=== PATIENT | male | born 1930 | race Caucasian/White ===

== ENCOUNTER 2016-03-30 11:06 | Inpatient (IN) | payer MEDICARE, OTHER ==
[~2016-03-30] VITALS: Ht 182.9 cm; Wt 89.0 kg
[~2016-03-30 11:06] MED LIST: ACET-171 PO; CALC600T12 PO; CHOL10008 PO; CYAN-2 SL; GARL500C PO; KEN1O TOP; LTRS15C EXT; OMEP20CA11 PO; PYRI60TA2 PO
[2016-03-30 11:13] VITALS: BP 133/72; PULSE 76; O2SAT 96
--- NOTE | 2016-03-30 12:15 | ED.REPORT ---
HPI-Dyspnea / Wheezing Date of Service Mar 30, 2016 ED Provider: Mathieu Brannon DO An 85 year old male with a history of Myasthenia gravis, CHF, leukemia and anemia presents to the ED complaining of SOB that began earlier today. Patient has also been experiencing increased fatigue for the past few months. Patient was recently seen at [facility] on 03/14/2016 for pneumonia. His right eyelid droop is chronic. Patient denies any recent weakness, dysphasia, dysarthria, diplopia , or any new motor deficits. Nursing Notes Stated Complaint: SOB Chief Complaint: Respiratory Distress Nursing Notes Reviewed: Yes Allergies: Coded Allergies: Penicillins (Verified Allergy, Severe, SWELLING WITH BLISTERS, 05/04/12) Sulfa (Sulfonamide Antibiotics) (Verified Allergy, Severe, RASH, 05/04/12) cedarwood (Verified Allergy, Severe, RASH, 05/04/12) ketoconazole (Verified Allergy, Severe, RASH, 05/04/12) Cephalosporins (Verified Allergy, Unknown, UNKNOWN, 05/04/12) trimethoprim (Verified Allergy, Unknown, UNKNOWN, 05/04/12) Scheduled Calcium Carbonate (Calcium) 600 Mg Tablet 600 MG PO BID Cholecalciferol (Vitamin D3) (Vitamin D3) 1,000 Unit Tab.chew 1,000 UNIT PO DAILY Cyanocobalamin (Vitamin B-12) (B-12) 1,000 Mcg/Ml Drops 1,000 MCG SL DAILY Garlic (Garlic) 500 Mg Capsule 500 MG PO DAILY Omeprazole (Omeprazole) 20 Mg Capsule.dr 20 MG PO BID Pyridostigmine Ida (Mestinon) 60 Mg Tablet 60 MG PO QID Triamcinolone Acet (Triamcinolone Acetonide Ointment) 1 Applic/0.25 Gm Oint 60 APPLIC TOP BID Scheduled PRN Acetaminophen (Acetaminophen) 500 Mg Tablet 1,000 MG PO Q6H PRN PRN For Pain Betamethasone/Clotrimazole (Lotrisone Cream) 60 Applic/15 Gm Cream 60 APPLIC EXT BID PRN PRN For Itching General Time Seen by MD: 11:31 Chief Complaint Shortness of breath Hx Obtained From: Patient Arrived By: Walk-in Sudden in Onset?: No Onset Occurred: Yesterday Symptom Duration: Since onset Location: : None Associated with: Reports: Leg swelling Pertinent Negative: Pt denies other symptoms Recent Healthcare: Recent doctor visit, Recent hospitalization Past Medical History Past Medical History 1. Myasthenia gravis 2. Lymphocytic leukemia 3. CHF 4. Leukocytosis 5. Osteopenia 6. Gynecomastia 7. Anemia 8. Refux Esophagitis 9. Hypothyroidism 10. Atrial fibrillation 11. Arthritis Past Surgical History Menisectomy Right and left shoulder impingement Blood transfusion Smoking History Former Smoker Social History Other Social History: Good social support, , Local resident Ambulatory Status Independent Review of Systems Constitutional: Reports: Fatigue, Denies: Chills, Fever, Weakness - generalized Respiratory: Reports: Dyspnea on exertion, Shortness of breath Cardiovascular: Denies: Chest pain Complete sys rev & neg: except as marked. Eyes: Denies: Blurred bilateral GI: Denies: Abdominal pain, Nausea, Vomiting Neurologic: Denies: Change LOC, Problem walking, Slurred speech, Unable to speak, Vision change, Weakness Physical Exam Initial Vital Signs Vital Signs (First) Date Time Temp Pulse Resp B/P Pulse Ox O2 Delivery O2 Flow Rate FiO2 03/30/16 11:13 36.1 76 133/72 96 Room Air Initial VS: Reviewed Skin: Warm, Dry, No cyanosis Neurologic: Alert, Oriented, Nonfocal General/Constitutional: Awake, Alert Neck: Atraumatic, Supple Respiratory / Chest: Atraumatic, Breath sounds NL, Breath sounds = bilat Cardiovascular: Heart rate NL, Regular rhythm, Heart sounds NL Abdomen: Atraumatic, Soft, Non-tender Lower Extremity / Pelvis / MS: Atraumatic, Neurologic intact, Vascular intact, No edema LOWER EXTREMITITES: Unilateral left leg swelling Head / Eyes: Atraumatic, Normocephalic HEAD/EYES: irregular right eyelid ptosis Upper Extremity / MS: Atraumatic, Neurologic intact, Vascular intact Psychiatric: Affect NL, Mood NL Interpretation & Diagnostics ANGIOGRAPHY CT with IV contrast Read by Radiology IMPRESSION: No evidence of pulmonary embolism. Small to moderate bilateral pleural effusions, with at least partially loculated appearance. Prominent mediastinal and periaortic lymphadenopathy, suspicious for metastatic involvement or lymphoma. Please correlate clinically. Additional bilateral axillary lymph nodes, more notable for number than size. Bilateral, multifocal consolidation involving the left upper lobe and right middle lobe suggesting pneumonia. Please correlate clinically and recommend CT in 3 months to exclude the possibility of underlying abnormal soft tissue/ neoplasm. Dictated by: Arvind Maradiaga M.D. on 03/30/2016 at 14:12 Lab Results Interpretation Result Diagram: 03/30/16 1200 03/30/16 1200 Test 03/30/16 12:00 03/30/16 12:56 White Blood Count 43.7th/mm3 (3.8-10.1) Red Blood Count 2.13mil/mm3 (4.40-5.80) Hemoglobin 8.0g/dL (13.8-17.2) Hematocrit 25.0% (41.0-50.0) Mean Corpuscular Volume 117.4fL (81-100) Mean Corpuscular Hemoglobin 37.6pg (27.0-35.0) Mean Corpuscular Hemoglobin Concent 32.0% (32.0-37.0) Red Cell Distribution Width 19.8% (12.3-15.4) Platelet Count 52bil/L (150-400) Neutrophils (%) (Auto) 1.0% (40-74) Lymphocytes (%) (Auto) 97.6% (14-46) Monocytes (%) (Auto) 1.3% (4-12) Eosinophils (%) (Auto) 0% (0-5) Basophils (%) (Auto) 0.1% (0-3) Prothrombin Time 11.1sec (8.1-12.5) Prothromb Time International Ratio 1.04ratio D-Dimer 2.0mg/L (<0.50) Sodium Level 139mEq/L (134-144) Potassium Level 4.6mEq/L (3.5-5.2) Chloride Level 104mEq/L (97-108) Carbon Dioxide Level 25mmol/L (18-29) Blood Urea Nitrogen 18mg/dL (8-27) Creatinine 0.63mg/dL (0.76-1.27) Estimat Glomerular Filtration Rate 129mL/min (>59) Glucose Level 99mg/dL (60-99) Calcium Level 8.7mg/dL (8.5-10.1) Magnesium Level 1.8mg/dL (1.6-2.6) Total Bilirubin 1.9mg/dL (0.0-1.2) Aspartate Amino Transf (AST/SGOT) 13U/L (0-50) Alanine Aminotransferase (ALT/SGPT) 5U/L (0-44) Alkaline Phosphatase 59U/L (25-160) Troponin T < 0.010ug/L (0.0-0.011) Pro-B-Type Natriuretic Peptide 2687pg/mL (0-486) Total Protein 6.3g/dL (6.4-8.4) Albumin 3.5g/dL (3.4-5.0) Hold Layton Top Tube Received (Received) ECG Interpretation ECG Interpretation: Atrial fibrillation Rate 70 Time: 12:09 Interpreted by: ED physician X-Ray Chest Interpretation Chest Xray Interpretation: IMPRESSION: Improved left pleural fluid. Unchanged small right pleural effusion with adjacent atelectasis. Recommend continued followup. Dictated by: Arvind Maradiaga M.D. on 03/30/2016 at 14:18 Interpretation / Wet Read by: Interpret - Radiologist Re-Eval/Medical Decision Med Decision/Clinical Course I clearly multifactorial dyspnea but there is presence of pneumonia and probably CHF with bilateral pleural effusions. Patient will be started on broad-spectrum antibiotics given recent antibiotic use as well as active present cancer. He will be admitted. Re-Evaluation/Progress #1: Time of Eval: 12:51 Patient Status: Condition improved Re-Evaluation/Progress Note: Patient is rechecked. He is informed of his lab results, EKG results and diagnosis. All of the patient's questions are addressed. He understands and agrees with the treatment plan. Re-Evaluation/Progress #2: Time of Eval: 12:56 Patient Status: Condition improved Re-Evaluation/Progress Note: Patient is rechecked. NIF Meter: NIF -34 Re-Evaluation/Progress #3: Time of Eval: 14:31 Patient Status: Condition improved Re-Evaluation/Progress Note: Patient is rechecked. All of the patient's questions are addressed. He understands and agrees with the treatment plan to admit. Re-Evaluation/Progress #4: Time of Eval: 15:54 Patient Status: Condition improved Re-Evaluation/Progress Note: Patient is rechecked. Code status is discussed. Patient would like to be full code. Consultation : Referral / Consult Name: Danette Myrick MD Consulted With: Hospitalist Call Returned at: 15:47 Pharmaceutical Salesperson: Will see patient, Agrees with eval, Agrees with plan, Accepts admit Counseled Regarding: Diagnosis, Lab results, Need for admission Discharge & Departure Impression: Primary Impression: Pneumonia Pneumonia type: due to unspecified organism Laterality: bilateral Lung location: unspecified part of lung Qualified Code: J18.9 - Pneumonia, unspecified organism Disposition: ADMITTED TO HOSPITAL Discharge Condition All VS Reviewed: Yes Condition: Stable Referrals: Lorenzo Lombardo MD (PCP) Scribe Attestation Portions of this note were transcribed by Jesús Jernigan. I, Dr. Brannon personally performed the history, physical exam and medical decision-making; I reviewed and confirmed the accuracy of the information in the transcribed note. Signed by: Jesús Jernigan, 03/30/16, 1549. copies to: Lorenzo Lombardo MD, Timothy S DO Mar 30, 2016 12:15 JESÚS JERNIGAN Mar 30, 2016 12:53
[2016-03-30 12:32] LABS: BASOPHILS % (AUTO) 0.1 % (0-3); EOSINOPHILS % (AUTO) 0 % (0-5); MONOCYTES % (AUTO) 1.3 % (4-12); Mean Corpuscular Hemoglobin 37.6 pg (27.0-35.0); Mean Corpuscular Volume 117.4 fL (81-100); Platelet Count 52 bil/L (150-400)
[2016-03-30 12:58] LABS: INR 1.04 ratio
[2016-03-30 13:08] LABS: TROPONIN T < 0.010 ug/L (0.0-0.011)
[2016-03-30 13:15] LABS: Magnesium 1.8 mg/dL (1.6-2.6)
--- NOTE | 2016-03-30 14:14 | DRSVH ---
PROCEDURE: CT ANGIO CHEST PULMONARY EMBOLISM ([id number]) INDICATIONS: dyspnea, elevated ddimer, active Cancer TECHNIQUE: After the administration of intravenous contrast, 2 mm thick sections acquired from the pulmonary api sirisha to the posterior costophrenic angles. 3-dimensional maximum intensity projection (MIP) coronal a nd sagittal reformats were then acquired through the thorax. For radiation dose reduction, the follo wing was used: automated exposure control, adjustment of mA and/or kV according to patient size. COMPARISON: [facility] [place], CT, ABD/PELVIS W/CON (PNL), 06/23/2015, 10:06. [facility], CT, CHEST WITH CONTRAST, 11/29/2011, 8:50. FINDINGS: Image quality: Excellent. Pulmonary arteries: Pulmonary arteries are normal in size, and demonstrate no intraluminal filling d efects to suggest central pulmonary embolism. Lungs and pleura: Small-moderate bilateral pleural effusions with adjacent atelectasis. The pleural f luid may be partially loculated. Multifocal consolidation within the left upper lobe. Additional cons olidation within the right middle lobe image 39. Mediastinum: Heart is enlarged. Thoracic aorta and great vessels grossly unremarkable. Enlarged subca rinal lymph node measuring 2.5 x 2.8 cm. Additional enlarged right hilar and mediastinal lymphadenopa thy. There are right para-aortic lymph nodes which are also mildly enlarged. Bones and chest wall: Thyroid unremarkable. Shotty bilateral axillary lymph nodes, more notable for n umber than size. Abdomen: Visualized upper abdominal solid organs appear normal in the early arterial phase of enhanc ement. Subcentimeter scattered sclerotic foci in the thoracic spine, technically indeterminate. IMPRESSION: No evidence of pulmonary embolism. Small to moderate bilateral pleural effusions, with at least partially loculated appearance. Prominent mediastinal and periaortic lymphadenopathy, suspicious for metastatic involvement or lympho ma. Please correlate clinically. Additional bilateral axillary lymph nodes, more notable for number t polo size. Bilateral, multifocal consolidation involving the left upper lobe and right middle lobe suggesting pn eumonia. Please correlate clinically and recommend CT in 3 months to exclude the possibility of under lying abnormal soft tissue/neoplasm. Dictated by: Arvind Maradiaga M.D. on 03/30/2016 at 14:12 Approved by: Arvind Maradiaga M.D. on 03/30/2016 at 14:12
--- NOTE | 2016-03-30 14:20 | DRSVH ---
PROCEDURE: X-RAY CHEST ONE VIEW, PORTABLE ([id number]) INDICATIONS: dyspnea TECHNIQUE: One view of the chest was acquired. COMPARISON: [facility], CR, XR CHEST 2VW, 03/19/2016, 11:38. FINDINGS: Surgical changes and devices: None. Lungs and pleura: Small left pleural effusion has improved. Unchanged right pleural effusion. No pneu mothorax. Diffuse scarring/atelectasis as before. Mediastinum: Mediastinal contours appear normal. Heart size is normal. Bones and chest wall: No suspicious bony lesions. Overlying soft tissues appear unremarkable. IMPRESSION: Improved left pleural fluid. Unchanged small right pleural effusion with adjacent atelectasis. Recommend continued followup. Dictated by: Arvind Maradiaga M.D. on 03/30/2016 at 14:18 Approved by: Arvind Maradiaga M.D. on 03/30/2016 at 14:18
[2016-03-30] MEDS ORDERED: levoFLOXacin Inj 750 MG in IV Premix 1 EACH IV ONE (14:35)
[2016-03-30] MEDS ORDERED: Meropenem Inj 1,000 MG in IV Premix 1 EACH IV ONE (14:35)
[2016-03-30] MEDS ORDERED: Alum-Mag Hydrox-Simeth 30 mL Suspension PO PRN (16:00)
[2016-03-30] MEDS ORDERED: Ondansetron 2 mg/mL 2 mL Inj IVPUSH PRN (16:00)
[2016-03-30 16:30] VITALS: BP 161/76; PULSE 77; RESP 18; O2SAT 95
[2016-03-30 17:23] LABS: APPEARANCE,URINE CLEAR (CLEAR,HAZY); COLOR,URINE YELLOW (YELLOW); OCCULT BLOOD,URINE TRACE (NEGATIVE); PH,URINE 6.5 (5.0-8.0); UROBILINOGEN,URINE NORMAL (NORMAL)
[2016-03-30] MEDS ORDERED: Polyethylene Glycol (PEG) 17 Gm Powder PO PRN (18:50)
[2016-03-30] MEDS ORDERED: Furosemide 10 mg/mL 2 mL Inj IVPUSH ONE (19:05)
--- NOTE | 2016-03-30 19:07 | PCM.HPMED ---
Subjective Date of Service Mar 30, 2016 Primary Provider: Admitting Physician: Danette Myrick MD Primary Care Physician: Lorenzo Lombardo MD Attending Physician: Danette Myrick MD Admit Status: From the Emergency Department Chief Complaint: Shortness of breath beginning yesterday and becoming quite severe today. History of Present Illness: This is a chronically ill 85-year-old male who last was treated for pneumonia about 3 weeks ago at [facility] on an outpatient basis. He apparently did well until yesterday when he noticed mild shortness of breath and then this morning it became quite disturbing. There is been no fever, chills, sweats, chest pain. He does have a mild cough. He has a history of CLL with chronically elevated white blood count and hemoglobin last measured at 7.8. His hemoglobin today is 8.0 and his BNP is above 2600. He also has myasthenia gravis apparently only with the ocular component. His only additional complaint is progressive fatigue now for several months. Review of Systems: Positive for shortness of breath, fatigue, cough, hearing loss. Negative for chest pain, joint pain, nausea, vomiting, diarrhea, bleeding, rash, seizures, headache, depression, new allergies, abdominal pain. Allergies Coded Allergies: Penicillins (Verified Allergy, Severe, SWELLING WITH BLISTERS, 05/04/12) Sulfa (Sulfonamide Antibiotics) (Verified Allergy, Severe, RASH, 05/04/12) cedarwood (Verified Allergy, Severe, RASH, 05/04/12) ketoconazole (Verified Allergy, Severe, RASH, 05/04/12) Cephalosporins (Verified Allergy, Unknown, UNKNOWN, 05/04/12) trimethoprim (Verified Allergy, Unknown, UNKNOWN, 05/04/12) Home Medications Mestinon PMH Congestive heart failure Hypothyroidism Chronic anemia of CLL Myasthenia gravis ocular Chronic lymphocytic leukemia Recurrent pneumonia Family History Reviewed and noncontributory to this admission. Social History Hx Alcohol Use: No Hx Substance Use: No Smoking Status: Former Smoker Additional Information His physician is Dr. Eric Oh. His oncologist is Dr. Gama. Exam Vital Signs Vital Sign - Last Date Time Temp Pulse Resp B/P Pulse Ox O2 Delivery O2 Flow Rate FiO2 03/30/16 16:30 36.5 77 18 161/76 95 Room Air Exam He is alert and oriented without apparent distress. He is hard of hearing. Pupils are equally round and reactive to light and accommodation Extraocular muscles are intact Sclera are pink and nonicteric Throat looks normal No lymph nodes are felt head, neck, supraclavicular area No thyromegaly JVD is less than 6 cm There is no carotid bruits heard Heart is regular rate and rhythm without murmur Lungs are clear to auscultation bilaterally Abdomen soft bowel sounds are positive without organomegaly or tenderness. There is no ankle edema Skin he is bald. There are multiple bruises and discoloration of his ankles. Neuro exam notable for normal reflexes, no tremor, cranial nerves II through XII tested intact, motor function 4 out of 5 throughout. Lab and Diagnostics Labs Laboratory Tests 72 Hours Test 03/30/16 12:00 03/30/16 12:56 03/30/16 16:30 White Blood Count 43.7th/mm3 (3.8-10.1) Red Blood Count 2.13mil/mm3 (4.40-5.80) Hemoglobin 8.0g/dL (13.8-17.2) Hematocrit 25.0% (41.0-50.0) Mean Corpuscular Volume 117.4fL (81-100) Mean Corpuscular Hemoglobin 37.6pg (27.0-35.0) Mean Corpuscular Hemoglobin Concent 32.0% (32.0-37.0) Red Cell Distribution Width 19.8% (12.3-15.4) Platelet Count 52bil/L (150-400) Neutrophils (%) (Auto) 1.0% (40-74) Lymphocytes (%) (Auto) 97.6% (14-46) Monocytes (%) (Auto) 1.3% (4-12) Eosinophils (%) (Auto) 0% (0-5) Basophils (%) (Auto) 0.1% (0-3) Prothrombin Time 11.1sec (8.1-12.5) Prothromb Time International Ratio 1.04ratio D-Dimer 2.0mg/L (<0.50) Sodium Level 139mEq/L (134-144) Potassium Level 4.6mEq/L (3.5-5.2) Chloride Level 104mEq/L (97-108) Carbon Dioxide Level 25mmol/L (18-29) Blood Urea Nitrogen 18mg/dL (8-27) Creatinine 0.63mg/dL (0.76-1.27) Estimat Glomerular Filtration Rate 129mL/min (>59) Glucose Level 99mg/dL (60-99) Calcium Level 8.7mg/dL (8.5-10.1) Magnesium Level 1.8mg/dL (1.6-2.6) Total Bilirubin 1.9mg/dL (0.0-1.2) Aspartate Amino Transf (AST/SGOT) 13U/L (0-50) Alanine Aminotransferase (ALT/SGPT) 5U/L (0-44) Alkaline Phosphatase 59U/L (25-160) Troponin T < 0.010ug/L (0.0-0.011) Pro-B-Type Natriuretic Peptide 2687pg/mL (0-486) Total Protein 6.3g/dL (6.4-8.4) Albumin 3.5g/dL (3.4-5.0) Hold Layton Top Tube Received (Received) Urine Color Yellow (YELLOW) Urine Appearance Clear (CLEAR,HAZY) Urine pH 6.5 (5.0-8.0) Urine Specific [place] 1.010 (1.003-1.035) Urine Protein Negativemg/dL (NEG,TRACE) Urine Glucose (UA) Negativemg/dL (NEGATIVE) Urine Ketones Negativemg/dL (NEGATIVE) Urine Occult Blood Trace (NEGATIVE) Urine Nitrite Negative (NEGATIVE) Urine Bilirubin Negative (NEGATIVE) Urine Urobilinogen Normalmg/dL (NORMAL) Urine Leukocyte Esterase Negative (NEGATIVE) Urine RBC 0-2/hpf (0-2) Urine WBC 0-5/hpf (0-5) Urine Epithelial Cells Few/hpf (NONE-MOD) Urine Crystals None seen (NONE SEEN) Urine Bacteria Few/hpf (NONE-FEW) Urine Hyaline Casts None/lpf (NONE) Urine Granular Casts None seen (NONE SEEN) Urine Waxy Casts None seen (NONE SEEN) Urine Red Blood Cell Casts None seen (NONE SEEN) Urine White Blood Cell Casts None seen (NONE SEEN) Urine Mucus None seen (None Seen) Urine Trichomonas None seen (NONE SEEN) Urine Yeast None (NONE SEEN) Urinalysis Comment None Urine Culture Reflexed Not indicated Result Diagram: 03/30/16 1200 03/30/16 1200 X-Rays, CTs and MRIs CT ANGIO CHEST PULMONARY EMBOLISM ([id number]) INDICATIONS: dyspnea, elevated ddimer, active Cancer TECHNIQUE: After the administration of intravenous contrast, 2 mm thick sections acquired from the pulmonary apices to the posterior costophrenic angles. 3-dimensional maximum intensity projection (MIP) coronal and sagittal reformats were then acquired through the thorax. For radiation dose reduction, the following was used: automated exposure control, adjustment of mA and/or kV according to patient size. COMPARISON: [facility], CT, ABD/PELVIS W/CON (PNL), 06/23/2015, 10: 06. [facility], CT, CHEST WITH CONTRAST, 11/29/2011, 8:50. FINDINGS: Image quality: Excellent. Pulmonary arteries: Pulmonary arteries are normal in size, and demonstrate no intraluminal filling defects to suggest central pulmonary embolism. Lungs and pleura: Small-moderate bilateral pleural effusions with adjacent atelectasis. The pleural fluid may be partially loculated. Multifocal consolidation within the left upper lobe. Additional consolidation within the right middle lobe image 39. Mediastinum: Heart is enlarged. Thoracic aorta and great vessels grossly unremarkable. Enlarged subcarinal lymph node measuring 2.5 x 2.8 cm. Additional enlarged right hilar and mediastinal lymphadenopathy. There are right para- aortic lymph nodes which are also mildly enlarged. Bones and chest wall: Thyroid unremarkable. Shotty bilateral axillary lymph nodes, more notable for number than size. Abdomen: Visualized upper abdominal solid organs appear normal in the early arterial phase of enhancement. Subcentimeter scattered sclerotic foci in the thoracic spine, technically indeterminate. IMPRESSION: No evidence of pulmonary embolism. Small to moderate bilateral pleural effusions, with at least partially loculated appearance. Prominent mediastinal and periaortic lymphadenopathy, suspicious for metastatic involvement or lymphoma. Please correlate clinically. Additional bilateral axillary lymph nodes, more notable for number than size. Bilateral, multifocal consolidation involving the left upper lobe and right middle lobe suggesting pneumonia. Please correlate clinically and recommend CT in 3 months to exclude the possibility of underlying abnormal soft tissue/ neoplasm. Dictated by: Arvind Maradiaga M.D. on 03/30/2016 at 14:12 Approved by: Arvind Maradiaga M.D. on 03/30/2016 at 14:12 Additional Diagnostics: X-RAY CHEST ONE VIEW, PORTABLE ([id number]) INDICATIONS: dyspnea TECHNIQUE: One view of the chest was acquired. COMPARISON: [facility], CR, XR CHEST 2VW, 03/19/2016, 11:38. FINDINGS: Surgical changes and devices: None. Lungs and pleura: Small left pleural effusion has improved. Unchanged right pleural effusion. No pneumothorax. Diffuse scarring/atelectasis as before. Mediastinum: Mediastinal contours appear normal. Heart size is normal. Bones and chest wall: No suspicious bony lesions. Overlying soft tissues appear unremarkable. IMPRESSION: Improved left pleural fluid. Unchanged small right pleural effusion with adjacent atelectasis. Recommend continued followup. Dictated by: Arvind Maradiaga M.D. on 03/30/2016 at 14:18 Approved by: Arvind Maradiaga M.D. on 03/30/2016 at 14:18 Assessment & Plan Multifocal pneumonia -Continue triple coverage with vancomycin, Levaquin, ertapenem due to immunosuppression and recurrent pneumonia status. This will cover for potential of MRSA, pseudomonas, pneumococcal pneumonia. -Consider follow-up CT scan, to clarify possibility of neoplastic causes for the lung changes. Chronic lymphocytic leukemia -History follow up with Dr. Art in 2 days. -He has obvious thrombocytopenia, chronic anemia, leukocytosis, presumably close to baseline. Congestive heart failure -The BNP is elevated, and there is a pleural effusion. -Give Lasix tonight and recheck in the morning. -Repeat echocardiogram if not done recently. Ocular myasthenia gravis -Continue Mestinon at home doses. 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
--- NOTE | 2016-03-30 20:00 | NUR ---
Admission note Pt oriented to room/call light. He understands to call the nurse for any question or assistance. Pt has minimal cough. No noted dyspnea. Receiving IV abx for pneumonia. Reviewed care plan with pt and family members. Will cont to monitor.
[2016-03-30 21:36] VITALS: BP 140/62; PULSE 81; RESP 18; O2SAT 92
--- NOTE | 2016-03-30 21:36 | PCM.CONPHA ---
Subjective Shortness of breath beginning yesterday and becoming quite severe today. Objective Vital Signs Date Time Temp Pulse Resp B/P Pulse Ox O2 Delivery O2 Flow Rate FiO2 03/30/16 16:30 36.5 77 18 161/76 95 Room Air 03/30/16 11:13 36.1 76 133/72 96 Room Air Weight (Kilograms): 89.500 Height (Feet): 6 Height (Inches): 0.00 Test 03/30/16 12:00 03/30/16 12:56 03/30/16 16:30 White Blood Count 43.7th/mm3 (3.8-10.1) Red Blood Count 2.13mil/mm3 (4.40-5.80) Hemoglobin 8.0g/dL (13.8-17.2) Hematocrit 25.0% (41.0-50.0) Mean Corpuscular Volume 117.4fL (81-100) Mean Corpuscular Hemoglobin 37.6pg (27.0-35.0) Mean Corpuscular Hemoglobin Concent 32.0% (32.0-37.0) Red Cell Distribution Width 19.8% (12.3-15.4) Platelet Count 52bil/L (150-400) Neutrophils (%) (Auto) 1.0% (40-74) Lymphocytes (%) (Auto) 97.6% (14-46) Monocytes (%) (Auto) 1.3% (4-12) Eosinophils (%) (Auto) 0% (0-5) Basophils (%) (Auto) 0.1% (0-3) Prothrombin Time 11.1sec (8.1-12.5) Prothromb Time International Ratio 1.04ratio D-Dimer 2.0mg/L (<0.50) Sodium Level 139mEq/L (134-144) Potassium Level 4.6mEq/L (3.5-5.2) Chloride Level 104mEq/L (97-108) Carbon Dioxide Level 25mmol/L (18-29) Blood Urea Nitrogen 18mg/dL (8-27) Creatinine 0.63mg/dL (0.76-1.27) Estimat Glomerular Filtration Rate 129mL/min (>59) Glucose Level 99mg/dL (60-99) Calcium Level 8.7mg/dL (8.5-10.1) Magnesium Level 1.8mg/dL (1.6-2.6) Total Bilirubin 1.9mg/dL (0.0-1.2) Aspartate Amino Transf (AST/SGOT) 13U/L (0-50) Alanine Aminotransferase (ALT/SGPT) 5U/L (0-44) Alkaline Phosphatase 59U/L (25-160) Troponin T < 0.010ug/L (0.0-0.011) Pro-B-Type Natriuretic Peptide 2687pg/mL (0-486) Total Protein 6.3g/dL (6.4-8.4) Albumin 3.5g/dL (3.4-5.0) Hold [place] Top Tube Received (Received) Urine Color Yellow (YELLOW) Urine Appearance Clear (CLEAR,HAZY) Urine pH 6.5 (5.0-8.0) Urine Specific [place] 1.010 (1.003-1.035) Urine Protein Negativemg/dL (NEG,TRACE) Urine Glucose (UA) Negativemg/dL (NEGATIVE) Urine Ketones Negativemg/dL (NEGATIVE) Urine Occult Blood Trace (NEGATIVE) Urine Nitrite Negative (NEGATIVE) Urine Bilirubin Negative (NEGATIVE) Urine Urobilinogen Normalmg/dL (NORMAL) Urine Leukocyte Esterase Negative (NEGATIVE) Urine RBC 0-2/hpf (0-2) Urine WBC 0-5/hpf (0-5) Urine Epithelial Cells Few/hpf (NONE-MOD) Urine Crystals None seen (NONE SEEN) Urine Bacteria Few/hpf (NONE-FEW) Urine Hyaline Casts None/lpf (NONE) Urine Granular Casts None seen (NONE SEEN) Urine Waxy Casts None seen (NONE SEEN) Urine Red Blood Cell Casts None seen (NONE SEEN) Urine White Blood Cell Casts None seen (NONE SEEN) Urine Mucus None seen (None Seen) Urine Trichomonas None seen (NONE SEEN) Urine Yeast None (NONE SEEN) Urinalysis Comment None Urine Culture Reflexed Not indicated Assessment/Plan Assessment/Plan VANCOMYCIN DOSING PER PHARMACY THE PATIENT IS AN 85 YR OLD MALE RECEIVING VANCOMYCIN FOR PNEUMONIA; HE IS ALSO RECEIVING LEVAQUIN AND ERTAPENEM. HIS WHITE COUNT IS ELEVATED AT 43.7 BUT HE IS NOT FEBRILE OR SHOCKY . HE IS 72 INCHES TALL WITH A S CR OF 0.63 MG/DL AND ESTIMATED CRCL OF 77 ML/MIN. BASED ON PATIENT PARAMETERS VANCOMYCIN WILL BE DOSED AT 1500 MG EVERY 12 HOURS ( HE WAS GIVEN A DOSE OF 1250 MG ORDERED IN ED WHEN ARRIVED OF THE FLOOR) THE TARGET TROUGH IS TO BE 15-20 MCG/ML AND THE FIRST ONE WILL BE DRAWN PRIOR TO THE FOURTH DOSE ON 09 AT 0730. PHARMACY WILL FOLLOW DAILY AND ADJUST DOSE AND INTERVAL APPROPRIATE. THANK YOU FOR THE CONSULT IN THE CARE OF THIS PATIENT. Tameka Reagan RPH Mar 30, 2016 21:36
[2016-03-31 04:46] VITALS: BP 138/52; PULSE 84; RESP 16; O2SAT 93
[2016-03-31 06:12] LABS: BASOPHILS % (AUTO) 0 % (0-3); EOSINOPHILS % (AUTO) 0 % (0-5); MONOCYTES % (AUTO) 0 % (4-12); Mean Corpuscular Hemoglobin 38.1 pg (27.0-35.0); Mean Corpuscular Volume 115.2 fL (81-100); NEUTROPHILS % (AUTO) 2 % (40-74); Platelet Count 55 bil/L (150-400)
[2016-03-31] MEDS: Calcium Carbonate (Oyster Shell) 500 mg Tablet PO SCH ×2 (08:11→17:59)
[2016-03-31] MEDS: Ertapenem Inj 1,000 MG in 0.9% Sodium Chloride 50 ML IV SCH (08:12)
[2016-03-31] MEDS ORDERED: Influenza (Adult) Vaccine 0.5 mL Syringe IM ONE (08:30)
[2016-03-31] MEDS: Vancomycin Dose per Pharmacist XX SCH (08:30)
[2016-03-31] MEDS ORDERED: CYAN10008 PO (08:34)
[2016-03-31 10:20] VITALS: BP 140/76; PULSE 84; RESP 20; O2SAT 93
--- NOTE | 2016-03-31 11:12 | NUR ---
emesis Pt while in bathroom had one episode of emesis (undigested food) which he states "my breakfast just didn't agree with me". Denies any further nausea or need for antiemetic when offered. Pt reports SOB with exertion, O2 sats remain 93% on room air. Pt sitting in chair most of morning and SBA to bathroom and around room, steady gait. Pt states "It's a little easier to breathe when sitting up." IV antibiotics hung per orders. Call light in reach. Frequent rounding on pt. Care continues. Addendum: 03/31/16 at 1805 by JANINE ANDINO RN Denies any further nausea today. Tolerated lunch without difficulty and eating dinner now. Will continue to monitor. Call light in reach, frequent rounding. Care continues. Addendum: 03/31/16 at 1931 by JANINE ANDINO RN Call from medical office secretary stating family reported pt having SOB. Went to room to assess pt, pt slightly tachypneic but denies increase in SOB at this time. RR 24, O2 sats 98% on room air, report to oncoming shift RN Jessy at 1920. Care continues.
[2016-03-31] MEDS: levoFLOXacin Inj 750 MG in IV Premix 1 EACH IV SCH (14:02)
[2016-03-31 14:11] VITALS: BP 132/63; PULSE 70; RESP 21; O2SAT 91
--- NOTE | 2016-03-31 17:40 | PCM.PNMED ---
Subjective Date of Service Mar 31, 2016 Subjective says starting to feel better. denies any new issues/complaints Exam Vital Signs Vital Sign - Last Date Time Temp Pulse Resp B/P Pulse Ox O2 Delivery O2 Flow Rate FiO2 03/31/16 14:11 36.4 70 21 132/63 91 Room Air Intake and Output 03/30/16 03/30/16 03/31/16 Cumulative From/Thru 15:00 23:00 07:00 03/30/16 11:13 - 03/31/16 06:21 Intake Total 400 ml 400 ml Output Total 1150 ml 825 ml 1975 ml Balance -1150 ml -425 ml -1575 ml Intake Oral 400 ml 400 ml Output Urine Total 1150 ml 825 ml 1975 ml General: Alert, Cooperative, No Acute Distress Eyes: Scleral Anicteric Mouth: Mucous Membr Moist/[place] Neck: Supple Chest & Lungs: Chest Wall Normal, Coarse breath sounds (bilat) Cardiovascular: Regular Rate/Rhythm Abdomen: Non-tender, Non-distended, Normoactive bowel tones, Soft Extremities: No cyanosis/clubbing/edma bilat Neurological: Grossly Neurologically Intact, Normal Speech IVs and Medications Medications Reviewed: Medications were reviewed in detail Lab and Diagnostics Result Diagram: 03/31/16 0532 03/31/16 0532 X-Rays, CTs and MRIs CT ANGIO CHEST PULMONARY EMBOLISM ([id number]) INDICATIONS: dyspnea, elevated ddimer, active Cancer TECHNIQUE: After the administration of intravenous contrast, 2 mm thick sections acquired from the pulmonary apices to the posterior costophrenic angles. 3-dimensional maximum intensity projection (MIP) coronal and sagittal reformats were then acquired through the thorax. For radiation dose reduction, the following was used: automated exposure control, adjustment of mA and/or kV according to patient size. COMPARISON: [facility], CT, ABD/PELVIS W/CON (PNL), 06/23/2015, 10: 06. [facility], CT, CHEST WITH CONTRAST, 11/29/2011, 8:50. FINDINGS: Image quality: Excellent. Pulmonary arteries: Pulmonary arteries are normal in size, and demonstrate no intraluminal filling defects to suggest central pulmonary embolism. Lungs and pleura: Small-moderate bilateral pleural effusions with adjacent atelectasis. The pleural fluid may be partially loculated. Multifocal consolidation within the left upper lobe. Additional consolidation within the right middle lobe image 39. Mediastinum: Heart is enlarged. Thoracic aorta and great vessels grossly unremarkable. Enlarged subcarinal lymph node measuring 2.5 x 2.8 cm. Additional enlarged right hilar and mediastinal lymphadenopathy. There are right para- aortic lymph nodes which are also mildly enlarged. Bones and chest wall: Thyroid unremarkable. Shotty bilateral axillary lymph nodes, more notable for number than size. Abdomen: Visualized upper abdominal solid organs appear normal in the early arterial phase of enhancement. Subcentimeter scattered sclerotic foci in the thoracic spine, technically indeterminate. IMPRESSION: No evidence of pulmonary embolism. Small to moderate bilateral pleural effusions, with at least partially loculated appearance. Prominent mediastinal and periaortic lymphadenopathy, suspicious for metastatic involvement or lymphoma. Please correlate clinically. Additional bilateral axillary lymph nodes, more notable for number than size. Bilateral, multifocal consolidation involving the left upper lobe and right middle lobe suggesting pneumonia. Please correlate clinically and recommend CT in 3 months to exclude the possibility of underlying abnormal soft tissue/ neoplasm. Dictated by: Arvind Maradiaga M.D. on 03/30/2016 at 14:12 Approved by: Arvind Maradiaga M.D. on 03/30/2016 at 14:12 Additional Diagnostics X-RAY CHEST ONE VIEW, PORTABLE ([id number]) INDICATIONS: dyspnea TECHNIQUE: One view of the chest was acquired. COMPARISON: [facility], , XR CHEST 2VW, 03/19/2016, 11:38. FINDINGS: Surgical changes and devices: None. Lungs and pleura: Small left pleural effusion has improved. Unchanged right pleural effusion. No pneumothorax. Diffuse scarring/atelectasis as before. Mediastinum: Mediastinal contours appear normal. Heart size is normal. Bones and chest wall: No suspicious bony lesions. Overlying soft tissues appear unremarkable. IMPRESSION: Improved left pleural fluid. Unchanged small right pleural effusion with adjacent atelectasis. Recommend continued followup. Dictated by: Arvind Maradiaga M.D. on 03/30/2016 at 14:18 Approved by: Arvind Maradiaga M.D. on 03/30/2016 at 14:18 Assessment & Plan 85-year-old male with past medical history of Congestive heart failure, Hypothyroidism, Chronic anemia of CLL, Myasthenia gravis ocular, Chronic lymphocytic leukemia and Recurrent pneumonia who last was treated for pneumonia about 3 weeks ago at [facility] on an outpatient basis. He apparently did well until yesterday when he noticed mild shortness of breath and then this morning it became quite disturbing. # Acute Multifocal pneumonia. poa - procalcitonin negative - respiratory PCR negative - Continue triple coverage with vancomycin, Levaquin, ertapenem due to immunosuppression and recurrent pneumonia status. - ID consult for further recs regarding Abx choice - Consider follow-up CT scan, to clarify possibility of neoplastic causes for the lung changes. # Chronic lymphocytic leukemia - Will discuss with his oncologist (Dr. Gama) tomorrow - He has obvious thrombocytopenia, chronic anemia, leukocytosis, presumably close to baseline. # History of Congestive heart failure. appears stable - Hold further Lasix for now - Repeat echocardiogram (last done in 2011) # Ocular myasthenia gravis -Continue Mestinon at home doses. # History of hypothyroidism - c/w home Synthroid dose Dispo: 2-3 days VTE Mechanical Devices: Intermittant Pneumatic CD Time spent 35 min José Leblanc Mar 31, 2016 17:40
[2016-03-31 18:27] VITALS: BP 136/68; PULSE 81; RESP 22; O2SAT 94
[2016-03-31 19:00] VITALS: RESP 24; O2SAT 98
[2016-03-31 20:55] VITALS: BP 142/69; PULSE 79; RESP 18; O2SAT 95
[2016-04-01 05:21] VITALS: BP 139/72; PULSE 90; RESP 16; O2SAT 95
[2016-04-01 05:38] LABS: BASOPHILS % (AUTO) 0.1 % (0-3); EOSINOPHILS % (AUTO) 0 % (0-5); MONOCYTES % (AUTO) 1.1 % (4-12); Mean Corpuscular Hemoglobin 37.8 pg (27.0-35.0); Mean Corpuscular Volume 112.9 fL (81-100); NEUTROPHILS % (AUTO) 1.3 % (40-74); Platelet Count 48 bil/L (150-400)
[2016-04-01] MEDS ORDERED: Vancomycin Serum Trough XX ONE (07:30)
[2016-04-01] MEDS: Vancomycin Dose per Pharmacist XX SCH (08:30)
[2016-04-01] MEDS: Calcium Carbonate (Oyster Shell) 500 mg Tablet PO SCH ×2 (09:04→17:43)
[2016-04-01] MEDS: Ertapenem Inj 1,000 MG in 0.9% Sodium Chloride 50 ML IV SCH (09:07)
--- NOTE | 2016-04-01 11:37 | PCM.PHAPRO ---
Progress Vancomycin Management: -trough level this morning is 15.9 on current regimen of Vancomycin 1.5gm iv [id number]. Will continue and follow Mily York [facility] Apr 01, 2016 11:37
[2016-04-01] MEDS ORDERED: 0.9% Sodium Chloride 250 ML ONE (13:46)
[2016-04-01 14:12] VITALS: BP 132/72; PULSE 72; RESP 16
[2016-04-01 14:30] VITALS: BP 119/60; PULSE 80; RESP 16
--- NOTE | 2016-04-01 14:41 | PROG NOTE ---
[address] [address] PROGRESS NOTE PATIENT: LADONNA ROMEO : 1930 MR#: [id number] ADMIT: 03/30/2016 JOB ID: [id number] DATE: 04/01/2016 SUBJECTIVE: The patient is an 85-year-old gentleman with a history of ocular myasthenia gravis and chronic lymphocytic leukemia, without recent hypogammaglobulinemia. White blood cell count over the past year has ranged between 37.7 and 51.6 with about 95% lymphocytes. Associated with this, he has been anemic, with typical hematocrit around 25% to 30%. He was brought to the emergency department on March 30, 2016, with increased shortness of breath and fatigue. CT angiography of the chest showed no evidence of pulmonary embolism, but he had prominent mediastinal and periaortic lymphadenopathy, as well as small to moderate bilateral pleural effusions. There was consolidation in the left upper and right middle lungs suggesting pneumonia. He is on antibiotic coverage with Levaquin 750 mg IV daily and ertapenem 1000 mg IV daily and vancomycin 1500 mg IV every 12 hours. He has been afebrile. He still feels weak. He has dyspnea with minimal exertion, but overall feels his breathing has improved slightly since admission. OBJECTIVE: Vitals: T 36.6, P 90, R 16, BP 139/72. HEENT: Conjunctivae slightly pale. Mucous membranes somewhat dry. No oral lesions. Nodes: Shotty lymphadenopathy in the neck and axilla. Chest; Decreased at the bases bilaterally, a few scattered crackles. Cardiac exam: Regular rate and rhythm with occasional ectopic beat. Normal S1, S2. No murmurs, rubs, or gallops appreciated. Abdomen: Soft, nontender, with normoactive bowel tones. No palpable splenomegaly or masses. Extremities: Trace pedal edema, 2+ distal pulses. No calf tenderness. LABORATORIES: WBC 46.2 with 97.5% lymphocytes, 1.3%, neutrophils, 1.1% monocytes, hemoglobin 7.9, hematocrit 23.6%, MCV 112.9, platelets 48,000. ASSESSMENT AND PLAN: Chronic lymphocytic leukemia/small lymphocytic lymphoma: White blood cell count has been elevated between 37.7 and 51.6 over the course of the past year, typically around 95% to 97% lymphocytes. This makes him relatively neutropenic. He does not have any significant recent hypogammaglobulinemia. Agree with broad-spectrum antibiotic coverage while we await further evaluation of his pneumonia. Dr. Wilfredo Sheikh from Infectious Disease is slated to see the patient later today. As for the patient's underlying chronic lymphocytic leukemia, with worsening symptomatic cytopenias, and progressive chest lymphadenopathy, consider treatment with either bendamustine plus Rituxan intravenously, or with oral ibrutinib in the outpatient setting. However, recommend management of his active infectious process prior to any further chemotherapy. In addition, given his symptomatic anemia, recommend transfusion with 1 unit packed red blood cells after premedication with Tylenol 650 mg by mouth and hydrocortisone 50 mg IV. Thank you for allowing us to participate in your patient's care. KALEN
--- NOTE | 2016-04-01 15:20 | NUR ---
Social Work Initial Assessment: SW met with patient and at bedside to discuss discharge plan. Patient verified name, address, and contact information. Patient is a 85 year old male admitted on 03/30/16 for pneumonia. Patient resides in [facility] with who provides support and care. Patient resides in a 2 story home with 14 stairs in home. Patient and states home is wheelchair accessible and has grab bars where needed. Patient states being independent with needs and states that he still drives. Patient states payer as Medicare and [employer]. Patient states having no correction disability. Patient states PCP as MD Lombardo. Patient states pharmacy of choice as [facility]. Patient has no previous HHC, SNF or DME history. Patient states having AD and was encouraged to bring into hospital. SW discussed HHC options with patient. Patient states having no identified discharge needs nor need for HHC at this time. SW discussed possible CHF clinic referral. Patient and states being in agreement to referral. SW notified MD via txtpage for referral order for CHF clinic. No other needs identified. SW to follow. PLAN: Home with via POV, pending clinical course. Denied HHC referral. Open to CHF clinic referral upon discharge. JACK to follow. Sami GOLDSMITH Addendum: 04/01/16 at 1531 by YAMILETH ZARAGOZA Amended: Links added.
[2016-04-01 15:52] VITALS: BP 138/71; PULSE 71; RESP 16; O2SAT 94
--- NOTE | 2016-04-01 16:41 | PCM.PNMED ---
Subjective Date of Service Apr 01, 2016 Subjective denies any new issues/complaints. reports continued SOB Exam Vital Signs Vital Sign - Last Date Time Temp Pulse Resp B/P Pulse Ox O2 Delivery O2 Flow Rate FiO2 04/01/16 15:52 36.5 71 16 138/71 94 Room Air Intake and Output 03/31/16 03/31/16 04/01/16 Cumulative From/Thru 15:00 23:00 07:00 03/30/16 11:13 - 04/01/16 05:21 Intake Total 571 ml 1957 ml 400 ml 3328 ml Output Total 125 ml 600 ml 2700 ml Balance 571 ml 1832 ml -200 ml 628 ml Intake Oral 1806 ml 400 ml 2606 ml IV Total 571 ml 151 ml 722 ml Output Urine Total 125 ml 600 ml 2700 ml # Voids 4 4 # Bowel Movements 0 0 Exam General: Alert, Cooperative, No Acute Distress Eyes: Scleral Anicteric Mouth: Mucous Membr Moist/[place] Neck: Supple Chest & Lungs: Chest Wall Normal, Coarse breath sounds (bilat) Cardiovascular: Regular Rate/Rhythm Abdomen: Non-tender, Non-distended, Normoactive bowel tones, Soft Extremities: No cyanosis/clubbing/edema bilat Neurological: Grossly Neurologically Intact, Normal Speech IVs and Medications Medications Reviewed: Medications were reviewed in detail Lab and Diagnostics Result Diagram: 04/01/1651404/01/16514 X-Rays, CTs and MRIs CT ANGIO CHEST PULMONARY EMBOLISM ([id number]) INDICATIONS: dyspnea, elevated ddimer, active Cancer TECHNIQUE: After the administration of intravenous contrast, 2 mm thick sections acquired from the pulmonary apices to the posterior costophrenic angles. 3-dimensional maximum intensity projection (MIP) coronal and sagittal reformats were then acquired through the thorax. For radiation dose reduction, the following was used: automated exposure control, adjustment of mA and/or kV according to patient size. COMPARISON: [facility], CT, ABD/PELVIS W/CON (PNL), 06/23/2015, 10: 06. [facility], CT, CHEST WITH CONTRAST, 11/29/2011, 8:50. FINDINGS: Image quality: Excellent. Pulmonary arteries: Pulmonary arteries are normal in size, and demonstrate no intraluminal filling defects to suggest central pulmonary embolism. Lungs and pleura: Small-moderate bilateral pleural effusions with adjacent atelectasis. The pleural fluid may be partially loculated. Multifocal consolidation within the left upper lobe. Additional consolidation within the right middle lobe image 39. Mediastinum: Heart is enlarged. Thoracic aorta and great vessels grossly unremarkable. Enlarged subcarinal lymph node measuring 2.5 x 2.8 cm. Additional enlarged right hilar and mediastinal lymphadenopathy. There are right para- aortic lymph nodes which are also mildly enlarged. Bones and chest wall: Thyroid unremarkable. Shotty bilateral axillary lymph nodes, more notable for number than size. Abdomen: Visualized upper abdominal solid organs appear normal in the early arterial phase of enhancement. Subcentimeter scattered sclerotic foci in the thoracic spine, technically indeterminate. IMPRESSION: No evidence of pulmonary embolism. Small to moderate bilateral pleural effusions, with at least partially loculated appearance. Prominent mediastinal and periaortic lymphadenopathy, suspicious for metastatic involvement or lymphoma. Please correlate clinically. Additional bilateral axillary lymph nodes, more notable for number than size. Bilateral, multifocal consolidation involving the left upper lobe and right middle lobe suggesting pneumonia. Please correlate clinically and recommend CT in 3 months to exclude the possibility of underlying abnormal soft tissue/ neoplasm. Dictated by: Arvind Maradiaga M.D. on 03/30/2016 at 14:12 Approved by: Arvind Maradiaga M.D. on 03/30/2016 at 14:12 Additional Diagnostics X-RAY CHEST ONE VIEW, PORTABLE ([id number]) INDICATIONS: dyspnea TECHNIQUE: One view of the chest was acquired. COMPARISON: [facility], CR, XR CHEST 2VW, 03/19/2016, 11:38. FINDINGS: Surgical changes and devices: None. Lungs and pleura: Small left pleural effusion has improved. Unchanged right pleural effusion. No pneumothorax. Diffuse scarring/atelectasis as before. Mediastinum: Mediastinal contours appear normal. Heart size is normal. Bones and chest wall: No suspicious bony lesions. Overlying soft tissues appear unremarkable. IMPRESSION: Improved left pleural fluid. Unchanged small right pleural effusion with adjacent atelectasis. Recommend continued followup. Dictated by: Arvind Maradiaga M.D. on 03/30/2016 at 14:18 Approved by: Arvind Maradiaga M.D. on 03/30/2016 at 14:18 Assessment & Plan 85-year-old male with past medical history of Congestive heart failure, Hypothyroidism, Chronic anemia of CLL, Myasthenia gravis ocular, Chronic lymphocytic leukemia and Recurrent pneumonia who last was treated for pneumonia about 3 weeks ago at [facility] on an outpatient basis. He apparently did well until day before presentation when he noticed mild shortness of breath and then this morning it became quite disturbing. # Suspected acute multifocal pneumonia. poa - procalcitonin negative - respiratory PCR negative - Continue triple coverage with vancomycin, Levaquin, ertapenem due to immunosuppression and recurrent pneumonia status. - ID consulted for further recs regarding Abx choice - Consider follow-up CT scan, to clarify possibility of neoplastic causes for the lung changes. # CTA chest on 03/30 showing: "Small to moderate bilateral pleural effusions, with at least partially loculated appearance." - ? need to tap. will f/u w/ further recs by ID "Bilateral, multifocal consolidation involving the left upper lobe and right middle lobe suggesting pneumonia." - recommend CT in 3 months to exclude the possibility of underlying abnormal soft tissue/neoplasm. # Chronic lymphocytic leukemia - Discussed with oncologist (Dr. Gama) today. appreciate his input and consult. will f/u w/ recs - Transfuse one unit PRBC per heme/onc recs - f/u neutropenia # report of new onset diarrhea/loose stool. not poa - r/o c. diff # History of Congestive heart failure. appears stable - Hold further Lasix for now - f/u pending repeat echocardiogram (last done in 2011) # Ocular myasthenia gravis - Continue Mestinon at home doses. # History of hypothyroidism - c/w home Synthroid dose Dispo: 2-3 days VTE Mechanical Devices: Intermittant Pneumatic CD Time spent 40 min José Leblanc Apr 01, 2016 16:41
--- NOTE | 2016-04-01 18:19 | DRSVH ---
[facility] [address] [place] [address] Echocardiogram Report Name: LADONNA ROMEO FStudy Date: 04/01/2016 Height: 72 in Hospital Exam Location: [facility] Weight: 201 lb Gender: Male BSA: 2.1 m2 : 1930 Age: 85 yrs BP: 139/72 mm Hg Reason For Study: SOB Ordering Physician: HOSPITALIST [facility] Performed By: Rahat Albrecht Referring Physician: CELSO DUMONT Interpretation Summary The left ventricle is normal in size. The ejection fraction is estimated to be 55-60%. Compared to the prior exam, left ventricular function is slightly improved. Right ventricular systolic function is at the lower limits of normal. There is mild to moderate tricuspid regurgitation. Compared to the prior echo exam, there has been no change in TR severity. The right ventricular systolic pressure is estimated at 55 mmHg assuming a right atrial pressure of 15 mm Hg. Compared to the prior echo exam, there has been an increase in the severity of pulmonary hypertension. There are large-sized bilateral pleural effusions noted (New). Procedure: A two-dimensional transthoracic echocardiogram with color flow and Doppler was performed. Parasternal and subcostal images are fair; apical images are difficult. Comparison is made with the echocardiogram of 03/06/12. The patient was in atrial fibrillation with controlled ventricular rate during the exam. Left Ventricle: The left ventricle is normal in size. Proximal septal thickening is noted. There is no echo evidence for significant left ventricular outflow tract obstruction. The ejection fraction is estimated to be 55-60%. Compared to the prior exam, left ventricular function is slightly improved. There are no obvious focal wall motion abnormalities noted but poor endocardial definition reduces the sensitivity for the detection of such. The deceleration time of the mitral E wave is shortened, with a value < 160 msec. Diastolic function could not be accurately assessed due to atrial fibrillation. Right Ventricle: The right ventricle is mildly dilated. A calcified moderator band is seen in the right ventricle. Right ventricular systolic function is at the lower limits of normal. Atria: The left atrium is moderately dilated. The left atrium has remained unchanged in size since the prior echo exam. The right atrium is severely dilated. The interatrial septum is intact with no evidence for an atrial septal defect. Mitral Valve: There is mild mitral annular calcification. The mitral valve leaflets are mildly calcified. The mitral valve chordae are thickened and/or calcified. There is mild mitral regurgitation. Compared to the prior echo study, there has been no change in the severity of mitral regurgitation. Aortic Valve: The aortic valve is mildly calcified. The aortic valve is trileaflet. The aortic valve opens well. There is no aortic valve stenosis. There is trace aortic regurgitation. Tricuspid Valve: The tricuspid valve leaflets are thickened and/or calcified, but open well. There is mild to moderate tricuspid regurgitation. The right ventricular systolic pressure is estimated at 55 mmHg assuming a right atrial pressure of 15 mm Hg. Compared to the prior echo exam, there has been no change in TR severity. Compared to the prior echo exam, there has been an increase in the severity of pulmonary hypertension. Pulmonic Valve: The pulmonic valve is not well seen, but is grossly normal. There is trace pulmonic regurgitation. Great Vessels: The aortic root is normal size. The ascending aorta is mildly enlarged. The pulmonary artery is normal size. The IVC is dilated (diameter is greater than 2.1 cm) and it collapses less than 50% with a sniff. This suggests a high right atrial pressure of 15 mm Hg. Pericardium/ Pleura There is no pericardial effusion. There are large-sized bilateral pleural effusions noted. MMode/2D Measurements & Calculations LVIDd: 5.2 cm RA long axis LVOT diam: 2.2 cm LVIDs: 4.0 cm LA A4 area: 21.7 cm AoV Openin.0 cm FS: 24.0 % IVC diam: 2.8 cm RA area Ao root diam: 3.7 cm EPSS: 0.49 cm asc Aorta Diam IVSd: 0.93 cm : 28.4 cm LVPWd: 0.91 cm RA vol Ao Arch Diam : 108.ml (Proximal trans.) RA : 51.0 mm2 LV vazquez. diameter/BSALV sys. diameter/BSA (cm/m^2): 2.5 (cm/m^2): 1.9 Doppler Measurements & Calculations Ao V2 max MV E max manoj MV E/A: 3.3 TR max manoj : 127.0 cm/sec : 134.8 cm/sec Med Peak E' Manoj : 316.9 cm/sec Ao max P.5 mmHg MV A max manoj TR max PG Ao mean P.6 mmHg : 41.0 cm/sec E/E' med: 21.7 : 40.2 mmHg LVOT Max Manoj Lat Peak E' Manoj PA V2 max : 94.5 cm/sec : 96.2 cm/sec MC(I,D): 2.7 cm E/E' lat: 16.6 PA mean PG sev ratio: 0.71 : 2.3 mmHg MV dec time: 0.14 sec Ao V2 mean LV V1 max PG PA V2 mean : 89.4 cm/sec : 73.4 cm/sec Ao V2 VTI: 26.2 cmLV V1 VTI PA pr(Accel) : 18.5 cm : 32.3 mmHg MC(V,D): 2.9 cm2 MC indexed to BSA E/e' average (cm^2/m^2): 1.3 : 19.2 Reading Physician:POLO
--- NOTE | 2016-04-01 19:04 | NUR ---
BLOOD P-Hct 23.6, Hgb 7.9 I- Gave one unit RBC's complete 1700. E- Will continue to monitor H&H.
[2016-04-01] MEDS: levoFLOXacin Inj 750 MG in IV Premix 1 EACH IV SCH (19:47)
[2016-04-01 19:54] VITALS: BP 128/64; PULSE 76; RESP 17; O2SAT 98
--- NOTE | 2016-04-01 21:23 | CONS ---
[address] [address] CONSULTATION REPORT PATIENT: LADONNA ROMEO : 1930 MR#: [id number] ADMIT: 03/30/2016 JOB ID: [id number] DATE OF SERVICE: 04/01/[address] Leblanc for this timely consult. REASON FOR CONSULTATION: Possible pneumonia in a CLL patient. 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 The patient is quite definitive that this increasing shortness of breath was accompanied by a bit of chest pressure and a feeling maybe of "fluid in the lungs" but no associated fevers, chills, sweats, rigors, headache or sore throat. He was admitted and found to have a hematocrit in the mid 20s in association with his underlying CLL and CHF. Because of this, the patient was evaluated from a cardiac point of view, and has also received blood transfusions. At the time of our interview with the patient this afternoon, in fact, he has blood infusing. He reports that since his admission he is somewhat better in terms of his shortness of breath but still has not suffered any fevers, chills or sweats. Note that the patient was recently treated on an outpatient basis for pneumonia and only recently completed that therapy. PAST MEDICAL HISTORY: 1. 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 Usually hematocrit 7-8. 2. Ocular myasthenia gravis. 3. Congestive heart failure. 4. Recurrent pneumonia. 5. Ongoing atrial fibrillation. SOCIAL HISTORY: The patient is a former smoker. He does not drink alcohol. He served in a variety of locations in the but primarily in [place] and [place]. 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 FAMILY HISTORY: Negative for TB. REVIEW OF SYSTEMS: At this point, the patient has no significant headache. No new ocular findings or diplopia. No sore throat or trouble swallowing. He has minima, if any, dry cough and was short of breath on admission, though that has improved somewhat. No pleuritic chest pain though he did have some feeling of diffuse tightness in his chest when first admitted. No nausea, vomiting, diarrhea, or dysuria. No other review of systems was positive. PHYSICAL EXAMINATION: Reveals an elderly gentleman who is sitting in a chair in his room in no acute distress. He has been afebrile since his admission 48 hours ago. Current temp 36.5, pulse 71, respiratory rate 16, blood pressure 138/71. He is saturating well on room air. The patient is alert, oriented, and able to carry out a completely normal conversation. There is no evidence for head trauma. Sinuses nontender. Eyes without conjunctivitis. Oral cavity without thrush or hairy leukoplakia. Neck is supple with some adenopathy. Lungs notable for decreased breath sounds at the right base in particular. Very few rales or rhonchi are heard, however. Cardiac tones: Periods of regularity interspersed with periods of wild irregularity probably consistent with going in and out of atrial fibrillation. Patient does not have any significant murmur. Abdomen is soft, nontender. The abdomen is soft, nontender, without appreciable hepatosplenomegaly or ascites. He does not have a [place] catheter. No significant peripheral edema. No evidence for cellulitis though there are ecchymoses present over the upper extremities consistent with bruising and bleeding. Neurologically, the patient is grossly intact and, as mentioned, he is fully oriented. LABORATORIES: Include white count up mid 40,000 since admission. Only 1% to 2% neutrophils though the patient is right on the edge of an absolute neutropenia despite his extraordinarily high white count, platelet count steady at about 50,000. Creatinine 0.58. BNP has been measured three times between 2-3000. LFTs basically normal. Procalcitonin has been done once and it is 0. IMAGING: Includes a CT angio. Imaging 1st included a chest x-ray, which showed a small right pleural effusion with adjacent atelectasis. The CT angio, of course, provides much greater detail and shows bilateral pleural effusions which, to my eye, are bigger on the right than the left and may be partially loculated. There is also a lot of adenopathy in the chest and neck and periaortic area. All this is likely due to CLL. In addition, there are some fairly subtle areas of consolidation in the left upper lobe and right middle lobe which could be pneumonia, atelectasis or malignancy. IMPRESSION: My overall sense of this case is that the patient is not infected. He is admitted exclusively with a complaint of shortness of breath which has really not wavered. He does not have any significant cough, productive or not, and his exam and clinical course here in the hospital are not consistent with significant bacterial pneumonia. His white blood count is at its baseline and his procalcitonin was 0 on the first measurement. I suspect what we are seeing on the chest x-ray is pleural effusions due to his CLL and/or congestive heart failure and some atelectasis rather than true pulmonary infiltrates. Also note the patient has myasthenia gravis, so the use of antibiotics is not without risk as a crises can be precipitated by certain antibiotics including several of the ones he is receiving. RECOMMENDATIONS: 1. At this point, I would stop the vancomycin and levo as I think they are unlikely to be of benefit. 2. Will continue the ertapenem overnight while we get some additional studies. 3. Urine Legionella and pneumococcal antigen should be checked here. 4. Nasal MRSA screen will be obtained. 5. Repeat procalcitonin will be ordered for the morning. Will continue to follow this interesting patient with you.
[2016-04-02 00:50] VITALS: BP 129/74; PULSE 63; RESP 17; O2SAT 94
[2016-04-02 05:05] VITALS: BP 125/69; PULSE 70; RESP 17; O2SAT 96
[2016-04-02 07:02] LABS: Mean Corpuscular Hemoglobin 36.7 pg (27.0-35.0)
--- NOTE | 2016-04-02 07:34 | NUR ---
Hemodynamics VSS. No S/Sx of bleeding noted. Pt tolerating activities noted. Pt is pleasant and cooperative. No overt complications noted.
[2016-04-02] MEDS: Ertapenem Inj 1,000 MG in 0.9% Sodium Chloride 50 ML IV SCH (08:35)
[2016-04-02] MEDS: Calcium Carbonate (Oyster Shell) 500 mg Tablet PO SCH ×2 (08:35→17:33)
--- NOTE | 2016-04-02 13:07 | PROG NOTE ---
[address] [address] PROGRESS NOTE PATIENT: LADONNA ROMEO : 1930 MR#: [id number] ADMIT: 03/30/2016 JOB ID: [id number] DATE: 04/02/2016 INFECTIOUS DISEASE FOLLOWUP: REASON FOR FOLLOWUP: Possible pulmonary or other infection associated with shortness of breath. INTERVAL HISTORY: Overnight, the patient said he has felt quite well. His shortness of breath has resolved and he has no fevers, chills or cough. He denies any GI symptoms and notes that he had a good breakfast. PHYSICAL EXAMINATION: Reveals a comfortable elderly gentleman sitting up in a chair. He has been afebrile since admission on March 30 and is now 36.6, pulse 70, respiratory rate 17, blood pressure 125/69. He is saturating 96% on room air. Examination of the eyes reveals no abnormalities. Oral cavity likewise normal. Lungs are clear posteriorly today, but perhaps some diminished breath sounds at the right base, but really pretty good. Cardiac tones without new murmur. Abdomen benign. LABORATORIES: Include white count 52,000 which is due to his CLL. Creatinine 0.63. Repeat procalcitonin is again 0. Urinalysis without white cells. Urine Legionella antigen negative. Urine pneumococcal antigen negative. MRSA screen is pending and it was just done this morning. We do not expect results for an hour. In reviewing his micro though there is no prior positive for MRSA in our data bank, and I see no reason to keep in MRSA isolation as it is low probability. IMAGING: No new imaging since the CT angio yesterday. IMPRESSION: This patient continues to look uninfected. He came in with shortness of breath, but no fevers, chills or sweats. He has had no significant cough and no fevers have been reported here in the hospital. His procalcitonin is 0 x2. Also note that the patient has ocular myasthenia gravis, so we would like to avoid the use of antibiotics whenever possible. RECOMMENDATIONS: 1. I will go ahead and stop the ertapenem today. 2. There is no need to keep the patient in isolation while we await a MRSA screen, which we believe will be negative. 3. ID will go ahead and sign off at this time. Please do not hesitate to call if there is additional questions or issues with this patient.
[2016-04-02 14:12] VITALS: BP 121/61; PULSE 75; RESP 16; O2SAT 91
--- NOTE | 2016-04-02 17:21 | PCM.PNMED ---
Subjective Date of Service Apr 02, 2016 Subjective denies any new issues/complaints. reports SOB improving Exam Vital Signs Vital Sign - Last Date Time Temp Pulse Resp B/P Pulse Ox O2 Delivery O2 Flow Rate FiO2 04/02/16 14:12 36.6 75 16 121/61 91 Room Air Intake and Output 04/01/16 04/01/16 04/02/16 Cumulative From/Thru 15:00 23:00 07:00 03/30/16 11:13 - 04/02/16 05:04 Intake Total 450 ml 600 ml 4378 ml Output Total 450 ml 3150 ml Balance 450 ml 150 ml 1228 ml Intake Oral 600 ml 3206 ml IV Total 150 ml 872 ml Packed Cells 300 ml 300 ml Output Urine Total 450 ml 3150 ml # Voids 4 # Bowel Movements 0 0 Exam General: Alert, Cooperative, No Acute Distress Eyes: Scleral Anicteric Mouth: Mucous Membr Moist/[place] Neck: Supple Chest & Lungs: Chest Wall Normal, Coarse breath sounds (bilat) Cardiovascular: Regular Rate/Rhythm Abdomen: Non-tender, Non-distended, Normoactive bowel tones, Soft Extremities: No cyanosis/clubbing/edema bilat Neurological: Grossly Neurologically Intact, Normal Speech IVs and Medications Medications Reviewed: Medications were reviewed in detail Lab and Diagnostics Result Diagram: 04/02/16 0600 04/02/16 0600 X-Rays, CTs and MRIs CT ANGIO CHEST PULMONARY EMBOLISM ([id number]) INDICATIONS: dyspnea, elevated ddimer, active Cancer TECHNIQUE: After the administration of intravenous contrast, 2 mm thick sections acquired from the pulmonary apices to the posterior costophrenic angles. 3-dimensional maximum intensity projection (MIP) coronal and sagittal reformats were then acquired through the thorax. For radiation dose reduction, the following was used: automated exposure control, adjustment of mA and/or kV according to patient size. COMPARISON: [facility], CT, ABD/PELVIS W/CON (PNL), 06/23/2015, 10: 06. [facility], CT, CHEST WITH CONTRAST, 11/29/2011, 8:50. FINDINGS: Image quality: Excellent. Pulmonary arteries: Pulmonary arteries are normal in size, and demonstrate no intraluminal filling defects to suggest central pulmonary embolism. Lungs and pleura: Small-moderate bilateral pleural effusions with adjacent atelectasis. The pleural fluid may be partially loculated. Multifocal consolidation within the left upper lobe. Additional consolidation within the right middle lobe image 39. Mediastinum: Heart is enlarged. Thoracic aorta and great vessels grossly unremarkable. Enlarged subcarinal lymph node measuring 2.5 x 2.8 cm. Additional enlarged right hilar and mediastinal lymphadenopathy. There are right para- aortic lymph nodes which are also mildly enlarged. Bones and chest wall: Thyroid unremarkable. Shotty bilateral axillary lymph nodes, more notable for number than size. Abdomen: Visualized upper abdominal solid organs appear normal in the early arterial phase of enhancement. Subcentimeter scattered sclerotic foci in the thoracic spine, technically indeterminate. IMPRESSION: No evidence of pulmonary embolism. Small to moderate bilateral pleural effusions, with at least partially loculated appearance. Prominent mediastinal and periaortic lymphadenopathy, suspicious for metastatic involvement or lymphoma. Please correlate clinically. Additional bilateral axillary lymph nodes, more notable for number than size. Bilateral, multifocal consolidation involving the left upper lobe and right middle lobe suggesting pneumonia. Please correlate clinically and recommend CT in 3 months to exclude the possibility of underlying abnormal soft tissue/ neoplasm. Dictated by: Arvind Maradiaga M.D. on 03/30/2016 at 14:12 Approved by: Arvind Maradiaga M.D. on 03/30/2016 at 14:12 Additional Diagnostics X-RAY CHEST ONE VIEW, PORTABLE ([id number]) INDICATIONS: dyspnea TECHNIQUE: One view of the chest was acquired. COMPARISON: [facility], CR, XR CHEST 2VW, 03/19/2016, 11:38. FINDINGS: Surgical changes and devices: None. Lungs and pleura: Small left pleural effusion has improved. Unchanged right pleural effusion. No pneumothorax. Diffuse scarring/atelectasis as before. Mediastinum: Mediastinal contours appear normal. Heart size is normal. Bones and chest wall: No suspicious bony lesions. Overlying soft tissues appear unremarkable. IMPRESSION: Improved left pleural fluid. Unchanged small right pleural effusion with adjacent atelectasis. Recommend continued followup. Dictated by: Arvind Maradiaga M.D. on 03/30/2016 at 14:18 Approved by: Arvind Maradiaga M.D. on 03/30/2016 at 14:18 Assessment & Plan 85-year-old male with past medical history of Congestive heart failure, Hypothyroidism, Chronic anemia of CLL, Myasthenia gravis ocular, Chronic lymphocytic leukemia and Recurrent pneumonia who last was treated for pneumonia about 3 weeks ago at [facility] on an outpatient basis. He apparently did well until day before presentation when he noticed mild shortness of breath and then this morning it became quite disturbing. # Suspected acute multifocal pneumonia. poa. seems less likely at this point - procalcitonin negative - respiratory PCR negative - appreciate ID consult. will f/u w/ recs. plan to stop all Abx today - Consider follow-up CT scan, to clarify possibility of neoplastic causes for the lung changes. # CTA chest on 03/30 showing: "Small to moderate bilateral pleural effusions, with at least partially loculated appearance." - ? need to tap. will f/u w/ further recs by ID "Bilateral, multifocal consolidation involving the left upper lobe and right middle lobe suggesting pneumonia." - recommend CT in 3 months to exclude the possibility of underlying abnormal soft tissue/neoplasm. - will consider throacentesis in next day or two pending his clinical course and further recs by oncology # Chronic lymphocytic leukemia - appreciate oncology consult. will f/u w/ recs - Transfused one unit PRBC per heme/onc recs - f/u # report of new onset diarrhea/loose stool. not poa - c. diff ruled out. # History of Congestive heart failure. appears stable - Resume home dose Lasix - Echo showing intact EF but worsening pulmonary HTN # Ocular myasthenia gravis - Continue Mestinon at home doses. # History of hypothyroidism - c/w home Synthroid dose Dispo: 1-2 days VTE Mechanical Devices: Intermittant Pneumatic CD José Leblanc Apr 02, 2016 17:21
--- NOTE | 2016-04-02 19:28 | NUR ---
Activity- Denies pain or shortness of breath. Sitting up in chair most of the day and tolerated being up well. Room air. Patient voiding clear yellow urine per urinal. Tele- sinus rhythm.
[2016-04-02] MEDS ORDERED: 0.9% Sodium Chloride 0 ML ONE (19:58)
[2016-04-02 20:00] VITALS: BP 117/65; PULSE 71; RESP 17; O2SAT 95
[2016-04-03 05:28] VITALS: BP 149/67; PULSE 77; RESP 17; O2SAT 93
[2016-04-03 05:43] LABS: Mean Corpuscular Hemoglobin 36.2 pg (27.0-35.0); Mean Corpuscular Volume 112.3 fL (81-100); Platelet Count 58 bil/L (150-400)
[2016-04-03 06:09] LABS: BASOPHILS % (AUTO) 0 % (0-3); EOSINOPHILS % (AUTO) 0 % (0-5); MONOCYTES % (AUTO) 0 % (4-12); NEUTROPHILS % (AUTO) 1 % (40-74)
--- NOTE | 2016-04-03 07:12 | PROG NOTE ---
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 He was hospitalized with increasing shortness of breath and fatigue. Concern was for possible pneumonitis or infection. Dr. Sheikh from Infectious Disease feels the patient continues to look uninfected. Antibiotic coverage with ertapenem was discontinued yesterday. MRSA nasal screening is pending. The patient feels good this morning. He denies any fevers. He denies any significant cough. OBJECTIVE: Vitals: T 36.6, P 77, R 17, BP 149/67. HEENT: Conjunctivae slightly pale. Mucous membranes moist. No oral lesions. Nodes: Shotty lymphadenopathy in the neck. Chest: Slightly decreased at the bases. Cardiac exam: Regular rate and rhythm with rare ectopic beat. Normal S1, S2. Abdomen: Soft, nontender. No splenomegaly or masses. Extremities: No significant edema. 2+ distal pulses. LABORATORIES: WBC 58.2, with 88% lymphocytes, hemoglobin 8.8, hematocrit 27.3%, MCV 112, platelets 58,000. ASSESSMENT AND PLAN: Chronic lymphocytic leukemia/small lymphocytic lymphoma: The patient's white cell count remains elevated, consistent with his known disease. He does not appear to be clinically infected and is now off antibiotics. Breathing is much more comfortable, and the patient is anticipating discharge home, possibly later today. He is to arrange followup in the [facility] in about two weeks. We will discuss options for treatment of his underlying leukemia with Rituxan plus bendamustine, or with oral ibrutinib in the outpatient setting at that time.
[2016-04-03] MEDS: Calcium Carbonate (Oyster Shell) 500 mg Tablet PO SCH (07:53)
[2016-04-03 10:14] VITALS: BP 107/59; PULSE 78; RESP 18; O2SAT 96
--- NOTE | 2016-04-03 10:28 | PCM.DIMED ---
Discharge Instructions Date of Service Apr 03, 2016 Dates of Hospitalization Mar 30, 2016 at 15:45 Discharge Diagnosis Discharge Diagnosis # Suspected acute multifocal pneumonia on admission. seems less likely and ruled out at this point. # CTA chest on 03/30/16 showing: "Small to moderate bilateral pleural effusions, with at least partially loculated appearance. Bilateral, multifocal consolidation involving the left upper lobe and right middle lobe suggesting pneumonia." - recommend CT in 3 months to exclude the possibility of underlying abnormal soft tissue/neoplasm. # Chronic lymphocytic leukemia - post one unit PRBC transfusion # History of Congestive heart failure. appears stable - Echocardiogram showing ejection fraction of 55-60% and worsening in severity of pulmonary hypertension # Ocular myasthenia gravis. stable # History of hypothyroidism. presumed stable Diet Heart Healthy Activity No restrictions Call your provider Fever or Chills, Shortness of breath, Bleeding, Chest pain, Excessive diarrhea Patient Instructions Seek immediate medical attention if any new or worsening signs or symptoms occur. Follow-up plan 1. Followup with primary care provider in 7-10 days 2. Followup with oncology in 1-2 weeks. Follow-up Provider: Lorenzo Lombardo MD Provider: Parth Gama MD, Masoud Apr 03, 2016 10:27
--- NOTE | 2016-04-03 11:24 | NUR ---
Social Work Continued Discharge Planning and Discharge: SW acknowledged order for discharge. Plan is home with and outpt follow up at CHF clinic. Patient states payer as Medicare and for life secondary. Patient states being independent at baseline and has no identified discharge needs at this time. SW texted paged attending to enter CHF clinic outpt orders. SW will continue to follow. PLAN: Home with and outpt follow up at CHF clinic, pending clinical course. No other anticipated discharge needs at this time. Sami GOLDSMITH
--- NOTE | 2016-04-03 14:09 | NUR ---
Discharge pt. discharged home this afternoon. Discharge information gone over with patient and ; no questions. Medications reviewed; no questions; no new prescriptions/medications. f/u appointment with Dr. Gama made; pt. to make f/u appointment with pcp and cardiology; phone numbers provided; verbalized understanding. PIV dc'd; catheter intact. Denied pain or discomfort. Belongings with ; transported via w/c by [facility] to private vehicle.
--- NOTE | 2016-04-03 16:13 | PCM.DC.MED ---
Discharge Summary Date of Service Apr 03, 2016 Dates of Hospitalization Date of Hospital Admission Mar 30, 2016 at 15:45 Date of Discharge: Apr 03, 2016 Providers: Admitting Physician: Danette Myrick MD Primary Care Physician: Lorenzo Lombardo MD Attending Physician: Danette Myrick MD Diagnosis at Time of Discharge Diagnosis at Time of Discharge # Suspected acute multifocal pneumonia on admission. seems less likely and ruled out at this point. # CTA chest on 03/30/16 showing: "Small to moderate bilateral pleural effusions, with at least partially loculated appearance. Bilateral, multifocal consolidation involving the left upper lobe and right middle lobe suggesting pneumonia." - recommend CT in 3 months to exclude the possibility of underlying abnormal soft tissue/neoplasm. # Chronic lymphocytic leukemia - post one unit PRBC transfusion # History of Congestive heart failure. appears stable - Echocardiogram showing ejection fraction of 55-60% and worsening in severity of pulmonary hypertension # Ocular myasthenia gravis. stable # History of hypothyroidism. presumed stable Consultations 1. ID 2. Oncology Procedures XRay, CTs & MRIs CT ANGIO CHEST PULMONARY EMBOLISM ([id number]) IMPRESSION: No evidence of pulmonary embolism. Small to moderate bilateral pleural effusions, with at least partially loculated appearance. Prominent mediastinal and periaortic lymphadenopathy, suspicious for metastatic involvement or lymphoma. Please correlate clinically. Additional bilateral axillary lymph nodes, more notable for number than size. Bilateral, multifocal consolidation involving the left upper lobe and right middle lobe suggesting pneumonia. Please correlate clinically and recommend CT in 3 months to exclude the possibility of underlying abnormal soft tissue/ neoplasm. Dictated by: Arvind Maradiaga M.D. on 03/30/2016 at 14:12 Approved by: Arvind Maradiaga M.D. on 03/30/2016 at 14:12 Cardiac Echo Impression Date of Service: 04/01/16 9503 Echocardiogram Report Interpretation Summary The left ventricle is normal in size. The ejection fraction is estimated to be 55-60%. Compared to the prior exam, left ventricular function is slightly improved. Right ventricular systolic function is at the lower limits of normal. There is mild to moderate tricuspid regurgitation. Compared to the prior echo exam, there has been no change in TR severity. The right ventricular systolic pressure is estimated at 55 mmHg assuming a right atrial pressure of 15 mm Hg. Compared to the prior echo exam, there has been an increase in the severity of pulmonary hypertension. There are large-sized bilateral pleural effusions noted (New). Reading Physician:PM Other Diagnostics X-RAY CHEST ONE VIEW, PORTABLE ([id number]) IMPRESSION: Improved left pleural fluid. Unchanged small right pleural effusion with adjacent atelectasis. Recommend continued followup. Dictated by: Arvind Maradiaga M.D. on 03/30/2016 at 14:18 Approved by: Arvind Maradiaga M.D. on 03/30/2016 at 14:18 Brief History 85-year-old male with past medical history of Congestive heart failure, Hypothyroidism, Chronic anemia of CLL, Myasthenia gravis ocular, Chronic lymphocytic leukemia and Recurrent pneumonia who last was treated for pneumonia about 3 weeks ago at [facility] on an outpatient basis. He apparently did well until day before presentation when he noticed mild shortness of breath and then this morning it became quite disturbing. Hospital Course # Suspected acute multifocal pneumonia. poa. seems less likely at this point - procalcitonin negative - respiratory PCR negative - appreciate ID consult. will f/u w/ recs. all Abx stopped per recs. - Consider follow-up CT scan, to clarify possibility of neoplastic causes for the lung changes. # CTA chest on 03/30 showing: "Small to moderate bilateral pleural effusions, with at least partially loculated appearance." - ? need to tap. per discussion with Dr. Gama will defer to further f/u as outpatient given clinically much improved. "Bilateral, multifocal consolidation involving the left upper lobe and right middle lobe suggesting pneumonia." - recommend CT in 3 months to exclude the possibility of underlying abnormal soft tissue/neoplasm. # Chronic lymphocytic leukemia - appreciate oncology consult. will f/u w/ recs - Transfused one unit PRBC per heme/onc recs # report of new onset diarrhea/loose stool. not poa - c. diff ruled out. # History of Congestive heart failure. appears stable - Echo showing intact EF but worsening pulmonary HTN # Ocular myasthenia gravis - Continue Mestinon at home doses. # History of hypothyroidism - c/w home Synthroid dose by day of d/c lungs fairly CTA bilat. pt speaking in full sentences and reports resolution of his SOB and requesting d/c home. Exam Vital Signs (Last) Date Time Temp Pulse Resp B/P Pulse Ox O2 Delivery O2 Flow Rate FiO2 04/03/16 10:14 36.3 78 18 107/59 96 Room Air Test 03/30/16 12:00 03/30/16 12:56 03/30/16 16:30 04/01/16 07:30 Prothrombin Time 11.1sec (8.1-12.5) Prothromb Time International Ratio 1.04ratio D-Dimer 2.0mg/L (<0.50) Magnesium Level 1.8mg/dL (1.6-2.6) Total Bilirubin 1.9mg/dL (0.0-1.2) Aspartate Amino Transf (AST/SGOT) 13U/L (0-50) Alanine Aminotransferase (ALT/SGPT) 5U/L (0-44) Alkaline Phosphatase 59U/L (25-160) Troponin T < 0.010ug/L (0.0-0.011) Total Protein 6.3g/dL (6.4-8.4) Albumin 3.5g/dL (3.4-5.0) Hold [place] Top Tube Received (Received) Urine Color Yellow (YELLOW) Urine Appearance Clear (CLEAR,HAZY) Urine pH 6.5 (5.0-8.0) Urine Specific [place] 1.010 (1.003-1.035) Urine Protein Negativemg/dL (NEG,TRACE) Urine Glucose (UA) Negativemg/dL (NEGATIVE) Urine Ketones Negativemg/dL (NEGATIVE) Urine Occult Blood Trace (NEGATIVE) Urine Nitrite Negative (NEGATIVE) Urine Bilirubin Negative (NEGATIVE) Urine Urobilinogen Normalmg/dL (NORMAL) Urine Leukocyte Esterase Negative (NEGATIVE) Urine RBC 0-2/hpf (0-2) Urine WBC 0-5/hpf (0-5) Urine Epithelial Cells Few/hpf (NONE-MOD) Urine Crystals None seen (NONE SEEN) Urine Bacteria Few/hpf (NONE-FEW) Urine Hyaline Casts None/lpf (NONE) Urine Granular Casts None seen (NONE SEEN) Urine Waxy Casts None seen (NONE SEEN) Urine Red Blood Cell Casts None seen (NONE SEEN) Urine White Blood Cell Casts None seen (NONE SEEN) Urine Mucus None seen (None Seen) Urine Trichomonas None seen (NONE SEEN) Urine Yeast None (NONE SEEN) Urinalysis Comment None Urine Culture Reflexed Not indicated Vancomycin Level Trough 15.9mcg/mL Test 04/01/16 16:30 04/02/16 06:00 04/03/16 05:10 Urine Legionella pneumophilia Ag Negative (Negative) Procalcitonin < 0.05ng/mL (See Comment) White Blood Count 58.2th/mm3 (3.8-10.1) Red Blood Count 2.43mil/mm3 (4.40-5.80) Hemoglobin 8.8g/dL (13.8-17.2) Hematocrit 27.3% (41.0-50.0) Mean Corpuscular Volume 112.3fL (81-100) Mean Corpuscular Hemoglobin 36.2pg (27.0-35.0) Mean Corpuscular Hemoglobin Concent 32.2% (32.0-37.0) Red Cell Distribution Width 21.6% (12.3-15.4) Platelet Count 58bil/L (150-400) Neutrophils (%) (Auto) 1% (40-74) Lymphocytes (%) (Auto) 88% (14-46) Monocytes (%) (Auto) 0% (4-12) Eosinophils (%) (Auto) 0% (0-5) Basophils (%) (Auto) 0% (0-3) Blast Cells % 13% (0-0) Hematology Comments Rbc Sodium Level 138mEq/L (134-144) Potassium Level 4.6mEq/L (3.5-5.2) Chloride Level 100mEq/L (97-108) Carbon Dioxide Level 29mmol/L (18-29) Blood Urea Nitrogen 20mg/dL (8-27) Creatinine 0.71mg/dL (0.76-1.27) Estimat Glomerular Filtration Rate 113mL/min (>59) Glucose Level 110mg/dL (60-99) Calcium Level 8.6mg/dL (8.5-10.1) Pro-B-Type Natriuretic Peptide 1799pg/mL (0-486) Discharge Medications Discharge Medications Calcium Carbonate (Calcium) 600 Mg Tablet 600 MG PO BID (Reported) Cholecalciferol (Vitamin D3) (Vitamin D3) 1,000 Unit Tab.chew 1,000 UNIT PO DAILY (Reported) Cyanocobalamin (Vitamin B-12) (Vitamin B-12) 1,000 Mcg Tablet 1,000 MCG PO DAILY (Reported) Garlic (Garlic) 500 Mg Capsule 500 MG PO DAILY (Reported) Omeprazole (Omeprazole) 20 Mg Capsule.dr 20 MG PO BID (Reported) Pyridostigmine [place] (Mestinon) 60 Mg Tablet 60 MG PO QID (Reported) Followup Plan Disposition: Home Follow-up plan 1. Followup with primary care provider in 7-10 days 2. Followup with oncology in 1-2 weeks. Discharge Diet: Heart Healthy Discharge Activity: No restrictions Patient Instructions Seek immediate medical attention if any new or worsening signs or symptoms occur. Follow-up Provider: Lorenzo Lombardo MD Provider: Parth Gama MD Time spent 35 min copies to: Lorenzo Lombardo MD; Parth Gama MD, Masoud Apr 03, 2016 16:13
[2016-04-15] MEDS ORDERED: LTRS15C EXT (15:36)
[2016-04-15] MEDS ORDERED: FISH1CAP15 PO (15:36)
[2016-04-15] MEDS ORDERED: KEN25CR EXT (15:36)
[2016-04-15] MEDS ORDERED: GARL500C PO (15:36)
[2016-05-27] MEDS ORDERED: IBRU140C PO (14:34)
[2016-06-17] MEDS ORDERED: LEVO750T9 PO (15:27)
[2016-06-17] MEDS ORDERED: ACID1TAB2 PO (15:30)
[2016-06-17] MEDS ORDERED: ASPI325T32 PO (15:30)
[2016-06-17] MEDS ORDERED: PYRI60TA2 PO (15:30)
[2016-08-21] MEDS ORDERED: oxygen INH (10:41)
[2016-09-05] MEDS ORDERED: [UNRECOGNIZED DRUG - CODE] MC (09:16)
== END 2016-04-03 14:16 | disposition home or self-care (01) | DRG 187 ==
LOC: SED 11:06 → OSC 15:45
PROVIDERS: ADMIT Family Medicine; ATTEND Family Medicine
PROC: 30233N1 Transfusion of Nonautologous Red Blood Cells into Peripheral Vein, Percutaneous Approach (ICD-10-PCS; principal; 2016-04-01)
DX: J90 Pleural effusion, not elsewhere classified (principal); C91.10 Chronic lymphocytic leukemia of B-cell type not having achieved remission; I50.9 Heart failure, unspecified; G70.00 Myasthenia gravis without (acute) exacerbation; R06.02 Shortness of breath; E03.9 Hypothyroidism, unspecified; Z87.891 Personal history of nicotine dependence; D63.0 Anemia in neoplastic disease; I27.2 Other secondary pulmonary hypertension; R19.7 Diarrhea, unspecified

== ENCOUNTER 2016-05-20 11:26 | Emergency (ER) | payer MEDICARE, OTHER ==
[~2016-05-20] VITALS: Ht 177.8 cm; Wt 90.9 kg
[~2016-05-20 11:26] MED LIST changes: -ACET-171 PO; -CYAN-2 SL; +CYAN10008 PO; +FISH1CAP15 PO; -KEN1O TOP; +KEN25CR EXT
[2016-05-20 11:30] VITALS: BP 162/67; PULSE 69; RESP 17; O2SAT 100
--- NOTE | 2016-05-20 11:46 | ED.REPORT ---
HPI-General Illness Date of Service May 20, 2016 ED Provider: Malia Mark MD An 85 year old male with a history of Myasthenia gravis, CHF, HTN, chronic atrial fibrillation, anemia, and leukemia on chemotherapy presents to the ED with SOB just prior to arrival. He denies chest pain, but feels "pressure and tightness" in the middle of his chest. He confirms nasal congestion and attributes recent diarrhea to starting a new medication. Denies fever and vomiting. His has not been sick recently, but some friends and family have had colds. Dr. Gama is his oncologist and Dr. Eric Lombardo is his PCP. He was last seen at the ED 03/30/16 for similar symptoms. He had 2 transfusions on / of last week. Nursing Notes Stated Complaint: CHEST PAIN Chief Complaint: Chest Pain Nursing Notes Reviewed: Yes Allergies: Coded Allergies: Penicillins (Verified Allergy, Severe, SWELLING WITH BLISTERS, 05/20/16) Sulfa (Sulfonamide Antibiotics) (Verified Allergy, Severe, RASH, 05/20/16) cedarwood (Verified Allergy, Severe, RASH, 05/20/16) ketoconazole (Verified Allergy, Severe, RASH, 05/20/16) Cephalosporins (Verified Allergy, Unknown, UNKNOWN, 05/20/16) trimethoprim (Verified Allergy, Unknown, UNKNOWN, 05/20/16) Scheduled Betamethasone/Clotrimazole (Lotrisone Cream) 60 Applic/15 Gm Cream 60 APPLIC EXT BID Calcium Carbonate (Calcium) 600 Mg Tablet 600 MG PO BID Cholecalciferol (Vitamin D3) (Vitamin D3) 1,000 Unit Tab.chew 1,000 UNIT PO DAILY Cyanocobalamin (Vitamin B-12) (Vitamin B-12) 1,000 Mcg Tablet 1,000 MCG PO DAILY Fish Oil/Dha/Epa (Fish Oil 1,200 mg Fish Oil) 1 Each Capsule 1 EACH PO DAILY Garlic (Garlic) 500 Mg Capsule 500 MG PO DAILY Garlic (Garlic) 500 Mg Capsule 500 MG PO DAILY Omeprazole (Omeprazole) 20 Mg Capsule.dr 20 MG PO BID Pyridostigmine [place] (Mestinon) 60 Mg Tablet 60 MG PO QID Triamcinolone Acet (Triamcinolone Acetonide Cream) 1 Applic/0.25 Gm Cr 1 APPLIC EXT BID General Time Seen by MD: 11:40 Chief Complaint Other (shortness fo breath) Hx Obtained From: Patient Arrived By: Walk-in Sudden in Onset?: Yes Onset Occurred: Just prior to arrival Symptom Duration: Since onset Location: : Chest Quality: Pressure Radiation: : Does not radiate Severity: Current: Mild Recent Healthcare: Recent doctor visit Past Medical History Past Medical History 1. occular Myasthenia gravis 2. 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 CHF 4. atrial fibrillation Refux Esophagitis Hypothyroidism Past Surgical History Menisectomy Right and left shoulder impingement Blood transfusion Smoking History Former Smoker Social History Other Social History: Good social support, , Local resident Ambulatory Status Independent Review of Systems Full Review of Systems Constitutional: Denies: Fever Ears / Nose / Throat: Reports: Nasal congestion Respiratory: Reports: Shortness of breath Cardiovascular: Reports: Chest pain ("pressure and tightness") GI: Reports: Diarrhea, Denies: Vomiting Complete sys rev & neg: except as marked. Physical Exam Vital Signs Vital Signs Date Time Temp Pulse Resp B/P Pulse Ox O2 Delivery O2 Flow Rate FiO2 05/20/16 14:41 73 19 147/71 99 Nasal Cannula 2 05/20/16 14:00 70 18 146/61 98 Nasal Cannula 2 05/20/16 13:30 72 18 152/66 99 Room Air 2 Nasal Cannula 05/20/16 11:30 36.2 69 17 162/67 100 Room Air Initial VS: Reviewed Head / Eyes: Atraumatic, Normocephalic, PERRL ENT: Mucous membranes moist, Conjunctiva normal, No scleral icterus Neck: Supple, Non-tender, Full range of motion Cardiovascular: Regular rate & rhythm, Heart sounds normal, Intact distal pulses Abdomen / GI: Soft, Non-tender, No guarding, No rebound, No distention Back: No CVA tenderness Extremities: Vascular intact, Neuro intact, No swelling, No tenderness Skin: Warm, Dry, No cyanosis Neurologic: Alert, Oriented, Nonfocal Psychiatric: Mood/affect normal, Behavior normal, Normal thought content General/Constitutional: Awake, Alert, Cooperative, Not toxic appearing Respiratory / Chest: Atraumatic, Breath sounds NL, Breath sounds = bilat, No respiratory distress, No wheezing Lower Ext Edema: Positive: Bilateral 3+ (to mid thighs w/ compression socks in place, this is baseline) Interpretation & Diagnostics Lab Results Interpretation Result Diagram: 05/20/16 1145 05/20/16 1145 Test 05/20/16 11:45 05/20/16 12:55 White Blood Count 99.4th/mm3 (3.8-10.1) Red Blood Count 2.58mil/mm3 (4.40-5.80) Hemoglobin 9.2g/dL (13.8-17.2) Hematocrit 29.8% (41.0-50.0) Mean Corpuscular Volume 115.5fL (81-100) Mean Corpuscular Hemoglobin 35.7pg (27.0-35.0) Mean Corpuscular Hemoglobin Concent 30.9% (32.0-37.0) Red Cell Distribution Width 22.8% (12.3-15.4) Platelet Count 94bil/L (150-400) Neutrophils (%) (Auto) 1% (40-74) Lymphocytes (%) (Auto) 98% (14-46) Monocytes (%) (Auto) 1% (4-12) Eosinophils (%) (Auto) 0% (0-5) Basophils (%) (Auto) 0% (0-3) Hematology Comments Rbc Sodium Level 136mEq/L (134-144) Potassium Level 4.7mEq/L (3.5-5.2) Chloride Level 99mEq/L (97-108) Carbon Dioxide Level 27mmol/L (18-29) Blood Urea Nitrogen 11mg/dL (8-27) Creatinine 0.52mg/dL (0.76-1.27) Estimat Glomerular Filtration Rate 161mL/min (>59) Glucose Level 99mg/dL (60-99) Calcium Level 8.6mg/dL (8.5-10.1) Magnesium Level 1.8mg/dL (1.6-2.6) Total Bilirubin 2.0mg/dL (0.0-1.2) Aspartate Amino Transf (AST/SGOT) 12U/L (0-50) Alanine Aminotransferase (ALT/SGPT) 5U/L (0-44) Alkaline Phosphatase 54U/L (25-160) Troponin T 0.010ug/L (0.0-0.011) Total Protein 6.8g/dL (6.4-8.4) Albumin 3.7g/dL (3.4-5.0) Hold [place] Top Tube Received (Received) Hold Urine Received (Received) ECG Interpretation Time: 11:38 Interpreted by: ED physician Normal ECG Interpretation: Normal sinus rhythm (73), No acute ischemic changes Rhythm / Conduction: Atrial fibrillation X-Ray Chest Interpretation Chest Xray Interpretation: IMPRESSION: 1. Interval increase in volume of right pleural effusion. Small left pleural effusion. Dictated by: Sukh Lentz M.D. on 05/20/2016 at 12:38 Approved by: Sukh Lentz M.D. on 05/20/2016 at 12:41 View: Portable Interpretation / Wet Read by: Interpret - Radiologist Chest Xray Interpretation: IMPRESSION: 1. Marked decrease in volume of right pleural effusion post thoracentesis with no apparent pneumothorax 2. Small residual left pleural effusion. Procedures Procedure Notes: thoracentesis indication: dyspnea, bilateral pleural effusion conent obtained description: Prepped and draped in a sterile manner. Using ultrasound guidance large fluid pocket is identified in the right base of the lung. 2 mL of lidocaine without epinephrine is used to anesthetize the skin. See T-System T cysts needle is introduced above the rib and hooked to suction with care being taken to not allow fluid to enter back into the pleural cavity. Total of 3 L of slightly bloody serosanguineous fluid is returned. Patient tolerated the procedure well. Minimal coughing, saturations were at 100% at time of procedure completion. Follow-up chest x-ray shows significant decrease in volume of fluid and no pneumothorax Tube Thoracostomy Tube Thoracostomy: Ultrasound guidance to identify maximum fluid pocket on the right side. Drained 3 L of fluid. Time: 14:56 Tube Thoracostomy by: ED physician Consent / Timeout / Setup: Informed consent provided, Time-out performed, Hand hygiene observed, Stand sterile technique Local Anesthesia: Lidocaine 1% Post-Procedure / Complications: No complications, Tolerated procedure well, Patient stable Re-Eval/Medical Decision Med Decision/Clinical Course CLL progressing despite therapy. Progressive pleural effusion with symptomatic dyspnea. Thoracentesis with 3 L removed significantly improved post procedure. Transient brief episodes of bradycardia into the 50s and oxygen saturations decreased into the 85% range. With positioning this resolves completely. Upper eating, pain-free doing well no additional heart rate episodes and sats are in the 100% on room air range Time of Eval: 14:10 Patient Status: Mild relief Re-Evaluation/Progress Note: Pt rechecked. Informed pt of plan for therapeutic thoracentesis to drain fluid from his lungs. Pt understands and agrees with plan. Time of Eval: 14:49 Re-Evaluation/Progress Note: Therapeutic thoracentesis performed. Clear fluid, does not look infected. Drained 3 L of fluid. Pt tolerated procedure well. Consultation : Call Returned at: 13:42 Note: Discussed with Dr Gama. Will offer therapeutic thoracentesis with anticipation of d/c home Dr Gama's office will contact him to arrange follow up next week. He suspects that the chemo may be contributing to the developing effusion. Counseled Regarding: Diagnosis, Lab results, Need for follow-up, When/why to return to ED Discharge & Departure Primary Impression: Pleural effusion Additional Impressions: Dyspnea Dyspnea type: unspecified Qualified Code: R06.00 - Dyspnea, unspecified Chronic lymphocytic leukemia Disposition: Home Discharge Condition All VS Reviewed: Yes Condition: Stable Additional Instructions: Thank you for coming to the Emergency Department today. We performed a thoracentesis and drained 3 L of fluid from your lungs. The procedure was successful. Return to the Emergency Department if you experience any new or worsening symptoms. Keep your apt with Dr Gama next week I wish you the very best Referrals: Lorenzo Lombardo MD (PCP) Scribe Attestation Portion of this note were transcribed by Tamar Gallegos. I, Dr. Mark, personally performed the history, physical exam, and medical decision-making: I reviewed and confirmed the accuracy for the information in the transcribed note. Signed by: jessica Martinez, 05/20/16 1400 copies to: Lorenzo Lombardo MD; Parth Gama MD, Shawna L MD May 20, 2016 11:46 TAMAR GALLEGOS May 20, 2016 12:06
[2016-05-20 12:31] LABS: EOSINOPHILS % (AUTO) 0 % (0-5); Mean Corpuscular Hemoglobin 35.7 pg (27.0-35.0); Mean Corpuscular Volume 115.5 fL (81-100); Platelet Count 94 bil/L (150-400)
[2016-05-20 12:35] LABS: TROPONIN T 0.01 ug/L (0.0-0.011)
--- NOTE | 2016-05-20 12:43 | DRSVH ---
PROCEDURE: X-RAY CHEST ONE VIEW, PORTABLE ([id number]) INDICATIONS: dyspnea TECHNIQUE: One view of the chest was acquired. COMPARISON: 03/30/2016 FINDINGS: Surgical changes and devices: None. Lungs and pleura: Right pleural effusion has increased in volume, level now at the right hilum. A sma ll left pleural effusion is present. Minimal nodularity in the left apex laterally appears unchanged. Mediastinum: Mediastinal contours appear normal. Heart size is normal. Aortic calcifications. Bones and chest wall: No suspicious bony lesions. Overlying soft tissues appear unremarkable. IMPRESSION: 1. Interval increase in volume of right pleural effusion. Small left pleural effusion. Dictated by: Sukh Lentz M.D. on 05/20/2016 at 12:38 Approved by: Sukh Lentz M.D. on 05/20/2016 at 12:41
[2016-05-20 12:46] LABS: Magnesium 1.8 mg/dL (1.6-2.6)
[2016-05-20 13:08] LABS: NEUTROPHILS % (AUTO) 1 % (40-74)
[2016-05-20 13:09] LABS: BASOPHILS % (AUTO) 0 % (0-3); MONOCYTES % (AUTO) 1 % (4-12)
[2016-05-20 13:30] VITALS: BP 152/66; PULSE 72; RESP 18; O2SAT 99
[2016-05-20 14:00] VITALS: BP 146/61; PULSE 70; RESP 18; O2SAT 98
[2016-05-20 14:41] VITALS: BP 147/71; PULSE 73; RESP 19; O2SAT 99
--- NOTE | 2016-05-20 15:52 | DRSVH ---
PROCEDURE: X-RAY CHEST ONE VIEW, PORTABLE ([id number]) INDICATIONS: post thoracentesis TECHNIQUE: One view of the chest was acquired. COMPARISON: 05/20/2016-1214 hrs. FINDINGS: Surgical changes and devices: Status post right thoracentesis. Lungs and pleura: Small left pleural effusions, no pneumothorax. Lungs show mild bibasilar atelectas is. Mediastinum: Mediastinal contours appear normal. Heart size is normal. Aortic calcification and to rtuosity. Bones and chest wall: No suspicious bony lesions. Overlying soft tissues appear unremarkable. IMPRESSION: 1. Marked decrease in volume of right pleural effusion post thoracentesis with no apparent pneumothor ax 2. Small residual left pleural effusion. Dictated by: Sukh Lentz M.D. on 05/20/2016 at 15:49 Approved by: Sukh Lentz M.D. on 05/20/2016 at 15:51
[2016-05-20 16:25] VITALS: BP 127/56; PULSE 65; RESP 21; O2SAT 99
[2016-05-20 16:59] VITALS: BP 132/53; PULSE 77; RESP 24; O2SAT 96
[2016-05-27] MEDS ORDERED: IBRU140C PO (14:34)
[2016-06-17] MEDS ORDERED: LEVO750T9 PO (15:27)
[2016-06-17] MEDS ORDERED: ACID1TAB2 PO (15:30)
[2016-06-17] MEDS ORDERED: ASPI325T32 PO (15:30)
[2016-06-17] MEDS ORDERED: PYRI60TA2 PO (15:30)
[2016-08-21] MEDS ORDERED: oxygen INH (10:41)
[2016-09-05] MEDS ORDERED: [UNRECOGNIZED DRUG - CODE] MC (09:16)
== END 2016-05-20 17:01 | disposition home or self-care (01) ==
LOC: SED 11:26
DX: J90 Pleural effusion, not elsewhere classified (principal); C91.10 Chronic lymphocytic leukemia of B-cell type not having achieved remission; R07.89 Other chest pain; R19.7 Diarrhea, unspecified; R09.81 Nasal congestion; I11.0 Hypertensive heart disease with heart failure; I50.9 Heart failure, unspecified; I48.2 Chronic atrial fibrillation; E03.9 Hypothyroidism, unspecified; G70.00 Myasthenia gravis without (acute) exacerbation; D64.9 Anemia, unspecified; Z92.21 Personal history of antineoplastic chemotherapy; Z87.891 Personal history of nicotine dependence; Z88.0 Allergy status to penicillin; Z88.1 Allergy status to other antibiotic agents; Z88.2 Allergy status to sulfonamides; Z88.8 Allergy status to other drugs, medicaments and biological substances; Z91.018 Allergy to other foods

== ENCOUNTER 2016-06-04 13:52 | Inpatient (IN) | payer MEDICARE, OTHER ==
[~2016-06-04] VITALS: Ht 177.8 cm; Wt 84.7 kg
[2016-06-04] VITALS (9 sets, daily range): BP systolic 131–172; BP diastolic 48–87; PULSE 61–90; RESP 14–24; O2SAT 88–98
[~2016-06-04 13:52] MED LIST changes: +IBRU140C PO
[2016-06-04] MEDS ORDERED: MINO100T PO (14:05)
--- NOTE | 2016-06-04 14:47 | DRSVH ---
PROCEDURE: X-RAY CHEST ONE VIEW, PORTABLE ([id number]) INDICATIONS: CHEST TIGHTNESS/SOB TECHNIQUE: One view of the chest was acquired. COMPARISON: [facility], CR, XR CHEST 1VW, 05/31/2016, 12:08. FINDINGS: Surgical changes and devices: None. Lungs and pleura: Moderate right pleural effusion, mildly increased compared to prior exam. Small ar ea of overlying opacity is present. Mediastinum: Mediastinal contours appear normal. Heart size is normal. Bones and chest wall: No suspicious bony lesions. Overlying soft tissues appear unremarkable. IMPRESSION: Mildly increased right pleural effusion with overlying opacity. The latter could be recen t no focal edema, mass lesion or airspace disease such as pneumonia. Dictated by: Emily Cook M.D. on 06/04/2016 at 14:35 Approved by: Emily Cook M.D. on 06/04/2016 at 14:45
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
[2016-06-04 15:16] LABS: INR 0.99 ratio
[2016-06-04 15:24] LABS: TROPONIN T < 0.010 ug/L (0.0-0.011)
[2016-06-04 15:35] LABS: Magnesium 1.9 mg/dL (1.6-2.6)
[2016-06-04 15:43] LABS: Mean Corpuscular Hemoglobin 35.5 pg (27.0-35.0); Mean Corpuscular Volume 117.5 fL (81-100)
[2016-06-04 15:44] LABS: BASOPHILS % (AUTO) 0 % (0-3); EOSINOPHILS % (AUTO) 0 % (0-5); MONOCYTES % (AUTO) 0 % (4-12); NEUTROPHILS % (AUTO) 1 % (40-74); Platelet Count 133 bil/L (150-400)
--- NOTE | 2016-06-04 16:03 | DRSVH ---
PROCEDURE: US VEINOUS LEG DUPLEX UNILATERAL, LEFT INDICATIONS: increased swelling, leukemia TECHNIQUE: Real-time imaging, as well as color and pulse Doppler interrogation, were performed of the lower extr emity deep veins from the inguinal ligament to the popliteal fossa. COMPARISON: None. FINDINGS: The deep veins are normally compressible, and free of intraluminal thrombus. Color and pu lse Doppler demonstrate normal phasic intraluminal flow. There is normal augmentation response to di stal compression maneuver. Enlarged left groin lymph nodes. IMPRESSION: 1. No deep venous thrombosis identified within the left lower extremity. 2. Enlarged morphologically normal-appearing lymph nodes within the left groin measuring up to 1.4 cm . Clinical correlation and management. Dictated by: Tyree MOREAU Interpreted: Emily Cook MD on 06/04/2016 at 16:02 Transcribed by: JOZEF on 06/04/2016 at 16:03 Approved by: Emily Cook M.D. on 06/04/2016 at 17:36
--- NOTE | 2016-06-04 16:40 | DRSVH ---
PROCEDURE: US GUIDED THORACENTESIS BY REFERRING PHYSICIAN ([id number]) INDICATIONS: right pleural effusion. TECHNIQUE: The indications, alternatives, benefits, risks, and complications of the procedure were explained to the patient. Written informed consent was obtained and placed in the chart. The chest was examined sonographically, and an appropriate site was chosen for thoracentesis. The skin was prepared and nadia ped in the usual sterile fashion, and 1% lidocaine was infiltrated from the skin down through the ple ural surface. A 19-gauge catheter-covered needle was then introduced into the pleural space, the cat heter was advanced and the needle was withdrawn, and thereafter pleural fluid was aspirated. The cat heter was then removed and a dressing was applied. COMPARISON: None. FINDINGS: Access site: Right hemithorax. Needle: One-Step centesis catheter with introducer needle. Fluid volume and description: 1750 cc of clear pleural fluid. Fluid sent for diagnostic testing: Therapeutic drainage. Medications: 1% lidocaine for local anaesthesia. Complications: None; post-procedural chest radiograph is pending to assess for pneumothorax. IMPRESSION: Successful ultrasound-guided thoracentesis. Dictated by: yTree MOREAU Interpreted: Emily Cook MD on 06/04/2016 at 16:39 Transcribed by: JOZEF on 06/04/2016 at 16:40 Approved by: Emily Cook M.D. on 06/06/2016 at 21:41
--- NOTE | 2016-06-04 16:58 | DRSVH ---
PROCEDURE: X-RAY CHEST ONE VIEW ([id number]) INDICATIONS: POST THORACENTESIS TECHNIQUE: One view of the chest was acquired. COMPARISON: [facility], CR, XR CHEST 1VW (PORTABLE), 06/04/2016, 14:08. FINDINGS: Surgical changes and devices: None. Lungs and pleura: The right pleural effusion is decreased in size when compared with the prior study from earlier today. No pneumothorax. Mediastinum: Mediastinal contours appear normal. Heart size is enlarged, as before. Bones and chest wall: No suspicious bony lesions. Overlying soft tissues appear unremarkable. IMPRESSION: Decreased size of the right pleural effusion and no evidence for pneumothorax after thora centesis. Dictated by: Isabela Becker M.D. on 06/04/2016 at 16:56 Approved by: Isabela Becker M.D. on 06/04/2016 at 16:57
[2016-06-04] MEDS ORDERED: 0.9% Sodium Chloride 500 ML IV ONE (17:10)
--- NOTE | 2016-06-04 17:35 | DRSVH ---
PROCEDURE: CT BRAIN WITHOUT CONTRAST ([id number]) INDICATIONS: 86 year-old male with stroke symptoms. TECHNIQUE: Noncontrast 4.5 mm thick angled axial sections acquired from the foramen magnum to the vertex, with c oronal reformats. COMPARISON: [facility], MR, BRAIN W&W/O CONTRAST, 07/19/2009, 12:57. FINDINGS: Image quality: Excellent. CSF spaces: Basal cisterns are patent. No extra-axial fluid collections. Ventricles are normal in size and shape. Brain: No midline shift. No intracranial masses or hemorrhage. There is mild periventricular white matter chronic small vessel ischemic change. Nonacute bilateral caudate head lacunar infarcts appear new since 2009. There is intracranial internal carotid and left vertebral artery atherosclerosis. Skull and face: Calvarium and visualized facial bones are intact, without suspicious lesions. Sinuses: Visualized sinuses and mastoids are clear. IMPRESSION: No acute intracranial abnormalities. Nonacute bilateral caudate nucleus lacunar infarcts. Dictated by: René Prince M.D. on 06/04/2016 at 17:31 Approved by: René Prince M.D. on 06/04/2016 at 17:34
[2016-06-04] MEDS ORDERED: GARL1250 PO (18:16)
[2016-06-04 18:30] LABS: APPEARANCE,URINE HAZY (CLEAR,HAZY); COLOR,URINE YELLOW (YELLOW); OCCULT BLOOD,URINE TRACE (NEGATIVE); UROBILINOGEN,URINE NORMAL (NORMAL)
[2016-06-04] MEDS ORDERED: Alum-Mag Hydrox-Simeth 30 mL Suspension PO PRN (20:50)
[2016-06-04] MEDS ORDERED: Ondansetron 2 mg/mL 2 mL Inj IVPUSH PRN (20:50)
[2016-06-04] MEDS ORDERED: Polyethylene Glycol (PEG) 17 Gm Powder PO PRN (20:50)
--- NOTE | 2016-06-04 22:47 | PCM.HPMED ---
Subjective Date of Service Jun 04, 2016 Primary Provider: Admitting Physician: Safia Fierro MD Primary Care Physician: Lorenzo Lombardo MD Attending Physician: Safia Fierro MD Admit Status: From the Emergency Department Chief Complaint: Dysarthria and shortness of breath History of Present Illness: 86-year-old male with history of CLL, recurrent pleural effusion, atrial fibrillation, ocular myasthenia gravis, and CHF presented to the emergency department for shortness of breath after thoracentesis patient developed dysarthria and worsening facial droop. Patient developed cough and shortness of breath over 2 weeks ago, he was found to have left-sided pleural effusion 15 days ago he had an initial thoracentesis, Digitek 3 L off again 5 days ago, ultrasound-guided thoracentesis was performed again today with extraction of 1750 cc of clear pleural fluid. He had some improvement of his shortness of breath however when he returned his noticed that his chronic right facial droop (from myasthenia gravis) was worse. He was also noted to have slurred speech, was drooling, and appeared to be more tired. Patient reports feeling relatively normal throughout this situation and does not seem to be bothered by his symptoms. Patient has chronic swelling in his legs worse on the left side. He notes feeling some chest pressure yesterday, he also endorses a cough and shortness of breath that worsens with activity. He has received multiple blood transfusions in the past as his CLL is active. He is being followed by Dr. Gama of hematology/oncology. It was speculated that office visit on 2016 that the recurring pleural effusion may be due to his Kranzburg kinase inhibitor, a Kranzburg and this was discontinued at that time. With initial effusion there was evidence of serosanguineous fluid which could represent a malignancy. Dr. Gama is continuing to follow patient and plans to discuss chemotherapy such as Rituxan based chemotherapy with patient to treat his CLL/ small lymphocytic lymphoma. In the emergency department patient was found again to have a pleural effusion, symptoms resolved after thoracentesis. He was evaluated for coronary ischemia. Patient's demeanor after thoracentesis was quite different, there was concern for myasthenia crisis with dysarthria and increased somnolence. ED physician discussed case with patient's neurologist Dr. Reid who feels myasthenia crisis involving face is unlikely due to patient only ever having ocular involvement before. Pulmonary function tests were performed and noted to be low but likely normal for patient. It is possible patient had a stroke, CT brain did not note any acute intracranial abnormalities. He is admitted for further workup and observation. Review of Systems: A comprehensive review of systems was conducted with the patient and found to be negative except as above in the History of Present Illness. Allergies Coded Allergies: Penicillins (Verified Allergy, Severe, SWELLING WITH BLISTERS, 06/04/16) Sulfa (Sulfonamide Antibiotics) (Verified Allergy, Severe, RASH, 06/04/16) cedarwood (Verified Allergy, Severe, RASH, 06/04/16) ketoconazole (Verified Allergy, Severe, RASH, 06/04/16) Cephalosporins (Verified Allergy, Unknown, UNKNOWN, 06/04/16) trimethoprim (Verified Allergy, Unknown, UNKNOWN, 06/04/16) Home Medications 1. Calcium carbonate 600 mg by mouth twice a day 2. Vitamin D3 1000 units by mouth daily 3. Vitamin B12 1000 g tablet by mouth daily 4. Fish oil 120 mg 2 capsules by mouth daily 5. Garlic 1250 mg tablet by mouth daily 6. Minocycline 100 mg tablet by mouth twice a day 7. Omeprazole 20 mg capsule by mouth twice a day before meals 8. 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 Social History Hx Alcohol Use: No Hx Substance Use: No Smoking Status: Former Smoker Living Arrangement: with Family Exam Vital Signs Vital Sign - Last Date Time Temp Pulse Resp B/P Pulse Ox O2 Delivery O2 Flow Rate FiO2 06/04/16 21:54 Supplement Oxygen 06/04/16 21:40 68 06/04/16 21:29 36.3 20 172/87 88 Exam General: No acute distress, well-developed, well-nourished, appropriately interactive HEENT: Normocephalic, atraumatic. External ears without defect. Pupils equal, round, and reactive to light and accommodation. Anicteric sclerae, moist conjunctivae, and no lid lag. Oropharynx free of erythema and cobble stoning with moist mucosa. Neck: Supple with full range of motion. No lymphadenopathy or thyromegaly. Cardiovascular: irregularly irregular, normal rate, with soft murmur, No rubs, or gallops appreciated Pulmonary: Diffuse crackles at the bases , No wheezes, or rhonchi. Normal respiratory effort with no use of accessory muscles. Abdomen: Bowel tones present. Soft, nontender, nondistended. No hepatosplenomegaly or masses appreciated. Extremities: Mild bilateral lower leg pitting edema. Circumferential hyperpigmented area with taut skin over the lower extremities bilaterally. No clubbing, cyanosis, or lymphadenopathy appreciated. Skin: Normal temperature, turgor, and texture; no rash, ulcers, or subcutaneous nodules appreciated. Neurological: Right-sided facial droop, R sided ptosis. Muscle strength 4/5 in bilateral upper extremities however there is a lag on the right side. Finger to nose intact bilaterally, no pronator drift. No known gait impairment, ambulates independently at baseline. Psychiatric: Normal mood and affect. Alert and oriented to person, place, and time. Lab and Diagnostics Result Diagram: 06/04/16 1435 06/04/16 1435 X-Rays, CTs and MRIs PROCEDURE: X-RAY CHEST ONE VIEW, PORTABLE ([id number]) IMPRESSION: Mildly increased right pleural effusion with overlying opacity. The latter could be recent no focal edema, mass lesion or airspace disease such as pneumonia. Dictated by: Emily Cook M.D. on 06/04/2016 at 14:35 PROCEDURE: X-RAY CHEST ONE VIEW ([id number]) INDICATIONS: POST THORACENTESIS IMPRESSION: Decreased size of the right pleural effusion and no evidence for pneumothorax after thoracentesis. Dictated by: Isabela Becker M.D. on 06/04/2016 at 16:56 PROCEDURE: US VENOUS LEG DUPLEX UNILATERAL, LEFT IMPRESSION: 1. No deep venous thrombosis identified within the left lower extremity. 2. Enlarged morphologically normal-appearing lymph nodes within the left groin measuring up to 1.4 cm. Clinical correlation and management. Dictated by: Tyree Alegria Ricarda Interpreted: Emily Cook MD on 06/04/2016 at 16: 02 PROCEDURE: US GUIDED THORACENTESIS BY REFERRING PHYSICIAN ([id number]) INDICATIONS: right pleural effusion. TECHNIQUE: The indications, alternatives, benefits, risks, and complications of the procedure were explained to the patient. Written informed consent was obtained and placed in the chart. The chest was examined sonographically, and an appropriate site was chosen for thoracentesis. The skin was prepared and draped in the usual sterile fashion, and 1% lidocaine was infiltrated from the skin down through the pleural surface. A 19-gauge catheter-covered needle was then introduced into the pleural space, the catheter was advanced and the needle was withdrawn, and thereafter pleural fluid was aspirated. The catheter was then removed and a dressing was applied. FINDINGS: Access site: Right hemithorax. Needle: One-Step centesis catheter with introducer needle. Fluid volume and description: 1750 cc of clear pleural fluid. Fluid sent for diagnostic testing: Therapeutic drainage. Medications: 1% lidocaine for local anaesthesia. Complications: None; post-procedural chest radiograph is pending to assess for pneumothorax. IMPRESSION: Successful ultrasound-guided thoracentesis. Dictated by: Tyree MOREAU Interpreted: Emily Cook MD on 06/04/2016 at 16: 39 PROCEDURE: CT BRAIN WITHOUT CONTRAST ([id number]) IMPRESSION: No acute intracranial abnormalities. Nonacute bilateral caudate nucleus lacunar infarcts. Dictated by: René Prince M.D. on 06/04/2016 at 17:31 12-lead ECG ECG Interpretation: afib rate 76 otherwise normal no acute ST, T wave changes Time: 14:41 Interpreted by: ED physician Assessment & Plan 86-year-old male with history of CLL, recurrent pleural effusion, atrial fibrillation, ocular myasthenia gravis, and CHF presented to the emergency department for shortness of breath after thoracentesis patient developed dysarthria and worsening facial droop. 1. Possible cerebrovascular attack, present on admission, acute - Patient with acutely worsening right-sided facial droop, new onset dysarthria , and increased somnolence upon returning to his room in the emergency department after ultrasound-guided thoracentesis. - Aspirin 81 mg by mouth daily - MR stroke protocol in a.m. - Echocardiogram ordered - Lipid panel in a.m. - consider statin and antithrombotic therapy initiation prior to discharge - Monitor blood pressures with Q4 hour vitals - DVT prophylaxis with SCDs for now, interested in recommendation from Dr. Gama if pharmacologic treatment would be appropriate in this setting. - Patient's neurologist is Dr. Preeti Reid, emergency department physician discussed the case with her. 2. Recurrent right-sided pleural effusion, present on admission, acute - Patient received ultrasound guided thoracocentesis today with extraction of 1750 mL fluid - Oncologist speculates that this could be a side effect from ibrutinib, medication was discontinued one week ago - Recommend repeat chest x-ray if patient has worsening symptoms of shortness of breath or chest discomfort 3. 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 Gaam of oncology - Not currently on therapy as ibrutinib was discontinued one week ago - Leukocytosis of 81.7, 99% lymphocytes - Patient has received 2 blood transfusions recently 4. History of ocular myasthenia crisis, present on admission, chronic - Dr. Preeti Reid feels that his current symptoms are unlikely an exacerbation of this condition. - Pulmonary function tests returned in the low normal range, speculated this is baseline for patient. - Continue home dose Pyridostigmine bromide 60 mg by mouth 4 times a day 5. Atrial fibrillation, rate controlled, present on admission, chronic - Patient not currently on anticoagulation, formerly on warfarin 6. Lesions on head, resolved - Patient had recent biopsies of skin lesions on left cheek and left preauricular area, currently awaiting pathology results - Continue minocycline 7. Macrocytic anemia, present on admission, chronic - We will monitor H&H with daily CBC. 8. History of CHF, - Echocardiogram ordered - Most recent echo on 04/01/2016 shows left ventricular ejection fraction 55-60 % with an increase in the severity of pulmonary hypertension from previous echocardiogram - Daily weights, monitor I's and O's Acetaminophen for mild pain when necessary. Bowel regimen Senna and MiraLAX PRN. Zofran when necessary for nausea and vomiting. DVT prophylaxis with SCDs, consider pharmacological prophylaxis based on recommendations of rubber tile floor layer Patient was admitted under inpatient status with expected length of stay greater than 2 midnights due to severity of presenting symptoms, risk of adverse event, and complexity of treatment plan. Pain Evaluation: Adequate Pain Control GI Prophylaxis: Proton Pump Inhibitor VTE Mechanical Devices: Intermittant Pneumatic CD Resuscitation Status: CPR: Attempt Resuscitation Attending Statement Pt seen and examioned by myself and agree with above plan. copies to: Lorenzo Lombardo MD, Erika R DO Jun 04, 2016 22:47 Safia Fierro MD Jun 05, 2016 06:36
[2016-06-05] VITALS (7 sets, daily range): BP systolic 129–160; BP diastolic 71–85; PULSE 62–88; RESP 17–18; O2SAT 90–97
[2016-06-05] MEDS: Sodium Chloride LOK Flush 10 mL Syringe IVFLUSH SCH ×3 (02:54→15:32)
--- NOTE | 2016-06-05 03:19 | NUR ---
Admit Pt arrived on unit at 2127 on [facility]. Pt transferred to bed using 3 person assist and slider board. Pt ambulated to BR with 1 PA. Pt A&Ox3 but impulsive and very [place]. Verbal health history provided by family. Pt is a poor historian. VSS. Denies pain. Oriented to call light. Pt OOB without call light use, difficulty in getting to standing position. Has right leg weakness, pt notes that this is new, has slight limp on right with walking. Bedalarm placed on as pt does not use call light for OOB needs.
[2016-06-05 04:38] LABS: Mean Corpuscular Hemoglobin 35.7 pg (27.0-35.0); Mean Corpuscular Volume 118.3 fL (81-100); Platelet Count 100 bil/L (150-400)
[2016-06-05 05:02] LABS: BASOPHILS % (AUTO) 0 % (0-3); EOSINOPHILS % (AUTO) 0 % (0-5); MONOCYTES % (AUTO) 0 % (4-12)
[2016-06-05 05:03] LABS: NEUTROPHILS % (AUTO) 1 % (40-74)
[2016-06-05] MEDS: Pantoprazole 40 mg ER24 Tablet PO SCH ×2 (06:32→15:32)
[2016-06-05] MEDS: Calcium Carbonate (Oyster Shell) 500 mg Tablet PO SCH ×2 (08:52→20:31)
--- NOTE | 2016-06-05 12:11 | DRSVH ---
[facility] [address] [place] [address] Echocardiogram Report Name: LADONNA ROMEOudy Date: 06/05/2016 Height: 70 in Hospital Exam Location: [facility] Weight: 19 1 lb Gender: Male BSA: 2.0 m2 : 1930 Age: 86 yrs BP: 160/71 mmHg Reason For Study: Chest pain Ordering Physician: HOSPITALIST [facility] Performed By: Lu Gold Referring Physician: Dr. Joyce Murphy Interpretation Summary The study quality was technically difficult. The left ventricle is normal in size. The ejection fraction is estimated to be 50-55%. The left atrium is moderately dilated. There is mild mitral annular calcification. There is mild mitral regurgitation. There is mild aortic valve sclerosis. The right ventricular systolic pressure is estimated at 52 mmHg assuming a right atrial pressure of 15 mm Hg. The IVC is dilated (diameter is greater than 2.1 cm) and it collapses less than 50% with a sniff. This suggests a high right atrial pressure of 15 mm Hg. There has been no significant change since the previous study. Procedure: A two-dimensional transthoracic echocardiogram with color flow and Doppler was performed. The study quality was technically limited. Comparison is made with the echocardiogram of 04-01-16. The study quality was technically difficult. The patient was in atrial fibrillation with heart rates between 59-70 bpm during the exam. Left Ventricle: The left ventricle is normal in size. There is normal left ventricular wall thickness. The ejection fraction is estimated to be 50-55%. Diastolic function could not be accurately assessed due to atrial fibrillation. Right Ventricle: The right ventricle is normal in size and function. Atria: The left atrium is moderately dilated. There has been no significant change since the previous study. The right atrium is moderately dilated. The interatrial septum is intact with no evidence for an atrial septal defect. Mitral Valve: The mitral valve leaflets appear borderline thickened, but open well. There is mild mitral annular calcification. There has been no significant change since the previous study. There is mild mitral regurgitation. Aortic Valve: The aortic valve opens well. There has been no significant change since the previous study. There is mild aortic valve sclerosis. Tricuspid Valve: The tricuspid valve leaflets are thin and pliable. The right ventricular systolic pressure is estimated at 52 mmHg assuming a right atrial pressure of 15 mm Hg. There has been no significant change since the previous study. Pulmonic Valve: The pulmonic valve is not well visualized. Great Vessels: The aortic root is mildly dilated. The ascending aorta is at the upper limits of normal in size. The IVC is dilated (diameter is greater than 2.1 cm) and it collapses less than 50% with a sniff. This suggests a high right atrial pressure of 15 mm Hg. Pericardium/ Pleura There is no pericardial effusion. There is a moderately large right-sided pleural effusion. MMode/2D Measurements & Calculations LVIDd: 5.2 cm LA dimension: 4.2 cm RA long axis Ao root diam LVIDs: 3.2 cm IVC diam: 2.7 cm FS: 38.4 % RA area Aortic Jxn: 3.2 cm IVSd: 0.77 cm asc Aorta Diam LVPWd: 0.75 cm : 23.4 cm RA vol Ao Arch Diam (Prox : 87.1 ml Trans): 2.9 cm RA : 42.6 mm/ RVDd major : 6.3 cm LV vazquez. diameter/BSA LV sys. diameter/BSA RVD1 (basal) RVD2 (mid): 3.2 cm (cm/m^2): 2.5 (cm/m^2): 1.6 Doppler Measurements & Calculations Ao V2 max MV E max rajni MV E/A: 2.8 TR max rajni : 126.1 cm/sec : 119.2 cm/sec : 302.3 cm/sec Ao max PG MV A max rajni TR max PG : 6.4 mmHg : 43.0 cm/sec : 36.5 mmHg Ao mean PG MV P1/2t: 46.3 msec PA V2 max : 3.0 mmHg : 116.4 cm/sec PA mean PG PA Accel Time : 0.16 sec MV dec time MV P1/2t max rajni Ao V2 mean PA V2 mean : 0.15 sec : 77.2 cm/sec : 70.6 cm/sec MVA(P1/2t): 4.8 cm2 Ao V2 VTI : 28.3 cm Electronically signed by: Agapito Blum on Reading Physician:06/05/2016 12:11 PM
--- NOTE | 2016-06-05 13:11 | DRSVH ---
PROCEDURE: MRI STROKE PROTOCOL ([id number]) Pre- and post-contrast brain MRI, non-contrast brain MR angiogram, pre- and postcontrast neck MR rosanne ogram INDICATIONS: Dysarthria, worsening facial droop TECHNIQUE: Brain: Noncontrast axial T1 spin echo, axial T2 fast spin echo, sagittal and axial FLAIR, coronal T2 fast spin echo, axial gradient echo, axial diffusion and ADC through the brain. After the administr ation of contrast, axial 3D VIBE of the cranial vasculature and brain. Brain MRA: Non-contrast 3-D time of flight MR angiogram, with multiple oksbugt-nxpncview-qboeoqtuht (MIP) reformats performed. Neck MRA: Axial and sagittal TruFISP through the neck. Coronal dynamic MR angiogram during administ ration of contrast in the arterial and venous phases, with 3-dimenstional empbxit-trqbrxxir-gydxzfrtr n (MIP) reformats constructed from subtraction images. COMPARISON: None. FINDINGS: Image quality: Limited by patient motion. BRAIN: CSF spaces: Ventricles are normal in size and shape. Basal cisterns are patent. No extra-axial flu id collections. Brain: No intracranial bleeds or mass effects. Restricted diffusion involving the left globus pallid us, left putamen, left internal capsule, left external capsule, left caudate body and left pike rad iata compatible with acute infarct noted. Old, small, lacunar infarcts noted in the left caudate head the right putamen and the right centrum semiovale. Scattered punctate foci of increased T2 signal no balta in the periventricular, subcortical and pontine white matter tracts compatible with mild chronic microvascular ischemic changes. Normal intravascular flow voids are present. No abnormal intracrania l enhancement. Skull and face: Calvarial marrow signal is normal. Orbits appear normal. Sinuses: Sinuses and mastoids are clear. BRAIN MR ANGIOGRAM: Anterior circulation: Intracranial internal carotid arteries are normal in enhancement. Atherosclero tic irregularity noted in the supraclinoid segments of the internal carotid arteries bilaterally whic h causes moderate stenosis. The flow within the paired anterior cerebral arteries is normal and symme tric. There is absence of flow in the left middle through artery immediately distal to origin the ves tee highly suspicious for presence of thrombus. Atherosclerotic irregularity in an M2 branch of the r ight middle cerebral artery causes a focal, short segment high-grade stenosis. The anterior communic ating artery is seen. No stenoses, occlusions, or aneurysms. Posterior circulation: The visualized portions of the vertebral arteries demonstrate normal caliber. Atherosclerotic irregularity is noted in the proximal basilar artery which causes a focal, short seg ment, high-grade stenosis. The flow within the posterior cerebral arteries is normal and symmetric. Atherosclerotic irregularity causes short segment, high-grade stenosis of the distal P1 segment of th e right posterior cerebral artery. No cerebral aneurysms. NECK MR ANGIOGRAM: Carotids: Great vessels demonstrate bovine variant anatomy as they arise from the aortic arch. The origins of the common carotid arteries appear patent. The calibers and courses of both common caroti d arteries are normal. The bifurcation regions appear normal bilaterally. The internal carotid hiren ju demonstrate normal course and caliber. Mild atherosclerotic irregularity noted in the proximal i nternal carotid arteries bilaterally which does not cause measurable stenosis. Posterior circulation: The origins of the vertebral arteries are suboptimally visualized due to elías ent motion artifact. Origins of the vertebral arteries are grossly patent. More superior portions of both vertebral arteries demonstrate normal course and caliber. Miscellaneous: Subclavian arteries are poorly visualized due to motion artifact, but appear grossly patent. Pre-contrast images through the neck show no soft tissue abnormalities. IMPRESSION: Image quality degraded secondary to patient motion artifact. BRAIN MRI: 1. Acute infarct involving the left globus pallidus, left putamen, left internal capsule, left medical psychotherapist al capsule, left caudate body and left pike radiata. 2. Chronic, small, lacunar infarcts involving the left caudate head, the right globus pallidus in the right centrum semiovale. 3. Mild, diffuse bone loss. 4. Mild pontine, periventricular and subcortical white matter chronic microvascular ischemic changes. BRAIN MR ANGIOGRAM: 1. Absence of flow signal in the left middle cerebral artery distal to the origin of the vessel highl y suspicious for presence of thrombus. 2. Focal, short segment, high-grade stenoses involving M2 branch of the right middle cerebral artery and the P1 segment of the right posterior cerebral artery. 3. Focal, short segment, high-grade stenosis of the proximal basilar artery. NECK MR ANGIOGRAM: 1. No hemodynamically significant stenosis involving the internal carotid arteries. 2. Well visualized portions of the vertebral arteries are fully patent. The of the vertebral arteries are suboptimally visualized due to motion artifact. The estimate of stenosis included in the report of the imaging study was calculated using the NASCET method Dictated by: Lisa Qureshi MD, PhD on 06/05/2016 at 12:48 Approved by: Lisa Qureshi MD, PhD on 06/05/2016 at 13:10
--- NOTE | 2016-06-05 13:11 | NUR ---
Evaluation completed. Please go to "Notes" then click on "Assessments and Notes" (bottom left corner of screen). Then select appropriate discipline tab on top of screen.
--- NOTE | 2016-06-05 13:36 | NUR ---
Evaluation completed. Please go to "Notes" then click on "Assessments and Notes" (bottom left corner of screen). Then select appropriate discipline tab on top of screen.
--- NOTE | 2016-06-05 16:36 | NUR ---
Social Work Note: Initial Assessment Data& Assessment: EMR reviewed. SW met with pt and pt at bedside to discuss discharge planning, SW role explained. Sameer Doran is a 86 year old male admitted on 06/04/2016 for CVA/TIA. Pt has Medicare insurance coverage and for life. Pt sees Lorenzo Lombardo MD for primary care and Dr. Lai for oncology. Pt lives in [place] with his spouse and is independent at baseline. Pt normally does not require any DME. Pt drives and does not have HH or SNF hx. Pt does not have LTC insurance or [employer] through the [place]. Pt was provided with [employer] paperwork to review and complete when possible. Pt, pt daughter and pt deny any needs at this time. SW to continue to follow. PT evaluation is pending at this time. SW to follow up with pt regarding PT and MD recommendations and evaluation. SW to continue to follow. Plan: Anticipated discharge to SNF vs. HH pending PT evaluation and recommendations. Pt, pt daughter and pt deny any needs at this time. SW to continue to follow. RUPAL Molina Addendum: 06/05/16 at 1641 by DEDRICK ZARAGOZA Amended: Links added.
[2016-06-05] MEDS ORDERED: Dabigatran 150 mg Capsule PO SCH (17:22)
--- NOTE | 2016-06-05 17:33 | PCM.PNMED ---
Subjective Date of Service Jun 05, 2016 Subjective Overnight: Patient was admitted and apparently alert and oriented x3 with slight limp on right with walking. No other event. Tele Afib in the 60s. Today: Patient was seen in the morning with severe dysarthria and speech was incoherent. Significant facial droop and right-sided weakness. He was alert, but difficult to assess orientation due to speech issue. He was able to follow commands and answered yes/no questions. However, when the patient was seen with his in the room, his speech and facial droop improved. Per his , the patient has a little ocular droop occasionally, but never had a facial droop prior to this. No known gait impairment, ambulates independently at baseline. Exam Vital Signs Vital Sign - Last Date Time Temp Pulse Resp B/P Pulse Ox O2 Delivery O2 Flow Rate FiO2 06/05/16 15:43 74 18 129/71 94 Room Air 06/05/16 11:02 36.3 Intake and Output 06/04/16 06/04/16 06/05/16 Cumulative From/Thru 15:00 23:00 07:00 06/04/16 13:55 - 06/05/16 06:12 Intake Total 500 ml 100 ml 600 ml Output Total 400 ml 400 ml Balance 500 ml -300 ml 200 ml Intake Oral 100 ml 100 ml IV Total 500 ml 500 ml Output Urine Total 400 ml 400 ml Exam General: Alert but unknown orientation. Does not appear to be confused or in acute distress, well-developed, well-nourished. HEENT: Normocephalic, atraumatic. External ears without defect. Anicteric sclerae, moist conjunctivae, and no lid lag. Oropharynx free of erythema and cobble stoning with moist mucosa. Neck: Supple with full range of motion. No lymphadenopathy or thyromegaly. Cardiovascular: irregularly irregular, normal rate, with soft murmur, No rubs, or gallops appreciated Pulmonary: Decreased breath sound on the right base. Diffuse crackles. No wheezes, or rhonchi. Normal respiratory effort with no use of accessory muscles. Abdomen: Bowel tones present. Soft, nontender, nondistended. No hepatosplenomegaly or masses appreciated. Extremities: Mild bilateral lower leg pitting edema. No clubbing or cyanosis appreciated. Skin: Normal temperature, turgor, and texture; no rash, ulcers, or subcutaneous nodules appreciated. Neurological: Significant right-sided facial droop, R sided ptosis. Drooling. Muscle strength 4/5 in bilateral upper extremities and lower extremities, however there is a lag and more weakness on the right side. Unable to perform Finger to nose on both sides. No pronator drift. Sensation to light touch grossly intact. Psychiatric: Normal mood and affect. IVs and Medications Medications Reviewed: Medications were reviewed in detail Lab and Diagnostics Result Diagram: 06/05/1640906/05/16409 X-Rays, CTs and MRIs PROCEDURE: X-RAY CHEST ONE VIEW, PORTABLE IMPRESSION: Mildly increased right pleural effusion with overlying opacity. The latter could be recent no focal edema, mass lesion or airspace disease such as pneumonia. Dictated by: Emily Cook M.D. on 06/04/2016 at 14:35 PROCEDURE: X-RAY CHEST ONE VIEW INDICATIONS: POST THORACENTESIS IMPRESSION: Decreased size of the right pleural effusion and no evidence for pneumothorax after thoracentesis. Dictated by: Isabela Becker M.D. on 06/04/2016 at 16:56 PROCEDURE: US VENOUS LEG DUPLEX UNILATERAL, LEFT IMPRESSION: 1. No deep venous thrombosis identified within the left lower extremity. 2. Enlarged morphologically normal-appearing lymph nodes within the left groin measuring up to 1.4 cm. Clinical correlation and management. Dictated by: Tyree MOREAU Interpreted: Emily Cook MD on 06/04/2016 at 16: 02 PROCEDURE: US GUIDED THORACENTESIS BY REFERRING PHYSICIAN INDICATIONS: right pleural effusion. TECHNIQUE: The indications, alternatives, benefits, risks, and complications of the procedure were explained to the patient. Written informed consent was obtained and placed in the chart. The chest was examined sonographically, and an appropriate site was chosen for thoracentesis. The skin was prepared and draped in the usual sterile fashion, and 1% lidocaine was infiltrated from the skin down through the pleural surface. A 19-gauge catheter-covered needle was then introduced into the pleural space, the catheter was advanced and the needle was withdrawn, and thereafter pleural fluid was aspirated. The catheter was then removed and a dressing was applied. FINDINGS: Access site: Right hemithorax. Needle: One-Step centesis catheter with introducer needle. Fluid volume and description: 1750 cc of clear pleural fluid. Fluid sent for diagnostic testing: Therapeutic drainage. Medications: 1% lidocaine for local anaesthesia. Complications: None; post-procedural chest radiograph is pending to assess for pneumothorax. IMPRESSION: Successful ultrasound-guided thoracentesis. Dictated by: Tyree MOREAU Interpreted: Emily Cook MD on 06/04/2016 at 16: 39 PROCEDURE: CT BRAIN WITHOUT CONTRAST ([id number]) IMPRESSION: No acute intracranial abnormalities. Nonacute bilateral caudate nucleus lacunar infarcts. Dictated by: René Prince M.D. on 06/04/2016 at 17:31 PROCEDURE: MRI STROKE PROTOCOL IMPRESSION: Image quality degraded secondary to patient motion artifact. BRAIN MRI: 1. Acute infarct involving the left globus pallidus, left putamen, left internal capsule, left external capsule, left caudate body and left pike radiata. 2. Chronic, small, lacunar infarcts involving the left caudate head, the right globus pallidus in the right centrum semiovale. 3. Mild, diffuse bone loss. 4. Mild pontine, periventricular and subcortical white matter chronic microvascular ischemic changes. BRAIN MR ANGIOGRAM: 1. Absence of flow signal in the left middle cerebral artery distal to the origin of the vessel highly suspicious for presence of thrombus. 2. Focal, short segment, high-grade stenoses involving M2 branch of the right middle cerebral artery and the P1 segment of the right posterior cerebral artery. 3. Focal, short segment, high-grade stenosis of the proximal basilar artery. NECK MR ANGIOGRAM: 1. No hemodynamically significant stenosis involving the internal carotid arteries. 2. Well visualized portions of the vertebral arteries are fully patent. The of the vertebral arteries are suboptimally visualized due to motion artifact. The estimate of stenosis included in the report of the imaging study was calculated using the NASCET method Dictated by: Lisa Qureshi MD, PhD on 06/05/2016 at 12:48 Approved by: Lisa Qureshi MD, PhD on 06/05/2016 at 13:10 12-lead ECG ECG Interpretation: afib rate 76 otherwise normal no acute ST, T wave changes Time: 14:41 Interpreted by: ED physician Cardiac Echo Impressions Interpretation Summary by Dr. Blum on 06/05/2016: The study quality was technically difficult. The left ventricle is normal in size. The ejection fraction is estimated to be 50-55%. The left atrium is moderately dilated. There is mild mitral annular calcification. There is mild mitral regurgitation. There is mild aortic valve sclerosis. The right ventricular systolic pressure is estimated at 52 mmHg assuming a right atrial pressure of 15 mm Hg. The IVC is dilated (diameter is greater than 2.1 cm) and it collapses less than 50% with a sniff. This suggests a high right atrial pressure of 15 mmHg. There has been no significant change since the previous study. Assessment & Plan 86-year-old male with history of CLL, recurrent pleural effusion, atrial fibrillation, ocular myasthenia gravis, and CHF presented to the emergency department for shortness of breath after thoracentesis patient developed dysarthria and worsening facial droop. He was admitted for CVA. Hospital day #2. 1. Acute ischemic cerebrovascular accident, present on admission, acute. - Patient with acutely worsening right-sided facial droop, new onset dysarthria , and increased somnolence upon returning to his room in the emergency department after ultrasound-guided thoracentesis. - CT brain was normal, but MRI stroke protocol noted an Acute infarct involving the left globus pallidus, left putamen, left internal capsule, left external capsule, left caudate body and left pike radiata. - There is also absence of flow signal in the left middle cerebral artery distal to the origin of the vessel highly suspicious for presence of thrombus. There are high-grade stenoses of the right MCA, HOUSEKEEPING COORDINATOR, and proximal basilar artery. - Patient is now out of the window for tPA. - Dr. Reid was consulted and recommended to continue the ASA 81mg. No Plavix given the low platelet. - Per nephrology, anticoagulation choices would be Pradaxa > Warfarin > ASA. - Dr. Gama was also consulted for anticoagulation guidance and approved starting Pradaxa. Will start Pradaxa 150mg BID [facility] and will follow up with social media editor for insurance coverage. - Echocardiogram showed no significant changes since the last Echo. - Start Atorvastatin 40mg HS. Lipid panel in a.m. - Permissive hypertension. No antihypertensive medication at this point. Continue to monitor blood pressures with Q4 hour vitals. - PT/OT/ST consulted and will continue to follow. 2. Recurrent right-sided pleural effusion, present on admission, acute - Patient received ultrasound guided thoracocentesis last night 06/04/16 with extraction of 1750 mL fluid. - Oncologist speculates that this could be a side effect from ibrutinib, medication was discontinued one week ago. - Recommend repeat chest x-ray if patient has worsening symptoms of shortness of breath or chest discomfort. 3. 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 Gama of oncology. His recommendations are greatly appreciated. - Not currently on therapy as ibrutinib was discontinued one week ago - Leukocytosis of 81.7, 99% lymphocytes on admission. - Patient has received 2 blood transfusions for CLL recently. 4. History of ocular myasthenia crisis, present on admission, chronic. - Current symptoms are likely due to an acute stroke and not an exacerbation of this condition. - Continue to follow up with Dr. Reid. - Pulmonary function tests returned in the low normal range, speculated this is baseline for patient. - Continue home dose Pyridostigmine bromide 60 mg by mouth 4 times a day 5. Atrial fibrillation, rate controlled, present on admission, chronic. - Patient was not on anticoagulation at home, formerly on warfarin. - Rate is currently controlled with no medication. Will avoid beta blockers at this point due to risk of decreasing his BP. - CHADS score of at least 5. Will start anticoagulation with Pradaxa. - Continue to monitor for bleeding. 6. Lesions on head, resolved - Patient had recent biopsies of skin lesions on left cheek and left preauricular area, currently awaiting pathology results - Continue minocycline 7. Macrocytic anemia, present on admission, chronic - We will monitor H&H with daily CBC. 8. History of CHF, chronic, presumed stable. - New Echo on 06/05/2016 reveals No changes from the recent Echo on 04/01/2016 that showed left ventricular ejection fraction 55-60% with an increase in the severity of pulmonary hypertension. - No signs of decompensation - Daily weights, monitor I's and O's 9. Code status: FULL CODE per his and daughter. Dr. Reid mentioned about hospice today, but the family would like to think about it. Will consult Palliative Care tomorrow if they choose that route. Dispo: Patient will likely be discharged to a SNF for rehabilitation once his medical management is optimal. Patient was admitted under inpatient status with expected length of stay greater than 2 midnights due to severity of presenting symptoms, risk of adverse event, and complexity of treatment plan. Acetaminophen for mild pain when necessary. Bowel regimen Senna and MiraLAX PRN. Zofran when necessary for nausea and vomiting. DVT prophylaxis with SCDs, consider pharmacological prophylaxis based on recommendations of kitchenwhere maker Pain Evaluation: Adequate Pain Control GI Prophylaxis: Proton Pump Inhibitor VTE Mechanical Devices: Intermittant Pneumatic CD Resuscitation Status: CPR: Attempt Resuscitation Attending Statement The patient was seen and examined together with Dr. Lui on 06-05-16 and I agree with the history, exam and plan as outlined in the note above. Noemi Lui DO Jun 05, 2016 17:33 Chetan Gaitan MD Jun 06, 2016 13:15
--- NOTE | 2016-06-05 18:20 | NUR ---
CVA/MRI/POC The pt had a MRI confirmed left sided CVA resulting in right sided weakness. Neuro is consulting. The pt is able to transfer with a strong 1PA to the BSC, and did ambulate with family, against nursing wishes, to the bathroom. The pt is scheduled for further PT, OT and speech evals throughout the next day. The pt is A&Ox3, and is able to adequately state and communicate needs at this time.
--- NOTE | 2016-06-05 19:25 | CONS ---
[address] [address] CONSULTATION REPORT PATIENT: LADONNA ROMEO : 1930 MR#: [id number] ADMIT: 06/04/2016 JOB ID: [id number] DATE OF SERVICE: 06/05/2016 NEUROLOGY CONSULTATION: REQUESTING PHYSICIAN: Dr. Fidelia Lui for acute stroke. HISTORY OF PRESENT ILLNESS: The patient is an 86-year-old gentleman with history of chronic lymphocytic leukemia with associated amenia and thrombocytopenia followed by Dr. Gama and atrial fibrillation not on anticoagulation who presents following progressively worsening pleural effusions to the emergency room where he developed acute right-sided weakness. The emergency department doctor raised concerns about a possible acute myasthenic exacerbation however, I suggested evaluation for acute stroke. The head CT showed no abnormalities. CT angio was not performed. The patient was admitted with concern for stroke; however, an MRI was not completed until this morning, when there was evidence of a left MCA occlusion with no acute left basal ganglia stroke. The MRI was read as acute infarct of the left globus pallidus, putamen, internal capsule and external capsule, caudate, and pike radiata. Also noted was M2 branch right middle cerebral artery atherosclerotic irregularity and short-segment high-grade stenosis. Other vessels showed atherosclerotic irregularity with carotid arteries extracranially showing no hemodynamically significant stenosis and vertebral arteries fully patent. The patient's , Nannette, and her daughter, Cassidy, are at the bedside. They described the patient's decline over the last year including personality change, increased weakness. The notes from Dr. Gama, the patient's oncologist, were reviewed from April 15, 2016. The patient has stage 4 chronic lymphocytic leukemia/small lymphocytic lymphoma with continued white cell count, particularly lymphocytes, rising, evidence of progressive lymphadenopathy on chest imaging, significant anemia and thrombocytopenia, with frequent infections. The patient continues on ibrutinib chemotherapy. Although the patient has myasthenia gravis, this has affected only his right eye with ptosis. He has never had generalized symptoms. I have followed him as an outpatient since 2009 and know the family well. Separately, his daughter states that her father has been declining steadily over the last year and her mother is beginning to realize that it may be time to involve hospice. The patient has not had a stroke previously, at least clinically. He has been in atrial fibrillation and on warfarin in the past. According to the notes from Dr. Tolliver, his order entry administrator who saw him last on May 27, 2013, the patient has had paroxysmal atrial fibrillation found perioperatively and anticoagulated on warfarin without difficulty. However, warfarin was discontinued when the patient was having evaluation for blood in his stool in 2015, according to family members. He has been on 81 mg aspirin since then. Reviewing the chart notes from [facility] outpatient clinics, his last cholesterol level was LDL 123 in 2014. The patient has been on no statins as far as I can tell. Echocardiogram completed today shows a moderately dilated left atrium and an ejection fraction of 50% to 55%. Atrial fibrillation was noted. Recent cholesterol levels have not been obtained but were recommended to be requested as part of the stroke protocol. The patient continues to have right-sided weakness face, arm, and leg. Not significantly improved this a.m. since admission yesterday. His speech appears to be mildly dysarthric and nasal, and answers are somewhat circumferential. He seems slightly disinhibited. Physical therapy and occupational therapy have been requested. Speech therapy has completed an evaluation with the patient. Recommended to continue with thickened liquids, one-on-one feeding, and encouraging small bites. Dysphagia mechanical solids recommended. PAST MEDICAL HISTORY: Ocular myasthenia, stage 4 chronic lymphocytic leukemia/small lymphocytic lymphoma, CHF, atrial fibrillation, reflux, hypothyroid, tricuspid regurgitation , remote history of DVT, recurrent pulmonary effusions status post thoracentesis, appendectomy, right eye blepharoplasty surgery, cataract removal, left knee arthroplasty, right and left shoulder impingement, meniscectomy. FAMILY HISTORY: Mother from blood clots at age 57. Multiple family members with cancer including his 10 siblings. SOCIAL HISTORY: He is , with a very supportive family. His , Lara, is at the bedside and is his caregiver. No alcohol, substance abuse, or cigarette smoking. Prior to admission he was able to drive his car to the hospital. INPATIENT MEDICATIONS: Os-Otis, 81 mg aspirin, pyridostigmine, pantoprazole, minocycline, and IV fluids. DRUG ALLERGIES: CEPHALOSPORIN, PENICILLIN, SULFA, CEDAR WOOD, KETOCONAZOLE, TRIMETHOPRIM. REVIEW OF SYSTEMS: The patient has right hemiplegia, dysarthria, dysphagia, bruising, generalized weakness per family. All other systems were reviewed and the patient reports as negative. He is not a reliable historian. PHYSICAL EXAMINATION: The patient is frail and ill appearing, resting comfortably in his hospital bed, in no apparent distress. Vital signs: Telemetry showing atrial fibrillation. Blood pressure 129/71, pulse 74, respiratory rate 18, pulse oximetry 94% on room air. Head: Normocephalic, atraumatic. With facial lesion from removal of basal ganglia cancer per . No carotid bruits. Lungs: Diminished breath sounds. Cardiac: Irregular rate and rhythm. Extremities: Bilateral pitting edema. Hyperpigmented regions of the lower extremities. Significant bruising upper and lower extremities. NEUROLOGIC EXAMINATION: The patient alerts to voice. Answers questions. Recognizes this doctor. Limited answers. Nasal speech and mild dysarthria. Mood appears euthymic. Cranial nerves: Right hemifacial weakness with ptosis. Sensation intact in the face bilaterally. Tongue midline. Palate raises symmetrically. SCM and shoulder shrug appear to be intact. Pupils are equally reactive to light and accommodation, with extraocular movements intact. No increased ptosis with upward gaze. Motor: Strength 4/5 with pronator drift on the right. Intact on the left upper and lower extremities. Sensation: Intact to pinprick, soft touch, vibration upper and lower extremity. Reflexes: Deep tendon reflexes trace throughout, with plantar reflex mute bilaterally. Tone: Intact to upper and lower extremities. Coordination: Intact, with weakness taken into consideration upper and lower extremities. Gait: The patient ambulates with assistance and a slight limp, favoring his right leg. IMAGING STUDIES: As per the history of present illness. LABORATORY STUDIES: Mildly elevated glucose 102, calcium low at 7.8. Total protein 5.5, which is low. Albumin 2.8, low. PT, INR, and PTT within normal limits. CBC shows white count 64.4, with lymphocytic predominance. Platelets 100. UA negative. IMPRESSION: The patient is an 86-year-old gentleman known to me for ocular myasthenia affecting the right eye, which has been stable, admitted with acute right hemiparesis and found to have a left basal ganglia stroke. There is also atherosclerotic disease and occlusion of the left MCA. The patient is in atrial fibrillation, having stopped warfarin last year for possible bleeding disorder due to anemia. Anemia is most likely related to his lymphoma according to the notes from Dr. Gama. Likely the patient was made hypercoagulable by cancer. He is at risk of recurrent strokes due to atrial fibrillation. I discussed the case with Dr. Glaser and Dr. Lui and recommended Pradaxa for atrial fibrillation if acceptable to Dr. Gama given the patient's thrombocytopenia. Pradexa or any anticoagulation will need to be delayed due to acute CVA. Given the size of his infarct, I recommend waiting at least one week, repeating head CT prior to initiation of Pradexa due to risk of intracranial bleeding in the context of acute stroke. Until that time 81mg daily aspirin should be continued then stopped in after initiation of Pradexa unless recommended by cardiology to continue both. Aggressive medical management including adding statins to lower risk of atherosclerotic disease seen on other intracranial vessels per the SAMMPRIS study during medical management for intracranial stenosis. The rest of the stroke orders should be put in place and followed. I suggested considering hospice to the patient's today and discussed this with his daughter, who agrees. Continued physical therapy and occupational therapy should resolve right-sided weakness over time. Prevention of further strokes is guarded given his cancer diagnosis and other risk factors. Risks and benefits were discussed with the team and with the patient's and daughter at the bedside. Over half of this 60 minute consultation it was spent in counseling with the patient's family. Review of the imaging studies and implications of treatment were discussed with the patient's team. Thank you for this consultation. I will follow with you as needed. The patient has an outpatient Neurology appointment scheduled with me for June 13, 2016. KALEN
[2016-06-06] VITALS (7 sets, daily range): BP systolic 101–147; BP diastolic 55–86; PULSE 46–82; RESP 16–20; O2SAT 92–100
[2016-06-06] MEDS: Sodium Chloride LOK Flush 10 mL Syringe IVFLUSH SCH ×4 (00:34→20:04)
--- NOTE | 2016-06-06 01:48 | NUR ---
SPEECH/AMBULATION Pt had had right sided weakness, but is able to ambulate to the bathroom with SBA. Pt uses jumbled words when answering questions. Able to communicate with short or yes/no answers. Pt wishes to maintain his independence, but has been compliant with using call light appropriately. Pt's vitals stable, no other issues noted at this time.
[2016-06-06 04:27] LABS: Magnesium 1.9 mg/dL (1.6-2.6)
[2016-06-06 04:56] LABS: BASOPHILS % (AUTO) 0.2 % (0-3); EOSINOPHILS % (AUTO) 0.1 % (0-5); MONOCYTES % (AUTO) 0.6 % (4-12); Mean Corpuscular Hemoglobin 36.2 pg (27.0-35.0); Mean Corpuscular Volume 116.9 fL (81-100); NEUTROPHILS % (AUTO) 1.2 % (40-74); Platelet Count 103 bil/L (150-400)
[2016-06-06] MEDS: Pantoprazole 40 mg ER24 Tablet PO SCH ×2 (06:17→17:06)
[2016-06-06] MEDS: Calcium Carbonate (Oyster Shell) 500 mg Tablet PO SCH ×2 (08:25→20:04)
--- NOTE | 2016-06-06 10:01 | NUR ---
Evaluation completed. Please go to "Notes" then click on "Assessments and Notes" (bottom left corner of screen). Then select appropriate discipline tab on top of screen.
--- NOTE | 2016-06-06 11:18 | NUR ---
Palliative Care Palliative Care received order from Dr Lui 06/06/16 to assist with goals of care. Patient is an 86 year old man with stage 4 CLL. He was admitted 06/04/16 for care of new CVA and significant pleural effusion. Patient lives at home with . Colleen Holbrook () [phone] [place] Painter (friend) [phone] Palliative Care to follow. Mary Amin
--- NOTE | 2016-06-06 14:05 | PROG NOTE ---
[address] [address] PROGRESS NOTE PATIENT: LADONNA ROMEO : 1930 MR#: [id number] ADMIT: 06/04/2016 JOB ID: [id number] DATE: 06/06/2016 REQUESTING PHYSICIAN: Dr. Fidelia Lui SUBJECTIVE: The patient is an 86-year-old gentleman with acute left basal ganglia stroke on June 04, 2016, thought possibly to be related to atrial fibrillation not on anticoagulation. The patient also has conventional cardiovascular risks and stage IV lymphoma. The patient inadvertently with given one dose of Pradaxa last night. I spoke with the night hospitalist, Dr. Leidy Levy, who agreed to watch the patient overnight. The order was stopped and 81 mg aspirin continued until discussion with Dr. Gama, his oncologist, and with cardiology regarding this medication can be completed. I advised that there is risk of intracranial hemorrhage with starting this medication too soon. The patient also has thrombocytopenia and anemia from lymphoma. His again reiterates the fact that the patient had GI problems thought to be attributed to warfarin when warfarin was discontinued. However, no bleed was ever detected. Today he was able to walk with physical therapy around the floor. He is deemed a candidate for inpatient rehab. The family has noted fluctuations in weakness. This morning he was much weaker than he is currently. Currently he is sitting in a chair eating his lunch. No difficulty has been detected from the dose of Pradaxa and no new symptoms. DATE: REVIEW OF SYSTEMS: Is as per the history of present illness. Continued right-sided weakness, fluctuating symptoms, mild dysphagia, mild dysarthria. Cognitive: Changes one-word answers. All other systems reviewed and reported as negative. MEDICATIONS: reviewed, 1 dose Pradexa yesterday now stopped; aspirin 81mg, 40mg atorvastatin (others reviewed) OBJECTIVE: The patient has atrial fibrillation on telemetry. Blood pressure 101/55, heart rate 82, respiratory rate 18, with a pulse oximetry 100% on room air. Head: Normocephalic, atraumatic. No evidence of carotid bruits. Cardiac: Irregular heart rate. Lower extremities with edema and vascular changes. NEUROLOGIC EXAMINATION: The patient is alert and oriented to self and place. Further mental status is not requested. He answers in one-word answers and smiles with good prosody. Mood appears to be euthymic. Cranial nerves: Pupils equally reactive to light and accommodation. Extraocular movements intact. Mild right lower extremity weakness which is barely evident with smile. Motor: Mild pronator drift in the right upper extremity. Deep tendon reflexes: Trace throughout. Tone: Intact throughout. Sensation: Intact to touch all four extremities. Gait: Walked today with PT, improved right lower extremity weakness noted. LABORATORY STUDIES: Elevated white count. Platelets 103 and that white count was 76.3. Creatinine 0.65, glucose 113, albumin 3.1. IMAGING STUDIES: No new imaging to review. ASSESSMENT AND RECOMMENDATION: The patient is an 86-year-old gentleman with acute left basal ganglia stroke and right hemiplegia which is improving. He has fluctuating symptoms appreciated by the family which can be anticipated in the early days of stroke. The patient has a history of atrial fibrillation and previously was on warfarin. Last night, he received a dose of Pradaxa without any ill affects. I recommended continuing 81 mg aspirin until anticoagulation can be decided with both oncology and cardiology weighing in with risks and benefits. The earliest that any anticoagulation should be considered is one week following his stroke. I recommend head CT prior to initiation of any anticoagulant. The benefit of Pradaxa is the fact that is irreversible unless intracranial hemorrhage. Although apixaban has the lowest intracranial hemorrhage risk, it is not reversible at this time. As mentioned previously, he has other cardiovascular risks that need to be addressed including hyperlipidemia given his atherosclerotic disease. He is now on atorvastatin 40 mg daily. I agree with inpatient rehabilitation. Will sign off for now. Please call if needed. Thank you for this consultation. KALEN
--- NOTE | 2016-06-06 16:45 | NUR ---
Social Work: Readiness for Discharge D: Pt discussed in am rounds. Pt is not medically stable for discharge at this time. Anticipate possible d/c on Friday. INSPECTOR PROCESS reviewed recommendations from PT, OT and ST. From an ambulatory standpoint, pt is doing well and is ambulating 400 feet with PT. Pt has noticeable right side deficits due to recent stroke. Family is very concerned about taking the pt home and would like INSPECTOR PROCESS to explore possible SNF. INSPECTOR PROCESS explained medical necessity and that pt will likely not meet skillable need. They would still like SNF to review. Preference is for [facility]. INSPECTOR PROCESS provided referral to [facility] and spoke with Chica Gonzales, environmental systems coordinator at [facility]. She and her DNS have reviewed the pt's chart and believe that because of the pt's neurocognitive deficits including his lack of speech, unsteady gait and noticeable right sided deficits, pt has skillable need for SNF placement. She expects that pt will only be skillable for 5-7 day however are willing to accept the pt with Dr. Dyson to follow. INSPECTOR PROCESS updated pt's family who is agreeable to discharge to [facility] when ready. A: Pt who was previously I at baseline. P: Anticipate pt to discharge to [facility] with Dr. Dyson to follow once medically stable; INSPECTOR PROCESS to continue to follow. RUPAL Velasquez
--- NOTE | 2016-06-06 17:13 | PCM.CONPAL ---
Date of Service Jun 06, 2016 Date of Hospital Admission: Jun 04, 2016 at 19:41 Date of Palliative Consult: Jun 06, 2016 Requesting Provider: Noemi Lui DO Reason Palliative Care Consult: Goals of Care Discussion Palliative Care Recommendation 86 yr old man with CLL/SLL who is admitted for stroke symptoms, now largely recovering his function, but understanding that he faces increased risk of future strokes and other clot-related events related to cancer, as well as bleeding events related to prophylactic therapy. Family hopeful that patient will qualify for rehab--feeding issues and risk of aspiration in home setting would be overwhelming to . Summary of palliative recommendations: -Symptom management (Pain/other) --minimal pain: prn meds --nutrition: ST to assign safe diet; family to be instructed on this and other therapies. -- -DPOA/Advanced Directives/POLST --Discussed code status at length with patient and family. While they agree he would not want any long-term life support, he nods yes to wanting CPR and intubation short term if any benefit can be gained. Family is supportive of patient choice. -Family/emotional support: very supportive family. committed but is cautious about her limited ability to help with him. --children express concern about patient and living so far out of town. -Disposition: informed by CM that patient will likely not qualify for PT/OT rehab now that his recovery today has been evidenced by ambulation. Will check to see if ST needs will meet criteria. Patient Goals: 1. Patient wants to be told the truth about his/her illness, even if it is unpleasant. 2. Patient would like to be told prognosis when it can be predicted, to better guide treatment decisions. 3. Patient would choose quality of life over quantity of life, and defines quality as being home as much as possible. 4. Patient would request that comfort care take priority over cognitive/mental confusion. Additional Medical Diagnoses with primary management by Hospitalist team include : 1. Acute ischemic cerebrovascular accident, present on admission, acute. 2. Recurrent right-sided pleural effusion, present on admission, acute 3. 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 History of ocular myasthenia crisis, present on admission, chronic. 5. Atrial fibrillation, rate controlled, present on admission, chronic. 6. Lesions on head, resolved 7. Macrocytic anemia, present on admission, chronic 8. History of CHF, chronic, presumed stable. 9. Code status: FULL CODE per his and daughter. Dr. Reid mentioned about hospice today, but the family would like to think about it. Will consult Palliative Care tomorrow if they choose that route. Problems: (1) Goals of care, counseling/discussion Status: Acute ICD Code: Z71.89 (2) Palliative care by specialist Status: Acute ICD Code: Z51.5 Resuscitation Status Resuscitation Status: CPR: Attempt Resuscitation Limited Interventions: Compressions, Cardioversion/Defibrillation, Intubation w Mech Vent, BiPAP, Medications and IV Fluid POLST Updates/Changes Previous POLST?: No . Advanced Care Planning Address: Code status change (confirmed full code after extensive discussion) Pt History History of Present Illness 86-year-old male with history of CLL, recurrent pleural effusion, atrial fibrillation, ocular myasthenia gravis, and CHF presented to the emergency department for shortness of breath after thoracentesis patient developed dysarthria and worsening facial droop. Patient developed cough and shortness of breath over 2 weeks ago, he was found to have left-sided pleural effusion 15 days ago he had an initial thoracentesis, Digitek 3 L off again 5 days ago, ultrasound-guided thoracentesis was performed again today with extraction of 1750 cc of clear pleural fluid. He had some improvement of his shortness of breath however when he returned his noticed that his chronic right facial droop (from myasthenia gravis) was worse. He was also noted to have slurred speech, was drooling, and appeared to be more tired. Patient reports feeling relatively normal throughout this situation and does not seem to be bothered by his symptoms. Patient has chronic swelling in his legs worse on the left side. He notes feeling some chest pressure yesterday, he also endorses a cough and shortness of breath that worsens with activity. He has received multiple blood transfusions in the past as his CLL is active. He is being followed by Dr. Gama of hematology/oncology. It was speculated that office visit on 2016 that the recurring pleural effusion may be due to his Callie kinase inhibitor, a [place] and this was discontinued at that time. With initial effusion there was evidence of serosanguineous fluid which could represent a malignancy. Dr. Gama is continuing to follow patient and plans to discuss chemotherapy such as Rituxan based chemotherapy with patient to treat his CLL/ small lymphocytic lymphoma. In the emergency department patient was found again to have a pleural effusion, symptoms resolved after thoracentesis. He was evaluated for coronary ischemia. Patient's demeanor after thoracentesis was quite different, there was concern for myasthenia crisis with dysarthria and increased somnolence. ED physician discussed case with patient's neurologist Dr. Reid who feels myasthenia crisis involving face is unlikely due to patient only ever having ocular involvement before. Pulmonary function tests were performed and noted to be low but likely normal for patient. It is possible patient had a stroke, CT brain did not note any acute intracranial abnormalities. He is admitted for further workup and observation. Social History Occupation: retired Palliative Performance Scale PPS Patient Status: Current PPS Ambulation: Mainly Sit/Lie, Mainly Bed PPS Activity: Unable to do any work PPS Self-Care: Considerable assistance required PPS Intake: Normal or reduced PPS Conscious Level: Full Performance Scale: 60% ADLs ADL Patient Status: Baseline ADL Ambulation: Reduced ADL Dressing: Full, Occasional assistance necessary ADL Feeding: Full ADL Hygene/bathing: Full ADL Transfers: Full Allergy Allergies Reviewed: Yes Medications Current Medications: Current Medications Sodium Chloride 10 ml Q8 IVFLUSH Last administered on 06/06/16 08:25; Admin Dose 10 ML; Start 06/05/16 at 00:30 Al Hydrox/Mg Hydrox/Simethicone 30 ml Q6H PRN PO; Start 06/04/16 at 20:50 Ondansetron HCl 4 to 8 mg Q4H PRN IVPUSH; Start 06/04/16 at 20:50 Senna 17.2 mg BID PRN PO; Start 06/04/16 at 20:50 Polyethylene Glycol 17 gm DAILY PRN PO; Start 06/04/16 at 20:50 Acetaminophen 650 mg Q4H PRN PO; Start 06/04/16 at 20:50 Pyridostigmine [place] 60 mg QID PO Last administered on 06/06/16 11:40; Admin Dose 60 MG; Start 06/05/16 at 06:30 Calcium Carbonate 500 mg BID PO Last administered on 06/06/16 08:25; Admin Dose 500 MG; Start 06/05/16 at 08:30 Minocycline HCl 100 mg BID PO Last administered on 06/06/16 08:25; Admin Dose 100 MG; Start 06/04/16 at 22:45 Pantoprazole 40 mg 0630,1630 PO Last administered on 06/06/16 06:17; Admin Dose 40 MG; Start 06/05/16 at 06:30 Aspirin 81 mg DAILY PO Last administered on 06/05/16 08:52; Admin Dose 81 MG; Start 06/05/16 at 08:30; Stop 06/05/16 at 21:41; Status DC Atorvastatin Calcium 40 mg HS PO Last administered on 06/05/16 20:31; Admin Dose 40 MG; Start 06/05/16 at 21:00 Dabigatran 150 mg BID PO Last administered on 06/05/16 20:30; Admin Dose 150 MG ; Start 06/05/16 at 17:22; Stop 06/05/16 at 20:31; Status DC Aspirin 81 mg DAILY PO; Start 06/07/16 at 08:30 Scheduled Aspirin Chew (Aspirin Chew) 81 Mg Chew 81 MG PO DAILY Atorvastatin Calcium (Atorvastatin Calcium) 40 Mg Tablet 40 MG PO HS Calcium Carbonate (Calcium) 600 Mg Tablet 600 MG PO BID Cholecalciferol (Vitamin D3) (Vitamin D3) 1,000 Unit Tab.chew 1,000 UNIT PO DAILY Cyanocobalamin (Vitamin B-12) (Vitamin B-12) 1,000 Mcg Tablet 1,000 MCG PO DAILY Fish Oil/Dha/Epa (Fish Oil 1,200 mg Fish Oil) 1 Each Capsule 2 EACH PO DAILY Garlic (Odorless Garlic) 1,250 Mg Tablet 1,250 MG PO DAILY Minocycline (Minocycline) 100 Mg Tablet 100 MG PO BID Omeprazole (Omeprazole) 20 Mg Capsule.dr 20 MG PO BIDAC Pyridostigmine [place] ([place]) 60 Mg Tablet 60 MG PO QID Scheduled PRN Triamcinolone Acet (Triamcinolone Acetonide Cream) 1 Applic/0.25 Gm Cr 1 APPLIC EXT BID PRN PRN Rash Objective Findings Exam Vital Sign - Last Date Time Temp Pulse Resp B/P Pulse Ox O2 Delivery O2 Flow Rate FiO2 06/06/16 15:58 36.5 62 120/66 92 Room Air 06/06/16 11:21 18 Intake and Output 06/05/16 06/05/16 06/06/16 Cumulative From/Thru 15:00 23:00 07:00 06/04/16 13:55 - 06/06/16 06:30 Intake Total 520 ml 75 ml 1195 ml Output Total 1000 ml 500 ml 1900 ml Balance -480 ml -425 ml -705 ml Intake Oral 520 ml 75 ml 695 ml IV Total 500 ml Output Urine Total 1000 ml 500 ml 1900 ml General: Alert/Oriented x3 HEENT: Atraumatic, EOMI Lungs: Normal Air Movement Abdomen: Bowel Tones x4, Soft Neuro: Arousable Extremities: Warm, Edema (3+ WILMAR b/l) Lab/Diagnostics Lab and Imaging results reviewed in detail in EMR. Patient/Family Conference Members Present Family Members Present Lara, two daughters, 2 sons in law. Discussion/Goals of Care Discussion FAMILY UNDERSTANDING OF DISEASE: [family is aware of the chronic nature of patient's illness and state that they know things are "going downhill". repeats that she continues to hope "that he'll be dancing with me when we are 89 !" but admits that this positive attitude is how she chooses to think, despite what they know about his illness. ] DISEASE PROGRESSION/EVIDENCE OF DECLINE: /SYMPTOM BURDEN: [ increasing weakness , new deficits from CVA GOALS: [ wants to return home. continue to state that he would want aggressive measures despite poor chance of success and trips to hospital HOPES/WORRIES: [family has increasing concern about 's ability to provide for care in home. very worried about any possibility of him dying in front of her.] FAMILY WISHES/VALUES: Pt is long time , does not believe in 'giving up'. Very reticent to accept help, tends to be stoic and silent about his increasing problems which increases family worry that he will not accept help needed to stay safe at home. Palliative Care counselled: possible short-term rehab benefit, caregiving in home, hospice care to initiate when patient returns home. Time spent Total time 70 minutes; >50% face to face with patient and/or family, providing counselling regarding plans and recommendations, and in care coordination with his/her medical teams. Of this 30 minutes is spent counseling for advanced care planning with the patient/the patients family/the surrogate decision maker. copies to: Parth Gama MD, Sharmon M. ARNP Jun 06, 2016 16:08
--- NOTE | 2016-06-06 20:11 | PCM.PNMED ---
Subjective Date of Service Jun 06, 2016 Subjective Overnight: No acute event overnight. Patient had right sided weakness, but is able to ambulate to the bathroom and is able to communicate with short or yes/ no answers. He wishes to maintain his independence, but has been compliant with using call light appropriately. Vitals stable, no other issues noted. Today: Patient is alert and oriented this morning. He has no complaint and has been tolerating dysphagia mechanical diet well. He has good urine output, but no BM yet. He denies any pain complaint, headache, CP, or SOB. Exam Vital Signs Vital Sign - Last Date Time Temp Pulse Resp B/P Pulse Ox O2 Delivery O2 Flow Rate FiO2 06/06/16 11:21 82 18 101/55 100 Room Air 06/06/16 08:23 36.5 Intake and Output 06/05/16 06/05/16 06/06/16 Cumulative From/Thru 15:00 23:00 07:00 06/04/16 13:55 - 06/06/16 06:30 Intake Total 520 ml 75 ml 1195 ml Output Total 1000 ml 500 ml 1900 ml Balance -480 ml -425 ml -705 ml Intake Oral 520 ml 75 ml 695 ml IV Total 500 ml Output Urine Total 1000 ml 500 ml 1900 ml Exam General: Alert and oriented x 3. Speech is slow, but answers appropriately. Does not appear to be confused or in acute distress. HEENT: Normocephalic, atraumatic. External ears without defect. Anicteric sclerae, moist conjunctivae. Oropharynx free of erythema and cobble stoning with moist mucosa. Neck: Supple with full range of motion. No lymphadenopathy or thyromegaly. Cardiovascular: irregularly irregular, normal rate, with soft murmur, No rubs, or gallops appreciated Pulmonary: Decreased breath sound on the right base. Mild crackles. No wheezes, or rhonchi. Normal respiratory effort with no use of accessory muscles. Abdomen: Bowel tones present. Soft, nontender, nondistended. No hepatosplenomegaly or masses appreciated. Extremities: Mild bilateral lower leg pitting edema. No clubbing or cyanosis appreciated. Skin: Normal temperature, turgor, and texture; no rash, ulcers, or subcutaneous nodules appreciated. Neurological: Right-sided facial droop improved, R sided ptosis. Muscle strength 4/5 in bilateral upper extremities and lower extremities, however there is a lag and more weakness on the right side. Sensation to light touch grossly intact. Psychiatric: Normal mood and affect. IVs and Medications Medications Reviewed: Medications were reviewed in detail Lab and Diagnostics Result Diagram: 06/06/16 03406/06/16 034 X-Rays, CTs and MRIs PROCEDURE: X-RAY CHEST ONE VIEW, PORTABLE IMPRESSION: Mildly increased right pleural effusion with overlying opacity. The latter could be recent no focal edema, mass lesion or airspace disease such as pneumonia. Dictated by: Emily Cook M.D. on 06/04/2016 at 14:35 PROCEDURE: X-RAY CHEST ONE VIEW INDICATIONS: POST THORACENTESIS IMPRESSION: Decreased size of the right pleural effusion and no evidence for pneumothorax after thoracentesis. Dictated by: Isabela Becker M.D. on 06/04/2016 at 16:56 PROCEDURE: US VENOUS LEG DUPLEX UNILATERAL, LEFT IMPRESSION: 1. No deep venous thrombosis identified within the left lower extremity. 2. Enlarged morphologically normal-appearing lymph nodes within the left groin measuring up to 1.4 cm. Clinical correlation and management. Dictated by: Tyree MOREAU Interpreted: Emily Cook MD on 06/04/2016 at 16: 02 PROCEDURE: US GUIDED THORACENTESIS BY REFERRING PHYSICIAN INDICATIONS: right pleural effusion. TECHNIQUE: The indications, alternatives, benefits, risks, and complications of the procedure were explained to the patient. Written informed consent was obtained and placed in the chart. The chest was examined sonographically, and an appropriate site was chosen for thoracentesis. The skin was prepared and draped in the usual sterile fashion, and 1% lidocaine was infiltrated from the skin down through the pleural surface. A 19-gauge catheter-covered needle was then introduced into the pleural space, the catheter was advanced and the needle was withdrawn, and thereafter pleural fluid was aspirated. The catheter was then removed and a dressing was applied. FINDINGS: Access site: Right hemithorax. Needle: One-Step centesis catheter with introducer needle. Fluid volume and description: 1750 cc of clear pleural fluid. Fluid sent for diagnostic testing: Therapeutic drainage. Medications: 1% lidocaine for local anaesthesia. Complications: None; post-procedural chest radiograph is pending to assess for pneumothorax. IMPRESSION: Successful ultrasound-guided thoracentesis. Dictated by: Tyree MOREAU Interpreted: Emily Cook MD on 06/04/2016 at 16: 39 PROCEDURE: CT BRAIN WITHOUT CONTRAST ([id number]) IMPRESSION: No acute intracranial abnormalities. Nonacute bilateral caudate nucleus lacunar infarcts. Dictated by: René Prince M.D. on 06/04/2016 at 17:31 PROCEDURE: MRI STROKE PROTOCOL IMPRESSION: Image quality degraded secondary to patient motion artifact. BRAIN MRI: 1. Acute infarct involving the left globus pallidus, left putamen, left internal capsule, left external capsule, left caudate body and left pike radiata. 2. Chronic, small, lacunar infarcts involving the left caudate head, the right globus pallidus in the right centrum semiovale. 3. Mild, diffuse bone loss. 4. Mild pontine, periventricular and subcortical white matter chronic microvascular ischemic changes. BRAIN MR ANGIOGRAM: 1. Absence of flow signal in the left middle cerebral artery distal to the origin of the vessel highly suspicious for presence of thrombus. 2. Focal, short segment, high-grade stenoses involving M2 branch of the right middle cerebral artery and the P1 segment of the right posterior cerebral artery. 3. Focal, short segment, high-grade stenosis of the proximal basilar artery. NECK MR ANGIOGRAM: 1. No hemodynamically significant stenosis involving the internal carotid arteries. 2. Well visualized portions of the vertebral arteries are fully patent. The of the vertebral arteries are suboptimally visualized due to motion artifact. The estimate of stenosis included in the report of the imaging study was calculated using the NASCET method Dictated by: Lisa Qureshi MD, PhD on 06/05/2016 at 12:48 Approved by: Lisa Qureshi MD, PhD on 06/05/2016 at 13:10 12-lead ECG ECG Interpretation: afib rate 76 otherwise normal no acute ST, T wave changes Time: 14:41 Interpreted by: ED physician Cardiac Echo Impressions Interpretation Summary by Dr. Blum on 06/05/2016: The study quality was technically difficult. The left ventricle is normal in size. The ejection fraction is estimated to be 50-55%. The left atrium is moderately dilated. There is mild mitral annular calcification. There is mild mitral regurgitation. There is mild aortic valve sclerosis. The right ventricular systolic pressure is estimated at 52 mmHg assuming a right atrial pressure of 15 mm Hg. The IVC is dilated (diameter is greater than 2.1 cm) and it collapses less than 50% with a sniff. This suggests a high right atrial pressure of 15 mmHg. There has been no significant change since the previous study. Assessment & Plan 86-year-old male with history of CLL, recurrent pleural effusion, atrial fibrillation, ocular myasthenia gravis, and CHF presented to the emergency department for shortness of breath after thoracentesis patient developed dysarthria and worsening facial droop. He was admitted for CVA. Hospital day #3. 1. Acute ischemic cerebrovascular accident, present on admission, acute. - Patient with acutely worsening right-sided facial droop, new onset dysarthria , and increased somnolence upon returning to his room in the emergency department after ultrasound-guided thoracentesis. - CT brain was normal, but MRI stroke protocol noted an Acute infarct involving the left globus pallidus, left putamen, left internal capsule, left external capsule, left caudate body and left pike radiata. - There is also absence of flow signal in the left middle cerebral artery distal to the origin of the vessel highly suspicious for presence of thrombus. There are high-grade stenoses of the right MCA, TEAM [employer]SEM[employer]ER, and proximal basilar artery. - Patient was out of the window for tPA. - Patient was given one dose of Pradaxa on 06/05/16 evening and tolerated well. However, will D/C per neurology's recommendation. - Dr. Reid was consulted and her recommendations are appreciated.Will continuing 81 mg aspirin until anticoagulation can be decided with both oncology and cardiology weighing in with risks and benefits. Per neurology, The earliest that any anticoagulation should be considered is one week following his stroke and would need a head CT prior to initiation of any anticoagulant - Per neurology, anticoagulation choices would be Pradaxa > Warfarin > ASA. - Dr. Gama was also consulted for anticoagulation guidance. - Echocardiogram showed no significant changes since the last Echo. - Continue Atorvastatin 40mg HS. Lipid panel wnl. - Permissive hypertension. No antihypertensive medication at this point. Continue to monitor blood pressures with Q4 hour vitals. - PT/OT/ST consulted and will continue to follow. - Patient will likely go to SNF per social sciences professor. Will continue to follow to see if he is qualified for inpatient rehab. 2. Recurrent right-sided pleural effusion, present on admission, acute - Patient received ultrasound guided thoracocentesis last night 06/04/16 with extraction of 1750 mL fluid. - Oncologist speculates that this could be a side effect from ibrutinib, medication was discontinued one week ago. - Recommend repeat chest x-ray if patient has worsening symptoms of shortness of breath or chest discomfort. 3. 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 Gama of oncology. His recommendations are greatly appreciated. - Not currently on therapy as ibrutinib was discontinued one week ago - Leukocytosis of 81.7, 99% lymphocytes on admission. - Patient has received 2 blood transfusions for CLL recently. 4. History of ocular myasthenia crisis, present on admission, chronic. - Current symptoms are likely due to an acute stroke and not an exacerbation of this condition. - Continue to follow up with Dr. Reid. - Pulmonary function tests returned in the low normal range, speculated this is baseline for patient. - Continue home dose Pyridostigmine bromide 60 mg by mouth 4 times a day 5. Atrial fibrillation, rate controlled, present on admission, chronic. - Patient was not on anticoagulation at home, formerly on warfarin. - Rate is currently controlled with no medication. Will avoid beta blockers at this point due to risk of decreasing his BP. - CHADS score of at least 5. Will consider starting anticoagulation with Pradaxa as outpatient or at least one week following the stroke. - Continue to monitor for bleeding. 6. Lesions on head, resolved - Patient had recent biopsies of skin lesions on left cheek and left preauricular area, currently awaiting pathology results - Continue minocycline 7. Macrocytic anemia, present on admission, chronic - We will monitor H&H with daily CBC. 8. History of CHF, chronic, presumed stable. - New Echo on 06/05/2016 reveals No changes from the recent Echo on 04/01/2016 that showed left ventricular ejection fraction 55-60% with an increase in the severity of pulmonary hypertension. - No signs of decompensation - Daily weights, monitor I's and O's 9. Code status: FULL CODE per his and daughter. Dr. Reid mentioned about hospice today, but the family would like to think about it. Will consult Palliative Care tomorrow if they choose that route. Dispo: Patient will likely be discharged to a SNF for rehabilitation tomorrow. Patient was admitted under inpatient status with expected length of stay greater than 2 midnights due to severity of presenting symptoms, risk of adverse event, and complexity of treatment plan. Acetaminophen for mild pain when necessary. Bowel regimen Senna and MiraLAX PRN. Zofran when necessary for nausea and vomiting. DVT prophylaxis with SCDs, consider pharmacological prophylaxis based on recommendations of java tech lead Pain Evaluation: Adequate Pain Control GI Prophylaxis: Proton Pump Inhibitor VTE Mechanical Devices: Intermittant Pneumatic CD Resuscitation Status: CPR: Attempt Resuscitation Attending Statement The patient was seen and examined together with Dr. Lui on 06-06-16 and I agree with the history, exam and plan as outlined in the note above. Noemi Lui DO Jun 06, 2016 12:06 Chetan Gaitan MD Jun 07, 2016 12:42
--- NOTE | 2016-06-06 23:26 | PROG NOTE ---
[address] [address] PROGRESS NOTE PATIENT: LADONNA ROMEO : 1930 MR#: [id number] ADMIT: 06/04/2016 JOB ID: [id number] DATE: 06/06/2016 SUBJECTIVE: The patient is an 86-year-old [facility]ocytic [facility]. At his last clinic visit on May 28, 2016, he had a total white cell count of 115.4 with 98% lymphocytes. He had some shortness of breath and chest film showed an increasing right pleural effusion. He underwent ultrasound-guided thoracentesis on May 31, 2016, removing about 1600 cc of slightly bloody pleural fluid. This was sent for diagnostic studies. There was no evidence of malignant cells in his pleural effusion. He had well-differentiated benign-appearing lymphocytes, as well as mesothelial cells in his pleural fluid. He was admitted to the hospital on June 04, 2016, with stroke symptoms. CT of the brain did not show any acute intracranial abnormalities, but MRI stroke protocol showed acute infarct of the left globus pallidus, left putamen, left internal capsule, left external capsule, left caudate body, and left pike radiata. There was a blockage in the left middle cerebral artery distribution. No significant hemodynamic abnormalities in the carotid arteries. He had significant right-sided weakness which has been slowly improving. Findings are thought to be related to atrial fibrillation off anticoagulation. He is now on aspirin 81 mg by mouth daily. OBJECTIVE: Vitals: T 36.4, P 80, R 16, BP 140/80, O2 saturation 92% on room air. HEENT: Conjunctivae slightly pale. Mucous membranes moist. No oral lesions. Nodes: No adenopathy in the neck or axilla. Chest: Slightly decreased at the bases. Cardiac exam: Regular rate and rhythm with rare ectopic beat. Normal S1, S2. Abdomen: Soft, nontender. Normoactive bowel tones. No splenomegaly or masses. Extremities: No edema. 2+ distal pulses. No calf tenderness. Neuro: Mild confusion. Slight weakness in the right upper extremity. He has slight right eyelid droop. LABORATORIES: WBC 76.3 with 98% lymphocytes, hemoglobin 9.2, hematocrit 29.7%, MCV 117, platelets 103,000. BUN 14, creatinine 0.56, glucose 113, AST 15, ALT 5, alkaline phosphatase 56, total bilirubin 1.3. ASSESSMENT AND PLAN: 1. Chronic lymphocytic leukemia/small lymphocytic lymphoma: The patient's ibrutinib was recently discontinued after he developed a worsening right pleural effusion. He had no evidence of significant reaccumulation of right pleural fluid on chest film at admission, and no underlying pulmonary masses. No plans for active intervention at this time. He would still be a potential candidate for future bendamustine plus Rituxan should his clinical condition stabilize and improve. 2. Left basal ganglia stroke with left middle cerebral artery flow abnormality suspicious for thrombus: The patient was hospitalized with left basal ganglia stroke and right hemiplegia, which is improving. He is on aspirin 81 mg daily. As long as he his clinically improving, no indication for urgent full dose anticoagulation, which could lead to significant bleeding in this gentleman with moderately decreased platelets. Avoid full-dose anticoagulation at this time and continue to monitor. However, there is no absolute contraindication to full-dose anticoagulation, and full-dose anticoagulation could reduce the risk of future TIA's or strokes in this gentleman with atrial fibrillation. This would require a full discussion of risks and benefits with the patient and his family. KALEN
[2016-06-07] VITALS (9 sets, daily range): BP systolic 121–151; BP diastolic 69–84; PULSE 62–99; RESP 16–22; O2SAT 92–96
--- NOTE | 2016-06-07 02:18 | NUR ---
IMPULSIVITY Pt is still impulsive with getting out of bed. Pt has bed alarm on and is reminded to use call light for assistance. Pt is compliant and cooperative with all other care, just needs reminders on safe transfers. Pt's vitals stable, no pain or any other issues noted at this time. Pt should discharge to [facility] in the next day if medically cleared.
[2016-06-07 04:12] LABS: Mean Corpuscular Hemoglobin 36.5 pg (27.0-35.0); Mean Corpuscular Volume 116.7 fL (81-100)
[2016-06-07 04:13] LABS: BASOPHILS % (AUTO) 0.1 % (0-3); EOSINOPHILS % (AUTO) 0.1 % (0-5); MONOCYTES % (AUTO) 1.3 % (4-12); NEUTROPHILS % (AUTO) 1.3 % (40-74); Platelet Count 106 bil/L (150-400)
[2016-06-07] MEDS: Pantoprazole 40 mg ER24 Tablet PO SCH ×2 (04:45→17:11)
[2016-06-07] MEDS: Sodium Chloride LOK Flush 10 mL Syringe IVFLUSH SCH ×3 (08:51→23:56)
[2016-06-07] MEDS: Calcium Carbonate (Oyster Shell) 500 mg Tablet PO SCH ×2 (08:51→20:55)
--- NOTE | 2016-06-07 10:25 | NUR ---
Palliative care note D/A: Case reviewed and discussed during PC rounds. Note that family wishes for short term rehab at SNF and that pt has been approved at [facility] for an estimated period of 5-7 days. Family has had discussions about potential hospice referral and would like to consider this option once pt is dc'ed from SNF. Phone call to Sharron at [facility] to discuss above and ask agency to please conduct follow up phone call in about 10 days to 2 weeks or so. Sharron agreeable. P: Palliative care to follow as needed. Yola TELLO, CCM
[2016-06-07] MEDS ORDERED: ATOR40TA69 PO (11:08)
[2016-06-07] MEDS ORDERED: ASPI81TA3 PO (11:08)
--- NOTE | 2016-06-07 11:16 | PCM.DIMED ---
Lui,Noemi Danette DO 06/07/16 1048: Discharge Instructions Date of Service Jun 07, 2016 Dates of Hospitalization Jun 04, 2016 at 19:41 Discharge Diagnosis Discharge Diagnosis 1. Acute ischemic cerebrovascular accident, present on admission, active. 2. Recurrent right-sided pleural effusion, present on admission, stable. 3. 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 History of ocular myasthenia crisis, present on admission, chronic. 5. Atrial fibrillation, rate controlled, present on admission, chronic. 6. Lesions on head, stable. 7. Macrocytic anemia, present on admission, chronic 8. History of CHF, chronic, presumed stable. Medication Instructions - We added 2 new medications: a cholesterol-lowering medication called Atorvastatin 40mg and a baby Aspirin 81mg. Please take them once daily. - In one week, your primary care doctor will need to switch from the Aspirin to a blood-thinner called Pradaxa. If your insurance does not cover it, then you will have to be on Warfarin.You will need a CT head prior to initiation of any anticoagulant. This was recommended by your neurologist, Dr. Reid. - Please continue to take all your other medications as directed. Diet Other (dysphagia mechanical diet) Activity Other (SNF PT/OT/ST) Call your provider Shortness of breath, Bleeding, Chest pain, Weakness (unilateral), Other ( Headache) Patient Instructions - Discharge planning will be per senior care physician. - In the mean time, you will need to continue the rehabilitation at [facility]. - Please take your medications as above. - Follow up with Dr. Gama and Dr. Reid as outpatient once you are discharged from [facility]. - Continue with the dysphagia mechanical diet per Speech recommendations. Follow-up Provider: Lorenzo Lombardo MD Follow-up with PCP in: 1 week Violetta Hernandez DO 06/09/16 1134: Discharge Instructions Date of Service June 09, 2016 Chetan Gaitan MD 06/24/16 1614: Discharge Instructions Attending's Statement The patient was seen and examined together with Dr. Hernandez on 06-09-16 and I agree with the history, exam and plan as outlined in the note above. Noemi Lui DO Jun 07, 2016 10:48 Violetta Hernandez DO Jun 09, 2016 11:34 Chetan Gaitan MD Jun 24, 2016 16:14
--- NOTE | 2016-06-07 11:32 | NUR ---
Faxed orders to [facility] and [facility] called and spoke with [place]. Discharge may now be cancelled depending on patient status.
--- NOTE | 2016-06-07 11:39 | NUR ---
Cancel Discharge During PT assessment, PT noted a decrease in pt's motor skills, decreased energy, pt was unable to walk with out moderate assistance. MD notified. A neurological check demonstrated marked weakness on right side of face, an increase in right sided weakness. Pt speech garbled word salad, speech appeared more slurred from morning assessment. canceled discharge orders and pt was taken to CT for a head CT with/out contrast. Will continue to monitor.
--- NOTE | 2016-06-07 12:07 | DRSVH ---
PROCEDURE: CT BRAIN WITHOUT CONTRAST ([id number]) INDICATIONS: Worsening right-sided weakness, recent CVA TECHNIQUE: Noncontrast 4.5 mm thick angled axial sections acquired from the foramen magnum to the vertex, with c oronal reformats. COMPARISON: [facility], MR, MR STROKE PROTOCOL, 06/05/2016, 11:44. [facility] l, CT, CT BRAIN WO CON, 06/04/2016, 17:18. FINDINGS: Image quality: Excellent. CSF spaces: Basal cisterns are patent. No extra-axial fluid collections. The ventricles are symmet brandy in size and shape. Brain: No intracranial bleeds or masses. Low-density within the left basal ganglia, internal and ex ternal capsule, and left pike radiata is present, corresponding to the abnormality seen by 06.05.16 MRI examination. There is cerebral volume loss for age, with resultant ventricular and sulcal promine nce. There are periventricular and deep white matter chronic small vessel ischemic changes. There i s intracranial internal carotid artery atherosclerosis. Skull and face: Calvarium and visualized facial bones appear intact, without suspicious lesions. Sinuses: Visualized sinuses and mastoids are clear. IMPRESSION: 1. No change in left sided subacute infarct. 2. No acute intracranial abnormality. Dictated by: Trinh Leong M.D. on 06/07/2016 at 12:04 Approved by: Trinh Leong M.D. on 06/07/2016 at 12:06
--- NOTE | 2016-06-07 13:28 | NUR ---
Social Work: Continued Discharge Planning D: Pt discussed in am arounds. Pt was hoped to be discharged today however during PT assessment pt was noted to have a sharp decline in his functioning and was displaying signs of possible stroke. canceled discharge orders. REGISTERED NURSE FIRST ASSISTANT updated [facility] who will continue to monitor pt's clinical progress. Family is aware that pt is not being discharged. A: Pt who is likely to require skilled rehab at time of discharge due to decompensation in functional mobility. P: Evolving; [facility] has accepted with Dr. Dyson to follow; REGISTERED NURSE FIRST ASSISTANT to continue to follow RUPAL Velasquez
--- NOTE | 2016-06-07 16:14 | NUR ---
OT followup treatment note completed. Pt. has declined functionally. I'm now recommending inpatient rehab. David Hussein, OTR/L
--- NOTE | 2016-06-07 21:10 | PCM.PNMED ---
Subjective Date of Service Jun 07, 2016 Subjective Overnight: Patient was impulsive with getting out of bed. He is compliant and cooperative with all other care, just needs reminders on safe transfers. Vitals stable, no pain or any other issues noted at this time. No other acute event. Today: Patient was seen early in the morning and seemed to do well. He was seen finishing his breakfast and using his right hand to feed him self. The patient has no complaint. Discharge to [facility] ongoing. However, around noon, physical therapy is concerned about worsening right-sided weakness and inability to get out of bed. Thus, patient will not be discharged at this time. Exam Vital Signs Vital Sign - Last Date Time Temp Pulse Resp B/P Pulse Ox O2 Delivery O2 Flow Rate FiO2 06/07/16 08:53 36.8 90 16 134/84 96 Room Air Intake and Output 06/06/16 06/06/16 06/07/16 Cumulative From/Thru 15:00 23:00 07:00 06/04/16 13:55 - 06/07/16 06:23 Intake Total 450 ml 150 ml 1795 ml Output Total 200 ml 500 ml 2600 ml Balance 250 ml -350 ml -805 ml Intake Oral 450 ml 150 ml 1295 ml IV Total 500 ml Output Urine Total 200 ml 500 ml 2600 ml # Voids 3 1 4 Exam General: Alert and oriented x 3. Speech is slow, but answers appropriately. Does not appear to be confused or in acute distress. HEENT: Normocephalic, atraumatic. External ears without defect. Anicteric sclerae, moist conjunctivae. Oropharynx free of erythema and cobble stoning with moist mucosa. Neck: Supple with full range of motion. No lymphadenopathy or thyromegaly. Cardiovascular: irregularly irregular, normal rate, with soft murmur, No rubs, or gallops appreciated Pulmonary: Decreased breath sound on the right base. Moderate crackles. No wheezes or rhonchi. Normal respiratory effort with no use of accessory muscles. Abdomen: Bowel tones present. Soft, nontender, nondistended. No hepatosplenomegaly or masses appreciated. Extremities: Moderate bilateral lower leg pitting edema, worse on the right. Brawny skin discoloration in bilateral legs. No clubbing or cyanosis appreciated. Skin: Normal temperature, turgor, and texture; no rash, ulcers, or subcutaneous nodules appreciated. Neurological: Right-sided facial droop improved, R sided ptosis. Muscle strength 4/5 in bilateral upper extremities and lower extremities, however there is a lag and more weakness on the right side. Sensation to light touch grossly intact. Psychiatric: Normal mood and affect. IVs and Medications Medications Reviewed: Medications were reviewed in detail Lab and Diagnostics Result Diagram: 06/07/16 03306/07/16 033 X-Rays, CTs and MRIs PROCEDURE: X-RAY CHEST ONE VIEW, PORTABLE IMPRESSION: Mildly increased right pleural effusion with overlying opacity. The latter could be recent no focal edema, mass lesion or airspace disease such as pneumonia. Dictated by: Emily Cook M.D. on 06/04/2016 at 14:35 PROCEDURE: X-RAY CHEST ONE VIEW INDICATIONS: POST THORACENTESIS IMPRESSION: Decreased size of the right pleural effusion and no evidence for pneumothorax after thoracentesis. Dictated by: Isabela Becker M.D. on 06/04/2016 at 16:56 PROCEDURE: US VENOUS LEG DUPLEX UNILATERAL, LEFT IMPRESSION: 1. No deep venous thrombosis identified within the left lower extremity. 2. Enlarged morphologically normal-appearing lymph nodes within the left groin measuring up to 1.4 cm. Clinical correlation and management. Dictated by: Tyree Alegria [facility] Interpreted: Emily Cook MD on 06/04/2016 at 16: 02 PROCEDURE: US GUIDED THORACENTESIS BY REFERRING PHYSICIAN INDICATIONS: right pleural effusion. TECHNIQUE: The indications, alternatives, benefits, risks, and complications of the procedure were explained to the patient. Written informed consent was obtained and placed in the chart. The chest was examined sonographically, and an appropriate site was chosen for thoracentesis. The skin was prepared and draped in the usual sterile fashion, and 1% lidocaine was infiltrated from the skin down through the pleural surface. A 19-gauge catheter-covered needle was then introduced into the pleural space, the catheter was advanced and the needle was withdrawn, and thereafter pleural fluid was aspirated. The catheter was then removed and a dressing was applied. FINDINGS: Access site: Right hemithorax. Needle: One-Step centesis catheter with introducer needle. Fluid volume and description: 1750 cc of clear pleural fluid. Fluid sent for diagnostic testing: Therapeutic drainage. Medications: 1% lidocaine for local anaesthesia. Complications: None; post-procedural chest radiograph is pending to assess for pneumothorax. IMPRESSION: Successful ultrasound-guided thoracentesis. Dictated by: Tyree Alegria [facility] Interpreted: Emily Cook MD on 06/04/2016 at 16: 39 PROCEDURE: CT BRAIN WITHOUT CONTRAST ([id number]) IMPRESSION: No acute intracranial abnormalities. Nonacute bilateral caudate nucleus lacunar infarcts. Dictated by: René Prince M.D. on 06/04/2016 at 17:31 PROCEDURE: MRI STROKE PROTOCOL IMPRESSION: Image quality degraded secondary to patient motion artifact. BRAIN MRI: 1. Acute infarct involving the left globus pallidus, left putamen, left internal capsule, left external capsule, left caudate body and left pike radiata. 2. Chronic, small, lacunar infarcts involving the left caudate head, the right globus pallidus in the right centrum semiovale. 3. Mild, diffuse bone loss. 4. Mild pontine, periventricular and subcortical white matter chronic microvascular ischemic changes. BRAIN MR ANGIOGRAM: 1. Absence of flow signal in the left middle cerebral artery distal to the origin of the vessel highly suspicious for presence of thrombus. 2. Focal, short segment, high-grade stenoses involving M2 branch of the right middle cerebral artery and the P1 segment of the right posterior cerebral artery. 3. Focal, short segment, high-grade stenosis of the proximal basilar artery. NECK MR ANGIOGRAM: 1. No hemodynamically significant stenosis involving the internal carotid arteries. 2. Well visualized portions of the vertebral arteries are fully patent. The of the vertebral arteries are suboptimally visualized due to motion artifact. The estimate of stenosis included in the report of the imaging study was calculated using the NASCET method Dictated by: Lisa Qureshi MD, PhD on 06/05/2016 at 12:48 Approved by: Lisa Qureshi MD, PhD on 06/05/2016 at 13:10 PROCEDURE: CT BRAIN WITHOUT CONTRAST IMPRESSION: 1. No change in left sided subacute infarct. 2. No acute intracranial abnormality. Dictated by: Trinh Leong M.D. on 06/07/2016 at 12:04 Approved by: Trinh Leong M.D. on 06/07/2016 at 12:06 12-lead ECG ECG Interpretation: afib rate 76 otherwise normal no acute ST, T wave changes Time: 14:41 Interpreted by: ED physician Cardiac Echo Impressions Interpretation Summary by Dr. Blum on 06/05/2016: The study quality was technically difficult. The left ventricle is normal in size. The ejection fraction is estimated to be 50-55%. The left atrium is moderately dilated. There is mild mitral annular calcification. There is mild mitral regurgitation. There is mild aortic valve sclerosis. The right ventricular systolic pressure is estimated at 52 mmHg assuming a right atrial pressure of 15 mm Hg. The IVC is dilated (diameter is greater than 2.1 cm) and it collapses less than 50% with a sniff. This suggests a high right atrial pressure of 15 mmHg. There has been no significant change since the previous study. Assessment & Plan 86-year-old male with history of CLL, recurrent pleural effusion, atrial fibrillation, ocular myasthenia gravis, and CHF presented to the emergency department for shortness of breath after thoracentesis patient developed dysarthria and worsening facial droop. He was admitted for CVA. Hospital day #5. 1. Acute ischemic cerebrovascular accident, present on admission, active. - Patient with acutely worsening right-sided facial droop, new onset dysarthria , and increased somnolence upon returning to his room in the emergency department after ultrasound-guided thoracentesis. - CT brain was normal, but MRI stroke protocol on 06/05/16 noted an Acute infarct involving the left globus pallidus, left putamen, left internal capsule , left external capsule, left caudate body and left pike radiata. - There is also absence of flow signal in the left middle cerebral artery distal to the origin of the vessel highly suspicious for presence of thrombus. 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 - Repeat CT brain today 06/07/16 showed No change in left sided subacute infarct. - Patient was given one dose of Pradaxa on 06/05/16 evening and tolerated well. However, will D/C per neurology's recommendation. - Dr. Reid was consulted and her recommendations are appreciated.Will continuing 81 mg aspirin until anticoagulation can be decided with both oncology and cardiology weighing in with risks and benefits. Per neurology, The earliest that any anticoagulation should be considered is one week following his stroke and would need a head CT prior to initiation of any anticoagulant - Per neurology, anticoagulation choices would be Pradaxa > Warfarin > ASA. - Dr. Gama was also consulted for anticoagulation guidance. His recommendations are appreciated. Will avoid full-dose anticoagulation at this time and continue to monitor. - Echocardiogram showed no significant changes since the last Echo. - Continue Atorvastatin 40mg HS. Lipid panel wnl. - Permissive hypertension. No antihypertensive medication at this point. Continue to monitor blood pressures with Q4 hour vitals. - PT/OT/ST consulted and will continue to follow. - Patient will likely go to SNF per social media specialist. Will continue to follow to see if he is qualified for inpatient rehab. 2. Recurrent right-sided pleural effusion, present on admission, acute - Patient received ultrasound guided thoracocentesis last night 06/04/16 with extraction of 1750 mL fluid. - Oncologist speculates that this could be a side effect from ibrutinib, medication was discontinued one week ago. - Recommend repeat chest x-ray if patient has worsening symptoms of shortness of breath or chest discomfort. 3. 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 Gama of oncology. His recommendations are greatly appreciated. - Not currently on therapy as ibrutinib was discontinued one week ago - Leukocytosis of 81.7, 99% lymphocytes on admission. - Patient has received 2 blood transfusions for CLL recently. 4. History of ocular myasthenia crisis, present on admission, chronic. - Current symptoms are likely due to an acute stroke and not an exacerbation of this condition. - Continue to follow up with Dr. Reid. - Pulmonary function tests returned in the low normal range, speculated this is baseline for patient. - Continue home dose Pyridostigmine bromide 60 mg by mouth 4 times a day 5. Atrial fibrillation, rate controlled, present on admission, chronic. - Patient was not on anticoagulation at home, formerly on warfarin. - Rate is currently controlled with no medication. Will avoid beta blockers at this point due to risk of decreasing his BP. - CHADS score of at least 5. Will consider starting anticoagulation with Pradaxa as outpatient or at least one week following the stroke. - Continue to monitor for bleeding. 6. Lesions on head, resolved - Patient had recent biopsies of skin lesions on left cheek and left preauricular area, currently awaiting pathology results - Continue minocycline 7. Macrocytic anemia, present on admission, chronic - We will monitor H&H with daily CBC. 8. History of CHF, chronic, presumed stable. - New Echo on 06/05/2016 reveals no changes from the recent Echo on 04/01/2016 that showed left ventricular ejection fraction 55-60% with an increase in the severity of pulmonary hypertension. - No signs of decompensation - Daily weights, monitor I's and O's 9. Code status: FULL CODE per his and daughter. Dr. Reid mentioned about hospice today, but the family would like to think about it. We appreciate Palliative Care's time and recommendations. Dispo: Patient will likely be discharged to a SNF for rehabilitation tomorrow, but with his [id number] weakness, he will likely need inpatient rehab. Patient was admitted under inpatient status with expected length of stay greater than 2 midnights due to severity of presenting symptoms, risk of adverse event, and complexity of treatment plan. Acetaminophen for mild pain when necessary. Bowel regimen Senna and MiraLAX PRN. Zofran when necessary for nausea and vomiting. DVT prophylaxis with SCDs, consider pharmacological prophylaxis based on recommendations of deputy prosecuting attorney Pain Evaluation: Adequate Pain Control GI Prophylaxis: Proton Pump Inhibitor VTE Mechanical Devices: Intermittant Pneumatic CD Resuscitation Status: CPR: Attempt Resuscitation Limited Interventions: Compressions, Cardioversion/Defibrillation, Intubation w Mech Vent, BiPAP, Medications and IV Fluid Attending Statement The patient was seen and examined together with Dr. Lui on 06-07-16 and I agree with the history, exam and plan as outlined in the note above. Noemi Lui DO Jun 07, 2016 11:37 Chetan Gaitan MD Jun 08, 2016 13:34
--- NOTE | 2016-06-07 22:01 | NUR ---
NEUROS Pt has a marked decrease in function compared to previous night. Pt unable to answer questions appropriately. Able to answer yes/no question @ times. PERRL, but delayed to follow. Pt displayed lack of eye contact during assessment Pt's facial droop more prominent than previous night. Pt's feet are more swollen than previous night. Unfortunately pt has become increasingly more incont. of bladder and more unsteady on his feet. Pt's family at bedside and will be staying the night.
[2016-06-08] VITALS (8 sets, daily range): BP systolic 105–130; BP diastolic 45–76; PULSE 69–96; RESP 15–20; O2SAT 93–95
[2016-06-08 03:12] LABS: BASOPHILS % (AUTO) 0.2 % (0-3); EOSINOPHILS % (AUTO) 0.1 % (0-5); MONOCYTES % (AUTO) 1.6 % (4-12); Mean Corpuscular Hemoglobin 36.2 pg (27.0-35.0); Mean Corpuscular Volume 116.5 fL (81-100); NEUTROPHILS % (AUTO) 1.4 % (40-74); Platelet Count 93 bil/L (150-400)
[2016-06-08] MEDS: Pantoprazole 40 mg ER24 Tablet PO SCH ×2 (05:56→17:20)
--- NOTE | 2016-06-08 09:40 | DRSVH ---
PROCEDURE: X-RAY CHEST ONE VIEW, PORTABLE ([id number]) INDICATIONS: Pleural effusion TECHNIQUE: One view of the chest was acquired. COMPARISON: [facility], CR, XR CHEST 1VW (PORTABLE), 06/04/2016, 14:08. FINDINGS: Surgical changes and devices: None. Lungs and pleura: Trace right-sided pleural effusion is noted. Increased opacification of the right a nd left lung bases which represent atelectasis or pneumonia. Mediastinum: Mediastinal contours appear normal. Heart size is normal. Bones and chest wall: No suspicious bony lesions. Overlying soft tissues appear unremarkable. IMPRESSION: Bibasilar opacities right greater than left with atelectasis versus pneumonia. Trace righ t-sided pleural effusion. Dictated by: Lisa Qureshi MD, PhD on 06/08/2016 at 9:37 Approved by: Lisa Qureshi MD, PhD on 06/08/2016 at 9:38
[2016-06-08] MEDS: Sodium Chloride LOK Flush 10 mL Syringe IVFLUSH SCH ×2 (10:25→17:20)
[2016-06-08] MEDS: Calcium Carbonate (Oyster Shell) 500 mg Tablet PO SCH ×2 (10:25→21:18)
--- NOTE | 2016-06-08 12:30 | PCM.PNMED ---
Subjective Date of Service Jun 08, 2016 Subjective Overnight: nursing reports patient's marked decrease in function compared to previous night. Patient was unable to answer questions appropriately. His facial droop was more prominent and his gait was more unsteady than previous night. Vital signs otherwise stable. No other acute event. Today: Patient continues to have significant weakness on the right.There is marked facial droop on the right and he is drooling. His right arm stays limp by his side and patient was unable to move it up. He is alert but minimally verbal. He can only say "ok" and "fine." He follows commands intermittently. He is seen with his daughter in the room, who agrees with my assessment. Exam Vital Signs Vital Sign - Last Date Time Temp Pulse Resp B/P Pulse Ox O2 Delivery O2 Flow Rate FiO2 06/08/16 10:13 36.3 69 16 105/45 94 Room Air Intake and Output 06/07/16 06/07/16 06/08/16 Cumulative From/Thru 15:00 23:00 07:00 06/04/16 13:55 - 06/08/16 06:06 Intake Total 350 ml 180 ml 2325 ml Output Total 200 ml 2800 ml Balance 350 ml -20 ml -475 ml Intake Oral 350 ml 180 ml 1825 ml IV Total 500 ml Output Urine Total 200 ml 2800 ml # Voids 3 3 10 # Bowel Movements 0 0 Exam General: Alert, but difficult to assess orientation due to dysarthria and wax- and-wane mental status. Minimally verbal. In acute distress. HEENT: Normocephalic, atraumatic. External ears without defect. Anicteric sclerae, moist conjunctivae. Oropharynx with moist mucosa. Neck: Supple with full range of motion. No lymphadenopathy or thyromegaly. Cardiovascular: irregularly irregular, normal rate, with soft murmur, No rubs, or gallops appreciated Pulmonary: Decreased breath sound on the right base. Moderate crackles. No wheezes or rhonchi. Normal respiratory effort with no use of accessory muscles. Abdomen: Bowel tones present. Soft, nontender, nondistended. No hepatosplenomegaly or masses appreciated. Extremities: Worsening, moderate bilateral lower leg pitting edema, worse on the right. Brawny skin discoloration in bilateral legs. No clubbing or cyanosis appreciated. Skin: Normal temperature, turgor, and texture; no rash, ulcers, or subcutaneous nodules appreciated. Neurological: Marked right-sided facial droop, R sided ptosis. CNII-XII grossly intact. Motor strength 3/5 on the right UE and LE. Motor strength 4/5 left UE and LE. Sensation to light touch grossly intact. Patient is unable to perform [id number] test. Psychiatric: Normal mood and affect. IVs and Medications Medications Reviewed: Medications were reviewed in detail Lab and Diagnostics Result Diagram: 06/08/16 0300 06/08/16 0300 X-Rays, CTs and MRIs PROCEDURE: X-RAY CHEST ONE VIEW, PORTABLE IMPRESSION: Mildly increased right pleural effusion with overlying opacity. The latter could be recent no focal edema, mass lesion or airspace disease such as pneumonia. Dictated by: Emily Cook M.D. on 06/04/2016 at 14:35 PROCEDURE: X-RAY CHEST ONE VIEW INDICATIONS: POST THORACENTESIS IMPRESSION: Decreased size of the right pleural effusion and no evidence for pneumothorax after thoracentesis. Dictated by: Isabela Becker M.D. on 06/04/2016 at 16:56 PROCEDURE: US VENOUS LEG DUPLEX UNILATERAL, LEFT IMPRESSION: 1. No deep venous thrombosis identified within the left lower extremity. 2. Enlarged morphologically normal-appearing lymph nodes within the left groin measuring up to 1.4 cm. Clinical correlation and management. Dictated by: Tyree Alegria [facility] Interpreted: Emily Cook MD on 06/04/2016 at 16: 02 PROCEDURE: US GUIDED THORACENTESIS BY REFERRING PHYSICIAN INDICATIONS: right pleural effusion. TECHNIQUE: The indications, alternatives, benefits, risks, and complications of the procedure were explained to the patient. Written informed consent was obtained and placed in the chart. The chest was examined sonographically, and an appropriate site was chosen for thoracentesis. The skin was prepared and draped in the usual sterile fashion, and 1% lidocaine was infiltrated from the skin down through the pleural surface. A 19-gauge catheter-covered needle was then introduced into the pleural space, the catheter was advanced and the needle was withdrawn, and thereafter pleural fluid was aspirated. The catheter was then removed and a dressing was applied. FINDINGS: Access site: Right hemithorax. Needle: One-Step centesis catheter with introducer needle. Fluid volume and description: 1750 cc of clear pleural fluid. Fluid sent for diagnostic testing: Therapeutic drainage. Medications: 1% lidocaine for local anaesthesia. Complications: None; post-procedural chest radiograph is pending to assess for pneumothorax. IMPRESSION: Successful ultrasound-guided thoracentesis. Dictated by: Tyree MOREAU Interpreted: Emily Cook MD on 06/04/2016 at 16: 39 PROCEDURE: CT BRAIN WITHOUT CONTRAST ([id number]) IMPRESSION: No acute intracranial abnormalities. Nonacute bilateral caudate nucleus lacunar infarcts. Dictated by: René Prince M.D. on 06/04/2016 at 17:31 PROCEDURE: MRI STROKE PROTOCOL IMPRESSION: Image quality degraded secondary to patient motion artifact. BRAIN MRI: 1. Acute infarct involving the left globus pallidus, left putamen, left internal capsule, left external capsule, left caudate body and left pike radiata. 2. Chronic, small, lacunar infarcts involving the left caudate head, the right globus pallidus in the right centrum semiovale. 3. Mild, diffuse bone loss. 4. Mild pontine, periventricular and subcortical white matter chronic microvascular ischemic changes. BRAIN MR ANGIOGRAM: 1. Absence of flow signal in the left middle cerebral artery distal to the origin of the vessel highly suspicious for presence of thrombus. 2. Focal, short segment, high-grade stenoses involving M2 branch of the right middle cerebral artery and the P1 segment of the right posterior cerebral artery. 3. Focal, short segment, high-grade stenosis of the proximal basilar artery. NECK MR ANGIOGRAM: 1. No hemodynamically significant stenosis involving the internal carotid arteries. 2. Well visualized portions of the vertebral arteries are fully patent. The of the vertebral arteries are suboptimally visualized due to motion artifact. The estimate of stenosis included in the report of the imaging study was calculated using the NASCET method Dictated by: Lisa Qureshi MD, PhD on 06/05/2016 at 12:48 Approved by: Lisa Qureshi MD, PhD on 06/05/2016 at 13:10 PROCEDURE: CT BRAIN WITHOUT CONTRAST IMPRESSION: 1. No change in left sided subacute infarct. 2. No acute intracranial abnormality. Dictated by: Trinh Leong M.D. on 06/07/2016 at 12:04 Approved by: Trinh Leong M.D. on 06/07/2016 at 12:06 12-lead ECG ECG Interpretation: afib rate 76 otherwise normal no acute ST, T wave changes Time: 14:41 Interpreted by: ED physician Cardiac Echo Impressions Interpretation Summary by Dr. Blmu on 06/05/2016: The study quality was technically difficult. The left ventricle is normal in size. The ejection fraction is estimated to be 50-55%. The left atrium is moderately dilated. There is mild mitral annular calcification. There is mild mitral regurgitation. There is mild aortic valve sclerosis. The right ventricular systolic pressure is estimated at 52 mmHg assuming a right atrial pressure of 15 mm Hg. The IVC is dilated (diameter is greater than 2.1 cm) and it collapses less than 50% with a sniff. This suggests a high right atrial pressure of 15 mmHg. There has been no significant change since the previous study. Assessment & Plan 86-year-old male with history of CLL, recurrent pleural effusion, atrial fibrillation, ocular myasthenia gravis, and CHF presented to the emergency department for shortness of breath after thoracentesis patient developed dysarthria and worsening facial droop. He was admitted for CVA. Hospital day #6. 1. Acute ischemic cerebrovascular accident, present on admission, active. - Patient with acutely worsening right-sided facial droop, new onset dysarthria , and increased somnolence upon returning to his room in the emergency department after ultrasound-guided thoracentesis. - CT brain was normal, but MRI stroke protocol on 06/05/16 noted an Acute infarct involving the left globus pallidus, left putamen, left internal capsule , left external capsule, left caudate body and left pike radiata. - There is also absence of flow signal in the left middle cerebral artery distal to the origin of the vessel highly suspicious for presence of thrombus. There are high-grade stenoses of the right MCA, [employer], and proximal basilar artery. - Repeat CT brain 06/07/16 showed No change in left sided subacute infarct. - Patient was given one dose of Pradaxa on 06/05/16 evening and tolerated well. However, it was D/C per neurology's recommendation. - Dr. Reid was consulted and her recommendations are appreciated.Will continuing 81 mg aspirin until anticoagulation can be decided with both oncology and cardiology weighing in with risks and benefits. Per neurology, The earliest that any anticoagulation should be considered is one week following his stroke and would need a head CT prior to initiation of any anticoagulant - Per neurology, anticoagulation choices would be Pradaxa > Warfarin > ASA. - Dr. Gama was also consulted for anticoagulation guidance. His recommendations are appreciated. Will avoid full-dose anticoagulation at this time and continue to monitor. - Echocardiogram showed no significant changes since the last Echo. - Continue Atorvastatin 40mg HS. Lipid panel wnl. - Permissive hypertension. No antihypertensive medication at this point. Continue to monitor blood pressures with Q4 hour vitals. - PT/OT/ST consulted and will continue to follow. Will continue outpatient rehab at [facility]. 2. Recurrent right-sided pleural effusion, present on admission, acute - Patient received ultrasound guided thoracocentesis last night 06/04/16 with extraction of 1750 mL fluid. - Oncologist speculates that this could be a side effect from ibrutinib, medication was discontinued one week ago. - Given decreasing breath sound on the right base, a CXR done today 06/08/16 that showed bibasilar opacities right greater than left with atelectasis versus pneumonia. Trace right-sided pleural effusion. - No respiratory distress and vital signs have been normal. - Recommend repeat chest x-ray if patient has worsening symptoms of shortness of breath or chest discomfort. 3. 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 Gama of oncology. His recommendations are greatly appreciated. - Not currently on therapy as ibrutinib was discontinued one week ago - Leukocytosis of 81.7, 99% lymphocytes on admission. - Patient has received 2 blood transfusions for CLL recently. 4. History of ocular myasthenia crisis, present on admission, chronic. - Current symptoms are likely due to an acute stroke and not an exacerbation of this condition. - Continue to follow up with Dr. Reid. - Pulmonary function tests returned in the low normal range, speculated this is baseline for patient. - Continue home dose Pyridostigmine bromide 60 mg by mouth 4 times a day 5. Atrial fibrillation, rate controlled, present on admission, chronic. - Patient was not on anticoagulation at home, formerly on warfarin. - Rate is currently controlled with no medication. Will avoid beta blockers at this point due to risk of decreasing his BP. - CHADS score of at least 5. Will consider starting anticoagulation with Pradaxa as outpatient or at least one week following the stroke. - Continue to monitor for bleeding. 6. Lesions on head, chronic, stable. - Patient had recent biopsies of skin lesions on left cheek and left preauricular area, currently awaiting pathology results - Continue minocycline 7. Macrocytic anemia, present on admission, chronic. - H/H has been stable. - We will monitor H&H with daily CBC. 8. History of CHF, chronic, presumed stable. - New Echo on 06/05/2016 reveals no changes from the recent Echo on 04/01/2016 that showed left ventricular ejection fraction 55-60% with an increase in the severity of pulmonary hypertension. - No signs of decompensation - Daily weights, monitor I's and O's 9. Code status: FULL CODE per his and daughter. Dr. Reid mentioned about hospice today, but the family would like to think about it. We appreciate Palliative Care's time and recommendations. Dispo: Patient will likely be discharged to a SNF for rehabilitation. Patient was admitted under inpatient status with expected length of stay greater than 2 midnights due to severity of presenting symptoms, risk of adverse event, and complexity of treatment plan. Acetaminophen for mild pain when necessary. Bowel regimen Senna and MiraLAX PRN. Zofran when necessary for nausea and vomiting. DVT prophylaxis with SCDs Pain Evaluation: Adequate Pain Control GI Prophylaxis: Proton Pump Inhibitor VTE Prophylaxis: SCDs VTE Mechanical Devices: Intermittant Pneumatic CD Resuscitation Status: CPR: Attempt Resuscitation Limited Interventions: Compressions, Cardioversion/Defibrillation, Intubation w Mech Vent, BiPAP, Medications and IV Fluid Attending Statement The patient was seen and examined together with Dr. Lui on 06-08-16 and I agree with the history, exam and plan as outlined in the note above. Noemi Lui DO Jun 08, 2016 12:29 Chetan Gaitan MD Jun 09, 2016 10:42
--- NOTE | 2016-06-08 14:32 | NUR ---
[facility] signed
--- NOTE | 2016-06-08 17:10 | NUR ---
Edema It was noted this morning how he had trace edema in his lower extremities and right arm. His noted the edema when she came into visit him and expressed concern. Dr. Lui notified and she came to assess him saying it does appear that he has edema in those areas. She ordered SCDs which will be placed on his lower extremities. Care continues.
[2016-06-09 00:20] VITALS: BP 118/62; PULSE 71; RESP 18; O2SAT 92
[2016-06-09] MEDS: Sodium Chloride LOK Flush 10 mL Syringe IVFLUSH SCH ×2 (00:36→10:33)
[2016-06-09 03:14] VITALS: BP 120/64; PULSE 67; RESP 18; O2SAT 93
--- NOTE | 2016-06-09 03:31 | NUR ---
Edema/pain/Tele Pt continues with edema in the lower extremities and rt arm. BLE and BUE elevated with pillows. SCDs in place. Incont x 2 in brief with good output noted. Denies pain and discomfort. Tele:AFIB hr 50-60s per tele cardiac monitor. Care ongoing.
[2016-06-09 03:40] LABS: BASOPHILS % (AUTO) 0.2 % (0-3); EOSINOPHILS % (AUTO) 0.1 % (0-5); MONOCYTES % (AUTO) 1.8 % (4-12); Mean Corpuscular Hemoglobin 36.2 pg (27.0-35.0); Mean Corpuscular Volume 115.7 fL (81-100); NEUTROPHILS % (AUTO) 1.5 % (40-74); Platelet Count 81 bil/L (150-400)
[2016-06-09 03:43] LABS: Magnesium 1.8 mg/dL (1.6-2.6)
[2016-06-09 04:51] VITALS: PULSE 68
[2016-06-09] MEDS: Pantoprazole 40 mg ER24 Tablet PO SCH (05:36)
[2016-06-09 07:30] VITALS: PULSE 56
[2016-06-09 09:53] VITALS: PULSE 78
[2016-06-09 10:21] VITALS: BP 111/53; PULSE 75; RESP 16; O2SAT 94
[2016-06-09] MEDS: Calcium Carbonate (Oyster Shell) 500 mg Tablet PO SCH (10:33)
--- NOTE | 2016-06-09 13:25 | NUR ---
Discharge He discharged from [facility] 2008 to [facility] at 1325. [id number] report called to Yolanda ZUNIGA at [facility]. Notified her that a small blanchable redness had been noted on his bottom this morning, but that it had disappeared upon re-inspection. IV discontinued intact. Brief changed before wheelchair transport. Paperwork including hard copy of prescriptions, face sheet, and transport body report sheet taken with him. Family took his belongings. They thanked staff for their excellent care.
--- NOTE | 2016-06-09 14:10 | PCM.DC.MED ---
Discharge Summary Date of Service Jun 09, 2016 Dates of Hospitalization Date of Hospital Admission Jun 04, 2016 at 19:41 Date of Discharge: Jun 09, 2016 Providers: Admitting Physician: Safia Fierro MD Primary Care Physician: Lorenzo Lombardo MD Attending Physician: Safia Fierro MD Diagnosis at Time of Discharge Diagnosis at Time of Discharge 1. Acute ischemic cerebrovascular accident, present on admission, active. 2. Recurrent right-sided pleural effusion, present on admission, stable. 3. 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 History of ocular myasthenia crisis, present on admission, chronic. 5. Atrial fibrillation, rate controlled, present on admission, chronic. 6. Lesions on head, stable. 7. Macrocytic anemia, present on admission, chronic 8. History of CHF, chronic, presumed stable. Consultations Preeti Reid MD (neurology) CLARICE Quinn (Palliative Medicine) Procedures XRay, CTs & MRIs PROCEDURE: X-RAY CHEST ONE VIEW, PORTABLE IMPRESSION: Mildly increased right pleural effusion with overlying opacity. The latter could be recent no focal edema, mass lesion or airspace disease such as pneumonia. Dictated by: Emily Cook M.D. on 06/04/2016 at 14:35 PROCEDURE: X-RAY CHEST ONE VIEW INDICATIONS: POST THORACENTESIS IMPRESSION: Decreased size of the right pleural effusion and no evidence for pneumothorax after thoracentesis. Dictated by: Isabela Becker M.D. on 06/04/2016 at 16:56 PROCEDURE: US VENOUS LEG DUPLEX UNILATERAL, LEFT IMPRESSION: 1. No deep venous thrombosis identified within the left lower extremity. 2. Enlarged morphologically normal-appearing lymph nodes within the left groin measuring up to 1.4 cm. Clinical correlation and management. Dictated by: Tyree Alegria Ricarda Interpreted: Emily Cook MD on 06/04/2016 at 16: 02 PROCEDURE: US GUIDED THORACENTESIS BY REFERRING PHYSICIAN INDICATIONS: right pleural effusion. FINDINGS: Access site: Right hemithorax. Needle: One-Step centesis catheter with introducer needle. Fluid volume and description: 1750 cc of clear pleural fluid. Fluid sent for diagnostic testing: Therapeutic drainage. Medications: 1% lidocaine for local anaesthesia. Complications: None; post-procedural chest radiograph is pending to assess for pneumothorax. IMPRESSION: Successful ultrasound-guided thoracentesis. Dictated by: Tyree Alegria [facility] Interpreted: Emily Cook MD on 06/04/2016 at 16: 39 PROCEDURE: CT BRAIN WITHOUT CONTRAST ([id number]) IMPRESSION: No acute intracranial abnormalities. Nonacute bilateral caudate nucleus lacunar infarcts. Dictated by: René Prince M.D. on 06/04/2016 at 17:31 PROCEDURE: MRI STROKE PROTOCOL IMPRESSION: Image quality degraded secondary to patient motion artifact. BRAIN MRI: 1. Acute infarct involving the left globus pallidus, left putamen, left internal capsule, left external capsule, left caudate body and left pike radiata. 2. Chronic, small, lacunar infarcts involving the left caudate head, the right globus pallidus in the right centrum semiovale. 3. Mild, diffuse bone loss. 4. Mild pontine, periventricular and subcortical white matter chronic microvascular ischemic changes. BRAIN MR ANGIOGRAM: 1. Absence of flow signal in the left middle cerebral artery distal to the origin of the vessel highly suspicious for presence of thrombus. 2. Focal, short segment, high-grade stenoses involving M2 branch of the right middle cerebral artery and the P1 segment of the right posterior cerebral artery. 3. Focal, short segment, high-grade stenosis of the proximal basilar artery. NECK MR ANGIOGRAM: 1. No hemodynamically significant stenosis involving the internal carotid arteries. 2. Well visualized portions of the vertebral arteries are fully patent. The of the vertebral arteries are suboptimally visualized due to motion artifact. The estimate of stenosis included in the report of the imaging study was calculated using the NASCET method Dictated by: Lisa Qureshi MD, PhD on 06/05/2016 at 12:48 PROCEDURE: CT BRAIN WITHOUT CONTRAST IMPRESSION: 1. No change in left sided subacute infarct. 2. No acute intracranial abnormality. Dictated by: Trinh Leong M.D. on 06/07/2016 at 12:04 ECG 12 Lead ECG Interpretation: afib rate 76 otherwise normal no acute ST, T wave changes Time: 14:41 Interpreted by: ED physician Cardiac Echo Impression Interpretation Summary by Dr. Blum on 06/05/2016: The study quality was technically difficult. The left ventricle is normal in size. The ejection fraction is estimated to be 50-55%. The left atrium is moderately dilated. There is mild mitral annular calcification. There is mild mitral regurgitation. There is mild aortic valve sclerosis. The right ventricular systolic pressure is estimated at 52 mmHg assuming a right atrial pressure of 15 mm Hg. The IVC is dilated (diameter is greater than 2.1 cm) and it collapses less than 50% with a sniff. This suggests a high right atrial pressure of 15 mmHg. There has been no significant change since the previous study. Brief History From Dr. Levy's H&P dated 06/04/16: 86-year-old male with history of CLL, recurrent pleural effusion, atrial fibrillation, ocular myasthenia gravis, and CHF presented to the emergency department for shortness of breath after thoracentesis patient developed dysarthria and worsening facial droop. Patient developed cough and shortness of breath over 2 weeks ago, he was found to have left-sided pleural effusion 15 days ago he had an initial thoracentesis, Digitek 3 L off again 5 days ago, ultrasound-guided thoracentesis was performed again today with extraction of 1750 cc of clear pleural fluid. He had some improvement of his shortness of breath however when he returned his noticed that his chronic right facial droop (from myasthenia gravis) was worse. He was also noted to have slurred speech, was drooling, and appeared to be more tired. Patient reports feeling relatively normal throughout this situation and does not seem to be bothered by his symptoms. Patient has chronic swelling in his legs worse on the left side. He notes feeling some chest pressure yesterday, he also endorses a cough and shortness of breath that worsens with activity. He has received multiple blood transfusions in the past as his CLL is active. He is being followed by Dr. Gama of hematology/oncology. It was speculated that office visit on 2016 that the recurring pleural effusion may be due to his [place] kinase inhibitor, a [place] and this was discontinued at that time. With initial effusion there was evidence of serosanguineous fluid which could represent a malignancy. Dr. Gama is continuing to follow patient and plans to discuss chemotherapy such as Rituxan based chemotherapy with patient to treat his CLL/ small lymphocytic lymphoma. In the emergency department patient was found again to have a pleural effusion, symptoms resolved after thoracentesis. He was evaluated for coronary ischemia. Patient's demeanor after thoracentesis was quite different, there was concern for myasthenia crisis with dysarthria and increased somnolence. ED physician discussed case with patient's neurologist Dr. Reid who feels myasthenia crisis involving face is unlikely due to patient only ever having ocular involvement before. Pulmonary function tests were performed and noted to be low but likely normal for patient. It is possible patient had a stroke, CT brain did not note any acute intracranial abnormalities. He is admitted for further workup and observation. Hospital Course 1. Acute ischemic cerebrovascular accident, present on admission, active. - Patient with acutely worsening right-sided facial droop, new onset dysarthria , and increased somnolence upon returning to his room in the emergency department after ultrasound-guided thoracentesis. - Dr. Reid was consulted and her recommendations are appreciated. Continue. 81 mg aspirin. Per neurology, the earliest that any anticoagulation should be considered is one week following his stroke and would need a non contrast head CT prior to initiation of any anticoagulant. Anticoagulation choices would be Pradaxa > Warfarin > ASA. - Continue Atorvastatin 40mg HS. - Permissive hypertension allowed. No antihypertensive medication at this point. Continue to monitor blood pressures with Q4 hour vitals. - PT/OT/ST consulted and gave recommendations. Continue PT and ST at SNF. 2. Recurrent right-sided pleural effusion, present on admission, chronic - Patient received ultrasound guided thoracocentesis 3 with extraction of 1750 mL fluid. - Oncologist speculates that this could be a side effect from ibrutinib, medication was discontinued about one week ago. - Recommend repeat chest x-ray if patient has worsening symptoms of shortness of breath or chest discomfort. 3. 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 Gama of oncology. Outpatient follow up recommended for discussion of further treatment of CLL. - Not currently on therapy as ibrutinib was discontinued about one week ago. 4. History of ocular myasthenia crisis, present on admission, chronic. - Current symptoms are likely due to an acute stroke and not an exacerbation of this condition. - Continue to follow up with Dr. Reid. - Pulmonary function tests returned in the low normal range, speculated this is baseline for patient. - Continue home dose Pyridostigmine bromide 60 mg by mouth 4 times a day 5. Atrial fibrillation, rate controlled, present on admission, chronic. - Patient was not on anticoagulation at home, formerly on warfarin. - Rate is currently controlled with no medication. Will avoid beta blockers at this point due to risk of decreasing his BP. - CHADS score of at least 5. Will consider starting anticoagulation with Pradaxa as outpatient or at least one week following the stroke. - Continue to monitor for bleeding. 6. Lesions on head, chronic, stable. - Patient had recent biopsies of skin lesions on left cheek and left preauricular area, currently awaiting pathology results - Continue minocycline 7. Macrocytic anemia, present on admission, chronic. - H/H has been stable over the course of admission. 8. History of CHF, chronic, presumed stable. - Echo on 06/05/2016 showed left ventricular ejection fraction 55-60% with an increase in the severity of pulmonary hypertension. - No signs of decompensation - Daily weights, monitor I's and O's Exam Vital Signs (Last) Date Time Temp Pulse Resp B/P Pulse Ox O2 Delivery O2 Flow Rate FiO2 06/09/16 10:21 36.4 75 16 111/53 94 Room Air Exam General: Alert, but difficult to assess orientation due to dysarthria. Minimally verbal. No acute distress resting comfortably in bed with his family at bedside. HEENT: Normocephalic, atraumatic. External ears without defect. Anicteric sclerae, moist conjunctivae. Oropharynx with moist mucosa. Neck: Supple with full range of motion. No lymphadenopathy or thyromegaly. Cardiovascular: irregularly irregular, normal rate, with soft murmur, No rubs, or gallops appreciated Pulmonary: Decreased breath sound on the right base. Moderate crackles. No wheezes or rhonchi. Normal respiratory effort with no use of accessory muscles. Abdomen: Bowel tones present. Soft, nontender, nondistended. No hepatosplenomegaly or masses appreciated. Extremities: Worsening, moderate bilateral lower leg pitting edema, worse on the right. Brawny skin discoloration in bilateral legs. No clubbing or cyanosis appreciated. Skin: Normal temperature, turgor, and texture; no rash, ulcers, or subcutaneous nodules appreciated. Neurological: Marked right-sided facial droop, R sided ptosis. CNII-XII grossly intact. Sensation to light touch grossly intact. Test 06/04/16 14:35 06/04/16 17:33 06/04/16 18:20 06/06/16 03:40 Hematology Comments Hold Purple Top Tube Received (Received) Prothrombin Time 10.6sec (8.1-12.5) Prothromb Time International Ratio 0.99ratio Activated Partial Thromboplast Time 25.2sec (22.8-33.0) Hold Blue Top Tube Received (Received) Pro-B-Type Natriuretic Peptide 2236pg/mL (0-486) Hold [place] Top Tube Received (Received) Hold [place] Top Tube Received (Received) Troponin T < 0.010ug/L (0.0-0.011) Urine Color Yellow (YELLOW) Urine Appearance Hazy (CLEAR,HAZY) Urine pH 7.0 (5.0-8.0) Urine Specific [place] 1.010 (1.003-1.035) Urine Protein Negativemg/dL (NEG,TRACE) Urine Glucose (UA) Negativemg/dL (NEGATIVE) Urine Ketones Negativemg/dL (NEGATIVE) Urine Occult Blood Trace (NEGATIVE) Urine Nitrite Negative (NEGATIVE) Urine Bilirubin Negative (NEGATIVE) Urine Urobilinogen Normalmg/dL (NORMAL) Urine Leukocyte Esterase Negative (NEGATIVE) Urine RBC 3-10/hpf (0-2) Urine WBC 0-5/hpf (0-5) Urine Epithelial Cells Occasional/hpf (NONE-MOD) Urine Crystals None seen (NONE SEEN) Urine Bacteria Few/hpf (NONE-FEW) Urine Hyaline Casts None/lpf (NONE) Urine Granular Casts None seen (NONE SEEN) Urine Waxy Casts None seen (NONE SEEN) Urine Red Blood Cell Casts None seen (NONE SEEN) Urine White Blood Cell Casts None seen (NONE SEEN) Urine Mucus Present (None Seen) Urine Trichomonas None seen (NONE SEEN) Urine Yeast None (NONE SEEN) Urinalysis Comment None Urine Culture Reflexed Not indicated Triglycerides Level 52mg/dL (0-149) Cholesterol Level 143mg/dL (100-199) LDL Cholesterol, Calculated 65.600mg/dL (0-99) VLDL Cholesterol 10.400mg/dL HDL Cholesterol 67mg/dL (>39) Cholesterol/HDL Ratio 2.13 (0.0-4.4) Test 06/09/16 03:00 White Blood Count 72.0th/mm3 (3.8-10.1) Red Blood Count 2.54mil/mm3 (4.40-5.80) Hemoglobin 9.2g/dL (13.8-17.2) Hematocrit 29.4% (41.0-50.0) Mean Corpuscular Volume 115.7fL (81-100) Mean Corpuscular Hemoglobin 36.2pg (27.0-35.0) Mean Corpuscular Hemoglobin Concent 31.3% (32.0-37.0) Red Cell Distribution Width 19.8% (12.3-15.4) Platelet Count 81bil/L (150-400) Neutrophils (%) (Auto) 1.5% (40-74) Lymphocytes (%) (Auto) 96.4% (14-46) Monocytes (%) (Auto) 1.8% (4-12) Eosinophils (%) (Auto) 0.1% (0-5) Basophils (%) (Auto) 0.2% (0-3) Band Neutrophils % 0% (1-5) Sodium Level 138mEq/L (134-144) Potassium Level 4.6mEq/L (3.5-5.2) Chloride Level 102mEq/L (97-108) Carbon Dioxide Level 27mmol/L (18-29) Blood Urea Nitrogen 19mg/dL (8-27) Creatinine 0.64mg/dL (0.76-1.27) Estimat Glomerular Filtration Rate 127mL/min (>59) Glucose Level 104mg/dL (60-99) Calcium Level 8.2mg/dL (8.5-10.1) Magnesium Level 1.8mg/dL (1.6-2.6) Total Bilirubin 1.7mg/dL (0.0-1.2) Aspartate Amino Transf (AST/SGOT) 13U/L (0-50) Alanine Aminotransferase (ALT/SGPT) 5U/L (0-44) Alkaline Phosphatase 49U/L (25-160) Total Protein 5.5g/dL (6.4-8.4) Albumin 2.8g/dL (3.4-5.0) Discharge Medications Discharge Medications Acidophilus/Pectin, [place] (Acidophilus Cap[place]) 1 Each Tablet 2 EACH PO BID ( Reported) Aspirin (Aspirin) 325 Mg Tablet 325 MG PO DAILY (Reported) Atorvastatin Calcium (Atorvastatin Calcium) 40 Mg Tablet 40 MG PO HS Prescribed by: JALIL HYATT DO Calcium Carbonate (Calcium) 600 Mg Tablet 600 MG PO BID (Reported) Cholecalciferol (Vitamin D3) (Vitamin D3) 1,000 Unit Tab.chew 1,000 UNIT PO DAILY (Reported) Cyanocobalamin (Vitamin B-12) (Vitamin B-12) 1,000 Mcg Tablet 1,000 MCG PO DAILY (Reported) Fish Oil/Dha/Epa (Fish Oil 1,200 mg Fish Oil) 1 Each Capsule 2 EACH PO DAILY ( Reported) Levofloxacin (Levaquin) 750 Mg Tablet 750 MG PO DIRECTED (Reported) Minocycline (Minocycline) 100 Mg Tablet 100 MG PO BID (Reported) Omeprazole (Omeprazole) 20 Mg Capsule.dr 20 MG PO BIDAC (Reported) Pyridostigmine [place] ([place]) 60 Mg Tablet 60 MG PO QID (Reported) Pyridostigmine [place] ([place]) 60 Mg Tablet 60 MG PO BID (Reported) As needed Triamcinolone Acet (Triamcinolone Acetonide Cream) 1 Applic/0.25 Gm Cr 1 APPLIC EXT BID PRN PRN Rash (Reported) Additional med instructions - We added 2 new medications: a cholesterol-lowering medication called Atorvastatin 40mg and a baby Aspirin 81mg. Please take them once daily. - In one week, your primary care doctor will need to switch from the Aspirin to a blood-thinner called Pradaxa. If your insurance does not cover it, then you will have to be on Warfarin.You will need a CT head prior to initiation of any anticoagulant. This was recommended by your neurologist, Dr. Reid. - Please continue to take all your other medications as directed. Followup Plan Discharge Diet: Other (dysphagia mechanical diet) Discharge Activity: Other (SNF PT/OT/ST) Patient Instructions - Discharge planning will be per shelter physician. - In the mean time, you will need to continue the rehabilitation at [facility]. - Please take your medications as above. - Follow up with Dr. Gama and Dr. Reid as outpatient once you are discharged from [facility]. - Continue with the dysphagia mechanical diet per Speech recommendations. Follow-up Provider: Lorenzo Lombardo MD Follow-up with PCP in: 1 week Provider: Preeti Reid MD Follow-up in: Other (As soon as possible) Attending Statement The patient was seen and examined together with Dr. Hernandez on 06-09-16 and I agree with the history, exam and plan as outlined in the note above. copies to: Preeti Reid MD; Lorenzo Lombardo MD; Parth Gama MD; Lulu Dyson MD, Jennifer E DO Jun 09, 2016 11:34 Chetan Gaitan MD Jun 24, 2016 16:15
--- NOTE | 2016-06-11 09:51 | PCM.PNPALL ---
Date of Service Jun 07, 2016 Date of Hospital Admission: Jun 04, 2016 at 19:41 Date of Palliative Consult: Jun 06, 2016 Palliative Care Recommendation 86 yr old man with CLL/SLL who is admitted for stroke symptoms, now largely recovering his function, but understanding that he faces increased risk of future strokes and other clot-related events related to cancer, as well as bleeding events related to prophylactic therapy. Family hopeful that patient will qualify for rehab--feeding issues and risk of aspiration in home setting would be overwhelming to . 06/07/16: new/increased s/s of stroke--Ct findings r/o bleed. Pt will progress to rehab. Patient prefers to remain full code until he can discuss his situation with Dr. Gama. Summary of palliative recommendations: -Symptom management (Pain/other) --minimal pain: prn meds --nutrition: ST to assign safe diet; family to be instructed on this and other therapies. --ongoing assessment for stroke and other risks due to hypercoagulation risks r/t cancer. -DPOA/Advanced Directives/POLST --Discussed code status at length with patient and family. While they agree he would not want any long-term life support, he nods yes to wanting CPR and intubation short term if any benefit can be gained. Family is supportive of patient choice. He will discuss this further with Dr. Gama. Given all this the patient and family are open to discussing hospice services once rehab is completed; they understand the decline the patient is having r/t his underlying disease and he wishes to be home as much as possible. states their desire to remain at home and emphasizes how carefully they planned the design of their home, and their living partners, to account for the need for increased care in the home. It is not clear if she fully grasps or is prepared for him to at home--they are "taking things one step at a time" -- not ready to discuss EOL plans yet. -Family/emotional support: very supportive family. committed but is cautious about her limited ability to help with him. --children express concern about patient and living so far out of town. -Disposition: informed by CM that patient will likely not qualify for PT/OT rehab now that his recovery today has been evidenced by ambulation. Will check to see if ST needs will meet criteria. Patient Goals: 1. Patient wants to be told the truth about his/her illness, even if it is unpleasant. 2. Patient would like to be told prognosis when it can be predicted, to better guide treatment decisions. 3. Patient would choose quality of life over quantity of life, and defines quality as being home as much as possible. 4. Patient would request that comfort care take priority over cognitive/mental confusion. Additional Medical Diagnoses with primary management by Hospitalist team include : 1. Acute ischemic cerebrovascular accident, present on admission, acute. 2. Recurrent right-sided pleural effusion, present on admission, acute 3. 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 History of ocular myasthenia crisis, present on admission, chronic. 5. Atrial fibrillation, rate controlled, present on admission, chronic. 6. Lesions on head, resolved 7. Macrocytic anemia, present on admission, chronic 8. History of CHF, chronic, presumed stable. 9. Code status: FULL CODE per his and daughter. Dr. Reid mentioned about hospice today, but the family would like to think about it. Will consult Palliative Care tomorrow if they choose that route. Problems: (1) Goals of care, counseling/discussion Status: Acute ICD Code: Z71.89 (2) Palliative care by specialist Status: Acute ICD Code: Z51.5 End of Life Preferences not ready to discuss at this time. Disposition rehab or inpatient rehab preferred short-term then home. Hospice was discussed and family is open to this after rehab. Resuscitation Status Resuscitation Status: CPR: Attempt Resuscitation Limited Interventions: Compressions, Cardioversion/Defibrillation, Intubation w Mech Vent, BiPAP, Medications and IV Fluid POLST Updates/Changes Previous POLST?: No . Advanced Care Planning Address: Code status change Pain: None Symptom management: Drowsiness/sleepiness (increased neurological deficits; not requiring med interventions--therapies ordered.) Palliative Subjective Palliative Care Daily Responde: Patient, Family/Proxy Brief History 86 yr old man with CLL/SLL, who is admitted with CVA likely related to hypercoagulability due to underlying cancer. Additional info as of 06/07/16: patient appears to have increased s/s neurological insult, repeat CT scan did not find evidence of bleed, likely additional ischemic event or sequelae. Plans for rehab will be re-examined, may qualify for inpatient rehab which family would prefer. Patient/Family Concerns Pt taken to CT due to new onset worsening of stroke symptoms this morning. Awaiting results of CT. Subjective Pt awake unable to form intelligible words 2/2 probable CVA event. Palliative Performance Scale PPS Patient Status: Current PPS Ambulation: Mainly Bed PPS Activity: Unable to do any work PPS Self-Care: Considerable assistance required PPS Intake: Normal or reduced PPS Conscious Level: Full, Full or confusion Performace Scale: 40% ADLs ADL Patient Status: Baseline ADL Ambulation: Reduced ADL Dressing: Full, Occasional assistance necessary ADL Feeding: Full ADL Hygene/bathing: Full ADL Transfers: Full Objective Findings Exam Vital Sign - Last Date Time Temp Pulse Resp B/P Pulse Ox O2 Delivery O2 Flow Rate FiO2 06/07/16 12:19 37.6 70 20 135/76 92 Room Air Intake and Output 06/06/16 06/06/16 06/07/16 Cumulative From/Thru 15:00 23:00 07:00 06/04/16 13:55 - 06/07/16 06:23 Intake Total 450 ml 150 ml 1795 ml Output Total 200 ml 500 ml 2600 ml Balance 250 ml -350 ml -805 ml Intake Oral 450 ml 150 ml 1295 ml IV Total 500 ml Output Urine Total 200 ml 500 ml 2600 ml # Voids 3 1 4 General: Alert/Oriented x3 (appears oriented fully, but not able to vebalize ) HEENT: Atraumatic, EOMI Lungs: Normal Air Movement Abdomen: Bowel Tones x4, Soft Neuro: Arousable Extremities: Warm, Edema (3+ WILMAR b/l) Lab/Diagnostics Lab and Imaging results reviewed in detail in EMR. Patient/Family Conference Discussion/Goals of Care Discussion See prior discussion. Pt and family aware that this event represents the risk we discussed yesterday/ is part of increased risk due to hypercoagulable state. Palliative Care counselled: Time spent Total time 30 minutes; >50% face to face with patient and/or family, providing counselling regarding plans and recommendations, and in care coordination with his/her medical teams. copies to: Lorenzo Lombardo MD; Parth Gama MD, Sharmon M. ARNP Jun 07, 2016 14:55
[2016-06-17] MEDS ORDERED: LEVO750T9 PO (15:27)
[2016-06-17] MEDS ORDERED: PYRI60TA2 PO (15:30)
[2016-06-17] MEDS ORDERED: ASPI325T32 PO (15:30)
[2016-06-17] MEDS ORDERED: ACID1TAB2 PO (15:30)
[2016-08-21] MEDS ORDERED: oxygen INH (10:41)
[2016-09-05] MEDS ORDERED: [UNRECOGNIZED DRUG - CODE] MC (09:16)
[2016-09-11] MEDS ORDERED: LIP40 PO (08:50)
[2016-09-11] MEDS ORDERED: PYRI60TA PO (08:57)
[2016-09-11] MEDS ORDERED: MAGN800O PO (08:57)
[2016-09-11] MEDS ORDERED: NYST1000 PO (08:57)
[2016-09-11] MEDS ORDERED: LEVO500T16 PO (08:57)
== END 2016-06-09 13:35 | DRG 65 ==
LOC: SED 13:52 → PCC 19:41
PROVIDERS: ADMIT Specialist; ATTEND Specialist
PROC: 0W993ZZ Drainage of Right Pleural Cavity, Percutaneous Approach (ICD-10-PCS; principal; 2016-06-04)
DX: I63.8 Other cerebral infarction (principal); G81.91 Hemiplegia, unspecified affecting right dominant side; C83.00 Small cell B-cell lymphoma, unspecified site; D68.69 Other thrombophilia; J90 Pleural effusion, not elsewhere classified; I10 Essential (primary) hypertension; G70.00 Myasthenia gravis without (acute) exacerbation; R47.1 Dysarthria and anarthria; E03.9 Hypothyroidism, unspecified; R29.810 Facial weakness; D64.9 Anemia, unspecified; I48.2 Chronic atrial fibrillation; I27.2 Other secondary pulmonary hypertension; Z79.82 Long term (current) use of aspirin; I07.1 Rheumatic tricuspid insufficiency; R13.10 Dysphagia, unspecified; Z88.0 Allergy status to penicillin; Z87.891 Personal history of nicotine dependence

== ENCOUNTER 2016-07-25 14:54 | Inpatient (IN) | payer MEDICARE, OTHER ==
[2016-07-25] VITALS (9 sets, daily range): BP systolic 103–133; BP diastolic 47–62; PULSE 93–108; RESP 20–30; O2SAT 92–99
[~2016-07-25] VITALS: Ht 180.3 cm; Wt 79.9 kg
[~2016-07-25 14:54] MED LIST changes: +ACID1TAB2 PO; +ASPI325T32 PO; +ATOR40TA69 PO; -GARL500C PO; -IBRU140C PO; +LEVO750T9 PO; -LTRS15C EXT; +MINO100T PO
--- NOTE | 2016-07-25 15:23 | ED.REPORT ---
HPI-General Illness Date of Service July 25, 2016 ED Provider: Dr. Constantino Hodge MD An 86 year old male with a history of stage chronic IV lymphocytic leukemia, ocular myasthenia gravis, recurrent pleural effusion, CHF, atrial fibrillation, hypothyroidism and GERD presents to the ED via EMS with generalized weakness that began last week. Patient was recently admitted on 06/04 following a TIA and was discharged to [facility] for rehab. Following the CVA patient has had right sided paralysis in the arm and leg, dysphagia and dysarthria. reports evidence of pneumonia on recent X-ray. Associated symptoms include "listlessness ", SOB, cough, subjective fever, nasal congestion and irritability. Pt is on pyridostigmine bromide 60 mg for h/o MG. Patient has been taking medication as prescribed. denies any recent falls, vomiting or diarrhea. Nursing Notes Stated Complaint: GENERALIZED WEAKNESS Chief Complaint: General Complaint Nursing Notes Reviewed: Yes Allergies: Coded Allergies: Penicillins (Verified Allergy, Severe, SWELLING WITH BLISTERS, 07/25/16) Sulfa (Sulfonamide Antibiotics) (Verified Allergy, Severe, RASH, 07/25/16) cedarwood (Verified Allergy, Severe, RASH, 07/25/16) ketoconazole (Verified Allergy, Severe, RASH, 07/25/16) Cephalosporins (Verified Allergy, Unknown, UNKNOWN, 07/25/16) trimethoprim (Verified Allergy, Unknown, UNKNOWN, 07/25/16) Scheduled Acidophilus/Pectin, [place] (Acidophilus [place]) 1 Each Tablet 2 EACH PO BID Apixaban (Eliquis) 5 Mg Tablet 5 MG PO BID Atorvastatin Calcium (Atorvastatin Calcium) 40 Mg Tablet 40 MG PO HS Calcium Carbonate (Calcium) 600 Mg Tablet 600 MG PO BID Cholecalciferol (Vitamin D3) (Vitamin D3) 1,000 Unit Tab.chew 1,000 UNIT PO DAILY Cyanocobalamin (Vitamin B-12) (Vitamin B-12) 1,000 Mcg Tablet 1,000 MCG PO DAILY Fish Oil/Dha/Epa (Fish Oil 1,200 mg Fish Oil) 1 Each Capsule 2 EACH PO DAILY Levofloxacin (Levofloxacin) 750 Mg Tablet 750 MG PO DAILY Minocycline (Minocycline) 100 Mg Tablet 100 MG PO BID Omeprazole (Omeprazole) 20 Mg Capsule.dr 20 MG PO BIDAC Pyridostigmine [place] (Mestinon) 60 Mg Tablet 60 MG PO QID Scheduled PRN Acetaminophen (Acetaminophen) 325 Mg Tablet 650 MG PO Q4H PRN PRN pain/fever General Time Seen by MD: 15:22 Transferred From: shelter Chief Complaint Weakness Hx Obtained From: Patient, Spouse Arrived By: Ambulance Sudden in Onset?: No Onset Occurred: 1 week ago Symptom Duration: Since onset Associated with: Reports: Congestion, Cough, Difficulty swallowing (unchanged from baseline), Fever (subjective), Shortness of breath, Weakness Pertinent Negative: Pt denies other symptoms Recent Healthcare: Recent doctor visit, Recent hospitalization Past Medical History Past Medical History 1. Ocular Myasthenia gravis 2. 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 CHF 4. Atrial fibrillation 5. Refux Esophagitis 6. Hypothyroidism Tricuspid regurg Reports: Cancer Past Surgical History Menisectomy Right and left shoulder impingement Blood transfusion L knee scope R eye x2 Reports: Appendectomy, Cataract surgery Smoking History Former Smoker Social History Other Social History: Good social support, , Local resident Ambulatory Status Independent Review of Systems Full Review of Systems Constitutional: Reports: Fever (subjective), Weakness - generalized Respiratory: Reports: Prod cough, clear, Shortness of breath GI: Denies: Diarrhea, Vomiting Neurologic: Reports: Focal weakness (Unchanged from baseline), Slurred speech ( Unchanged from baseline), Denies: Confusion Psychiatric: Reports: Agitation Complete sys rev & neg: except as marked. Physical Exam Vital Signs Vital Signs Date Time Temp Pulse Resp B/P Pulse Ox O2 Delivery O2 Flow Rate FiO2 07/25/16 19:42 36.9 94 21 104/56 99 Nasal Cannula 2 07/25/16 18:21 95 30 103/47 96 Nasal Cannula 3 07/25/16 17:00 103 26 129/52 97 Nasal Cannula 3 07/25/16 16:15 39.2 107 24 125/55 92 Room Air 07/25/16 15:33 94 24 117/53 98 Nasal Cannula 2 07/25/16 15:14 37.7 108 26 133/62 93 Room Air Initial VS: Reviewed Neck: Supple, Non-tender, Full range of motion Psychiatric: Mood/affect normal, Behavior normal, Normal thought content General/Constitutional: Awake, Alert, No acute distress Head / Eyes: Atraumatic, Normocephalic, PERRL ENT: Atraumatic, Airway patent Mouth: Positive: Mucous membranes dry Respiratory / Chest: Atraumatic, No respiratory distress Diminished Breath Sounds: Positive: Decreased bilateral (Coarse breath sounds bilaterally ) Cardiovascular: Heart rate NL, Heart sounds NL, No gallop, No murmurs, No rubs , Peripheral circulation NL (Good radial pulses), Pulses = bilaterally Heart Rate / Rhythm: Positive: Irregular rhythm CARDIO: Dependent edema in the right arm unchanged from baseline Abdomen: Atraumatic, Soft, Non-tender, No distention Upper Extremities Upper Extremity / MS: Atraumatic, Vascular intact Lower Extremity / Pelvis / MS: Atraumatic, Vascular intact Skin: Atraumatic, Warm, Dry Color / Condition: Positive: Jaundice present (Pt's baseline) Neurologic: CN II - XII intact NEURO: Paralysis of the right arm and right leg unchanged from baseline due to previous CVA No lateralizing neuro deficits changed from baseline Interpretation & Diagnostics LABS 47.7 WBC - baseline in setting of CLL Hct 27.2 - near baseline (28-35) Significantly down from Hct on 06/[address] 74 - baseline INR 1.08 Kidney baseline lactic acid 1.3 trop neg BNP 2239 no electrolyte abnormalities UA unconvincing for UTI Lab Results Interpretation Result Diagram: 07/25/16 1515 07/25/16 1515 Test 07/25/16 15:15 07/25/16 15:50 White Blood Count 47.7th/mm3 (3.8-10.1) Red Blood Count 2.29mil/mm3 (4.40-5.80) Hemoglobin 8.7g/dL (13.8-17.2) Hematocrit 27.2% (41.0-50.0) Mean Corpuscular Volume 118.8fL (81-100) Mean Corpuscular Hemoglobin 38.0pg (27.0-35.0) Mean Corpuscular Hemoglobin Concent 32.0% (32.0-37.0) Red Cell Distribution Width 15.3% (12.3-15.4) Platelet Count 74bil/L (150-400) Neutrophils (%) (Auto) 4.2% (40-74) Lymphocytes (%) (Auto) 94.5% (14-46) Monocytes (%) (Auto) 1.2% (4-12) Eosinophils (%) (Auto) 0% (0-5) Basophils (%) (Auto) 0.1% (0-3) Hold Purple Top Tube Received (Received) Prothrombin Time 11.6sec (8.1-12.5) Prothromb Time International Ratio 1.08ratio Hold Blue Top Tube Received (Received) Sodium Level 138mEq/L (134-144) Potassium Level 4.8mEq/L (3.5-5.2) Chloride Level 99mEq/L (97-108) Carbon Dioxide Level 28mmol/L (18-29) Blood Urea Nitrogen 21mg/dL (8-27) Creatinine 0.53mg/dL (0.76-1.27) Estimat Glomerular Filtration Rate 157mL/min (>59) Glucose Level 133mg/dL (60-99) Lactic Acid Level 1.3mmol/L (0.4-2.0) Calcium Level 9.0mg/dL (8.5-10.1) Magnesium Level 1.7mg/dL (1.6-2.6) Total Bilirubin 1.9mg/dL (0.0-1.2) Aspartate Amino Transf (AST/SGOT) 13U/L (0-50) Alanine Aminotransferase (ALT/SGPT) 9U/L (0-44) Alkaline Phosphatase 65U/L (25-160) Troponin T < 0.010ug/L (0.0-0.011) Pro-B-Type Natriuretic Peptide 2239pg/mL (0-486) Total Protein 6.6g/dL (6.4-8.4) Albumin 3.3g/dL (3.4-5.0) Procalcitonin 0.14ng/mL (0.00-0.08) Hold [place] Top Tube Received (Received) Hold [place] Top Tube Received (Received) Urine Color Dark yellow (YELLOW) Urine Appearance Clear (CLEAR,HAZY) Urine pH 5.5 (5.0-8.0) Urine Specific [place] 1.025 (1.003-1.035) Urine Protein Tracemg/dL (NEG,TRACE) Urine Glucose (UA) Negativemg/dL (NEGATIVE) Urine Ketones Negativemg/dL (NEGATIVE) Urine Occult Blood Trace (NEGATIVE) Urine Nitrite Negative (NEGATIVE) Urine Bilirubin Negative (NEGATIVE) Urine Urobilinogen Normalmg/dL (NORMAL) Urine Leukocyte Esterase Negative (NEGATIVE) Urine RBC 3-10/hpf (0-2) Urine WBC 0-5/hpf (0-5) Urine Epithelial Cells Few/hpf (NONE-MOD) Urine Crystals None seen (NONE SEEN) Urine Bacteria None/hpf (NONE-FEW) Urine Hyaline Casts None/lpf (NONE) Urine Granular Casts None seen (NONE SEEN) Urine Waxy Casts None seen (NONE SEEN) Urine Red Blood Cell Casts None seen (NONE SEEN) Urine White Blood Cell Casts None seen (NONE SEEN) Urine Mucus None seen (None Seen) Urine Trichomonas None seen (NONE SEEN) Urine Yeast None (NONE SEEN) Urinalysis Comment None Urine Culture Reflexed Not indicated Lab Results Interpretation: Blood Gas pH 7.441 pCO2 46 pO2 37.1 cHCO3 31.2 cBase 6.5 ECG Interpretation ECG Interpretation: A-fib 100 bpm Normal axis Normal intervals No ST segment changes No T wave abnormalities Time: 15:33 Interpreted by: ED physician Normal ECG Interpretation: No change from prior ECGs (06/04/16: Remains in A- fib) X-Ray Chest Interpretation Chest Xray Interpretation: IMPRESSION: Right lower lobe pneumonia Interpretation / Wet Read by: Wet read ED physician Re-Eval/Medical Decision Med Decision/Clinical Course Pt is an 86 year old male with a history of stage chronic IV lymphocytic leukemia, ocular myasthenia gravis, recurrent pleural effusion, CHF, atrial fibrillation, hypothyroidism and GERD presents to the ED via EMS with generalized weakness that began last week. Patient was recently admitted on following a TIA and was discharged to [facility] for rehab. Following the CVA patient has had right sided paralysis in the arm and leg, dysphagia and dysarthria. reports evidence of pneumonia on recent X-ray. Associated symptoms include "listlessness", SOB, cough, subjective fever, nasal congestion and irritability. Pt is on pyridostigmine bromide 60 mg for h/o MG. Patient has been taking medication as prescribed. denies any recent falls, vomiting or diarrhea. Here in the emergency department the patient is nontoxic in appearance though quite confused with vital signs as documented above. Of note he has a temperature of 39 rectally. IV access was obtained and I administered a 1 L fluid bolus. 2 sets of blood cultures were obtained and laboratory studies were sent. EKG A-fib 100 bpm Normal axis Normal intervals No ST segment changes No T wave abnormalities (Unchanged 06/04 - A-fib) Blood Gas pH 7.441 pCO2 46 pO2 37.1 cHCO3 31.2 cBase 6.5 LABS 47.7 WBC - baseline in setting of CLL Hct 27.2 - near baseline (28-35) Significantly down from Hct on 06/17 Plt 74 - baseline INR 1.08 Kidney baseline lactic acid 1.3 trop neg BNP 2239 no electrolyte abnormalities UA unconvincing for UTI Chest x-ray was obtained and per my interpretation demonstrated significant right lower lobe pneumonia though radiologist interpretation did not mention consolidation. The overall presentation and my assessment seems consistent with likely aspiration pneumonia in the setting of the patient's recent stroke. The patient was started on the below medications for coverage of aspiration pneumonia: IV clindamycin IV levofloxacin The patient was discussed with the admitting hospitalist and transferred in stable condition for further management. He has been made NPO pending swallow evaluation. Time of Eval: 16:44 Patient Status: Condition improved Re-Evaluation/Progress Note: Patient is informed of the plan admit. All questions are addressed. Consultation : Referral / Consult Name: Lorenzo Lombardo MD Consulted With: Hospitalist Call Returned at: 16:53 Liability Claims Examiner: Will see patient, Agrees with eval, Agrees with plan, Accepts admit Counseled Regarding: Diagnosis, Lab results, Need for admission Discharge & Departure Primary Impression: Pneumonia Pneumonia type: due to unspecified organism Laterality: right Lung location : lower lobe of lung Qualified Code: J18.1 - Lobar pneumonia, unspecified organism Additional Impressions: History of stroke Right sided weakness History of chronic lymphocytic leukemia History of myasthenia gravis Leukocytosis Leukocytosis type: unspecified Qualified Code: D72.829 - Elevated white blood cell count, unspecified Dehydration Altered mental status Altered mental status type: unspecified Qualified Code: R41.82 - Altered mental status, unspecified Disposition: ADMITTED TO HOSPITAL Discharge Condition All VS Reviewed: Yes Condition: Stable Referrals: Lorenzo Lombardo MD (PCP) Crit Care Except Billable Proc Time Spent: 105-134 minutes Services Performed: Patient management by me, Time spent at bedside, Reviewing test results, Reviewing imaging, Discussing patient care, Documentation in record, Time with fam/surrogate Scribe Attestation Portions of this note were transcribed by Jesús Jernigan. I, Dr. Hodge personally performed the history, physical exam and medical decision-making; I reviewed and confirmed the accuracy of the information in the transcribed note. Signed by: Dunia Delgadillo, 07/25/161932. copies to: Lorenzo Lombardo MD, Beck O MD July 25, 2016 15:23 JESÚS JERNIGAN July 25, 2016 15:29
--- NOTE | 2016-07-25 15:30 | ABG ---
DateTimeAnalyzed 15:25:11 -_ pH ____7.441 - pCO2 ___45.9__ -mmHg pO2 ___37.1__ -mmHg HCO3- ___31.2__ -mmol/L ABE ____6.5__ -mmol/L tHb ____8.8__ -g/dL O2Hb ___67.4__ -% COHb ____3.9__ -% MetHb ___-0.4__ -% sO2 ___69.8__ -% FIO2 ___21.0__ -% Drawn By RN - Date/Time Notified____ 15:30:00 -_ Notified By BTl - Notified Whom ___Dr. Ney - B 751 -mmHg K+ ____4.5__ -mmol/L tO2 ____8.4__ -Vol% Lorenzo test N/A -
[2016-07-25] MEDS ORDERED: Alum-Mag Hydrox-Simeth 30 mL Suspension PO PRN (15:35)
[2016-07-25] MEDS ORDERED: Ondansetron 2 mg/mL 2 mL Inj IVPUSH PRN ×2 (15:35→18:15)
[2016-07-25] MEDS ORDERED: 0.9% Sodium Chloride 1,000 ML IV ONE (15:35)
[2016-07-25 15:50] LABS: BASOPHILS % (AUTO) 0.1 % (0-3); EOSINOPHILS % (AUTO) 0 % (0-5); INR 1.08 ratio; MONOCYTES % (AUTO) 1.2 % (4-12); Mean Corpuscular Volume 118.8 fL (81-100); NEUTROPHILS % (AUTO) 4.2 % (40-74); Platelet Count 74 bil/L (150-400)
[2016-07-25 16:02] LABS: TROPONIN T < 0.010 ug/L (0.0-0.011)
[2016-07-25 16:11] LABS: Magnesium 1.7 mg/dL (1.6-2.6)
[2016-07-25 16:36] LABS: APPEARANCE,URINE CLEAR (CLEAR,HAZY); COLOR,URINE DARK YELLOW (YELLOW); OCCULT BLOOD,URINE TRACE (NEGATIVE); PH,URINE 5.5 (5.0-8.0); UROBILINOGEN,URINE NORMAL (NORMAL)
--- NOTE | 2016-07-25 16:51 | DRSVH ---
PROCEDURE: X-RAY CHEST ONE VIEW, PORTABLE ([id number]) INDICATIONS: SHORTNESS OF BREATH TECHNIQUE: One view of the chest was acquired. COMPARISON: [facility], CR, XR CHEST 1VW (PORTABLE), 06/08/2016, 8:57. FINDINGS: Surgical changes and devices: None. Lungs and pleura: The pulmonary vascular markings are increased since the previous exam with prominen t perihilar interstitial markings noted. No large effusion or pneumothorax is evident. There may be calcified granulomas on the right. Mediastinum: Mediastinal contours appear normal. Heart size is normal. There is aortic atheroscler osis. Bones and chest wall: No suspicious bony lesions. Degenerative changes of the spine are noted. The re is dextroconvex curvature of the upper thoracic spine. Overlying soft tissues appear unremarkable. IMPRESSION: Moderate pulmonary vascular congestion. Please correlate clinically for the possibility of pulmonary edema. Dictated by: Edgardo Kovacs M.D. on 07/25/2016 at 15:49 Approved by: Edgardo Kovacs M.D. on 07/25/2016 at 15:50
[2016-07-25] MEDS ORDERED: Clindamycin Inj 900 MG in IV Premix 1 EACH IV ONE (17:00)
[2016-07-25] MEDS ORDERED: levoFLOXacin Inj 750 MG in IV Premix 1 EACH IV ONE (17:00)
[2016-07-25] MEDS ORDERED: LEVO750T39 PO (17:53)
[2016-07-25] MEDS ORDERED: ACET325T51 PO (18:02)
[2016-07-25] MEDS ORDERED: APIX5TAB PO (18:02)
--- NOTE | 2016-07-25 18:29 | PCM.HPMED ---
Subjective Date of Service July 25, 2016 Primary Provider: Admitting Physician: Primary Care Physician: Lorenzo Lombardo MD Attending Physician: Chief Complaint: Generalized weakness, cough, sputum History of Present Illness: 86-year-old male with history of CLL, recurrent pleural effusion, atrial fibrillation on AC, ocular myasthenia gravis, and CHF, recent ischemic stroke stroke p/w progressively worsening weakness, cough, sputum. Pt was recently hospitalized in May with acute ischemic stroke, resulted with right sided residual deficit, discharged to SNF. History obtained by , family at the bedside as pt is poor historian. Since patient stayed in [facility] from last hospitalization in , Pt's baseline function was poor, for the past 2weeks, getting weaker with poor appetite. As per . 3days ago, pt was found to have abnormal xray, but didn' t get any abx. pt started having cough with thick sputum, yellowish. appetite became worse and weaker. pt didn't have temp, no chils, no diarrhea. pt has been on nectar thick diet, didn't report any major aspiration. in ED VS 132/62, 108, 26, temp 39.2 on rectal, 97% on 2liters NC. CXR showed increased vascular markings, not grossly different from previous xray. Lab showed persistent leukocytosis, lactate1.3, stable renal function. pt received [id number], Levaquin 750mg iv. upon interview, pt was comfortably laying down on the beds, mildly tachypneic, was sleeping, answered questions yes or no. denied SOB, pain anywhere. Review of Systems: Pertinent positives as noted in history of present illness. All other systems were reviewed and are negative Allergies Coded Allergies: Penicillins (Verified Allergy, Severe, SWELLING WITH BLISTERS, 07/25/16) Sulfa (Sulfonamide Antibiotics) (Verified Allergy, Severe, RASH, 07/25/16) cedarwood (Verified Allergy, Severe, RASH, 07/25/16) ketoconazole (Verified Allergy, Severe, RASH, 07/25/16) Cephalosporins (Verified Allergy, Unknown, UNKNOWN, 07/25/16) trimethoprim (Verified Allergy, Unknown, UNKNOWN, 07/25/16) Home Medications needs to verify with SNF-No med record found PMH PMH Stage IV chronic lymphocytic leukemia/small lymphocytic lymphoma Ocular myasthenia gravis CHF Atrial fibrillation Reflux esophagitis Hypothyroidism Tricuspid regurgitation Remote history of DVT Surgical History The records and teeth this 3 Meniscectomy Right and left shoulder impingement Left knee arthroscopy Appendectomy Right eye surgery 2 Cataract removal Family History Mother from a blood clot at age 57 Multiple cancers among his 10 siblings including lung and brain. Social History Hx Alcohol Use: No Hx Substance Use: No Smoking Status: Former Smoker Exam Vital Signs Vital Sign - Last Date Time Temp Pulse Resp B/P Pulse Ox O2 Delivery O2 Flow Rate FiO2 07/25/16 17:00 103 26 129/52 97 Nasal Cannula 3 07/25/16 16:15 39.2 Exam NAD, comfortably laying down on the bed no JVD, dryMM, no LAD, decreased skin turgor RRR, nl s1, s2 no mrg diffuse rhonchi anteriorly, no wheezing, crackles, S,ND,NT,normoactive BS+ warm, no edema, pulses 2/2 no KALLI stocking, AAOX1, no meaningful conversation. motors 3/5 on right sided. mildly edematous Rt arm throughout decreased sensory throughout Lab and Diagnostics Result Diagram: 07/25/16 1515 07/25/16 1515 Assessment & Plan acute active sepsis, POA, SIRS+ Fever/HR/RR, wbc-hard to interpret with baseline CLL, possible source: aspiration PNA, UA clean. possibly GI source-although no diarrhea reported. -abx as below -MAP taget>65, bolus gently probable PNA, POA, likely HCAP, aspiration PNA with dysphagia post-stroke. -resp PCR, follow up BCX, sputum CX, strep Ag, legionella, MRSA swab -continue Levaquin, given allergies to cephalosporin, PCN, sulfa drugs -consider adding Flagyl for anaerobe coverage. chronic, stable 1. recent ischemic stroke with residual right sided weakness, appreciate PT/OT/ ST, aspiration precaution 2. Recurrent right-sided pleural effusion, present on admission,presumably it was from side effect from ibrutinib in the past, s/p thracentesis in last hospitalization, effusion size seemed stable on CXR 3. 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 Gama of oncology. no active tx. is aware of this hospitalization per family 4. History of ocular myasthenia crisis, Continue home dose Pyridostigmine bromide 60 mg by mouth 4 times a day 5. Atrial fibrillation, tachycardic likely more in the sepsis setting, continue apixaban as it was recently started. would not aggressively control rate. 6. Lesions on head, Patient had recent biopsies of skin lesions on left cheek and left preauricular area, currently awaiting pathology results 7. Macrocytic anemia, close to baseline h/h. 8. History of CHF, chronic, Echo on 06/05/2016 showed left ventricular ejection fraction 55-60% with an increase in the severity of pulmonary hypertension. pt seemed mildly overloaded on CXR. however, clinically more intravascularly deplete with sepsis, would not consider diuretics for now. dispo:Patient will be admitted with inpatient status with expectation of inpatient therapy for more than 2 midnights diet:dysphagia diet. dvt ppx:HSQ FC verified with family again today. Overall, given patient's multiple comorbidities, prognosis seemed guarded. greatly benefit from palliative care service. Time spent 65min Tabitha Samano MD July 25, 2016 18:29
[2016-07-25] MEDS: Albuterol-Ipratropium 3 mL Inhalation Solution NEB SCH ×2 (20:30→21:51)
[2016-07-25] MEDS: Lactated Ringer's 1,000 ML IV SCH (20:57)
[2016-07-25] MEDS: Heparin 5,000 Unit/mL Inj SUBQ SCH (21:42)
[2016-07-26] VITALS (13 sets, daily range): BP systolic 105–138; BP diastolic 48–64; PULSE 83–127; RESP 20–26; O2SAT 90–97
[2016-07-26] MEDS: Albuterol-Ipratropium 3 mL Inhalation Solution NEB SCH ×5 (03:46→19:14)
[2016-07-26] MEDS: Lactated Ringer's 1,000 ML IV SCH (06:12)
[2016-07-26 07:55] LABS: BASOPHILS % (AUTO) 0 % (0-3); EOSINOPHILS % (AUTO) 0 % (0-5)
[2016-07-26] MEDS ORDERED: Calcium Carbonate (Oyster Shell) 500 mg Tablet PO SCH (08:00)
[2016-07-26 08:16] LABS: MONOCYTES % (AUTO) 0.2 % (4-12); Mean Corpuscular Hemoglobin 37.9 pg (27.0-35.0); Mean Corpuscular Volume 118.4 fL (81-100); NEUTROPHILS % (AUTO) 4.2 % (40-74); Platelet Count 53 bil/L (150-400)
[2016-07-26 08:23] LABS: Magnesium 1.6 mg/dL (1.6-2.6); Phosphorus 3.5 mg/dL (2.5-4.9)
[2016-07-26] MEDS: Heparin 5,000 Unit/mL Inj SUBQ SCH ×2 (09:12→20:30)
[2016-07-26] MEDS: Omega-3-Acid Ethyl Esters 1 Gm Capsule PO SCH (09:17)
[2016-07-26] MEDS: levoFLOXacin Inj 750 MG in IV Premix 1 EACH IV SCH (09:19)
--- NOTE | 2016-07-26 11:09 | PCM.PNMED ---
Subjective Date of Service July 26, 2016 Subjective Patient is generally feels better Looked stronger Still coughing with intermittent phlegm resp PCR showed parainfluenza sputum cx in progress Exam Vital Signs Vital Sign - Last Date Time Temp Pulse Resp B/P Pulse Ox O2 Delivery O2 Flow Rate FiO2 07/26/16 10:26 36.6 125 26 111/51 91 Nasal Cannula 2.00 Intake and Output 07/25/16 07/25/16 07/26/16 Cumulative From/Thru 15:00 23:00 07:00 07/25/16 15:14 - 07/26/16 06:45 Intake Total 938 ml 938 ml Balance 938 ml 938 ml Intake Oral 200 ml 200 ml IV Total 738 ml 738 ml # Voids 1 1 Exam NAD, comfortably laying down on the bed no JVD, dryMM, no LAD, decreased skin turgor RRR, nl s1, s2 no mrg diffuse rhonchi anteriorly, no wheezing, crackles, S,ND,NT,normoactive BS+ warm, no edema, pulses 2/2 no KALLI stocking, AAOX1, more communicative motors 3/5 on right sided. mildly edematous Rt arm throughout decreased sensory throughout IVs and Medications Medications Reviewed: Medications were reviewed in detail Lab and Diagnostics Result Diagram: 07/26/16 0740 07/26/16 0740 Assessment & Plan acute active sepsis, POA, SIRS+ Fever/HR/RR, wbc-hard to interpret with baseline CLL, possible source: parainfluenza PNA, possible superimposed bacterial PNA, UA clean. possibly GI source-although no diarrhea reported. -pt clinically improving, HD stable, less febrile, trend fever curve, -abx as below -MAP taget>65, bolus gently dyspnea POA,due to parainfluenza PNA, possible superimposed bacterial PNA -follow up BCX, sputum CX, strep Ag, legionella, MRSA swab -continue Levaquin, given allergies to cephalosporin, PCN, sulfa drugs -consider adding Flagyl for anaerobe coverage. chronic, stable 1. recent ischemic stroke with residual right sided weakness, appreciate PT/OT/ ST, aspiration precaution 2. Recurrent right-sided pleural effusion, present on admission,presumably it was from side effect from ibrutinib in the past, s/p thracentesis in last hospitalization, effusion size seemed stable on CXR 3. 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 Gama of oncology. no active tx. is aware of this hospitalization per family 4. History of ocular myasthenia crisis, Continue home dose Pyridostigmine bromide 60 mg by mouth 4 times a day 5. Atrial fibrillation, tachycardic likely more in the sepsis setting, continue apixaban as it was recently started. would not aggressively control rate. 6. Lesions on head, Patient had recent biopsies of skin lesions on left cheek and left preauricular area, currently awaiting pathology results 7. Macrocytic anemia, close to baseline h/h. 8. History of CHF, chronic, Echo on 06/05/2016 showed left ventricular ejection fraction 55-60% with an increase in the severity of pulmonary hypertension. pt seemed mildly overloaded on CXR. however, clinically more intravascularly deplete with sepsis, would not consider diuretics for now. dispo:likely 2-3more days with abx diet:dysphagia diet. dvt ppx:HSQ FC verified with family again on admission. Overall, given patient's multiple comorbidities, prognosis seemed guarded. greatly benefit from palliative care service for GOC, code status VTE Mechanical Devices: Anti-Embolic stockings Time spent 35min Tabitha Samano MD July 26, 2016 11:09
--- NOTE | 2016-07-26 11:45 | PROG NOTE ---
[address] [address] PROGRESS NOTE PATIENT: LADONNA ROMEO : 1930 MR#: [id number] ADMIT: 07/25/2016 JOB ID: [id number] DATE: 07/26/2016 SUBJECTIVE: The patient is an 86-year-old gentleman with chronic lymphocytic leukemia and hypogammaglobulinemia. He had been hospitalized in May with a large bloody right pleural effusion, with no evidence of malignant effusion. He has had a recent stroke of the left globus pallidus, left putamen, left internal capsule, left external capsule, left caudate body, and left Fernando radiata, and has recently been residing at [facility]. He was brought from the longterm facility to [facility] emergency department yesterday, where plain film showed possible pulmonary edema/pneumonia. He is on IV Levaquin. He was febrile to 39.2 degrees last evening, but has defervesced. Cultures from admission show parainfluenza 3 from the nasopharynx, with blood cultures pending. OBJECTIVE: Vitals: T 36.6, P 125, R 26, BP 111/51. O2 saturation 91% on 2 L oxygen by nasal cannula. HEENT: Conjunctivae pale. Mucous membranes moist. Chest: Diffuse crackles at the bases and a few scattered expiratory wheezes. Cardiac exam: Tachycardic but regular with normal S1, S2. Abdomen: Soft, nontender. Normoactive bowel tones. Extremities: Extensive ecchymoses on the arms bilaterally, 2+ distal pulses. LABORATORIES: WBC 23.4 with 96% lymphocytes, hemoglobin 7.2, hematocrit 22.5%, platelets 53,000. Sodium 137, potassium 4.3, BUN 20, creatinine 0.39, glucose 134. AST 11, ALT 6, alkaline phosphatase 54, total bilirubin 1.5. IgG - pending. ASSESSMENT AND PLAN: 1. Chronic lymphocytic leukemia/small lymphocytic lymphoma: Ibrutinib was discontinued after he developed a worsening right pleural effusion. White cell count is actually somewhat decreased today, which would be atypical in the setting of active infection. He has profound anemia and shortness of breath. Strongly consider transfusion support with packed red blood cells. Also recommend checking globulin levels, as these patients can develop hypogammaglobulinemia, which predisposes to infections, including pneumonia. 2. 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 Current heart rhythm is rapid, but it is unclear if he is in poorly controlled fibrillation at this time. Monitor per hospitalist team and treat accordingly.
--- NOTE | 2016-07-26 13:41 | PCM.CONPAL ---
Date of Service July 26, 2016 Date of Hospital Admission: July 25, 2016 at 20:05 Date of Palliative Consult: July 26, 2016 Requesting Provider: Tabitha Samano MD Reason Palliative Care Consult: Other Symptoms (related to CLL), Goals of Care Discussion Hospital Unit @time of consult: Medical/Pediatric Care Palliative Care Recommendation Summary of palliative recommendations: -Symptom management (Pain/other) Respiratory Distress: r/t acute illness --treat influenza with supportive care and management of symptoms per attending and respiratory and nursing. CLL/SLL: Patient is not receiving any chemotherapy currently. While it is his hope to return to more treatments, Dr. Gama expresses doubt that this will ever be feasible. Meanwhile, supporting him through treatment of anemia and hypogammaglobulinemia will have a palliative affect on his well-being. --see recommendations in Dr. Gama's note for --2 U PRBC --globulin levels: plan to give IVIG if indicated. -DPOA/Advanced Directives/POLST: brings DPOA paperwork in today, disappointed to find that notary is no longer available. She is instructed to have the documents witnessed. Otherwise no changes to code status: pt remains FULL CODE per his wishes. -Family/emotional support --offer support to . Patient Goals: 1. Patient wants to be told the truth about his/her illness, even if it is unpleasant. 2. Patient would like to be told prognosis when it can be predicted, to better guide treatment decisions. 3. Patient would choose quality of life over quantity of life, and defines quality as being alive and able to fight to the end.. 4. Patient would request that comfort care take priority over cognitive/mental confusion. Additional Medical Diagnoses with primary management by Hospitalist team include : sepsis, POA, SIRS+ Fever/HR/RR, wbc-hard to interpret with baseline CLL, possible source: parainfluenza PNA, possible superimposed bacterial PNA, UA clean. possibly GI source-although no diarrhea reported. -pt clinically improving, HD stable, less febrile, trend fever curve, -abx as below -MAP taget>65, bolus gently dyspnea POA,due to parainfluenza PNA, possible superimposed bacterial PNA -follow up BCX, sputum CX, strep Ag, legionella, MRSA swab -continue Levaquin, given allergies to cephalosporin, PCN, sulfa drugs -consider adding Flagyl for anaerobe coverage. chronic, stable 1. recent ischemic stroke with residual right sided weakness, appreciate PT/OT/ ST, aspiration precaution 2. Recurrent right-sided pleural effusion, present on admission,presumably it was from side effect from ibrutinib in the past, s/p thracentesis in last hospitalization, effusion size seemed stable on CXR 3. 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 Gama of oncology. no active tx. is aware of this hospitalization per family 4. History of ocular myasthenia crisis, Continue home dose Pyridostigmine bromide 60 mg by mouth 4 times a day 5. Atrial fibrillation, tachycardic likely more in the sepsis setting, continue apixaban as it was recently started. would not aggressively control rate. 6. Lesions on head, Patient had recent biopsies of skin lesions on left cheek and left preauricular area, currently awaiting pathology results 7. Macrocytic anemia, close to baseline h/h. 8. History of CHF, chronic, Echo on 06/05/2016 showed left ventricular ejection fraction 55-60% with an increase in the severity of pulmonary hypertension. pt seemed mildly overloaded on CXR. however, clinically more intravascularly deplete with sepsis, would not consider diuretics for now. Problems: (1) Goals of care, counseling/discussion Status: Acute ICD Code: Z71.89 (2) Palliative care by specialist Status: Acute ICD Code: Z51.5 (3) CLL (chronic lymphocytic leukemia) Status: Acute ICD Code: C91.10 (4) History of stroke Status: Acute ICD Code: Z86.73 Resuscitation Status Resuscitation Status: CPR: Attempt Resuscitation POLST Updates/Changes Previous POLST?: No . Advanced Care Planning Address: Code status change Symptom management: Dyspnea Pt History History of Present Illness 86-year-old male with history of CLL, recurrent pleural effusion, atrial fibrillation on AC, ocular myasthenia gravis, and CHF, recent ischemic stroke stroke p/w progressively worsening weakness, cough, sputum. Pt was recently hospitalized in May with acute ischemic stroke, resulted with right sided residual deficit, discharged to SNF. History obtained by , family at the bedside as pt is poor historian. Since patient stayed in [facility] from last hospitalization in , Pt's baseline function was poor, for the past 2weeks, getting weaker with poor appetite. As per . 3days ago, pt was found to have abnormal xray, but didn' t get any abx. pt started having cough with thick sputum, yellowish. appetite became worse and weaker. pt didn't have temp, no chils, no diarrhea. pt has been on nectar thick diet, didn't report any major aspiration. Palliative Care consultation mostly was to meet with and confer with Dr. Gama regarding patient status and goals. The patient's has DPOA paperwork which she had hoped to have notarized during his stay here. We have informed her that our policies have changed and we can no longer offer notarization but that 2 witness signatures will suffice. She is grateful for this. See discussion and plan for further info regarding goals of care and treatment plan. Past Medical History Significant PMH Noted: PMH per H& P by Dr. 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 Social History Hx Alcohol Use: No Hx Substance Use: No Smoking Status: Former Smoker Social History Occupation: career in , does not believe in "giving up". Family Members Issues: devoted . Social Support: support of small family Living Situation: currently resides in SNF, rehab for stroke in May Responsive Patient Symptoms Pain (current): Mild Pain (minimum): None Pain (maximium): Mild Anorexia: Mild Shortness of Breath: Moderate Palliative Performance Scale PPS Patient Status: Baseline PPS Ambulation: Mainly Sit/Lie PPS Activity: Unable to do any work PPS Self-Care: Considerable assistance required PPS Intake: Normal or reduced Performance Scale: 60% ADLs ADL Patient Status: Current ADL Ambulation: Mainly Bed ADL Dressing: Mainly assistance ADL Feeding: Considerable assistance required ADL Hygene/bathing: Mainly assistance ADL Transfers: Mainly assistance POLST at Time of Admission Previous POLST?: No Allergy Allergies Reviewed: Yes Medications Current Medications: Current Medications Al Hydrox/Mg Hydrox/Simethicone 30 ml Q6 PRN PO; Start 07/25/16 at 15:35; Status Cancel Ondansetron HCl Dose range: 4 mg to 8 mg Q4H PRN IVPUSH; Start 07/25/16 at 15:35 ; Stop 07/25/16 at 18:20; Status DC Acetaminophen 975 mg Q6H PRN PO; Start 07/25/16 at 15:35; Stop 07/25/16 at 18:20 ; Status DC Heparin Sodium (Porcine) 5000 unit 5,000 unit Q12H SUBQ Last administered on 07/26 09:12; Admin Dose 5,000 UNIT; Start 07/25/16 at 20:30 Lactated Ringer's 1,000 ml @ 100 mls/hr Q10H IV Last administered on 07/26/16 06:12; Admin Dose 100 MLS/HR; Start 07/25/16 at 18:14; Stop 07/26/16 at 11:02; Status DC Ondansetron HCl 4 to 8 mg Q4H PRN IVPUSH; Start 07/25/16 at 18:15 Acetaminophen 650 mg 650 mg Q4H PRN PO Last administered on 07/26/16 06:11; Admin Dose 650 MG; Start 07/25/16 at 18:15 Levofloxacin/ Dextrose/Premix 150 ml @ 100 mls/hr Q24 IV Last administered on 09:19; Admin Dose 100 MLS/HR; Start 07/26/16 at 08:30 Albuterol/ Ipratropium 3 ml Q6 NEB Last administered on 07/26/16 08:45; Admin Dose 3 ML; Start 07/25/16 at 18:50 Apixaban 5 mg BID PO; Start 07/26/16 at 08:30; Stop 07/26/16 at 08:59; Status DC Atorvastatin Calcium 40 mg HS PO; Start 07/26/16 at 21:00 Pyridostigmine Cornish 60 mg QID PO Last administered on 07/26/16 12:02; Admin Dose 60 MG; Start 07/26/16 at 11:30 Lactobacillus Acidophilus 2 tablet BID PO Last administered on 07/26/16 09:12; Admin Dose 2 TABLET; Start 07/26/16 at 08:30 Calcium Carbonate 500 mg BIDWM PO; Start 07/26/16 at 08:00; Status Cancel Cholecalciferol 1,000 unit DAILY PO Last administered on 07/26/16 09:12; Admin Dose 1,000 UNIT; Start 07/26/16 at 08:30 Cyanocobalamin 500 mcg DAILY PO Last administered on 07/26/16 09:12; Admin Dose 500 MCG; Start 07/26/16 at 08:30 Fish Oil 2 gm DAILY PO Last administered on 07/26/16 09:17; Admin Dose 2 GM; Start 07/26/16 at 08:30 Minocycline HCl 100 mg BID PO Last administered on 07/26/16 09:18; Admin Dose 100 MG; Start 07/26/16 at 08:30 Pantoprazole 20 mg 0630 PO; Start 07/27/16 at 06:30 Scheduled Acidophilus/Pectin, [place] (Acidophilus Caplet) 1 Each Tablet 2 EACH PO BID Apixaban (Eliquis) 5 Mg Tablet 5 MG PO BID Atorvastatin Calcium (Atorvastatin Calcium) 40 Mg Tablet 40 MG PO HS Calcium Carbonate (Calcium) 600 Mg Tablet 600 MG PO BID Cholecalciferol (Vitamin D3) (Vitamin D3) 1,000 Unit Tab.chew 1,000 UNIT PO DAILY Cyanocobalamin (Vitamin B-12) (Vitamin B-12) 1,000 Mcg Tablet 1,000 MCG PO DAILY Fish Oil/Dha/Epa (Fish Oil 1,200 mg Fish Oil) 1 Each Capsule 2 EACH PO DAILY Levofloxacin (Levofloxacin) 750 Mg Tablet 750 MG PO DAILY Minocycline (Minocycline) 100 Mg Tablet 100 MG PO BID Omeprazole (Omeprazole) 20 Mg Capsule.dr 20 MG PO BIDAC Pyridostigmine Cornish (Mestinon) 60 Mg Tablet 60 MG PO QID Scheduled PRN Acetaminophen (Acetaminophen) 325 Mg Tablet 650 MG PO Q4H PRN PRN pain/fever Objective Findings Exam Vital Sign - Last Date Time Temp Pulse Resp B/P Pulse Ox O2 Delivery O2 Flow Rate FiO2 07/26/16 11:34 Supplement Oxygen 07/26/16 10:26 36.6 125 26 111/51 91 2.00 Intake and Output 07/25/16 07/25/16 07/26/16 Cumulative From/Thru 15:00 23:00 07:00 07/25/16 15:14 - 07/26/16 06:45 Intake Total 938 ml 938 ml Balance 938 ml 938 ml Intake Oral 200 ml 200 ml IV Total 738 ml 738 ml # Voids 1 1 General: Alert/Oriented x3, Mild distress (r/t SOB), Other (some word-finding difficulty, slurred speech 2/2 stroke) HEENT: Atraumatic, EOMI, Scleral Anicteric Heart: Exam Unremarkable Lungs: Diminished, Rhonchorus, Other (increased respiratory effort, pursed lip breathing) Abdomen: Bowel Tones x4, Soft, Non Tender Neuro: Arousable, Follows Commands Extremities: Edema (1+ RUE), Other (3/5 strength on R) Lab/Diagnostics Lab and Imaging results reviewed in detail in EMR. Patient/Family Conference Members Present Family Members Present present at bedside. Pt interactive but sometimes not making a lot of sense. seems to be talking about foods he ate, and reports being hungry. Medical Team Members Present? Claire ONEIL, Dr. Fidelia Lui DO R-2 Discussion/Goals of Care Discussion FAMILY UNDERSTANDING OF DISEASE: [ understands this hospitalization due to acute flu and possible pneumonia.] DISEASE PROGRESSION/EVIDENCE OF DECLINE: [ states he was "making progress" in SNF, speech was improving. He continues to be hopeful of further treatments being offered for CLL.] SYMPTOM BURDEN: [currently SOB with acute illness] GOALS: [to treat treatable illness with hope of returning to baseline] Palliative Care counselled: Assisted in plan to complete DPOA. Discussed patient's ongoing choice for full code with Dr. Gama. This is a choice consistent with the patient's underlying values. Dr. Gama continues to see him to evaluate whether there is a strong enough functional status to warrant further treatment but expresses the doubt that this will ever happen. He plans to follow up in 6 weeks and expects that, at some point, he will be able to help the patient opt for a more palliative approach to his end of life. Whether or not this happens, we will support his in being ready to make decisions about his care that are reasonable based on his condition at some point in the future. Time spent Total time 55 minutes; >50% face to face with patient and/or family, providing counselling regarding plans and recommendations, and in care coordination with his/her medical teams. OF this 20 minutes is spent counseling for advanced care planning, DPOA paperwork and clarifying wishes with the patient/the patients family/the surrogate decision maker. copies to: Lorenzo Lombardo MD; Parth Gama MD, [facility] July 26, 2016 13:41
[2016-07-27] VITALS (11 sets, daily range): BP systolic 95–117; BP diastolic 54–70; PULSE 90–114; RESP 18–30; O2SAT 89–100
[2016-07-27] MEDS ORDERED: Furosemide 10 mg/mL 2 mL Inj IVPUSH ONE ×3 (00:15→14:15)
[2016-07-27] MEDS ORDERED: Acetaminophen IV 1,000 MG in IV Premix 1 EACH IV PRN (00:15)
[2016-07-27] MEDS: Albuterol-Ipratropium 3 mL Inhalation Solution NEB SCH ×4 (02:40→20:22)
[2016-07-27 05:54] LABS: BASOPHILS % (AUTO) 0 % (0-3); EOSINOPHILS % (AUTO) 0 % (0-5); MONOCYTES % (AUTO) 0.8 % (4-12); Mean Corpuscular Hemoglobin 37.6 pg (27.0-35.0); Mean Corpuscular Volume 119.4 fL (81-100); Platelet Count 54 bil/L (150-400)
[2016-07-27] MEDS: Pantoprazole 20 mg ER24 Tablet PO SCH (06:10)
[2016-07-27 06:23] LABS: Magnesium 1.7 mg/dL (1.6-2.6); Phosphorus 4.2 mg/dL (2.5-4.9)
[2016-07-27] MEDS: Omega-3-Acid Ethyl Esters 1 Gm Capsule PO SCH (08:30)
--- NOTE | 2016-07-27 09:21 | PCM.PNMED ---
Subjective Date of Service July 27, 2016 Subjective pt was overloaded, O2sat dropped to 83%, required Oxymask 4liters, received [id number] iv, O2 requirement decreased overnight, tried another dosing of lasix 20mg iv this AM pt looked comfortably but mildly tachypneic with gurgling upper respiratory sounds, when asked, pt stated that he is breathing well. looked weaker than yesterday, denied pain Exam Vital Signs Vital Sign - Last Date Time Temp Pulse Resp B/P Pulse Ox O2 Delivery O2 Flow Rate FiO2 07/27/16 08:57 102 28 97 OxyMask 3.00 07/27/16 06:31 36.5 117/68 Intake and Output 07/26/16 07/26/16 07/27/16 Cumulative From/Thru 15:00 23:00 07:00 07/25/16 15:14 - 07/27/16 01:15 Intake Total 300 ml 152 ml 1390 ml Balance 300 ml 152 ml 1390 ml Intake Oral 300 ml 500 ml IV Total 152 ml 890 ml # Voids 3 4 Exam NAD, comfortably laying down on the bed, no labored breathing, no accessory muscle use no JVD, MMM, no LAD, extensive bruises on bilateral arms, RRR, nl s1, s2 no mrg diffuse crackles throughout S,ND,NT,normoactive BS+ warm, no edema, pulses 2/2 no KALLI stocking, AAOX1, more communicative motors 3/5 on right sided. mildly edematous Rt arm throughout decreased sensory throughout IVs and Medications Medications Reviewed: Medications were reviewed in detail Lab and Diagnostics Result Diagram: 07/27/1652407/27/16 0525 Assessment & Plan acute active sepsis, POA, SIRS+ Fever/HR/RR, wbc-hard to interpret with baseline CLL, possible source: parainfluenza PNA, possible superimposed bacterial PNA, UA clean. possibly GI source-although no diarrhea reported. -pt clinically stable, although he had another febrile episode overnight, trend fever curve, PCT-plateaued. -abx as below -MAP taget>65, bolus gently acute respiratory failure, initialy due to parainfluenza PNA, possible superimposed bacterial PNA. worsened with iatrogenic fluid overload with IVF/ transfusion. -will dose lasix daily basis, i/o, daily wt, daily CXR -follow up BCX, sputum CX, strep Ag, legionella, MRSA swab -continue Levaquin, given allergies to cephalosporin, PCN, sulfa drugs, low threshold to broaden abx -consider adding Flagyl for anaerobe coverage. Macrocytic anemia, h/h mildly dropped but stable s/p 1unit pRBC 5/5, no signs of active bleeding, Apixaban was held. chronic, stable 1. recent ischemic stroke with residual right sided weakness, appreciate PT/OT/ ST, aspiration precaution 2. Recurrent right-sided pleural effusion, present on admission,presumably it was from side effect from ibrutinib in the past, s/p thracentesis in last hospitalization, effusion size seemed stable on CXR 3. 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 Gama of oncology. no active tx. is aware of this hospitalization per family 4. History of ocular myasthenia crisis, Continue home dose Pyridostigmine bromide 60 mg by mouth 4 times a day 5. Atrial fibrillation, tachycardic likely more in the sepsis setting, would not aggressively control rate. Given advanced dz, age, comorbidities, bruises, pt is really poor candidate of AC despite high risks, Apixaban held on admission , will consider aspirin. 6. Lesions on head, Patient had recent biopsies of skin lesions on left cheek and left preauricular area, currently awaiting pathology results 8. History of CHF, chronic, Echo on 06/05/2016 showed left ventricular ejection fraction 55-60% with an increase in the severity of pulmonary hypertension. pt seemed mildly overloaded on CXR. however, clinically more intravascularly deplete with sepsis, would not consider diuretics for now. dispo:likely 3-4more days with abx diet:dysphagia diet. dvt ppx:HSQ FC verified with family again on admission. Overall, given patient's multiple comorbidities, prognosis seemed guarded. greatly benefit from palliative care service for GOC, code status VTE Mechanical Devices: Anti-Embolic stockings Resuscitation Status: CPR: Attempt Resuscitation Time spent 35min Tabitha Samano MD July 27, 2016 09:21
[2016-07-27] MEDS: levoFLOXacin Inj 750 MG in IV Premix 1 EACH IV SCH (10:37)
[2016-07-27] MEDS: Heparin 5,000 Unit/mL Inj SUBQ SCH ×2 (10:37→20:30)
[2016-07-27 19:08] LABS: Magnesium 1.7 mg/dL (1.6-2.6)
[2016-07-28] VITALS (16 sets, daily range): BP systolic 96–121; BP diastolic 49–72; PULSE 62–113; RESP 20–30; O2SAT 91–99
[2016-07-28] MEDS: Albuterol-Ipratropium 3 mL Inhalation Solution NEB SCH ×4 (02:13→21:07)
[2016-07-28] MEDS: Pantoprazole 20 mg ER24 Tablet PO SCH (06:05)
[2016-07-28 06:39] LABS: BASOPHILS % (AUTO) 0.1 % (0-3); EOSINOPHILS % (AUTO) 0 % (0-5); Mean Corpuscular Hemoglobin 37.5 pg (27.0-35.0); Mean Corpuscular Volume 117.9 fL (81-100); NEUTROPHILS % (AUTO) 4.2 % (40-74); Platelet Count 62 bil/L (150-400)
[2016-07-28 06:46] LABS: Magnesium 1.8 mg/dL (1.6-2.6); Phosphorus 3.7 mg/dL (2.5-4.9)
[2016-07-28] MEDS ORDERED: Furosemide 10 mg/mL 2 mL Inj IVPUSH ONE ×2 (07:45→10:40)
[2016-07-28] MEDS: levoFLOXacin Inj 750 MG in IV Premix 1 EACH IV SCH (07:51)
[2016-07-28] MEDS: Heparin 5,000 Unit/mL Inj SUBQ SCH ×2 (07:52→20:30)
[2016-07-28] MEDS: Omega-3-Acid Ethyl Esters 1 Gm Capsule PO SCH (08:00)
--- NOTE | 2016-07-28 10:07 | DRSVH ---
PROCEDURE: X-RAY CHEST ONE VIEW, PORTABLE ([id number]) INDICATIONS: pulmonary edema follo up TECHNIQUE: One view of the chest was acquired. COMPARISON: [facility], CR, XR CHEST 1VW (PORTABLE), 07/25/2016, 16:19. FINDINGS: Surgical changes and devices: None. Lungs and pleura: No pleural effusions or pneumothorax. Increased moderately in liver.interstitial p ulmonary opacity. Mediastinum: Mediastinal contours appear normal. Heart size is normal. Bones and chest wall: No suspicious bony lesions. Overlying soft tissues appear unremarkable. IMPRESSION: Increased, moderate CHF. Dictated by: Trinh Leong M.D. on 07/28/2016 at 10:05 Approved by: Trinh Leong M.D. on 07/28/2016 at 10:06
[2016-07-28] MEDS: Aztreonam Inj 2,000 MG in Dextrose 5% Minibag Plus 100 ML IV SCH ×2 (10:12→10:21)
[2016-07-28] MEDS: metroNIDAZOLE Inj 500 MG in IV Premix 1 EACH IV SCH ×2 (11:16→17:47)
--- NOTE | 2016-07-28 12:22 | PCM.PNMED ---
Subjective Date of Service July 28, 2016 Subjective pt had several febrile episode, MAP barely >65 pt looked worse this morning, labored breathing with accessory muscle use still alert but not comfortable, lasix 20mg iv given, machado inserted, based on CXR- more congested. orderd 1unit pRBC based on h/h broadened abx to cover pseudomonas, anaerobes informed that pt could deterioriate, confirmed she still wants FULL CODE spoke to charge nurse, to move patient to PCC for better observation Exam Vital Signs Vital Sign - Last Date Time Temp Pulse Resp B/P Pulse Ox O2 Delivery O2 Flow Rate FiO2 07/28/16 11:05 36.8 93 20 96/50 07/28/16 09:33 91 OxyMask 4.00 Intake and Output 07/27/16 07/27/16 07/28/16 Cumulative From/Thru 15:00 23:00 07:00 07/25/16 15:14 - 07/28/16 06:44 Intake Total 0 ml 320 ml 0 ml 1710 ml Balance 0 ml 320 ml 0 ml 1710 ml Intake Oral 0 ml 320 ml 0 ml 820 ml IV Total 890 ml # Voids 4 2 2 12 # Bowel Movements 0 0 0 Exam tachypneic mildly labored breathing, accessory muscle use no JVD, MMM, no LAD, extensive bruises on bilateral arms, RRR, nl s1, s2 no mrg diffuse coarse BS, crackles throughout S,ND,NT,normoactive BS+ warm, no edema, pulses 2/2 no KALLI stocking, AAOX1, alert, answer questions motors 3/5 on right sided. mildly edematous Rt arm throughout decreased sensory throughout IVs and Medications Medications Reviewed: Medications were reviewed in detail Lab and Diagnostics Result Diagram: 07/28/16 0610 07/28/16 0610 Assessment & Plan acute active sepsis, POA, SIRS+ Fever/HR/RR, wbc-hard to interpret with baseline CLL, possible source: parainfluenza PNA, possible superimposed bacterial PNA, UA clean. possibly GI source-although no diarrhea reported. -pt clinically stable, although he had another febrile episode overnight, trend fever curve, PCT-plateaued. -abx as below -MAP taget>65, will conisider bolus 250-500cc gently if required acute respiratory failure, initialy due to parainfluenza PNA, possible superimposed bacterial PNA, ADHF -will dose lasix on daily basis, i/o, daily wt, daily CXR -follow up BCX, sputum CX, strep Ag, legionella, MRSA swab -continue Levaquin, given allergies to cephalosporin, PCN, sulfa drugs, added flagyl, aztreonam today -ID consult ordered, -O2 supplement target>95%, currently [id number], pt needs close ob above PCC level of care. Macrocytic anemia, h/h mildly dropped but stable, no signs of active bleeding, Apixaban was held. -will give 1unit pRBC today per , trends h/h #Atrial fibrillation RVR, likely more in the sepsis setting, would not aggressively control rate. Given advanced dz, age, comorbidities, bruises, pt is really poor candidate of AC despite high risks, Apixaban held on admission given h/h, will consider aspirin. -rate remained low 90-100s, borderline BP, -will consider judiciously control rate it seems to contribute pulm edema, metoprolol 5mg iv x3 or dilt iv as well if BP tolerates #ADHF, HFpEF with IVF/tachyarrhythmia. Echo on 06/05/2016 showed left ventricular ejection fraction 55-60% with an increase in the severity of pulmonary hypertension. -based on CXR, O2 requirement, will try lasix 20m iv today, before and after transfusion, -I/O via machado, chronic, stable 1. recent ischemic stroke with residual right sided weakness, appreciate PT/OT/ ST, aspiration precaution 2. Recurrent right-sided pleural effusion, present on admission,presumably it was from side effect from ibrutinib in the past, s/p thracentesis in last hospitalization, effusion size seemed stable on CXR 3. 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 Gama of oncology. Immunoglobulin level WNL. 4. History of ocular myasthenia crisis, Continue home dose Pyridostigmine bromide 60 mg by mouth 4 times a day 6. Lesions on head, Patient had recent biopsies of skin lesions on left cheek and left preauricular area, currently awaiting pathology results dispo:pending given critical status diet:NPO, per s/s eval dvt ppx:HSQ FC verified with family again today, Overall, given patient's multiple comorbidities, ongoing sepsis, prognosis is guarded. greatly benefit from palliative care service for [facility], code status Colleen RUTLEDGE [phone] VTE Mechanical Devices: Anti-Embolic stockings Resuscitation Status: CPR: Attempt Resuscitation Time spent 35min Tabitha Samano MD July 28, 2016 12:22
[2016-07-28 16:12] LABS: BASOPHILS % (AUTO) 0.1 % (0-3); EOSINOPHILS % (AUTO) 0.4 % (0-5); MONOCYTES % (AUTO) 0.8 % (4-12); Mean Corpuscular Hemoglobin 36.4 pg (27.0-35.0); Mean Corpuscular Volume 112.1 fL (81-100); NEUTROPHILS % (AUTO) 6.1 % (40-74); Platelet Count 64 bil/L (150-400)
[2016-07-28 16:43] LABS: Magnesium 1.6 mg/dL (1.6-2.6); Phosphorus 3.3 mg/dL (2.5-4.9)
[2016-07-29] VITALS (13 sets, daily range): BP systolic 105–114; BP diastolic 50–65; PULSE 78–103; RESP 18–28; O2SAT 91–96
[2016-07-29] MEDS: metroNIDAZOLE Inj 500 MG in IV Premix 1 EACH IV SCH ×3 (00:30→17:43)
[2016-07-29] MEDS: Aztreonam Inj 2,000 MG in Dextrose 5% Minibag Plus 100 ML IV SCH (01:29)
[2016-07-29] MEDS: Albuterol-Ipratropium 3 mL Inhalation Solution NEB SCH ×4 (04:37→23:48)
[2016-07-29 06:08] LABS: BASOPHILS % (AUTO) 0 % (0-3); EOSINOPHILS % (AUTO) 0 % (0-5); MONOCYTES % (AUTO) 0.9 % (4-12); Mean Corpuscular Hemoglobin 36.7 pg (27.0-35.0); Mean Corpuscular Volume 114.9 fL (81-100); NEUTROPHILS % (AUTO) 4.8 % (40-74); Platelet Count 59 bil/L (150-400)
[2016-07-29 06:31] LABS: Magnesium 1.8 mg/dL (1.6-2.6); Phosphorus 3.3 mg/dL (2.5-4.9)
--- NOTE | 2016-07-29 07:54 | PCM.PNMED ---
Subjective Date of Service July 29, 2016 Subjective Patient lying in bed, arouses to voice but can only get single word answers, denies pain. Exam Vital Signs Vital Sign - Last Date Time Temp Pulse Resp B/P Pulse Ox O2 Delivery O2 Flow Rate FiO2 07/29/16 04:37 88 22 95 OxyMask 4.00 07/29/16 03:30 36.4 114/56 Intake and Output 07/28/16 07/28/16 07/29/16 Cumulative From/Thru 15:00 23:00 07:00 07/25/16 15:14 - 07/29/16 05:23 Intake Total 344 ml 500 ml 332 ml 2886 ml Output Total 800 ml 400 ml 1200 ml Balance 344 ml -300 ml -68 ml 1686 ml Intake Oral 0 ml 0 ml 820 ml IV Total 344 ml 500 ml 332 ml 2066 ml Output Urine Total 800 ml 400 ml 1200 ml # Voids 2 14 # Bowel Movements 0 Exam Eyes; juan, eom intact ENMT; mucusmembranes appear very dry, no active lessions CV, irregulat, soft murmur, no gallop Lungs; corse without wheezing GI; soft and non tender Skin; poor turgor Lab and Diagnostics Result Diagram: 07/29/1655407/29/16 0555 Assessment & Plan 1.Sepsis, poa, resolved -SIRS+ Fever/HR/RR, wbc-hard to interpret with baseline CLL, probable source: parainfluenza PNA, possible superimposed bacterial PNA, UA clean. possibly GI source-although no diarrhea reported. -abx as below 2. Acute respiratory failure, poa, active -initialy due to parainfluenza PNA, possible superimposed bacterial PNA, ADHF -O2 prn 3. Pnemonia' poa, active -probably secondary to parainfluenza -Cultures negative, will discontinue aztreomnam today, repeat cxr, procal tomorrow and consider deescalating antibiotics more 4.Macrocytic anemia,poa, active -secondary to chronic disease and leukemia - h/h mildly dropped but stable, no signs of active bleeding, Apixaban was held. -will give 1unit pRBC today per , trends h/h 5. Atrial fibrillation RVR, poa, active -hr 80's today -monitor chronic, stable 1. recent ischemic stroke with residual right sided weakness, appreciate PT/OT/ ST, aspiration precaution 2. Recurrent right-sided pleural effusion, present on admission,presumably it was from side effect from ibrutinib in the past, s/p thracentesis in last hospitalization, effusion size seemed stable on CXR 3. 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 Gama of oncology. Immunoglobulin level WNL. 4. History of ocular myasthenia crisis, Continue home dose Pyridostigmine bromide 60 mg by mouth 4 times a day 6. Lesions on head, Patient had recent biopsies of skin lesions on left cheek and left preauricular area, currently awaiting pathology results dispo:pending given critical status diet:NPO, per s/s eval dvt ppx:HSQ FC verified with family again today, Overall, given patient's multiple comorbidities, ongoing sepsis, prognosis is guarded. greatly benefit from palliative care service for [facility], code status Colleen Johansen [phone] VTE Mechanical Devices: Anti-Embolic stockings Resuscitation Status: CPR: Attempt Resuscitation Chetan Gaitan MD July 29, 2016 07:54
[2016-07-29] MEDS ORDERED: 0.9% Sodium Chloride 500 ML IV ONE (07:55)
[2016-07-29] MEDS: Omega-3-Acid Ethyl Esters 1 Gm Capsule PO SCH (08:00)
[2016-07-29] MEDS: Heparin 5,000 Unit/mL Inj SUBQ SCH ×2 (08:00→20:30)
[2016-07-29] MEDS: Pantoprazole 20 mg ER24 Tablet PO SCH (08:08)
[2016-07-29] MEDS: 0.9% Sodium Chloride 1,000 ML IV SCH ×2 (08:09→21:56)
[2016-07-29] MEDS: levoFLOXacin Inj 750 MG in IV Premix 1 EACH IV SCH (08:11)
--- NOTE | 2016-07-29 08:32 | PCM.PALLBR ---
Palliative Care Recommendation Summary of palliative recommendations: -Symptom management (Pain/other) Respiratory Distress: r/t acute illness --treat influenza with supportive care and management of symptoms per attending and respiratory and nursing. CLL/SLL: Patient is not receiving any chemotherapy currently. While it is his hope to return to more treatments, Dr. Gama expresses doubt that this will ever be feasible. Meanwhile, supporting him through treatment of anemia and hypogammaglobulinemia will have a palliative affect on his well-being. --see recommendations in Dr. Gama's note for --2 U PRBC --globulin levels: plan to give IVIG if indicated. -DPOA/Advanced Directives/POLST: Nannette, brought DPOA paperwork in 07/26, disappointed to find that notary is no longer available. She is instructed to have the documents witnessed. Otherwise no changes to code status: pt remains FULL CODE per his wishes. Patient Goals: 1. Patient wants to be told the truth about his/her illness, even if it is unpleasant. 2. Patient would like to be told prognosis when it can be predicted, to better guide treatment decisions. 3. Patient would choose quality of life over quantity of life, and defines quality as being alive and able to fight to the end.. 4. Patient would request that comfort care take priority over cognitive/mental confusion. As pt's goals are clear and he wishes to continue the fight and remain full code , Palliative Care will sign off at this time. Problems: (1) Goals of care, counseling/discussion Status: Acute ICD Code: Z71.89 (2) Palliative care by specialist Status: Acute ICD Code: Z51.5 (3) CLL (chronic lymphocytic leukemia) Status: Acute ICD Code: C91.10 (4) History of stroke Status: Acute ICD Code: Z86.73 Resuscitation Status Resuscitation Status: CPR: Attempt Resuscitation POLST Updates/Changes Previous POLST?: No Total time 15 minutes; >50% face to face with patient and/or family, providing counselling regarding plans and recommendations, and in care coordination with his/her medical teams. Palliative Brief Note Date of Service July 29, 2016 . Patient Identification: 86-year-old male with history of CLL, recurrent pleural effusion, atrial fibrillation on AC, ocular myasthenia gravis, and CHF, recent ischemic stroke stroke p/w progressively worsening weakness, cough, sputum. Pt was recently hospitalized in May with acute ischemic stroke, resulted with right sided residual deficit, discharged to SNF. History obtained by , family at the bedside as pt is poor historian. Since patient stayed in [facility] from last hospitalization in , Pt's baseline function was poor, for the past 2 weeks, he was getting weaker with poor appetite per . 3days ago, pt started having cough with thick sputum, yellowish. appetite became worse and weaker. He had no temp, no chills, or diarrhea. Palliative Care consultation was to meet with and confer with Dr. Gama regarding patient status and goals. The patient's has DPOA paperwork which she had hoped to have notarized during his stay here. We have informed her that our policies have changed and we can no longer offer notarization but that 2 witness signatures will suffice. Radha Kennedy MD July 29, 2016 08:32
--- NOTE | 2016-07-29 08:52 | PROG NOTE ---
[address] [address] PROGRESS NOTE PATIENT: LADONNA ROMEO : 1930 MR#: [id number] ADMIT: 07/25/2016 JOB ID: [id number] DATE: 07/29/2016 SUBJECTIVE: The patient is an 86-year-old gentleman with chronic lymphocytic leukemia. He had been hospitalized in May with a large bloody right pleural effusion, nonmalignant. He had a recent stroke, which has left him incapacitated, and he has been residing at [facility]. He was admitted last week with pulmonary edema/pneumonia. He was initially febrile to 39.2 degrees. He has been on broad-spectrum antibiotics with Levaquin 750 mg IV daily, metronidazole 500 mg IV q.8 h. Cultures were positive for parainfluenza 3, but other blood and urine tests were negative. Chest film on July 28, 2016, showed moderate congestive heart failure. He is quite dyspneic, and is on oxygen 4 L by OxyMask. OBJECTIVE: Vitals: T 36.4, P 87, R 26, BP 114/56, O2 saturation 94% on 4 L by OxyMask. HEENT: Conjunctivae pale. Mucous membranes slightly dry. No oral lesions. Nodes: No adenopathy in the neck or axilla. Chest: Scattered crackles at the bases. Cardiac exam: Tachycardic but regular with normal S1, S2. Abdomen: Soft, nontender. Normoactive bowel tones. Extremities: Extensive ecchymoses on the extremities bilaterally, 2+ distal pulses. LABORATORIES: WBC 21.7, with 94% lymphocytes, hemoglobin 7.9, hematocrit 24.7%, platelets 59,000. Sodium 140, potassium 3.5, BUN 27, creatinine 0.4, glucose 125. AST 11, ALT 7, alkaline phosphatase 49. Total protein 5.2, albumin 2.5. Procalcitonin 0.22. IgG 1081 (normal). ASSESSMENT AND PLAN: 1. Chronic lymphocytic leukemia/small lymphocytic lymphoma: The patient's treatment with ibrutinib was discontinued after developing a right pleural effusion, and he is not on active treatment at this time. No evidence of hypogammaglobulinemia. Nonetheless, his absolute neutrophil count is 1042 today, which is borderline low, and his ability to fight infection is impaired. Cultures are negative. He remains on broad-spectrum antibiotic coverage. 2. Ischemic stroke: The patient has residual right-sided weakness. He is high risk for aspiration. 3. Right-sided pleural effusion: Stable on most recent chest film. He has previously undergone thoracentesis.
--- NOTE | 2016-07-29 17:47 | DRSVH ---
PROCEDURE: CT CHEST WITHOUT CONTRAST ([id number]) INDICATIONS: sob, PNA TECHNIQUE: Noncontrast 5 mm thick sections acquired from the pulmonary apices to the posterior costophrenic angl es. 7 mm thick coronal and sagittal MIP reformats were then acquired. For radiation dose reduction, the following was used: automated exposure control, adjustment of mA and/or kV according to patient size. COMPARISON: [facility], CR, XR CHEST 1VW (PORTABLE), 03/30/2016, 11:53. [facility], CR, XR CHEST 1VW (PORTABLE), 07/28/2016, 8:51. FINDINGS: Image quality: Excellent. Lungs and pleura: Mild to moderate bilateral pleural effusions, right greater than left are present. Bilateral superimposed consolidative opacities are present. In addition, there are small patchy areas of opacity extending into the upper lobes bilaterally. Mediastinum: Heart size is normal. No pericardial effusion. Multiple mediastinal lymph nodes are p resent, including a 21 mm posterior subcarinal lymph node. Thoracic aorta and central pulmonary arter ies are normal in size. Esophagus is normal in caliber. No hiatal hernia. Bones and chest wall: No suspicious bony lesions. No vertebral body compression fractures. No axil pascual or supraclavicular adenopathy by size criteria. Thyroid gland is unremarkable. Abdomen: Visualized upper abdominal solid organs and bowel loops appear normal in the absence of con trast. IMPRESSION: 1. Bilateral pleural effusions and consolidations most extensive mediastinal adenopathy. Overall appe arance can be consistent with infection/inflammation such as pneumonia. However, other etiologies suc h as underlying mass lesion cannot be excluded. Recommend short interval imaging followup to document resolution after appropriate therapy. Dictated by: Emily Cook M.D. on 07/29/2016 at 17:44 Approved by: Emily Cook M.D. on 07/29/2016 at 17:46
--- NOTE | 2016-07-29 19:53 | CONS ---
[address] [address] CONSULTATION REPORT PATIENT: LADONNA ROMEO : 1930 MR#: [id number] ADMIT: 07/25/2016 JOB ID: [id number] DATE OF SERVICE: 07/29/[address] Samano for this timely consult. REASON FOR CONSULT: Possible persistent pneumonia in a patient with underlying CLL and myasthenia gravis with probable aspiration events. HISTORY OF PRESENT ILLNESS: The patient is an 86-year-old gentleman known to me from an admission back in March when he was thought to have possible pneumonia. At that time, I felt it was unlikely and, in fact, we stopped his antibiotics. It seemed more likely at that time that his pneumonia was due to a combination of CLL and/or CHF as he had no elevation of procalcitonin or any other typical signs of bacterial pneumonia. Following his discharge back in March, unfortunately, the patient suffered a large stroke which was thought to be embolic on the basis of his chronic atrial fibrillation. The stroke occurred in May and, ever since then, the patient has been confined to the [facility]. He has been working on rehab and other issues at [facility], but his family became concerned recently when he developed increasing fatigue, malaise, shortness of breath and intermittent cough. Because of these symptoms, as well as a documented fever at [facility], chest x-ray was done which showed possible infiltrates and led to his transfer to this facility on July 25, four days ago. After his transfer here, the patient was started on broad-spectrum antibiotics for potential bacterial pneumonia, perhaps due to aspiration. Since admission, the patient has been treated with a combination of levofloxacin, metronidazole and minocycline for possible healthcare-associated pneumonia acquired at [facility] during stroke rehab. His course has been one of uneven improvement as he has continued to have considerable shortness of breath and an intermittent wet cough and occasional spiking fevers. Diagnostic studies have not been positive so far except for the finding of parainfluenza virus #3 and respiratory secretions by PCR. We interviewed the patient this afternoon. Because of his stroke, he has some difficulty speaking but appears to be oriented. This afternoon, the patient states he has no fever. He says he is not significantly short of breath by his report, though he is using supplemental oxygen, which is something he does not do at the shelter facility. He denies chest pain or productive cough. He denies any GI symptoms. States he has no new neurologic symptoms. Note that this case was also discussed at the bedside with the family. PAST MEDICAL HISTORY: 1. CLL stage 4, by report, and not currently on any therapy. 2. Adverse reaction to ibrutinib with reported formation of pleural effusion. 3. Ocular myasthenia gravis. 4. Mild congestive heart failure. 5. Recurrent pneumonia. 6. Atrial fibrillation. SOCIAL HISTORY: The patient is a former smoker. Does not drink alcohol. He is retired from the [employer] and traveled widely in the [place] but has spent very [place] time [place]. FAMILY HISTORY: Negative for tuberculosis in first or second-degree relatives. REVIEW OF SYSTEMS: The patient says he has no significant headache. He denies any change in his vision. No sore throat or trouble swallowing, by his report, though there are concerns by the nurses and others about possible aspiration. The patient states he has little cough today. He is mildly short of breath but is using nasal oxygen. No pleuritic chest pain. No nausea, vomiting, or diarrhea. He has a Richmond which was placed in the hospital as he does not usually have it at the nursing facility. No suprapubic pain. He cannot walk any significant distance because of weakness, and he notes that his weakness is primarily on the right side. He also has some trouble with word finding. Remainder of the review of systems is negative. PHYSICAL EXAMINATION: Reveals an afebrile gentleman, temp 37.3, pulse 96, respiratory rate 22, blood pressure 109/56, saturating 95% on 4 L by face mask. He is in no acute distress. It is difficult because of speech issues to assess his orientation, but the patient is oriented at least x2. Examination the head: No trauma. No temporal wasting. He has ptosis on the right side due to his myasthenia gravis. Oral cavity: No thrush or pharyngitis. Neck: Reasonably supple. No adenopathy. Dry mucous membranes. Lungs with rales at both bases. Cardiac tones: Irregular rate and rhythm without notable murmur. Abdomen is soft and nontender. No organomegaly is appreciated. He has a Richmond catheter which is draining clear, yellow urine. No palpable bladder. He has severe venous stasis changes below the knees bilaterally with minimal edema. His feet have very poor distal pulses, and I cannot palpate dorsal pedal or posterior tibial on either foot, but he does have capillary refill and his feet are reasonably warm bilaterally without skin breakdown. There is no evidence of synovitis on exam. No skin rash except the venous stasis changes. He has a neuro exam. He is weaker on the right than left, but both lower extremities are subnormal. He is able to carry on limited conversation. LABORATORIES: Include white count which has not really changed too much since admission. He came in with a white count of 50,000; it dropped to 25,000 and has stayed more or less 25,000 ever since. The diff is profoundly abnormal with about 5% neutrophils and 95% lymphs. His creatinine 0.4. His bilirubin 1.5. ALT and AST are normal. Albumin 2.5. Procalcitonin 0.2 on three measurements, all right around 0.2. Urinalysis 0-5 white cells. Serum IgG done during this admission greater than 1000 which is normal. IgM 44. Urine Legionella and pneumococcal antigens are negative. Sputum with moderate polys, what appeared to be a few strep but nothing grew. MRSA screen negative. Respiratory viral PCR panel positive for parainfluenza virus x3. Blood cultures are negative. MRSA screen negative. IMAGING: We carefully reviewed multiple x-rays on the computer. There are bilateral more or less symmetrical lower lobe infiltrates which certainly could be CHF or there could be a component, of course, of aspiration pneumonia. IMPRESSION: Overall, I suspect that this patient does not have a significant bacterial infection at this point. He has received a total of 4-1/2 days of broad-spectrum antibiotics without any dramatic change other than his fever does seem to have declined. This would also be entirely consistent with parainfluenza virus #3 infection. Parainfluenza virus 3 is the worst of the four parainfluenza viruses and can cause life-threatening or even fatal pneumonia in an immunocompromised host. This patient is certainly extremely immunosuppressed by virtue of his advanced chronic lymphocytic leukemia, and I think most likely everything we are seeing is a consequence of parainfluenza virus. There is a remote possibility the patient could have a fungal pneumonia such as crypto or Aspergillus, but the x-ray appearance is certainly not typical. RECOMMENDATIONS: 1. CT scan of the chest without contrast. 2. I would consider chest physical therapy as he does not have a good cough due to his weakness from his multiple underlying diseases. 3. I would check serum crypto antigen. 4. Will check Fungitell and galactomannan as well. 5. I would continue levo and Flagyl for at least the next couple of days while we try and sort out what is going on here. 6. Note that quinolones can make myasthenia gravis much worse, and so I think we will need to be very careful with his antibiotic going forward. 7. Would likely truncate the antibiotics in another day or two depending on the patient's clinical course, the results of the CT, the crypto antigen and the fungal studies. MTDD
[2016-07-30] VITALS (12 sets, daily range): BP systolic 109–125; BP diastolic 52–68; PULSE 74–105; RESP 18–24; O2SAT 87–95
[2016-07-30] MEDS: metroNIDAZOLE Inj 500 MG in IV Premix 1 EACH IV SCH ×3 (01:37→16:46)
[2016-07-30] MEDS: 0.9% Sodium Chloride 1,000 ML IV SCH ×2 (01:39→15:03)
[2016-07-30] MEDS: Pantoprazole 20 mg ER24 Tablet PO SCH (05:10)
[2016-07-30] MEDS: Albuterol-Ipratropium 3 mL Inhalation Solution NEB SCH ×4 (05:37→23:55)
[2016-07-30 05:45] LABS: BASOPHILS % (AUTO) 0 % (0-3); EOSINOPHILS % (AUTO) 0 % (0-5); MONOCYTES % (AUTO) 0.9 % (4-12); Mean Corpuscular Hemoglobin 36.4 pg (27.0-35.0); Mean Corpuscular Volume 114.5 fL (81-100); NEUTROPHILS % (AUTO) 5.8 % (40-74)
[2016-07-30 06:07] LABS: Platelet Count 51 bil/L (150-400)
[2016-07-30] MEDS: Omega-3-Acid Ethyl Esters 1 Gm Capsule PO SCH (08:30)
[2016-07-30] MEDS: Heparin 5,000 Unit/mL Inj SUBQ SCH (08:40)
[2016-07-30] MEDS: levoFLOXacin Inj 750 MG in IV Premix 1 EACH IV SCH (10:15)
--- NOTE | 2016-07-30 13:00 | PCM.PNMED ---
Subjective Date of Service July 30, 2016 Subjective Patient in bed, lert able to answere questions a bit,,, single words. Complaining of pain a bit in right foot, new. Still with cough. Exam Vital Signs Vital Sign - Last Date Time Temp Pulse Resp B/P Pulse Ox O2 Delivery O2 Flow Rate FiO2 07/30/16 12:49 36.5 84 24 109/66 93 Nasal Cannula 3.00 Intake and Output 07/29/16 07/29/16 07/30/16 Cumulative From/Thru 15:00 23:00 07:00 07/25/16 15:14 - 07/30/16 06:02 Intake Total 277 ml 270 ml 2350 ml 5783 ml Output Total 500 ml 250 ml 1950 ml Balance 277 ml -230 ml 2100 ml 3833 ml Intake Oral 270 ml 50 ml 1140 ml IV Total 277 ml 2300 ml 4643 ml Output Urine Total 500 ml 250 ml 1950 ml # Voids 14 # Bowel Movements 0 1 1 Exam Eyes; juan, eom intact HENT; adequate hydration no active lesions CV; irregular, Resp; course with shifting rhonchi GI; soft non acute benign Skin; no active rashes Foot right; Minimal discomfort planter forefoot, not red or inflamed Lab and Diagnostics Result Diagram: 07/30/16 0535 07/30/16 0535 Assessment & Plan 1.Sepsis, poa, resolved -SIRS+ Fever/HR/RR, wbc-hard to interpret with baseline CLL, probable source: parainfluenza PNA, possible superimposed bacterial PNA, -abx as below 2. Acute respiratory failure, poa, active -initialy due to parainfluenza PNA, possible superimposed bacterial PNA, ADHF -O2 prn 3. Pnemonia, poa, active -probably secondary to parainfluenza -Cultures negative, will discontinue aztreomnam today, repeat cxr, procal tomorrow and consider deescalating antibiotics more -CT shows possible pneumonia versus mass, pleural effusions -ID consult, plan is to continue with Levoquin, (watch myasthenia),flagyl, check serum crypto, fungitell, galactomannan 4. Right foot pain. active -mild, exam negative -will monitor 5. Imunocomprimized, poa, active -due to cll -ANC = 1,042 4.Macrocytic anemia,poa, active -secondary to chronic disease and leukemia - h/h mildly dropped but stable, no signs of active bleeding, Apixaban was held. -will give 1unit pRBC today per , trends h/h 5. Atrial fibrillation RVR, poa, active -hr 80's today -resume patient's eliquis today, was started few week ago by project manager entertainment and media (isela ) patient had been on asa 325, coumadin before but that was stoped due to internal bleeding -monitor for any bleeding 6. recent ischemic stroke with residual right sided weakness, poa, stabee - appreciate PT/OT/ST, aspiration precaution 7. Recurrent right-sided pleural effusion, present on admission,stable -presumably it was from side effect from ibrutinib in the past, s/p thracentesis in last hospitalization, effusion size seemed stable on CXR 8. 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 Gama of oncology. Immunoglobulin level WNL. 9. History of ocular myasthenia poa, stable -Continue home dose Pyridostigmine bromide 60 mg by mouth 4 times a day 10. Lesions on head,poa, stable -Patient had recent biopsies of skin lesions on left cheek and left preauricular area, currently awaiting pathology results dispo:pending given critical status diet:NPO, per s/s eval dvt ppx:HSQ FC verified with family again today, Overall, given patient's multiple comorbidities, ongoing sepsis, prognosis is guarded. greatly benefit from palliative care service for [facility], code status Colleen Johansen [phone] Gama PCP Lives VTE Mechanical Devices: Anti-Embolic stockings Resuscitation Status: CPR: Attempt Resuscitation Chetan Gaitan MD July 30, 2016 13:00
[2016-07-30 16:55] LABS: APPEARANCE,URINE CLEAR (CLEAR,HAZY); COLOR,URINE YELLOW (YELLOW); OCCULT BLOOD,URINE LARGE (NEGATIVE); PH,URINE 6.5 (5.0-8.0)
--- NOTE | 2016-07-30 17:23 | PROG NOTE ---
[address] [address] PROGRESS NOTE PATIENT: LADONNA ROMEO : 1930 MR#: [id number] ADMIT: 07/25/2016 JOB ID: [id number] DATE: 07/30/2016 REASON FOR FOLLOWUP: 1. Parainfluenza virus #3. 2. Respiratory tract infection with probable complicating aspiration pneumonia. 3. Bilateral pleural effusions, right greater than left. INTERVAL HISTORY: The patient continues to report as always that he is feeling quite well. He denies significant shortness of breath, fevers, chills, or sweats. No significant cough or abdominal complaint. He has chronic low back pain. PHYSICAL EXAMINATION: The patient is afebrile and has been for two and a half days. Temperature now 36.8, pulse 74, respiratory rate 23, blood pressure 118/59, saturating well on 3 L. The patient is awake and alert. Still remains hard of hearing, not surprisingly. Oral cavity negative. Lungs with decreased breath sounds at both bases, but much more so on the right. A few rales are also heard. Cardiac tones: Regular rate and rhythm. Abdomen: Soft and nontender. No skin rash though we does have a lot of the so-called senile ecchymoses on his upper extremities. LABORATORIES: Include white count 20,700 which is stable but hard to interpret in this patient who has CLL and chronic lymphocytosis. That 20,000 has only 5% polys, so his total poly count is right around 1000. His creatinine 0.3. Urinalysis has just been repeated this afternoon and I am not sure why. That study is pending. IgG greater than 1000 which is normal. Sputum culture negative. Respiratory viral PCR positive for parainfluenza virus #3. Blood cultures negative. Pneumococcal antigen negative. Chest CT that we ordered yesterday has come back and we reviewed it carefully on the view screen. It shows bilateral pleural effusions and consolidations along with mediastinal adenopathy. The right pleural effusion is larger than the left. IMPRESSION: This is a challenging case of an elderly gentleman with chronic lymphocytic leukemia as well as myasthenia gravis and the recent cerebrovascular accident back in May. He has been confined to a residential the last couple of months since his stroke, and now is admitted with respiratory difficulty. The patient clearly has parainfluenza virus 3 which can be a very severe viral pneumonia. It is difficult to assess whether or not he may have some superimposed bacterial infection as his white count is not a reliable marker, but I do think a short course of broad-spectrum antibiotics such as levofloxacin and Flagyl is not inappropriate. Note that levofloxacin can, however, make his myasthenia gravis worse, though the patient denies it today. RECOMMENDATIONS: 1. I would consider doing a thoracentesis on the right side for diagnostic as well as therapeutic purposes as this may improve his work of breathing as well as tell us whether this is transudate or exudate. 2. We await the serum crypto as well as fungitell and galactomannan assays we ordered yesterday. 3. I would continue levo and Flagyl through August 01 to complete a one-week course of therapy and then stop both. 4. The levo and Flagyl are 100% orally absorbed, so the patient can take pills. They should be switched from IV to p.o. 5. Will continue to follow this interesting patient with you. Note that this case was discussed in person with the patient's family.
[2016-07-30] MEDS: guaiFENesin 600 mg ER12 Tablet PO SCH (21:56)
[2016-07-31] VITALS (12 sets, daily range): BP systolic 113–136; BP diastolic 54–71; PULSE 74–99; RESP 16–26; O2SAT 92–97
[2016-07-31] MEDS: metroNIDAZOLE Inj 500 MG in IV Premix 1 EACH IV SCH (01:16)
[2016-07-31] MEDS: Albuterol-Ipratropium 3 mL Inhalation Solution NEB SCH ×4 (05:21→21:29)
[2016-07-31] MEDS: Pantoprazole 20 mg ER24 Tablet PO SCH (06:16)
[2016-07-31] MEDS: Omega-3-Acid Ethyl Esters 1 Gm Capsule PO SCH (08:30)
[2016-07-31] MEDS: guaiFENesin 600 mg ER12 Tablet PO SCH ×2 (10:38→20:38)
[2016-07-31] MEDS: levoFLOXacin 750 mg Tablet PO SCH (10:40)
--- NOTE | 2016-07-31 11:44 | PCM.PNMED ---
Subjective Date of Service July 31, 2016 Subjective Resting in bed, does complain of generalized discomfort but no new complaints otherwise. Family no present. Exam Vital Signs Vital Sign - Last Date Time Temp Pulse Resp B/P Pulse Ox O2 Delivery O2 Flow Rate FiO2 07/31/16 10:55 99 20 97 Nasal Cannula 3.00 07/31/16 08:52 36.5 125/68 Intake and Output 07/30/16 07/30/16 07/31/16 Cumulative From/Thru 15:00 23:00 07:00 07/25/16 15:14 - 07/31/16 06:13 Intake Total 1477 ml 489 ml 7749 ml Output Total 400 ml 325 ml 2675 ml Balance 1077 ml 164 ml 5074 ml Intake Oral 320 ml 0 ml 1460 ml IV Total 1157 ml 489 ml 6289 ml Output Urine Total 400 ml 325 ml 2675 ml # Voids 14 # Bowel Movements 1 2 Exam Eyes; juan, eom intact HENT; adequate hydration, no active lesions CV; irregular about 80 Resp; corse, with shiffting rhonchi and deminished breath sound bases R>L GI; Soft non acute benign Skin; multiple areas of eccymosis, no active rash Lab and Diagnostics Result Diagram: 07/30/1653407/30/16 0535 Assessment & Plan 1.Sepsis, poa, resolved -SIRS+ Fever/HR/RR, wbc-hard to interpret with baseline CLL, probable source: parainfluenza PNA, possible superimposed bacterial PNA, -abx as below 2. Acute respiratory failure, poa, active -due to parainfluenza 3 PNA, which can be severe -possible superimposed bacterial PNA, ADHF 3. Pnemonia, poa, active -probably secondary to parainfluenza -CT shows possible pneumonia versus mass, pleural effusions -check serum crypto, fungitell, galactomannan -patient now on oral Flagyl and Oral Levaquin to stay on until August 01 (7 day course) -repeat cxr and lab in AM 4. Right foot pain. resolved -mild, exam negative -will monitor 5. Imunocomprimized, poa, active -due to cll -ANC = 1,042 4.Macrocytic anemia,poa, active -secondary to chronic disease and leukemia - h/h mildly dropped but stable, no signs of active bleeding, Apixaban was held. -will give 1unit pRBC today per , trends h/h 5. Atrial fibrillation RVR, poa, active -hr 80's today -resume patient's eliquis today, was started few week ago by retail solar advisor (isela ) patient had been on asa 325, coumadin before but that was stoped due to internal bleeding -monitor for any bleeding 6. recent ischemic stroke with residual right sided weakness, poa, stabee - appreciate PT/OT/ST, aspiration precaution 7. Recurrent right-sided pleural effusion, present on admission,stable -presumably it was from side effect from ibrutinib in the past, s/p thracentesis in last hospitalization, effusion size seemed stable on CXR -will do diagnostic and theraputic tap (CBC, protein, glucose, LDH, bacterial and fungal stain and culture) 8. 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 Gama of oncology. Immunoglobulin level WNL. 9. History of ocular myasthenia poa, stable -Continue home dose Pyridostigmine bromide 60 mg by mouth 4 times a day 10. Lesions on head,poa, stable -Patient had recent biopsies of skin lesions on left cheek and left preauricular area, currently awaiting pathology results dispo:pending given critical status diet:NPO, per s/s eval dvt ppx:HSQ FC verified with family again today, Overall, given patient's multiple comorbidities, ongoing sepsis, prognosis is guarded. greatly benefit from palliative care service for [facility], code status Colleen Johansen [phone] Gama PCP Lives VTE Mechanical Devices: Anti-Embolic stockings Resuscitation Status: CPR: Attempt Resuscitation Chetan Gaitan MD July 31, 2016 11:44
[2016-07-31 14:38] LABS: APPEARANCE,URINE TURBID (CLEAR,HAZY); COLOR,URINE BLOODY (YELLOW); PH,URINE 6.5 (5.0-8.0)
[2016-07-31 14:39] LABS: OCCULT BLOOD,URINE LARGE (NEGATIVE)
[2016-07-31] MEDS: 0.9% Sodium Chloride 1,000 ML IV SCH (15:55)
[2016-08-01] VITALS (15 sets, daily range): BP systolic 117–131; BP diastolic 44–73; PULSE 72–95; RESP 16–24; O2SAT 92–99
[2016-08-01] MEDS: 0.9% Sodium Chloride 1,000 ML IV SCH ×3 (00:38→10:51)
[2016-08-01] MEDS: Albuterol-Ipratropium 3 mL Inhalation Solution NEB SCH ×4 (02:39→21:11)
[2016-08-01 06:05] LABS: BASOPHILS % (AUTO) 0.1 % (0-3); EOSINOPHILS % (AUTO) 0 % (0-5); MONOCYTES % (AUTO) 2.2 % (4-12); Mean Corpuscular Hemoglobin 36.7 pg (27.0-35.0); Mean Corpuscular Volume 115.6 fL (81-100); NEUTROPHILS % (AUTO) 5.9 % (40-74)
[2016-08-01] MEDS: Pantoprazole 20 mg ER24 Tablet PO SCH (06:33)
[2016-08-01 06:35] LABS: Platelet Count 35 bil/L (150-400)
--- NOTE | 2016-08-01 08:24 | DRSVH ---
PROCEDURE: X-RAY CHEST ONE VIEW, PORTABLE ([id number]) INDICATIONS: effusion TECHNIQUE: One view of the chest was acquired. COMPARISON: [facility], CR, XR CHEST 1VW (PORTABLE), 07/28/2016, 8:51. FINDINGS: Surgical changes and devices: None. Lungs and pleura: Diffuse, widespread bilateral pulmonary interstitial and air space opacities are p resent similar to prior examination. Small effusions are unchanged. No pneumothorax. Mediastinum: Mediastinal contours appear normal. Heart size is normal. Bones and chest wall: No suspicious bony lesions. Overlying soft tissues appear unremarkable. IMPRESSION: Persistent pulmonary edema and/or diffuse bilateral pneumonia. Dictated by: Tyree MOREAU Interpreted: Thuan Lentz MD on 08/01/2016 at 8:22 Transcribed by: LOCO on 08/01/2016 at 8:23 Approved by: Sukh Lentz M.D. on 08/01/2016 at 10:51
[2016-08-01] MEDS: Omega-3-Acid Ethyl Esters 1 Gm Capsule PO SCH (08:30)
--- NOTE | 2016-08-01 08:51 | PROG NOTE ---
[address] [address] PROGRESS NOTE PATIENT: LADONNA ROMEO : 1930 MR#: [id number] ADMIT: 07/25/2016 JOB ID: [id number] DATE: 08/01/2016 SUBJECTIVE: The patient is an 86-year-old gentleman with chronic lymphocytic leukemia. He was admitted last week with pulmonary edema/pneumonia, and has been on broad-spectrum antibiotics. Cultures showed parainfluenza 3 from nasopharynx, but blood cultures and sputum have been negative. Urine culture is pending. He is on antibiotic coverage with Levaquin 750 mg by mouth daily and metronidazole 500 mg by mouth every 8 hours. He has been afebrile since July 28, 2016. He is very fatigued. He continues to have significant right-sided body weakness due to a prior stroke. He is dyspneic, and remains on oxygen 6 L by Oxy Mask. OBJECTIVE: Vitals: T 36.5, P 76, R 24, BP 122/57. O2 saturation 98% on 6 L oxygen by Oxy Mask. HEENT: Conjunctivae pale. Mucous membranes moist. No oral lesions. Nodes: No adenopathy in the neck, axilla or groin. Chest: Scattered crackles. Cardiac examination: Tachycardic but regular with normal S1, S2. Abdomen: Soft, nontender. Normoactive bowel tones. Extremities: Extensive ecchymoses on the upper and lower extremities. 2+ distal pulses. Neuro: Significant weakness associated with recent stroke syndrome. LABORATORIES: WBC 22 with 92% lymphocytes, hemoglobin 8.0, hematocrit 25.2%, MCV 116, platelets 35,000. BUN 18, creatinine 0.3, glucose 116. ASSESSMENT AND PLAN: 1. Chronic lymphocytic leukemia/small lymphocytic lymphoma: Prior treatment with ibrutinib was discontinued when he developed a right pleural effusion. He is not on active treatment. No evidence of hypogammaglobulinemia. He does have borderline neutropenia. He has been afebrile for about four days on broad-spectrum antibiotic coverage with no evidence of active bacterial infection. 2. Ischemic stroke: The patient has residual right-sided weakness. He is high risk for aspiration. He does not want to return to live at the [facility], but would prefer to be at home. If this could be supported, with home physical therapy and appropriate durable medical equipment, it would be great to support the patient's wishes for quality of life concerns.
[2016-08-01] MEDS: levoFLOXacin 750 mg Tablet PO SCH (10:42)
[2016-08-01] MEDS: guaiFENesin 600 mg ER12 Tablet PO SCH ×2 (10:43→21:43)
[2016-08-01] MEDS ORDERED: Furosemide 10 mg/mL 2 mL Inj IVPUSH ONE (12:05)
--- NOTE | 2016-08-01 12:11 | PCM.PNMED ---
Subjective Date of Service August 01, 2016 Subjective In bed being fed by , she says he is a bit stronger and more alert. No other problems noted. Thoracentesis planned. Exam Vital Signs Vital Sign - Last Date Time Temp Pulse Resp B/P Pulse Ox O2 Delivery O2 Flow Rate FiO2 08/01/16 08:36 36.4 82 22 127/67 92 OxyMask 4.00 Intake and Output 07/31/16 07/31/16 08/01/16 Cumulative From/Thru 15:00 23:00 07:00 07/25/16 15:14 - 08/01/16 06:48 Intake Total 950 ml 1809 ml 78708 ml Output Total 300 ml 275 ml 3250 ml Balance 650 ml 1534 ml 7258 ml Intake Oral 0 ml 1460 ml IV Total 714 ml 1809 ml 8812 ml TPN/PPN 236 ml 236 ml Output Urine Total 300 ml 275 ml 3250 ml # Voids 14 # Bowel Movements 1 3 Exam Eyes; juan, eom intact HENT; adequate hydration, no active lesions CV; irregular about 80, edema right arm, mild JVD Resp; corse, with shiffting rhonchi and deminished breath sound bases R>L GI; Soft non acute benign Skin; multiple areas of eccymosis, no active rash Lab and Diagnostics Result Diagram: 08/01/1651408/01/16514 Assessment & Plan 1.Sepsis, poa, resolved -SIRS+ Fever/HR/RR, wbc-hard to interpret with baseline CLL, probable source: parainfluenza PNA, possible superimposed bacterial PNA, -abx as below 2. Acute respiratory failure, poa, active -due to parainfluenza 3 PNA, which can be severe -possible superimposed bacterial PNA, ADHF 3. Pnemonia, poa, active -probably secondary to parainfluenza -CT shows possible pneumonia versus mass, pleural effusions -check serum crypto, fungitell, galactomannan -patient now on oral Flagyl and Oral Levaquin to stay on until August 01 (7 day course) 4. Possible Fluid over load -d/c IV NS -Lasix 20 IV once now -echo 5. Right foot pain. resolved -mild, exam negative -will monitor 6. Imunocomprimized, poa, active -due to cll -ANC = 1,042 7.Macrocytic anemia,poa, active -secondary to chronic disease and leukemia - h/h mildly dropped but stable, no signs of active bleeding, Apixaban was held. -will give 1unit pRBC today per , trends h/h 8. Atrial fibrillation RVR, poa, active -hr 80's today -resume patient's eliquis today, was started few week ago by credit control clerk (afib ) patient had been on asa 325, coumadin before but that was stoped due to internal bleeding -monitor for any bleeding 9. recent ischemic stroke with residual right sided weakness, poa, stabee - appreciate PT/OT/ST, aspiration precaution 10. Recurrent right-sided pleural effusion, present on admission,stable -presumably it was from side effect from ibrutinib in the past, s/p thracentesis in last hospitalization, effusion size seemed stable on CXR -will do diagnostic and theraputic tap (CBC, protein, glucose, LDH, bacterial and fungal stain and culture) 11. 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 Gama of oncology. Immunoglobulin level WNL. 12. History of ocular myasthenia poa, stable -Continue home dose Pyridostigmine bromide 60 mg by mouth 4 times a day 13. Lesions on head,poa, stable -Patient had recent biopsies of skin lesions on left cheek and left preauricular area, currently awaiting pathology results dispo:pending given critical status diet:NPO, per s/s eval dvt ppx:HSQ FC verified with family again today, Overall, given patient's multiple comorbidities, ongoing sepsis, prognosis is guarded. greatly benefit from palliative care service for [facility], code status Colleen Johansen [phone] Gama PCP Lives VTE Mechanical Devices: Anti-Embolic stockings Resuscitation Status: CPR: Attempt Resuscitation Chetan Gaitan MD August 01, 2016 12:11
--- NOTE | 2016-08-01 13:20 | PROG NOTE ---
[address] [address] PROGRESS NOTE PATIENT: LADONNA ROMEO : 1930 MR#: [id number] ADMIT: 07/25/2016 JOB ID: [id number] DATE: 08/01/2016 INFECTIOUS DISEASE FOLLOW UP NOTE: REASON FOR FOLLOWUP: Viral pneumonia complicating CLL, myasthenia gravis and recent stroke in a patient who may also have had some degree of aspiration pneumonia or bacterial superinfection with parainfluenza virus #3. INTERVAL HISTORY: Overnight, the patient has no new subjective complaints. He has remained relatively stable from an overall clinical viewpoint. Because of the absence of hearing aids and the affects of his recent stroke, the patient was not able to answer any questions this morning, but we did have a long discussion with his . One important fact of interest was that the patient has been on minocycline ever since admission here and in fact was on it before he left home [facility] and apparently has just been continued for many weeks. The resident on our team was able to contact his stereoplotter operator and this was actually intended to be a short-term medicine some months ago which has been inadvertently continued on an almost indefinite basis. PHYSICAL EXAMINATION: Reveals an afebrile gentleman who is quite hard of hearing and dysarthric. Temperature 36.4. He has been afebrile now for four days. Pulse 82, respiratory rate 22, blood pressure 127/67. He is saturating fairly well on 4 L Oxy Mask. The patient appears to be awake and alert, but as mentioned, we are having difficulty communicating today. No conjunctivitis. No new oral lesions. His lungs are notable for coarse breath sounds with rales and rhonchi bilaterally as before. Also has a lot of upper airway sounds. Cardiac tones: Regular rate and rhythm. Abdomen remains soft and relatively nontender. No new skin rash. LABORATORY DATA: White count 22,000 which is probably normal for him as he has CLL and it has been fairly consistent. His creatinine 0.30. Procalcitonin has stabilized at 0.17 today and two days ago. Earlier in his stay it has been as high as 0.24 so we really have six procalcitonin levels which were all roughly 0.2 and probably not indicative of any bacterial infection. An LDH was done and was 188. He is cryptococcal antigen negative. Urine Legionella negative. Fungitell and galactomannan are pending. Micro biology of interest includes a urine culture from the 10th which was negative. Sputum from a week ago is negative or just normal ki. MRSA screen negative. The only real positive we have is parainfluenza virus 3. IMAGING: Includes a chest x-ray from this morning which shows persistent pulmonary edema and/or diffuse pneumonia. The chest x-ray shows bilateral lower lobe infiltrates with some cephalization consistent with fluid overload and plus/minus pulmonary infiltrate but very little change from an x-ray done four days ago. We compared these on the computer monitor side by side. IMPRESSION: This is an unfortunate elderly gentleman with really overwhelming collection of medical problems including CLL, myasthenia gravis and a recent major stroke. He now has parainfluenza virus 3 respiratory tract infection which seems to be improving. Whether or not he might have a superimposed bacterial pneumonia is unknown but I think if that is the case, we have treated it adequately with our levo and Flagyl. Also note that the patient has been on Minocin for many weeks when it was really only intended apparently for short-term treatment of a slow to heal dermatologic process. The Minocin could be discontinued. RECOMMENDATIONS: 1. I would still recommend doing a diagnostic thoracentesis on the right side. This may be diagnostic and therapeutic. Recall that he had pleural effusions which are thought to be due to ibrutinib chemotherapy some months ago, but it is unclear whether or not this is part of this same process or a new one, but it does seem very long lived if it is a drug reaction. 2. We await the Fungitell and galactomannan, though I think they will be negative. 3. We will stop all antibiotics which involves stopping levo, Flagyl and minocycline today. 4. Given the absence of ongoing infection, ID will go ahead and sign off at this time. Please do not hesitate to call us back if there are additional questions or answers about this fascinating gentleman.
--- NOTE | 2016-08-01 15:48 | DRSVH ---
PROCEDURE: US VENOUS ARM DUPLEX UNILATERAL, RIGHT INDICATIONS: edema right arm TECHNIQUE: Real-time imaging, as well as color and pulse Doppler interrogation, was performed of the right upper extremity deep veins from the inferior neck to the antecubital fossa. COMPARISON: None. FINDINGS: The internal jugular vein, visualized portions of the subclavian vein, axillary, and brach ial veins are free of intraluminal thrombus. Where physically possible, the veins are normally compr essible. Color and pulse Doppler demonstrate normal intraluminal flow, with expected phasicity and p ulsatility. Additional scanning of the cephalic and basilic veins of the superficial system demonstr ate normal compressibility, without thrombus. Several prominent lymph nodes within the right neck wh ich demonstrate normal felicia morphology largest measuring up to 7 mm. IMPRESSION: 1. No venous thrombosis within the right upper extremity. 2. Several prominent lymph nodes. Recommend clinical correlation and management. Dictated by: Tyree MOREAU Interpreted: Thuan Lentz MD on 08/01/2016 at 15:46 Transcribed by: LOCO on 08/01/2016 at 15:48 Approved by: Sukh Lentz M.D. on 08/01/2016 at 16:07
[2016-08-02] VITALS (13 sets, daily range): BP systolic 118–148; BP diastolic 57–83; PULSE 67–93; RESP 20–27; O2SAT 91–99
[2016-08-02] MEDS: Albuterol-Ipratropium 3 mL Inhalation Solution NEB SCH ×4 (02:01→19:41)
[2016-08-02] MEDS: Pantoprazole 20 mg ER24 Tablet PO SCH (06:34)
[2016-08-02] MEDS: guaiFENesin 600 mg ER12 Tablet PO SCH ×2 (10:30→22:17)
[2016-08-02] MEDS: Omega-3-Acid Ethyl Esters 1 Gm Capsule PO SCH (10:33)
[2016-08-02] MEDS ORDERED: 0.9% Sodium Chloride 250 ML IV PRN ×2 (11:15→13:10)
[2016-08-02] MEDS ORDERED: Furosemide 10 mg/mL 2 mL Inj IVPUSH ONE (11:25)
--- NOTE | 2016-08-02 11:31 | PCM.PNMED ---
Subjective Date of Service August 02, 2016 Subjective Examined with patient's nurse. Less gurgling. Doing well with food supliments. No other new problems per nursing. Exam Vital Signs Vital Sign - Last Date Time Temp Pulse Resp B/P Pulse Ox O2 Delivery O2 Flow Rate FiO2 08/02/16 10:00 37.2 81 24 127/63 92 Nasal Cannula 3.00 Intake and Output 08/01/16 08/01/16 08/02/16 Cumulative From/Thru 15:00 23:00 07:00 07/25/16 15:14 - 08/02/16 05:56 Intake Total 677 ml 708 ml 0 ml 60599 ml Output Total 1400 ml 250 ml 4900 ml Balance 677 ml -692 ml -250 ml 6993 ml Intake Oral 708 ml 0 ml 2168 ml IV Total 677 ml 9489 ml TPN/PPN 236 ml Output Urine Total 1400 ml 250 ml 4900 ml # Voids 14 # Bowel Movements 1 4 Exam Eyes; juan, eom intact HENT; adequate hydration, no active lesions CV; irregular about 80, edema right arm, mild JVD Resp; corse, with shiffting rhonchi and deminished breath sound bases R>L, but better today GI; Soft non acute benign Skin; multiple areas of ecchymosis, no active rash Lab and Diagnostics Result Diagram: 08/01/16 0515 08/02/16 0530 Assessment & Plan 1.Sepsis, poa, resolved -SIRS+ Fever/HR/RR, wbc-hard to interpret with baseline CLL, probable source: parainfluenza PNA, possible superimposed bacterial PNA, -abx as below 2. Acute respiratory failure, poa, active -due to parainfluenza 3 PNA, which can be severe -possible superimposed bacterial PNA, ADHF 3. Pnemonia, poa, active -probably secondary to parainfluenza -CT shows possible pneumonia versus mass, pleural effusions -check serum crypto(neg), fungitell(neg), galactomannan -all antibiotics discontinued today 4. Possible Fluid over load -d/c IV NS -Lasix 20 IV again today -echo pending -repeat cxr tomorrow AM 5. Right foot pain. resolved -mild, exam negative -will monitor 6. Imunocomprimized, poa, active -due to cll -ANC = 1,042 7.Macrocytic anemia,poa, active -secondary to chronic disease and leukemia - h/h mildly dropped but stable, no signs of active bleeding, Apixaban was held. -will give 1unit pRBC today per , trends h/h 8. Atrial fibrillation RVR, poa, active -hr 80's today -resume patient's eliquis today, was started few week ago by senior designer (isela ) patient had been on asa 325, coumadin before but that was stoped due to internal bleeding -monitor for any bleeding 9. recent ischemic stroke with residual right sided weakness, poa, stabee - appreciate PT/OT/ST, aspiration precaution 10. Recurrent right-sided pleural effusion, present on admission,stable -presumably it was from side effect from ibrutinib in the past, s/p thracentesis in last hospitalization, effusion size seemed stable on CXR -will do diagnostic and theraputic tap (CBC, protein, glucose, LDH, bacterial and fungal stain and culture) -we had to hold eliquis for tap today but now platelets to low, will have to give platelets first today 11. 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 Gama of oncology. Immunoglobulin level WNL. 12. History of ocular myasthenia poa, stable -Continue home dose Pyridostigmine bromide 60 mg by mouth 4 times a day 13. Lesions on head,poa, stable -Patient had recent biopsies of skin lesions on left cheek and left preauricular area, currently awaiting pathology results 14. Profound weakness, poa, active -physical therapy -OOB to chair dispo:pending given critical status diet:NPO, per s/s eval dvt ppx:HSQ FC verified with family again today, Overall, given patient's multiple comorbidities, ongoing sepsis, prognosis is guarded. greatly benefit from palliative care service for GOC, code status Colleen Johansen [phone] Gama PCP Lives VTE Mechanical Devices: Anti-Embolic stockings Resuscitation Status: CPR: Attempt Resuscitation Chetan Gaitan MD August 02, 2016 11:31
[2016-08-02 15:08] LABS: Cryptococcal Ag Negative (Negative)
--- NOTE | 2016-08-02 16:49 | ABG ---
DateTimeAnalyzed 16:43:00 -_ pH ____7.462 - 7.350 7.450 FIO2 ___21.0__ -% Drawn By lab - Date/Time Notified____ 16:48:00 -_ Liter_Flow ____5.0__ -L/min Oxygen Device 1 __oxymask - Notified By lw - Notified Whom RN- Fabian - Lorenzo test N/A -
--- NOTE | 2016-08-02 17:01 | DRSVH ---
PROCEDURE: US GUIDED THORACENTESIS BY REFERRING PHYSICIAN ([id number]) INDICATIONS: effusion, evaluate for infection TECHNIQUE: The indications, alternatives, benefits, risks, and complications of the procedure were explained to the patient. Written informed consent was obtained and placed in the chart. The chest was examined sonographically, and an appropriate site was chosen for thoracentesis. The skin was prepared and nadia ped in the usual sterile fashion, and 1% lidocaine was infiltrated from the skin down through the ple ural surface. A 19-gauge catheter-covered needle was then introduced into the pleural space, the cat heter was advanced and the needle was withdrawn, and thereafter pleural fluid was aspirated. The cat heter was then removed and a dressing was applied. COMPARISON: [facility], , US GUIDED THORACENTESIS, 06/04/2016, 14:42. FINDINGS: Access site: Right hemithorax. Needle: One-Step centesis catheter with introducer needle. Fluid volume and description: 1120 Fluid sent for diagnostic testing: yes Medications: 1% lidocaine for local anaesthesia. Complications: None; post-procedural chest radiograph is pending to assess for pneumothorax. IMPRESSION: Successful ultrasound-guided thoracentesis. Dictated by: Jackson Rosales M.D. on 08/02/2016 at 16:58 Approved by: Jackson Rosales M.D. on 08/02/2016 at 17:00
--- NOTE | 2016-08-02 19:01 | DRSVH ---
PROCEDURE: X-RAY CHEST ONE VIEW ([id number]) INDICATIONS: effusion, post thoracentesis TECHNIQUE: One view of the chest was acquired. COMPARISON: [facility], CR, XR CHEST 1VW (PORTABLE), 08/01/2016, 6:07. FINDINGS: Surgical changes and devices: None. Lungs and pleura: Improved right pleural effusion status post thoracentesis. No pneumothorax. Stable small left-sided pleural effusion with left basal atelectasis. Diffuse interstitial opacities with m ay represent fluid imbalance or infection.. Mediastinum: Mediastinal contours appear normal. Heart size is normal. Bones and chest wall: No suspicious bony lesions. Overlying soft tissues appear unremarkable. IMPRESSION: 1. improved right-sided pleural effusion status post thoracentesis. No pneumothorax. Stable small lef t pleural effusion with left basilar atelectasis. 2. Bilateral perihilar interstitial opacities consistent with fluid imbalance and/or infection. Dictated by: Jackson Rosales M.D. on 08/02/2016 at 17:13 Approved by: Jackson Rosales M.D. on 08/02/2016 at 17:15
[2016-08-02 20:13] LABS: TOTAL PROTEIN,PLEURAL FLUID 2.4 g/dL
[2016-08-02 20:24] LABS: BFWBC 675 /mm3; MONOCYTES,BODY FLUID 0 %; OTHER CELLS,BODY FLUID 0
[2016-08-03] VITALS (13 sets, daily range): BP systolic 113–130; BP diastolic 50–74; PULSE 69–92; RESP 20–24; O2SAT 85–97
[2016-08-03] MEDS: Albuterol-Ipratropium 3 mL Inhalation Solution NEB SCH ×4 (00:17→21:35)
[2016-08-03 06:02] LABS: BASOPHILS % (AUTO) 0.1 % (0-3); EOSINOPHILS % (AUTO) 0.1 % (0-5); MONOCYTES % (AUTO) 1.9 % (4-12); Mean Corpuscular Hemoglobin 36.4 pg (27.0-35.0); NEUTROPHILS % (AUTO) 3.3 % (40-74)
[2016-08-03] MEDS: Pantoprazole 20 mg ER24 Tablet PO SCH (06:22)
[2016-08-03 07:08] LABS: Platelet Count 37 bil/L (150-400)
--- NOTE | 2016-08-03 09:46 | PROG NOTE ---
[address] [address] PROGRESS NOTE PATIENT: LADONNA ROMEO : 1930 MR#: [id number] ADMIT: 07/25/2016 JOB ID: [id number] DATE: 08/03/2016 SUBJECTIVE: The patient is an 86-year-old gentleman with chronic lymphocytic leukemia. He was hospitalized with pulmonary edema/pneumonia. He has been on broad-spectrum antibiotics. Recent imaging showed a right-sided pleural effusion, and he underwent recent thoracentesis after platelet transfusion. He is somewhat lethargic this morning. No acute shortness of breath. He continues to have significant right-sided weakness. OBJECTIVE: Vitals: T 36.7, P 69, R 22, BP 118/74. O2 saturation 92% on 2.5 L oxygen by OxyMask. HEENT: Conjunctivae slightly pale. Mucous membranes moist. No oral lesions. Nodes: No adenopathy in the neck or axilla. Chest: Diffuse scattered crackles. Cardiac exam: Tachycardic but regular with normal S1, S2. Abdomen: Soft, nontender. Normoactive bowel tones. Extremities: Extensive ecchymoses on the upper and lower extremities. 1+ distal pulses. Neuro: Right-sided weakness. LABORATORIES: WBC 28.9 with 95% lymphocytes, hemoglobin 7.8, hematocrit 24.6%, platelets 77,000. IgG (1081) normal. ASSESSMENT AND PLAN: 1. Chronic lymphocytic leukemia/small lymphocytic lymphoma: Treatment with ibrutinib was discontinued due to development of a right pleural effusion. With recurrent effusion, he underwent recent thoracentesis. He is not a good candidate for additional treatment of his underlying malignancy given his multiple comorbid conditions. 2. Ischemic stroke: The patient continues to exhibit residual right-sided weakness. He clearly needs near-complete support. Family is trying to determine if he would return home, or go back to a halfway facility.
[2016-08-03] MEDS: guaiFENesin 600 mg ER12 Tablet PO SCH ×2 (10:04→21:07)
[2016-08-03] MEDS: Omega-3-Acid Ethyl Esters 1 Gm Capsule PO SCH (10:11)
--- NOTE | 2016-08-03 14:15 | DRSVH ---
PROCEDURE: X-RAY CHEST ONE VIEW, PORTABLE ([id number]) INDICATIONS: sob, cough TECHNIQUE: One view of the chest was acquired. COMPARISON: [facility], CR, XR CHEST 1VW, 06/04/2016, 16:22. [facility], CR, XR CHEST 1VW (PORTABLE), 07/28/2016, 8:51. [facility], CR, XR CHEST 1VW (PORTABLE), 08/01, 6:07. [facility], CT, CT CHEST WO CON, 07/29/2016, 17:28. [facility], CR, XR CHEST 1VW, 08/02/2016, 16:26. FINDINGS: Surgical changes and devices: None. Lungs and pleura: No pleural effusions or pneumothorax. Mild persistent retrocardiac consolidative o pacity. Bibasilar scarring/atelectasis. Low -grade persistent diffuse bilateral ground glass opacitie s, without definite interval change. Mediastinum: Mediastinal contours appear normal. Heart size is normal. Bones and chest wall: No suspicious bony lesions. Overlying soft tissues appear unremarkable. IMPRESSION: Mild retrocardiac opacity, and bibasilar atelectasis. Overall, stable appearance since yesterday. A m inimal amount of residual pulmonary edema cannot be excluded; please correlate clinically Dictated by: Arvind Maradiaga M.D. on 08/03/2016 at 14:09 Approved by: Arvind Maradaiga M.D. on 08/03/2016 at 14:14
--- NOTE | 2016-08-03 16:00 | PCM.PNMED ---
Subjective Date of Service August 03, 2016 Subjective Patient looks better today, more lert, interacting more, tolerating ensure, color looks better. Exam Vital Signs Vital Sign - Last Date Time Temp Pulse Resp B/P Pulse Ox O2 Delivery O2 Flow Rate FiO2 08/03/16 14:28 82 20 95 OxyMask 2.50 08/03/16 12:57 37.0 115/70 Intake and Output 08/02/16 08/02/16 08/03/16 Cumulative From/Thru 15:00 23:00 07:00 07/25/16 15:14 - 08/03/16 06:52 Intake Total 709 ml 200 ml 89736 ml Output Total 175 ml 575 ml 350 ml 6000 ml Balance -175 ml 134 ml -150 ml 6802 ml Intake Oral 436 ml 200 ml 2804 ml IV Total 9489 ml TPN/PPN 236 ml Platelets 273 ml 273 ml Output Urine Total 175 ml 575 ml 350 ml 6000 ml # Voids 3 17 # Bowel Movements 2 6 Exam Eyes; juan, eom intact HENT; adequate hydration, no active lesions CV; irregular about 80, edema right arm less, no JVD Resp; still course, but much less rhonchi and better air movement GI; Soft non acute benign Skin; multiple areas of ecchymosis, no active rash Lab and Diagnostics Result Diagram: 08/03/16 0507 08/02/16 0530 Assessment & Plan 1.Sepsis, poa, resolved -SIRS+ Fever/HR/RR, wbc-hard to interpret with baseline CLL, probable source: parainfluenza PNA, possible superimposed bacterial PNA, -abx as below 2. Acute respiratory failure, poa, active -due to parainfluenza 3 PNA, which can be severe -possible superimposed bacterial PNA, ADHF 3. Pnemonia, poa, active -probably secondary to parainfluenza -CT shows possible pneumonia versus mass, pleural effusions -check serum crypto(neg), fungitell(neg), galactomannan -all antibiotics discontinued yesterday 4. Possible Fluid over load, resolved -tharacentesis done, no evidence of infection 5. Right foot pain. resolved -mild, exam negative -will monitor 6. Imunocomprimized, poa, active -due to cll -ANC = 1,042 7.Macrocytic anemia,poa, stable -secondary to chronic disease and leukemia - h/h mildly dropped but stable, no signs of active bleeding, Apixaban was held. -will give 1unit pRBC today per , trends h/h 8. Atrial fibrillation RVR, poa, stable -hr 80's today -resume patient's eliquis today, was started few week ago by fabrication department supervisor (isela ) patient had been on asa 325, coumadin before but that was stoped due to internal bleeding -monitor for any bleeding 9. recent ischemic stroke with residual right sided weakness, poa, stable - appreciate PT/OT/ST, aspiration precaution 10. Recurrent right-sided pleural effusion, present on admission,stable -presumably it was from side effect from ibrutinib in the past, s/p thracentesis in last hospitalization, effusion size seemed stable on CXR -will do diagnostic and theraputic tap (CBC, protein, glucose, LDH, bacterial and fungal stain and culture) -we had to hold eliquis for tap today but now platelets to low, will have to give platelets first today 11. 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 Gama of oncology. Immunoglobulin level WNL. 12. History of ocular myasthenia poa, stable -Continue home dose Pyridostigmine bromide 60 mg by mouth 4 times a day 13. Lesions on head,poa, stable -Patient had recent biopsies of skin lesions on left cheek and left preauricular area, currently awaiting pathology results 14. Profound weakness, poa, active -physical therapy -OOB to chair dispo:pending given critical status diet:NPO, per s/s eval dvt ppx:HSQ FC verified with family again today, Overall, given patient's multiple comorbidities, ongoing sepsis, prognosis is guarded. greatly benefit from palliative care service for GOC, code status Colleen RUTLEDGE [phone] Gama PCP Lives VTE Mechanical Devices: Anti-Embolic stockings Resuscitation Status: CPR: Attempt Resuscitation Chetan Gaitan MD August 03, 2016 16:00
[2016-08-04] VITALS (9 sets, daily range): BP systolic 120–127; BP diastolic 51–78; PULSE 72–89; RESP 20–28; O2SAT 94–97
[2016-08-04] MEDS: Albuterol-Ipratropium 3 mL Inhalation Solution NEB SCH ×3 (03:53→15:00)
[2016-08-04] MEDS: Pantoprazole 20 mg ER24 Tablet PO SCH (07:41)
[2016-08-04] MEDS: guaiFENesin 600 mg ER12 Tablet PO SCH (07:41)
[2016-08-04] MEDS: Omega-3-Acid Ethyl Esters 1 Gm Capsule PO SCH (07:59)
--- NOTE | 2016-08-04 13:53 | PCM.DIMED ---
Discharge Instructions Date of Service August 04, 2016 Dates of Hospitalization July 25, 2016 at 20:05 Discharge Diagnosis Discharge Diagnosis 1.Sepsis, poa, resolved 2. Acute respiratory failure, poa, improving 3. Pnemonia, poa, resolved 6. Imunocomprimized, poa, active 7.Macrocytic anemia,poa, stable 8. Atrial fibrillation RVR, poa, stable 9. recent ischemic stroke with residual right sided weakness, poa, stable 10. Recurrent right-sided pleural effusion, present on admission,stable 11. 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 History of ocular myasthenia poa, stable 13. Lesions on head,poa, stable 14. Profound weakness, poa, active Patient Instructions Your doctor will see you in the senior living facility Chetan Gaitan MD August 04, 2016 13:53
--- NOTE | 2016-08-04 14:01 | PCM.DC.MED ---
Discharge Summary Date of Service August 04, 2016 Dates of Hospitalization Date of Hospital Admission July 25, 2016 at 20:05 Date of Discharge: August 04, 2016 Providers: Admitting Physician: Tabitha Samano MD Primary Care Physician: Lorenzo Lombardo MD Attending Physician: Tabitha Samano MD Diagnosis at Time of Discharge Diagnosis at Time of Discharge 1.Sepsis, poa, resolved 2. Acute respiratory failure, poa, improving 3. Pnemonia, poa, resolved 6. Imunocomprimized, poa, active 7.Macrocytic anemia,poa, stable 8. Atrial fibrillation RVR, poa, stable 9. recent ischemic stroke with residual right sided weakness, poa, stable 10. Recurrent right-sided pleural effusion, present on admission,stable 11. 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 History of ocular myasthenia poa, stable 13. Lesions on head,poa, stable 14. Profound weakness, poa, active Consultations CONSULTATION REPORT PATIENT: LADONNA ROMEO : 1930 MR#: [id number] ADMIT: 07/25/2016 JOB ID: [id number] DATE OF SERVICE: 07/29/[address] Samano for this timely consult. REASON FOR CONSULT: Possible persistent pneumonia in a patient with underlying CLL and myasthenia gravis with probable aspiration events. HISTORY OF PRESENT ILLNESS: The patient is an 86-year-old gentleman known to me from an admission back in March when he was thought to have possible pneumonia. At that time, I felt it was unlikely and, in fact, we stopped his antibiotics. It seemed more likely at that time that his pneumonia was due to a combination of CLL and/or CHF as he had no elevation of procalcitonin or any other typical signs of bacterial pneumonia. Following his discharge back in March, unfortunately, the patient suffered a large stroke which was thought to be embolic on the basis of his chronic atrial fibrillation. The stroke occurred in May and, ever since then, the patient has been confined to the [facility]. He has been working on rehab and other issues at [facility], but his family became concerned recently when he developed increasing fatigue, malaise, shortness of breath and intermittent cough. Because of these symptoms, as well as a documented fever at [facility], chest x-ray was done which showed possible infiltrates and led to his transfer to this facility on July 25, four days ago. After his transfer here, the patient was started on broad-spectrum antibiotics for potential bacterial pneumonia, perhaps due to aspiration. Since admission, the patient has been treated with a combination of levofloxacin, metronidazole and minocycline for possible healthcare-associated pneumonia acquired at [facility] during stroke rehab. His course has been one of uneven improvement as he has continued to have considerable shortness of breath and an intermittent wet cough and occasional spiking fevers. Diagnostic studies have not been positive so far except for the finding of parainfluenza virus #3 and respiratory secretions by PCR. We interviewed the patient this afternoon. Because of his stroke, he has some difficulty speaking but appears to be oriented. This afternoon, the patient states he has no fever. He says he is not significantly short of breath by his report, though he is using supplemental oxygen, which is something he does not do at the [facility] facility. He denies chest pain or productive cough. He denies any GI symptoms. States he has no new neurologic symptoms. Note that this case was also discussed at the bedside with the family. PAST MEDICAL HISTORY: 1. CLL stage 4, by report, and not currently on any therapy. 2. Adverse reaction to ibrutinib with reported formation of pleural effusion. 3. Ocular myasthenia gravis. 4. Mild congestive heart failure. 5. Recurrent pneumonia. 6. Atrial fibrillation. SOCIAL HISTORY: The patient is a former smoker. Does not drink alcohol. He is retired from the [employer] and traveled widely in the [place] but has spent very little time [place] shore in [place]. FAMILY HISTORY: Negative for tuberculosis in first or second-degree relatives. REVIEW OF SYSTEMS: The patient says he has no significant headache. He denies any change in his vision. No sore throat or trouble swallowing, by his report, though there are concerns by the nurses and others about possible aspiration. The patient states he has little cough today. He is mildly short of breath but is using nasal oxygen. No pleuritic chest pain. No nausea, vomiting, or diarrhea. He has a [place] which was placed in the hospital as he does not usually have it at the nursing facility. No suprapubic pain. He cannot walk any significant distance because of weakness, and he notes that his weakness is primarily on the right side. He also has some trouble with word finding. Remainder of the review of systems is negative. PHYSICAL EXAMINATION: Reveals an afebrile gentleman, temp 37.3, pulse 96, respiratory rate 22, blood pressure 109/56, saturating 95% on 4 L by face mask. He is in no acute distress. It is difficult because of speech issues to assess his orientation, but the patient is oriented at least x2. Examination the head: No trauma. No temporal wasting. He has ptosis on the right side due to his myasthenia gravis. Oral cavity: No thrush or pharyngitis. Neck: Reasonably supple. No adenopathy. Dry mucous membranes. Lungs with rales at both bases. Cardiac tones: Irregular rate and rhythm without notable murmur. Abdomen is soft and nontender. No organomegaly is appreciated. He has a Richmond catheter which is draining clear, yellow urine. No palpable bladder. He has severe venous stasis changes below the knees bilaterally with minimal edema. His feet have very poor distal pulses, and I cannot palpate dorsal pedal or posterior tibial on either foot, but he does have capillary refill and his feet are reasonably warm bilaterally without skin breakdown. There is no evidence of synovitis on exam. No skin rash except the venous stasis changes. He has a neuro exam. He is weaker on the right than left, but both lower extremities are subnormal. He is able to carry on limited conversation. LABORATORIES: Include white count which has not really changed too much since admission. He came in with a white count of 50,000; it dropped to 25,000 and has stayed more or less 25,000 ever since. The diff is profoundly abnormal with about 5% neutrophils and 95% lymphs. His creatinine 0.4. His bilirubin 1.5. ALT and AST are normal. Albumin 2.5. Procalcitonin 0.2 on three measurements, all right around 0.2. Urinalysis 0-5 white cells. Serum IgG done during this admission greater than 1000 which is normal. IgM 44. Urine Legionella and pneumococcal antigens are negative. Sputum with moderate polys, what appeared to be a few strep but nothing grew. MRSA screen negative. Respiratory viral PCR panel positive for parainfluenza virus x3. Blood cultures are negative. MRSA screen negative. IMAGING: We carefully reviewed multiple x-rays on the computer. There are bilateral more or less symmetrical lower lobe infiltrates which certainly could be CHF or there could be a component, of course, of aspiration pneumonia. IMPRESSION: Overall, I suspect that this patient does not have a significant bacterial infection at this point. He has received a total of 4-1/2 days of broad-spectrum antibiotics without any dramatic change other than his fever does seem to have declined. This would also be entirely consistent with parainfluenza virus #3 infection. Parainfluenza virus 3 is the worst of the four parainfluenza viruses and can cause life-threatening or even fatal pneumonia in an immunocompromised host. This patient is certainly extremely immunosuppressed by virtue of his advanced chronic lymphocytic leukemia, and I think most likely everything we are seeing is a consequence of parainfluenza virus. There is a remote possibility the patient could have a fungal pneumonia such as crypto or Aspergillus, but the x-ray appearance is certainly not typical. RECOMMENDATIONS: 1. CT scan of the chest without contrast. 2. I would consider chest physical therapy as he does not have a good cough due to his weakness from his multiple underlying diseases. 3. I would check serum crypto antigen. 4. Will check Fungitell and galactomannan as well. 5. I would continue levo and Flagyl for at least the next couple of days while we try and sort out what is going on here. 6. Note that quinolones can make myasthenia gravis much worse, and so I think we will need to be very careful with his antibiotic going forward. 7. Would likely truncate the antibiotics in another day or two depending on the patient's clinical course, the results of the CT, the crypto antigen and the fungal studies. Wilfredo Sheikh MD 07/29/16 1646 PROGRESS NOTE PATIENT: LADONNA ROMEO : 1930 MR#: [id number] ADMIT: 07/25/2016 JOB ID: [id number] DATE: 08/01/2016 INFECTIOUS DISEASE FOLLOW UP NOTE: REASON FOR FOLLOWUP: Viral pneumonia complicating CLL, myasthenia gravis and recent stroke in a patient who may also have had some degree of aspiration pneumonia or bacterial superinfection with parainfluenza virus #3. INTERVAL HISTORY: Overnight, the patient has no new subjective complaints. He has remained relatively stable from an overall clinical viewpoint. Because of the absence of hearing aids and the affects of his recent stroke, the patient was not able to answer any questions this morning, but we did have a long discussion with his . One important fact of interest was that the patient has been on minocycline ever since admission here and in fact was on it before he left home for his long stay in the snf and apparently has just been continued for many weeks. The resident on our team was able to contact his secondary history teacher and this was actually intended to be a short-term medicine some months ago which has been inadvertently continued on an almost indefinite basis. PHYSICAL EXAMINATION: Reveals an afebrile gentleman who is quite hard of hearing and dysarthric. Temperature 36.4. He has been afebrile now for four days. Pulse 82, respiratory rate 22, blood pressure 127/67. He is saturating fairly well on 4 L Oxy Mask. The patient appears to be awake and alert, but as mentioned, we are having difficulty communicating today. No conjunctivitis. No new oral lesions. His lungs are notable for coarse breath sounds with rales and rhonchi bilaterally as before. Also has a lot of upper airway sounds. Cardiac tones: Regular rate and rhythm. Abdomen remains soft and relatively nontender. No new skin rash. LABORATORY DATA: White count 22,000 which is probably normal for him as he has CLL and it has been fairly consistent. His creatinine 0.30. Procalcitonin has stabilized at 0.17 today and two days ago. Earlier in his stay it has been as high as 0.24 so we really have six procalcitonin levels which were all roughly 0.2 and probably not indicative of any bacterial infection. An LDH was done and was 188. He is cryptococcal antigen negative. Urine Legionella negative. Fungitell and galactomannan are pending. Micro biology of interest includes a urine culture from the which was negative. Sputum from a week ago is negative or just normal ki. MRSA screen negative. The only real positive we have is parainfluenza virus 3. IMAGING: Includes a chest x-ray from this morning which shows persistent pulmonary edema and/or diffuse pneumonia. The chest x-ray shows bilateral lower lobe infiltrates with some cephalization consistent with fluid overload and plus/minus pulmonary infiltrate but very little change from an x-ray done four days ago. We compared these on the computer monitor side by side. IMPRESSION: This is an unfortunate elderly gentleman with really overwhelming collection of medical problems including CLL, myasthenia gravis and a recent major stroke. He now has parainfluenza virus 3 respiratory tract infection which seems to be improving. Whether or not he might have a superimposed bacterial pneumonia is unknown but I think if that is the case, we have treated it adequately with our levo and Flagyl. Also note that the patient has been on Minocin for many weeks when it was really only intended apparently for short-term treatment of a slow to heal dermatologic process. The Minocin could be discontinued. RECOMMENDATIONS: 1. I would still recommend doing a diagnostic thoracentesis on the right side. This may be diagnostic and therapeutic. Recall that he had pleural effusions which are thought to be due to ibrutinib chemotherapy some months ago, but it is unclear whether or not this is part of this same process or a new one, but it does seem very long lived if it is a drug reaction. 2. We await the Fungitell and galactomannan, though I think they will be negative. 3. We will stop all antibiotics which involves stopping levo, Flagyl and minocycline today. 4. Given the absence of ongoing infection, ID will go ahead and sign off at this time. Please do not hesitate to call us back if there are additional questions or answers about this fascinating gentleman. Wilfredo Sheikh MD 08/01/16 1146 PATIENT: LADONNA ROMEO : 1930 MR#: [id number] ADMIT: 07/25/2016 JOB ID: [id number] DATE: 08/03/2016 SUBJECTIVE: The patient is an 86-year-old gentleman with chronic lymphocytic leukemia. He was hospitalized with pulmonary edema/pneumonia. He has been on broad-spectrum antibiotics. Recent imaging showed a right-sided pleural effusion, and he underwent recent thoracentesis after platelet transfusion. He is somewhat lethargic this morning. No acute shortness of breath. He continues to have significant right-sided weakness. OBJECTIVE: Vitals: T 36.7, P 69, R 22, BP 118/74. O2 saturation 92% on 2.5 L oxygen by OxyMask. HEENT: Conjunctivae slightly pale. Mucous membranes moist. No oral lesions. Nodes: No adenopathy in the neck or axilla. Chest: Diffuse scattered crackles. Cardiac exam: Tachycardic but regular with normal S1, S2. Abdomen: Soft, nontender. Normoactive bowel tones. Extremities: Extensive ecchymoses on the upper and lower extremities. 1+ distal pulses. Neuro: Right-sided weakness. LABORATORIES: WBC 28.9 with 95% lymphocytes, hemoglobin 7.8, hematocrit 24.6%, platelets 77,000. IgG (1081) normal. ASSESSMENT AND PLAN: 1. Chronic lymphocytic leukemia/small lymphocytic lymphoma: Treatment with ibrutinib was discontinued due to development of a right pleural effusion. With recurrent effusion, he underwent recent thoracentesis. He is not a good candidate for additional treatment of his underlying malignancy given his multiple comorbid conditions. 2. Ischemic stroke: The patient continues to exhibit residual right-sided weakness. He clearly needs near-complete support. Family is trying to determine if he would return home, or go back to a [facility] facility. Parth Gama MD 08/03/16 2171 Palliative Care Recommendation Summary of palliative recommendations: -Symptom management (Pain/other) Respiratory Distress: r/t acute illness --treat influenza with supportive care and management of symptoms per attending and respiratory and nursing. CLL/SLL: Patient is not receiving any chemotherapy currently. While it is his hope to return to more treatments, Dr. Gama expresses doubt that this will ever be feasible. Meanwhile, supporting him through treatment of anemia and hypogammaglobulinemia will have a palliative affect on his well-being. --see recommendations in Dr. Gama's note for --2 U PRBC --globulin levels: plan to give IVIG if indicated. -DPOA/Advanced Directives/POLST: brings DPOA paperwork in today, disappointed to find that notary is no longer available. She is instructed to have the documents witnessed. Otherwise no changes to code status: pt remains FULL CODE per his wishes. -Family/emotional support --offer support to . Patient Goals: 1. Patient wants to be told the truth about his/her illness, even if it is unpleasant. 2. Patient would like to be told prognosis when it can be predicted, to better guide treatment decisions. 3. Patient would choose quality of life over quantity of life, and defines quality as being alive and able to fight to the end.. 4. Patient would request that comfort care take priority over cognitive/mental confusion. Additional Medical Diagnoses with primary management by Hospitalist team include : sepsis, POA, SIRS+ Fever/HR/RR, wbc-hard to interpret with baseline CLL, possible source: parainfluenza PNA, possible superimposed bacterial PNA, UA clean. possibly GI source-although no diarrhea reported. -pt clinically improving, HD stable, less febrile, trend fever curve, -abx as below -MAP taget>65, bolus gently dyspnea POA,due to parainfluenza PNA, possible superimposed bacterial PNA -follow up BCX, sputum CX, strep Ag, legionella, MRSA swab -continue Levaquin, given allergies to cephalosporin, PCN, sulfa drugs -consider adding Flagyl for anaerobe coverage. chronic, stable 1. recent ischemic stroke with residual right sided weakness, appreciate PT/OT/ ST, aspiration precaution 2. Recurrent right-sided pleural effusion, present on admission,presumably it was from side effect from ibrutinib in the past, s/p thracentesis in last hospitalization, effusion size seemed stable on CXR 3. 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 Gama of oncology. no active tx. is aware of this hospitalization per family 4. History of ocular myasthenia crisis, Continue home dose Pyridostigmine bromide 60 mg by mouth 4 times a day 5. Atrial fibrillation, tachycardic likely more in the sepsis setting, continue apixaban as it was recently started. would not aggressively control rate. 6. Lesions on head, Patient had recent biopsies of skin lesions on left cheek and left preauricular area, currently awaiting pathology results 7. Macrocytic anemia, close to baseline h/h. 8. History of CHF, chronic, Echo on 06/05/2016 showed left ventricular ejection fraction 55-60% with an increase in the severity of pulmonary hypertension. pt seemed mildly overloaded on CXR. however, clinically more intravascularly deplete with sepsis, would not consider diuretics for now. Problems: (1) Goals of care, counseling/discussion Status: Acute ICD Code: Z71.89 (2) Palliative care by specialist Status: Acute ICD Code: Z51.5 (3) CLL (chronic lymphocytic leukemia) Status: Acute ICD Code: C91.10 (4) History of stroke Status: Acute ICD Code: Z86.73 Resuscitation Status Resuscitation Status: CPR: Attempt Resuscitation POLST Updates/Changes Previous POLST?: No . Advanced Care Planning Address: Code status change Symptom management: Dyspnea Pt History History of Present Illness 86-year-old male with history of CLL, recurrent pleural effusion, atrial fibrillation on AC, ocular myasthenia gravis, and CHF, recent ischemic stroke stroke p/w progressively worsening weakness, cough, sputum. Pt was recently hospitalized in May with acute ischemic stroke, resulted with right sided residual deficit, discharged to SNF. History obtained by , family at the bedside as pt is poor historian. Since patient stayed in [facility] from last hospitalization in , Pt's baseline function was poor, for the past 2weeks, getting weaker with poor appetite. As per . 3days ago, pt was found to have abnormal xray, but didn' t get any abx. pt started having cough with thick sputum, yellowish. appetite became worse and weaker. pt didn't have temp, no chils, no diarrhea. pt has been on nectar thick diet, didn't report any major aspiration. Palliative Care consultation mostly was to meet with and confer with Dr. Gama regarding patient status and goals. The patient's has DPOA paperwork which she had hoped to have notarized during his stay here. We have informed her that our policies have changed and we can no longer offer notarization but that 2 witness signatures will suffice. She is grateful for this. See discussion and plan for further info regarding goals of care and treatment plan. Past Medical History Significant PMH Noted: PMH per H& P by Dr. 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 Social History Hx Alcohol Use: No Hx Substance Use: No Smoking Status: Former Smoker Social History Occupation: career in , does not believe in "giving up". Family Members Issues: devoted . Social Support: support of small family Living Situation: currently resides in SNF, rehab for stroke in May Responsive Patient Symptoms Pain (current): Mild Pain (minimum): None Pain (maximium): Mild Anorexia: Mild Shortness of Breath: Moderate Palliative Performance Scale PPS Patient Status: Baseline PPS Ambulation: Mainly Sit/Lie PPS Activity: Unable to do any work PPS Self-Care: Considerable assistance required PPS Intake: Normal or reduced Performance Scale: 60% ADLs ADL Patient Status: Current ADL Ambulation: Mainly Bed ADL Dressing: Mainly assistance ADL Feeding: Considerable assistance required ADL Hygene/bathing: Mainly assistance ADL Transfers: Mainly assistance POLST at Time of Admission Previous POLST?: No Allergy Allergies Reviewed: Yes Medications Current Medications: Current Medications Al Hydrox/Mg Hydrox/Simethicone 30 ml Q6 PRN PO; Start 07/25/16 at 15:35; Status Cancel Ondansetron HCl Dose range: 4 mg to 8 mg Q4H PRN IVPUSH; Start 07/25/16 at 15:35 ; Stop 07/25/16 at 18:20; Status DC Acetaminophen 975 mg Q6H PRN PO; Start 07/25/16 at 15:35; Stop 07/25/16 at 18:20 ; Status DC Heparin Sodium (Porcine) 5000 unit 5,000 unit Q12H SUBQ Last administered on 07/26 09:12; Admin Dose 5,000 UNIT; Start 07/25/16 at 20:30 Lactated Ringer's 1,000 ml @ 100 mls/hr Q10H IV Last administered on 07/26/16 06:12; Admin Dose 100 MLS/HR; Start 07/25/16 at 18:14; Stop 07/26/16 at 11:02; Status DC Ondansetron HCl 4 to 8 mg Q4H PRN IVPUSH; Start 07/25/16 at 18:15 Acetaminophen 650 mg 650 mg Q4H PRN PO Last administered on 07/26/16 06:11; Admin Dose 650 MG; Start 07/25/16 at 18:15 Levofloxacin/ Dextrose/Premix 150 ml @ 100 mls/hr Q24 IV Last administered on 09:19; Admin Dose 100 MLS/HR; Start 07/26/16 at 08:30 Albuterol/ Ipratropium 3 ml Q6 NEB Last administered on 07/26/16 08:45; Admin Dose 3 ML; Start 07/25/16 at 18:50 Apixaban 5 mg BID PO; Start 07/26/16 at 08:30; Stop 07/26/16 at 08:59; Status DC Atorvastatin Calcium 40 mg HS PO; Start 07/26/16 at 21:00 Pyridostigmine [place] 60 mg QID PO Last administered on 07/26/16 12:02; Admin Dose 60 MG; Start 07/26/16 at 11:30 Lactobacillus Acidophilus 2 tablet BID PO Last administered on 07/26/16 09:12; Admin Dose 2 TABLET; Start 07/26/16 at 08:30 Calcium Carbonate 500 mg BIDWM PO; Start 07/26/16 at 08:00; Status Cancel Cholecalciferol 1,000 unit DAILY PO Last administered on 07/26/16 09:12; Admin Dose 1,000 UNIT; Start 07/26/16 at 08:30 Cyanocobalamin 500 mcg DAILY PO Last administered on 07/26/16 09:12; Admin Dose 500 MCG; Start 07/26/16 at 08:30 Fish Oil 2 gm DAILY PO Last administered on 07/26/16 09:17; Admin Dose 2 GM; Start 07/26/16 at 08:30 Minocycline HCl 100 mg BID PO Last administered on 07/26/16 09:18; Admin Dose 100 MG; Start 07/26/16 at 08:30 Pantoprazole 20 mg 0630 PO; Start 07/27/16 at 06:30 Scheduled Acidophilus/Pectin, Tate (Acidophilus Caplet) 1 Each Tablet 2 EACH PO BID Apixaban (Eliquis) 5 Mg Tablet 5 MG PO BID Atorvastatin Calcium (Atorvastatin Calcium) 40 Mg Tablet 40 MG PO HS Calcium Carbonate (Calcium) 600 Mg Tablet 600 MG PO BID Cholecalciferol (Vitamin D3) (Vitamin D3) 1,000 Unit Tab.chew 1,000 UNIT PO DAILY Cyanocobalamin (Vitamin B-12) (Vitamin B-12) 1,000 Mcg Tablet 1,000 MCG PO DAILY Fish Oil/Dha/Epa (Fish Oil 1,200 mg Fish Oil) 1 Each Capsule 2 EACH PO DAILY Levofloxacin (Levofloxacin) 750 Mg Tablet 750 MG PO DAILY Minocycline (Minocycline) 100 Mg Tablet 100 MG PO BID Omeprazole (Omeprazole) 20 Mg Capsule. 20 MG PO BIDAC Pyridostigmine [place] (Mestinon) 60 Mg Tablet 60 MG PO QID Scheduled PRN Acetaminophen (Acetaminophen) 325 Mg Tablet 650 MG PO Q4H PRN PRN pain/fever Objective Findings Exam Vital Sign - Last Date Time Temp Pulse Resp B/P Pulse Ox O2 Delivery O2 Flow Rate FiO2 07/26/16 11:34 Supplement Oxygen 07/26/16 10:26 36.6 125 26 111/51 91 2.00 Intake and Output 07/25/16 07/25/16 07/26/16 Cumulative From/Thru 15:00 23:00 07:00 07/25/16 15:14 - 07/26/16 06:45 Intake Total 938 ml 938 ml Balance 938 ml 938 ml Intake Oral 200 ml 200 ml IV Total 738 ml 738 ml # Voids 1 1 General: Alert/Oriented x3, Mild distress (r/t SOB), Other (some word-finding difficulty, slurred speech 2/2 stroke) HEENT: Atraumatic, EOMI, Scleral Anicteric Heart: Exam Unremarkable Lungs: Diminished, Rhonchorus, Other (increased respiratory effort, pursed lip breathing) Abdomen: Bowel Tones x4, Soft, Non Tender Neuro: Arousable, Follows Commands Extremities: Edema (1+ RUE), Other (3/5 strength on R) Lab/Diagnostics Lab and Imaging results reviewed in detail in EMR. Patient/Family Conference Members Present Family Members Present present at bedside. Pt interactive but sometimes not making a lot of sense. seems to be talking about foods he ate, and reports being hungry. Medical Team Members Present? Dr. Fidelia Shipman DO R-2 Discussion/Goals of Care Discussion FAMILY UNDERSTANDING OF DISEASE: [ understands this hospitalization due to acute flu and possible pneumonia.] DISEASE PROGRESSION/EVIDENCE OF DECLINE: [ states he was "making progress" in SNF, speech was improving. He continues to be hopeful of further treatments being offered for CLL.] SYMPTOM BURDEN: [currently SOB with acute illness] GOALS: [to treat treatable illness with hope of returning to baseline] Palliative Care counselled: Assisted in plan to complete DPOA. Discussed patient's ongoing choice for full code with Dr. Gama. This is a choice consistent with the patient's underlying values. Dr. Gama continues to see him to evaluate whether there is a strong enough functional status to warrant further treatment but expresses the doubt that this will ever happen. He plans to follow up in 6 weeks and expects that, at some point, he will be able to help the patient opt for a more palliative approach to his end of life. Whether or not this happens, we will support his in being ready to make decisions about his care that are reasonable based on his condition at some point in the future. Time spent Total time 55 minutes; >50% face to face with patient and/or family, providing counselling regarding plans and recommendations, and in care coordination with his/her medical teams. OF this 20 minutes is spent counseling for advanced care planning, DPOA paperwork and clarifying wishes with the patient/the patients family/the surrogate decision maker. copies to: Lorenzo Lombardo MD; Parth Gama MD, Sharmon M. SAP BW ARCHITECT Procedures XRay, CTs & MRIs PROCEDURE: X-RAY CHEST ONE VIEW, PORTABLE ([id number]) INDICATIONS: sob, cough TECHNIQUE: One view of the chest was acquired. COMPARISON: [facility], CR, XR CHEST 1VW, 06/04/2016, 16:22. [facility], CR, XR CHEST 1VW (PORTABLE), 07/28/2016, 8:51. [facility], CR, XR CHEST 1VW (PORTABLE), 08/01/2016, 6:07. [facility], CT, CT CHEST WO CON, 07/29/2016, 17:28. [facility], CR, XR CHEST 1VW, 08/02/2016, 16:26. FINDINGS: Surgical changes and devices: None. Lungs and pleura: No pleural effusions or pneumothorax. Mild persistent retrocardiac consolidative opacity. Bibasilar scarring/atelectasis. Low -grade persistent diffuse bilateral ground glass opacities, without definite interval change. Mediastinum: Mediastinal contours appear normal. Heart size is normal. Bones and chest wall: No suspicious bony lesions. Overlying soft tissues appear unremarkable. IMPRESSION: Mild retrocardiac opacity, and bibasilar atelectasis. Overall, stable appearance since yesterday. A minimal amount of residual pulmonary edema cannot be excluded; please correlate clinically PROCEDURE: CT CHEST WITHOUT CONTRAST ([id number]) INDICATIONS: sob, PNA TECHNIQUE: Noncontrast 5 mm thick sections acquired from the pulmonary apices to the posterior costophrenic angles. 7 mm thick coronal and sagittal MIP reformats were then acquired. For radiation dose reduction, the following was used: automated exposure control, adjustment of mA and/or kV according to patient size. COMPARISON: [facility], CR, XR CHEST 1VW (PORTABLE), 03/30/2016, 11: 53. [facility], CR, XR CHEST 1VW (PORTABLE), 07/28/2016, 8:51. FINDINGS: Image quality: Excellent. Lungs and pleura: Mild to moderate bilateral pleural effusions, right greater than left are present. Bilateral superimposed consolidative opacities are present. In addition, there are small patchy areas of opacity extending into the upper lobes bilaterally. Mediastinum: Heart size is normal. No pericardial effusion. Multiple mediastinal lymph nodes are present, including a 21 mm posterior subcarinal lymph node. Thoracic aorta and central pulmonary arteries are normal in size. Esophagus is normal in caliber. No hiatal hernia. Bones and chest wall: No suspicious bony lesions. No vertebral body compression fractures. No axillary or supraclavicular adenopathy by size criteria. Thyroid gland is unremarkable. Abdomen: Visualized upper abdominal solid organs and bowel loops appear normal in the absence of contrast. IMPRESSION: 1. Bilateral pleural effusions and consolidations most extensive mediastinal adenopathy. Overall appearance can be consistent with infection/inflammation such as pneumonia. However, other etiologies such as underlying mass lesion cannot be excluded. Recommend short interval imaging followup to document resolution after appropriate therapy. Invasive Procedures PROCEDURE: US GUIDED THORACENTESIS BY REFERRING PHYSICIAN ([id number]) INDICATIONS: effusion, evaluate for infection TECHNIQUE: The indications, alternatives, benefits, risks, and complications of the procedure were explained to the patient. Written informed consent was obtained and placed in the chart. The chest was examined sonographically, and an appropriate site was chosen for thoracentesis. The skin was prepared and draped in the usual sterile fashion, and 1% lidocaine was infiltrated from the skin down through the pleural surface. A 19-gauge catheter-covered needle was then introduced into the pleural space, the catheter was advanced and the needle was withdrawn, and thereafter pleural fluid was aspirated. The catheter was then removed and a dressing was applied. COMPARISON: [facility], , US GUIDED THORACENTESIS, 06/04/2016, 14: 42. FINDINGS: Access site: Right hemithorax. Needle: One-Step centesis catheter with introducer needle. Fluid volume and description: 1120 Fluid sent for diagnostic testing: yes Medications: 1% lidocaine for local anaesthesia. Complications: None; post-procedural chest radiograph is pending to assess for pneumothorax. IMPRESSION: Successful ultrasound-guided thoracentesis. Brief History 86-year-old male with history of CLL, recurrent pleural effusion, atrial fibrillation on AC, ocular myasthenia gravis, and CHF, recent ischemic stroke stroke p/w progressively worsening weakness, cough, sputum. Pt was recently hospitalized in May with acute ischemic stroke, resulted with right sided residual deficit, discharged to SNF. History obtained by , family at the bedside as pt is poor historian. Since patient stayed in [facility] from last hospitalization in , Pt's baseline function was poor, for the past 2weeks, getting weaker with poor appetite. As per . 3days ago, pt was found to have abnormal xray, but didn' t get any abx. pt started having cough with thick sputum, yellowish. appetite became worse and weaker. pt didn't have temp, no chils, no diarrhea. pt has been on nectar thick diet, didn't report any major aspiration. Palliative Care consultation mostly was to meet with and confer with Dr. Gama regarding patient status and goals. The patient's has DPOA paperwork which she had hoped to have notarized during his stay here. We have informed her that our policies have changed and we can no longer offer notarization but that 2 witness signatures will suffice. She is grateful for this. See discussion and plan for further info regarding goals of care and treatment plan. Hospital Course 1.Sepsis, poa, resolved -SIRS+ Fever/HR/RR, wbc-hard to interpret with baseline CLL, probable source: parainfluenza PNA, possible superimposed bacterial PNA, -abx as below 2. Acute respiratory failure, poa, improving -due to parainfluenza 3 PNA, which can be severe -possible superimposed bacterial PNA, ADHF 3. Pnemonia, poa, resolving -probably secondary to parainfluenza -CT shows possible pneumonia versus mass, pleural effusions -check serum crypto(neg), fungitell(neg), galactomannan -all antibiotics discontinued yesterday 4. Possible Fluid over load, resolved -tharacentesis done, no evidence of infection 5. Right foot pain. resolved -mild, exam negative -will monitor 6. Imunocomprimized, poa, active -due to cll -ANC = 1,042 7.Macrocytic anemia,poa, stable -secondary to chronic disease and leukemia - h/h mildly dropped but stable, no signs of active bleeding, Apixaban was held. -will give 1unit pRBC today per , trends h/h 8. Atrial fibrillation RVR, poa, stable -hr 80's today -resume patient's eliquis today, was started few week ago by shipwright helper (isela ) patient had been on asa 325, coumadin before but that was stoped due to internal bleeding -monitor for any bleeding 9. recent ischemic stroke with residual right sided weakness, poa, stable - appreciate PT/OT/ST, aspiration precaution 10. Recurrent right-sided pleural effusion, present on admission,stable -presumably it was from side effect from ibrutinib in the past, s/p thracentesis in last hospitalization, effusion size seemed stable on CXR -will do diagnostic and theraputic tap (CBC, protein, glucose, LDH, bacterial and fungal stain and culture) -we had to hold eliquis for tap today but now platelets to low, will have to give platelets first today -fluid from tap was not infected 11. 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 Gama of oncology. Immunoglobulin level WNL. 12. History of ocular myasthenia poa, stable -Continue home dose Pyridostigmine bromide 60 mg by mouth 4 times a day 13. Lesions on head,poa, stable -Patient had recent biopsies of skin lesions on left cheek and left preauricular area, currently awaiting pathology results 14. Profound weakness, poa, active -physical therapy -OOB to chair dispo:pending given critical status diet:NPO, per s/s eval dvt ppx:HSQ FC verified with family again today, Overall, given patient's multiple comorbidities, ongoing sepsis, prognosis is guarded. greatly benefit from palliative care service for [facility], code status Colleen Johansen [phone] Gama PCP Lives 08/04/16 visit Patient will discharged back to [facility], we have done as much as we could for patient her. He is now off antibiotics and back on his usual meds, his prognosis overall is very poor, high aspiration risk I spoke with Dr. Dillon who accepts him in trnsfer to SNF Exam Vital Signs (Last) Date Time Temp Pulse Resp B/P Pulse Ox O2 Delivery O2 Flow Rate FiO2 08/04/16 13:44 36.6 89 20 123/63 94 OxyMask 3.00 Test 07/25/16 15:15 07/25/16 15:30 07/26/16 07:40 07/29/16 05:55 Hold Purple Top Tube Received (Received) Prothrombin Time 11.6sec (8.1-12.5) Prothromb Time International Ratio 1.08ratio Hold Blue Top Tube Received (Received) Lactic Acid Level 1.3mmol/L (0.4-2.0) Troponin T < 0.010ug/L (0.0-0.011) Hold [place] Top Tube Received (Received) Hold [place] Top Tube Received (Received) Urine Legionella pneumophilia Ag Negative (Negative) Serum Immunoglobulin A 353mg/dL (61-437) Serum Immunoglobulin G 1081mg/dL (700-1600) Immunoglobulin M 44mg/dL (15-143) Phosphorus Level 3.3mg/dL (2.5-4.9) Magnesium Level 1.8mg/dL (1.6-2.6) Test 07/30/16 05:35 07/30/16 17:29 07/31/16 12:40 07/31/16 14:02 Hematology Comments Total Bilirubin 1.3mg/dL (0.0-1.2) Aspartate Amino Transf (AST/SGOT) 15U/L (0-50) Alanine Aminotransferase (ALT/SGPT) 6U/L (0-44) Alkaline Phosphatase 49U/L (25-160) Total Protein 5.1g/dL (6.4-8.4) Albumin 2.2g/dL (3.4-5.0) Cryptococcus Antigen Negative (Negative) Fungal Antibodies <31pg/mL (<80) Aspergillus galactomannan Antigen 0.10Index (0.00-0.49) Lactate Dehydrogenase 188U/L (100-190) Urine Color Bloody (YELLOW) Urine Appearance Turbid (CLEAR,HAZY) Urine pH 6.5 (5.0-8.0) Urine Specific [place] 1.025 (1.003-1.035) Urine Protein 300mg/dL (NEG,TRACE) Urine Glucose (UA) Negativemg/dL (NEGATIVE) Urine Ketones 15mg/dL (NEGATIVE) Urine Occult Blood Large (NEGATIVE) Urine Nitrite Positive (NEGATIVE) Urine Bilirubin Negative (NEGATIVE) Urine Urobilinogen 2.0mg/dL (NORMAL) Urine Leukocyte Esterase Trace (NEGATIVE) Urine RBC Packed/hpf (0-2) Urine WBC 0-5/hpf (0-5) Urine Epithelial Cells Occasional/hpf (NONE-MOD) Urine Crystals None seen (NONE SEEN) Urine Bacteria Few/hpf (NONE-FEW) Urine Hyaline Casts None/lpf (NONE) Urine Granular Casts None seen (NONE SEEN) Urine Waxy Casts None seen (NONE SEEN) Urine Red Blood Cell Casts None seen (NONE SEEN) Urine White Blood Cell Casts None seen (NONE SEEN) Urine Mucus None seen (None Seen) Urine Trichomonas None seen (NONE SEEN) Urine Yeast None (NONE SEEN) Urinalysis Comment None Urine Culture Reflexed Indicated Test 07/31/16 19:38 08/01/16 05:15 08/01/16 12:27 08/02/16 05:30 Pleural Fluid Total Protein 2.4g/dL Pleural Fluid Glucose 134mg/dL Procalcitonin 0.17ng/mL (0.00-0.08) Sodium Level 144mEq/L (134-144) Potassium Level 3.8mEq/L (3.5-5.2) Chloride Level 103mEq/L (97-108) Carbon Dioxide Level 29mmol/L (18-29) Blood Urea Nitrogen 20mg/dL (8-27) Creatinine 0.30mg/dL (0.76-1.27) Estimat Glomerular Filtration Rate 304mL/min (>59) Glucose Level 120mg/dL (60-99) Calcium Level 7.9mg/dL (8.5-10.1) Total Creatine Kinase 21U/L (21-232) Pro-B-Type Natriuretic Peptide 2297pg/mL (0-486) Test 08/02/16 19:38 08/03/16 05:07 Body Fluid Source Peritoneal fluid Body Fluid Color Yellow (Clear) Body Fluid Appearance Hazy Body Fluid pH 7.7 (Not Estab.) Body Fluid WBC 675/mm3 Body Fluid RBC 3150/mm3 Body Fluid Polynuclear WBCs 52% Body Fluid Lymphocytes 48% Body Fluid Monocytes 0% Body Fluid Eosinophils 0% Body Fluid Basophils 0% Body Fluid Lactate Dehydrogenase 82U/L White Blood Count 28.9th/mm3 (3.8-10.1) Red Blood Count 2.14mil/mm3 (4.40-5.80) Hemoglobin 7.8g/dL (13.8-17.2) Hematocrit 24.6% (41.0-50.0) Mean Corpuscular Volume 115.0fL (81-100) Mean Corpuscular Hemoglobin 36.4pg (27.0-35.0) Mean Corpuscular Hemoglobin Concent 31.7% (32.0-37.0) Red Cell Distribution Width 15.9% (12.3-15.4) Platelet Count 37bil/L (150-400) Neutrophils (%) (Auto) 3.3% (40-74) Lymphocytes (%) (Auto) 94.6% (14-46) Monocytes (%) (Auto) 1.9% (4-12) Eosinophils (%) (Auto) 0.1% (0-5) Basophils (%) (Auto) 0.1% (0-3) Thyroid Stimulating Hormone (TSH) 7.370uIU/mL (0.450-4.500) Free Thyroxine 1.22ng/dL (0.82-1.77) Discharge Medications Discharge Medications Acidophilus/Pectin, [place] (Acidophilus [place]) 1 Each Tablet 2 EACH PO BID ( Reported) Apixaban (Eliquis) 5 Mg Tablet 5 MG PO BID (Reported) Atorvastatin Calcium (Atorvastatin Calcium) 40 Mg Tablet 40 MG PO HS Prescribed by: JALIL HYATT DO Calcium Carbonate (Calcium) 600 Mg Tablet 600 MG PO BID (Reported) Cholecalciferol (Vitamin D3) (Vitamin D3) 1,000 Unit Tab.chew 1,000 UNIT PO DAILY (Reported) Cyanocobalamin (Vitamin B-12) (Vitamin B-12) 1,000 Mcg Tablet 1,000 MCG PO DAILY (Reported) Fish Oil/Dha/Epa (Fish Oil 1,200 mg Fish Oil) 1 Each Capsule 2 EACH PO DAILY ( Reported) Omeprazole (Omeprazole) 20 Mg Capsule.dr 20 MG PO BIDAC (Reported) Pyridostigmine [place] (Mestinon) 60 Mg Tablet 60 MG PO QID (Reported) As needed Acetaminophen (Acetaminophen) 325 Mg Tablet 650 MG PO Q4H PRN PRN pain/fever ( Reported) Followup Plan Patient Instructions Your doctor will see you in the [facility] facility Time spent 40 minutes time spent discharging patient today so far. copies to: Lorenzo Lombardo MD; Lulu Dyson MD, D Geoffrey MD August 04, 2016 14:01
--- NOTE | 2016-08-06 13:59 | PATH ---
SURGICAL PATHOLOGY Attending Physician:Lorenzo Lombardo MD CASE STATUS: Signed Out PATIENT NAME: LADONNA ROMEO PID: [id number] : 1930 DATE COLLECTED:08/02/2016 00:00 SPECIMEN: Pleural fluid CLINICAL HISTORY: Pleural Fluid No ICD-10 code given FINAL DIAGNOSIS: PLEURAL FLUID CYTOLOGY SPECIMEN (CELL BLOCK, THINPREP, AND CYTOSPIN): NEGATIVE FOR MALIGNANT CELLS. CELLS PRESENT INCLUDE MATURE LYMPHOCYTES, BENIGN-APPEARING MESOTHELIAL CELLS, AND RARE PMNs. [id number] GROSS DESCRIPTION: Received fresh on 08/05/2016 is approximately 50 cc of cloudy yellow fluid. Prepared are one cell block, one cytospin, and one ThinPrep slides. vo/ ICD-9 CODES: CPT CODES: 1: 12847, 43136, 38627 Electronically Signed Out Carter Lunsford MD [facility] Pathology [facility] [address], [place] [address] Technical component performed at [facility], [facility] [address], [place], [address]
[2016-08-21] MEDS ORDERED: oxygen INH (10:41)
[2016-09-05] MEDS ORDERED: [UNRECOGNIZED DRUG - CODE] MC (09:16)
[2016-09-11] MEDS ORDERED: LIP40 PO (08:50)
[2016-09-11] MEDS ORDERED: NYST1000 PO (08:57)
[2016-09-11] MEDS ORDERED: MAGN800O PO (08:57)
[2016-09-11] MEDS ORDERED: LEVO500T16 PO (08:57)
[2016-09-11] MEDS ORDERED: PYRI60TA PO (08:57)
== END 2016-08-04 16:23 | DRG 871 ==
LOC: SED 14:54 → EDBD 14:54 → EDUNIT# 14:54 → MPC 20:05
PROVIDERS: ADMIT Internal Medicine; ATTEND Internal Medicine
PROC: 4A033R1 Measurement of Arterial Saturation, Peripheral, Percutaneous Approach (ICD-10-PCS; principal; 2016-07-25)
DX: A41.9 Sepsis, unspecified organism (principal); J18.9 Pneumonia, unspecified organism; I69.351 Hemiplegia and hemiparesis following cerebral infarction affecting right dominant side; C91.10 Chronic lymphocytic leukemia of B-cell type not having achieved remission; I69.391 Dysphagia following cerebral infarction; I69.322 Dysarthria following cerebral infarction; R13.10 Dysphagia, unspecified; Z87.891 Personal history of nicotine dependence; G70.00 Myasthenia gravis without (acute) exacerbation; I48.91 Unspecified atrial fibrillation; E03.9 Hypothyroidism, unspecified; I50.9 Heart failure, unspecified

== ENCOUNTER 2016-08-15 18:37 | Inpatient (IN) | payer MEDICARE, OTHER ==
[~2016-08-15] VITALS: Ht 180.3 cm; Wt 77.1 kg
[~2016-08-15 18:37] MED LIST changes: +ACET325T51 PO; +APIX5TAB PO; -ASPI325T32 PO; -KEN25CR EXT; -LEVO750T9 PO; -MINO100T PO
--- NOTE | 2016-08-15 19:09 | ED.REPORT ---
HPI-General Illness Date of Service August 15, 2016 ED Provider: Dr. Layne 86 y/o male with a hx of CVA, CHF, A-fib and stage IV lymphocytic leukemia presents to the ED via EMS from [facility] due to AMS, onset yesterday. As per his , the pt has not been alert for the last two days. She was unable to keep him awake today when she tried to make him eat. Family denies any fever or vomiting. Pt has an indwelling catheter in place. The pt is scheduled for a blood transfusion in three days. Pt was discharged 3 weeks ago after hospitalization due to pneumonia and sepsis. Nursing Notes Stated Complaint: LETHARGIC Nursing Notes Reviewed: Yes Allergies: Coded Allergies: Penicillins (Verified Allergy, Severe, SWELLING WITH BLISTERS, 07/25/16) Sulfa (Sulfonamide Antibiotics) (Verified Allergy, Severe, RASH, 07/25/16) cedarwood (Verified Allergy, Severe, RASH, 07/25/16) ketoconazole (Verified Allergy, Severe, RASH, 07/25/16) Cephalosporins (Verified Allergy, Unknown, UNKNOWN, 07/25/16) trimethoprim (Verified Allergy, Unknown, UNKNOWN, 07/25/16) Scheduled Acidophilus/Pectin, [place] (Acidophilus Caplet) 1 Each Tablet 2 EACH PO BID Apixaban (Eliquis) 5 Mg Tablet 5 MG PO BID Atorvastatin (Lipitor) 10 Mg Tab 40 MG PO HS Calcium Carbonate (Calcium) 600 Mg Tablet 600 MG PO BID Cholecalciferol (Vitamin D3) (Vitamin D3) 1,000 Unit Tab.chew 1,000 UNIT PO QAM Cyanocobalamin (Vitamin B-12) (Vitamin B-12) 1,000 Mcg Tablet 1,000 MCG PO QAM Ipratropium/Albuterol Sulfate (Iprat-Albut 0.5-3(2.5) mg/3 mL Inhalant Soln) 3 Ml Ampul.neb 3 ML IH TID [place]-3/Dha/Epa/Fish Oil (Fish Oil 1,000 mg Softgel) 1 Each Capsule 2 EACH PO QAM Omeprazole (Omeprazole) 20 Mg Capsule. 20 MG PO BIDAC Pyridostigmine [place] (Mestinon) 60 Mg Tablet 60 MG PO QID Zinc Oxide (Zinc Oxide) 60 Applic/60 Gm Oint 1 APPLIC EXT TID TO COCCYX Scheduled PRN Acetaminophen (Acetaminophen) 325 Mg Tablet 650 MG PO Q4H PRN PRN pain/fever Bisacodyl (Dulcolax Rectal) 10 Mg Supp.rect 10 MG RC DAILY PRN PRN For Constipation NO BOWEL MOVEMENT IN PM POST MILK OF MAG ADMINISTRATION Magnesium Hydroxide (Milk of Magnesia) 400 Mg/5 Ml Oral.susp 30 ML PO DAILY PRN PRN For Constipation NO BOWEL MOVEMENT IN 3 DAYS Na Phos,M-B/Na Phos,Di-Ba (Fleet Enema) 133 Ml Enema 133 ML RC DAILY PRN PRN For Constipation NO BOWEL MOVEMENT POST BISACODYL ADMINISTRATION General Time Seen by MD: 19:09 Chief Complaint Other (Lethargy) Hx Obtained From: Patient Arrived By: Ambulance Sudden in Onset?: Yes Onset Occurred: Yesterday Symptom Duration: Since onset Severity: Current: No pain currently Severity: Maximum: No pain Recent Healthcare: Recent doctor visit Similar Sx Previous: No Past Medical History Past Medical History 1. Ocular Myasthenia gravis 2. 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 CHF 4. Atrial fibrillation 5. Refux Esophagitis 6. Hypothyroidism Tricuspid regurg Stroke Reports: Cancer Past Surgical History Menisectomy Right and left shoulder impingement Blood transfusion L knee scope R eye x2 Reports: Appendectomy, Cataract surgery Smoking History Former Smoker Social History Other Social History: Good social support, , Local resident Ambulatory Status Independent Review of Systems Full Review of Systems Constitutional: Reports: Lethargy, Weakness - generalized, Denies: Fever GI: Denies: Vomiting Complete sys rev & neg: except as marked. Physical Exam Vital Signs Vital Signs Date Time Temp Pulse Resp B/P Pulse Ox O2 Delivery O2 Flow Rate FiO2 08/15/16 19:18 36.7 89 20 107/50 100 Room Air 4 Initial VS: Reviewed Head / Eyes: Atraumatic, Normocephalic, PERRL (3mm) ENT: Conjunctiva normal, No scleral icterus Neck: Supple, Non-tender Respiratory: Breath sounds normal, Clear to auscultation, No respiratory distress Extremities: Vascular intact, Neuro intact, No swelling, No tenderness Skin: Warm, Dry, No cyanosis Alertness: Positive: Somnolent Non-verbal Cardiovascular: Heart rate NL, Regular rhythm, Heart sounds NL, No gallop, No murmurs, No rubs, Cap refill not delayed, Peripheral circulation NL Abdomen: Soft, Non-tender, BS normoactive Interpretation & Diagnostics Lab Results Interpretation Result Diagram: 08/15/16191808/15/161918 Test 08/15/16 19:19 08/15/16 19:20 08/15/16 21:28 White Blood Count 36.8th/mm3 (3.8-10.1) Red Blood Count 2.16mil/mm3 (4.40-5.80) Hemoglobin 8.4g/dL (13.8-17.2) Hematocrit 24.7% (41.0-50.0) Mean Corpuscular Volume 114.4fL (81-100) Mean Corpuscular Hemoglobin 37.5pg (27.0-35.0) Mean Corpuscular Hemoglobin Concent 32.8% (32.0-37.0) Red Cell Distribution Width 17.8% (12.3-15.4) Platelet Count 82bil/L (150-400) Neutrophils (%) (Auto) 3% (40-74) Lymphocytes (%) (Auto) 97% (14-46) Monocytes (%) (Auto) 0% (4-12) Eosinophils (%) (Auto) 0% (0-5) Basophils (%) (Auto) 0% (0-3) Sodium Level 136mEq/L (134-144) Potassium Level 4.6mEq/L (3.5-5.2) Chloride Level 96mEq/L (97-108) Carbon Dioxide Level 28mmol/L (18-29) Blood Urea Nitrogen 14mg/dL (8-27) Creatinine 0.36mg/dL (0.76-1.27) Estimat Glomerular Filtration Rate 246mL/min (>59) Glucose Level 120mg/dL (60-99) Calcium Level 9.1mg/dL (8.5-10.1) Magnesium Level 1.7mg/dL (1.6-2.6) Total Bilirubin 1.9mg/dL (0.0-1.2) Aspartate Amino Transf (AST/SGOT) 13U/L (0-50) Alanine Aminotransferase (ALT/SGPT) 8U/L (0-44) Alkaline Phosphatase 64U/L (25-160) Troponin T < 0.010ug/L (0.0-0.011) Pro-B-Type Natriuretic Peptide 1683pg/mL (0-486) Total Protein 6.9g/dL (6.4-8.4) Albumin 3.1g/dL (3.4-5.0) Hold [place] Top Tube Received (Received) Urine Color Straw (YELLOW) Urine Appearance Clear (CLEAR,HAZY) Urine pH 6.5 (5.0-8.0) Urine Specific Bromide 1.005 (1.003-1.035) Urine Protein Negativemg/dL (NEG,TRACE) Urine Glucose (UA) Negativemg/dL (NEGATIVE) Urine Ketones Negativemg/dL (NEGATIVE) Urine Occult Blood Small (NEGATIVE) Urine Nitrite Positive (NEGATIVE) Urine Bilirubin Negative (NEGATIVE) Urine Urobilinogen Normalmg/dL (NORMAL) Urine Leukocyte Esterase Moderate (NEGATIVE) Urine RBC 0-2/hpf (0-2) Urine WBC 6-10/hpf (0-5) Urine Epithelial Cells None/hpf (NONE-MOD) Urine Crystals Oxalic acid crystals (NONE Urine Bacteria Few/hpf (NONE-FEW) Urine Hyaline Casts None/lpf (NONE) Urine Granular Casts None seen (NONE SEEN) Urine Waxy Casts None seen (NONE SEEN) Urine Red Blood Cell Casts None seen (NONE SEEN) Urine White Blood Cell Casts None seen (NONE SEEN) Urine Mucus None seen (None Seen) Urine Trichomonas None seen (NONE SEEN) Urine Yeast None (NONE SEEN) Urinalysis Comment None Urine Culture Reflexed Indicated X-Ray Chest Interpretation Chest Xray Interpretation: IMPRESSION: Improvement in bilateral hilar and retrocardiac opacities as above since 08/03/16. Dictated by: Arvind Maradiaga M.D. on 08/15/2016 at 19:45 Approved by: Arvind Maradiaga M.D. on 08/15/2016 at 19:47 View: Portable, 1 view Interpretation / Wet Read by: Interpret - Radiologist CT Head Interpretation IMPRESSION: No acute intracranial process Dictated by: Arvind Maradiaga M.D. on 08/15/2016 at 19:48 Approved by: Arvind Maradiaga M.D. on 08/15/2016 at 19:50 Study: Head CT no contrast Interpretation / Wet Read by: Interpret - Radiologist Re-Eval/Medical Decision Med Decision/Clinical Course 86-year-old with CLL, previous stroke and new decreased mental status. He has an indwelling [place] and urinalysis suggests this may be the source of infection. No infiltrate seen on chest x-ray abdomen is soft and not appreciably tender. Lactate is normal, blood pressure is low normal. He has been given meropenem and vancomycin for what is interesting is anticipated to be a complicated urinary tract infection we admitted to the hospitalist service. Additionally the patient has a long-standing anemia with transfusion requirement. There is a previously existent plan to transfuse him over the weekend, family would be very pleased that this could be accomplished during this admission. CODE STATUS was discussed, according to family he is DO NOT RESUSCITATE Time of Eval: 22:04 Re-Evaluation/Progress Note: Updated pt and family of lab and imaging results. Discussed plan for admission. Discussed code status with patient and family. Pt is DNR/DNI. All questions addressed Consultation : Referral / Consult Name: Chula Mcknight DO Consulted With: Hospitalist Call Returned at: 22:17 [facility] Wellness Coordinator: Will see patient, Agrees with eval, Agrees with plan, Accepts admit Counseled Regarding: Diagnosis, Lab results, Need for admission Discharge & Departure Primary Impression: UTI (urinary tract infection) Urinary tract infection type: catheter-associated UTI Indwelling urinary catheter type: indwelling urethral catheter Encounter type: initial encounter Qualified Code: T83.511A - Infection and inflammatory reaction due to indwelling urethral catheter, initial encounter Additional Impression: Altered mental status Altered mental status type: unspecified Qualified Code: R41.82 - Altered mental status, unspecified Disposition: ADMITTED TO HOSPITAL Discharge Condition All VS Reviewed: Yes Referrals: Lorenzo Lombardo MD (PCP) Scribe Attestation Portions of this note were transcribed by Farhan Silveira and Juana Ramos. I, , personally performed the history, physical exam and medical decision- making;I reviewed and confirmed the accuracy of the information in the transcribed note. Signed by Farhan Silveira and Dunia Hernandez. 08/15/16 22 :09 copies to: Lorenzo Lombardo MD, Donald L MD August 15, 2016 19:09 Farhan Silveira August 15, 2016 19:16 Juana Ramos August 15, 2016 22:07
[2016-08-15] MEDS ORDERED: Ondansetron 2 mg/mL 2 mL Inj IV PRN (19:10)
[2016-08-15 19:18] VITALS: BP 107/50; PULSE 20; PULSE 89; RESP 20; O2SAT 100
[2016-08-15 19:46] LABS: Mean Corpuscular Hemoglobin 37.5 pg (27.0-35.0); Mean Corpuscular Volume 114.4 fL (81-100)
[2016-08-15 19:47] LABS: BASOPHILS % (AUTO) 0 % (0-3); EOSINOPHILS % (AUTO) 0 % (0-5); MONOCYTES % (AUTO) 0 % (4-12); NEUTROPHILS % (AUTO) 3 % (40-74); Platelet Count 82 bil/L (150-400)
--- NOTE | 2016-08-15 19:48 | DRSVH ---
PROCEDURE: X-RAY CHEST ONE VIEW, PORTABLE ([id number]) INDICATIONS: lethargy TECHNIQUE: One view of the chest was acquired. COMPARISON: [facility], CR, XR CHEST 1VW (PORTABLE), 08/03/2016, 5:27. FINDINGS: Surgical changes and devices: None. Lungs and pleura: No pleural effusions or pneumothorax. Mildly decreased bilateral perihilar opacity since 08/03/16. Also improvement in the retrocardiac consolidation. No new consolidation seen. There is diffuse interstitial disease and scarring. Mediastinum: Mediastinal contours appear normal. Heart size is normal. Bones and chest wall: No suspicious bony lesions. Overlying soft tissues appear unremarkable. IMPRESSION: Improvement in bilateral hilar and retrocardiac opacities as above since 08/03/16. Dictated by: Arvind Maradiaga M.D. on 08/15/2016 at 19:45 Approved by: Arvind Maradiaga M.D. on 08/15/2016 at 19:47
[2016-08-15 19:49] LABS: TROPONIN T < 0.010 ug/L (0.0-0.011)
--- NOTE | 2016-08-15 19:51 | DRSVH ---
PROCEDURE: CT BRAIN WITHOUT CONTRAST ([id number]) INDICATIONS: altered mental status TECHNIQUE: Noncontrast 4.5 mm thick angled axial sections acquired from the foramen magnum to the vertex, with c oronal reformats. COMPARISON: [facility], CT, CT BRAIN WO CON, 06/07/2016, 11:31. FINDINGS: Image quality: Excellent. CSF spaces: Basal cisterns are patent. No extra-axial fluid collections. The ventricles are symmet brandy in size and shape. Brain: No intracranial bleeds or masses. There is cerebral volume loss for age, with resultant vent ricular and sulcal prominence. There are periventricular and deep white matter chronic small vessel ischemic changes. There is intracranial internal carotid artery atherosclerosis. Skull and face: Calvarium and visualized facial bones appear intact, without suspicious lesions. Sinuses: Visualized sinuses and mastoids are clear. IMPRESSION: No acute intracranial process Dictated by: Arvind Maradiaga M.D. on 08/15/2016 at 19:48 Approved by: Arvind Maradiaga M.D. on 08/15/2016 at 19:50
[2016-08-15 19:57] LABS: Magnesium 1.7 mg/dL (1.6-2.6)
[2016-08-15 21:49] LABS: APPEARANCE,URINE CLEAR (CLEAR,HAZY); COLOR,URINE STRAW (YELLOW); OCCULT BLOOD,URINE SMALL (NEGATIVE); PH,URINE 6.5 (5.0-8.0); UROBILINOGEN,URINE NORMAL (NORMAL)
[2016-08-15] MEDS ORDERED: Meropenem Inj 1,000 MG in IV Premix 1 EACH IV ONE (22:25)
[2016-08-15] MEDS ORDERED: Vancomycin Inj 1,000 MG in IV Premix 1 EACH IV ONE (22:25)
[2016-08-15 22:41] VITALS: BP 99/42; PULSE 95; RESP 18; O2SAT 94
[2016-08-15] MEDS ORDERED: Alum-Mag Hydrox-Simeth 30 mL Suspension PO PRN (23:25)
[2016-08-15] MEDS ORDERED: Ondansetron 2 mg/mL 2 mL Inj IVPUSH PRN (23:25)
[2016-08-15] MEDS ORDERED: Polyethylene Glycol (PEG) 17 Gm Powder PO PRN (23:25)
[2016-08-16] VITALS (16 sets, daily range): BP systolic 91–107; BP diastolic 47–66; PULSE 64–92; RESP 16–28; O2SAT 92–98
[2016-08-16] MEDS ORDERED: ATRV10T PO (00:17)
[2016-08-16] MEDS ORDERED: IPRA3AMP IH (00:24)
[2016-08-16] MEDS ORDERED: OMEG-38 PO (00:24)
[2016-08-16] MEDS ORDERED: [UNRECOGNIZED DRUG - CODE] EXT (00:24)
[2016-08-16] MEDS: 0.9% Sodium Chloride 1,000 ML IV SCH ×3 (00:26→18:12)
[2016-08-16] MEDS ORDERED: MAGN400O4 PO (00:26)
[2016-08-16] MEDS ORDERED: BISA10SU61 RC (00:27)
[2016-08-16] MEDS ORDERED: NA P133E23 RC (00:27)
--- NOTE | 2016-08-16 01:04 | PCM.HPMED ---
Subjective Date of Service August 16, 2016 Primary Provider: Admitting Physician: Chula Mcknight DO Primary Care Physician: Lorenzo Lombardo MD Attending Physician: Chula Mcknight DO Admit Status: From the Emergency Department, Remote Telemetry Chief Complaint: Lethargy History of Present Illness: 86 y/o male with a hx of CVA, CHF, A-fib and stage IV lymphocytic leukemia presents to the ED via EMS from [facility] due to lethargy, onset yesterday. As per his , the pt has not been alert for the last two days. She was unable to keep him awake today when she tried to make him eat. Family denies any fever or vomiting. Pt has an indwelling catheter in place. The pt is scheduled for a blood transfusion in three days. Pt was discharged 3 weeks ago after hospitalization due to pneumonia and sepsis. In the ED vitals T 36.7, P 89, R 20, BP 107/50, oxygen saturation 100% on 4 L. Absence significant for WBC 36.8, H/H 8.4/24.7, platelets 82. UA positive for nitrites and leukocyte esterase, urine sent for culture. CXR showed "Improvement in bilateral hilar and retrocardiac opacities compared to 08/03/16" . CT of head negative for any acute intracranial process. Patient was started on meropenem, admitted for further treatment and management. Review of Systems: Constitutional: Reports: Lethargy, Weakness - generalized, Denies: Fever, chills, cough GI: Denies: Vomiting Abd: Denies abdominal pain Complete sys rev & neg: except as marked. A comprehensive review of systems has been conducted with the patient and found to be negative except what is mentioned above or in the HPI. Allergies Coded Allergies: Penicillins (Verified Allergy, Severe, SWELLING WITH BLISTERS, 07/25/16) Sulfa (Sulfonamide Antibiotics) (Verified Allergy, Severe, RASH, 07/25/16) cedarwood (Verified Allergy, Severe, RASH, 07/25/16) ketoconazole (Verified Allergy, Severe, RASH, 07/25/16) Cephalosporins (Verified Allergy, Unknown, UNKNOWN, 07/25/16) trimethoprim (Verified Allergy, Unknown, UNKNOWN, 07/25/16) Home Medications Acidophilus/Pectin, [place] (Acidophilus Caplet) 1 Each Tablet 2 EACH PO BID Apixaban (Eliquis) 5 Mg Tablet 5 MG PO BID Atorvastatin Calcium (Atorvastatin Calcium) 40 Mg Tablet 40 MG PO HS Calcium Carbonate (Calcium) 600 Mg Tablet 600 MG PO BID Cholecalciferol (Vitamin D3) (Vitamin D3) 1,000 Unit Tab.chew 1,000 UNIT PO DAILY Cyanocobalamin (Vitamin B-12) (Vitamin B-12) 1,000 Mcg Tablet 1,000 MCG PO DAILY Fish Oil/Dha/Epa (Fish Oil 1,200 mg Fish Oil) 1 Each Capsule 2 EACH PO DAILY Omeprazole (Omeprazole) 20 Mg Capsule.dr 20 MG PO BIDAC Pyridostigmine [place] (Mestinon) 60 Mg Tablet 60 MG PO QID Scheduled PRN Acetaminophen (Acetaminophen) 325 Mg Tablet 650 MG PO Q4H PRN PRN pain/fever PMH 1. Ocular Myasthenia gravis 2. 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 CHF 4. Atrial fibrillation 5. Refux Esophagitis 6. Hypothyroidism 7. Tricuspid regurg 8. Hx of Stroke Surgical History Menisectomy Right and left shoulder impingement Blood transfusion L knee scope R eye x2 Reports: Appendectomy, Cataract surgery Family History Patient unable to answer at this time. Social History Hx Alcohol Use: No Hx Substance Use: No Hx Tobacco Use: Yes Smoking Status: Former Smoker Exam Vital Signs Vital Sign - Last Date Time Temp Pulse Resp B/P Pulse Ox O2 Delivery O2 Flow Rate FiO2 08/15/16 22:41 95 18 99/42 94 Nasal Cannula 3 08/15/16 19:18 36.7 Exam General: No acute distress, thin elderly gentleman, appearing lethargic, responds to ques, but not able to reply to questions HEENT: Normocephalic, atraumatic. Sluggish pupils. Anicteric sclerae, moist conjunctivae. Moist mucous membranes. Neck: Supple with full range of motion. No JVD. No bruits. No lymphadenopathy. Cardiovascular: Regular rate and rhythm with no murmurs, rubs, or gallops appreciated. Radial and dorsal pedis pulses intact and normal. Pulmonary: Crackles at left base. Normal respiratory effort with no use of accessory muscles. Abdomen: Bowel tones present. Soft, nondistended. Tenderness to palpation at suprapubic area Extremities: No clubbing, or cyanosis. Swollen right arm, immobile. Moderate discoloration to lower legs bilaterally with no edema. Skin: Normal temperature, turgor, and texture; no rash, no open lesions or ulcers. Multiple ecchymosis on upper extremities. Neurological: Oriented to self Psychiatric: Normal mood and affect. Lab and Diagnostics Result Diagram: 08/15/16191808/15/161918 Microbiology BCx, UCx pending X-Rays, CTs and MRIs Chest Xray Interpretation: IMPRESSION: Improvement in bilateral hilar and retrocardiac opacities as above since 08/03/16. Dictated by: Arvind Maradiaga M.D. on 08/15/2016 at 19:45 Approved by: Arvind Maradiaga M.D. on 08/15/2016 at 19:47 View: Portable, 1 view Interpretation / Wet Read by: Interpret - Radiologist CT head IMPRESSION: No acute intracranial process Dictated by: Arvind Maradiaga M.D. on 08/15/2016 at 19:48 Approved by: Arvind Maradiaga M.D. on 08/15/2016 at 19:50 Study: Head CT no contrast Interpretation / Wet Read by: Interpret - Radiologist Assessment & Plan Patient is a 86 yo male with a hx of CVA, CHF, A-fib and stage IV lymphocytic leukemia presents to the ED via EMS from [facility] due to lethargy and AMS , onset yesterday. As per his , the pt has not been himself for the last two days. She was unable to keep him awake today when she tried to make him eat. Family denies any cough, fever or vomiting. UA positive, CXR showing improvement. Altered mental status with lethargy, present on admission. Acute. - CT head negative for acute intracranial process, making brain tumor, subdural hematoma, hydrocephalus unlikely - TSH/Free T4 of 7.37/1.22 as of 08/05/16 - Most likely due to UTI. Differentials consist of infectious causes (UTI, pneumonia, bacteremia, meningitis, encephalitis), dehydration, drug reaction, CLL related manifestations Urinary tract infection, present on admission. Acute. - Patient has indwelling urethral catheter from nursing facility with UA positive for nitrites and leukocyte esterase - IVF - MRSA screen, UCx pending, - patient with no past history of specific organisms, will use broad coverage antibiotics, Vancomycin and Meropenem given in ED, will continue - consider ID consult in am Leukocytosis, present on admission. Acute. - Most likely due to UTI, cannot rule out other infectious processes - BCx pending - Broad coverage with antibiotics, due to patient's recent hospitalization Dysphagia, present on admission. Ongoing. - reports of recent dysphagia - NPO till swallow test - Swallow test ordered Thrombocytopenia secondary to CLL with pancytopenia, present on admission. Stable. - Patient appears to be at baseline Anemia of chronic disease, present on admission. Stable. 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 CHF Atrial fibrillation - continue Eliquis Refux Esophagitis - continue omeprazole Hypothyroidism Ocular Myasthenia gravis - pyridostigmine bromide Hx of Stroke - continue with atorvastatin Acetaminophen-fever/headache/mild/moderate pain Antiemetics, as needed Bowel regimen, as needed. Patient status: Patient was admitted under inpatient status with expected length of stay greater than two midnights due to severity of presenting symptoms , risk of adverse event, and complexity of treatment plan. Pain Evaluation: Adequate Pain Control GI Prophylaxis: Not indicated VTE Prophylaxis: SCDs Resuscitation Status: DNR/DNI:Do Not Resuscitate/Intubate Attending Statement The patient was seen and examined together with house staff on 08/15/2016 and I agree with the history, exam and plan as outlined in the note above. Cuong Loo DO August 16, 2016 00:22 Chula Mcknight DO August 16, 2016 04:04
[2016-08-16 03:23] LABS: Platelet Count 60 bil/L (150-400)
[2016-08-16 03:58] LABS: BASOPHILS % (AUTO) 0.1 % (0-3); EOSINOPHILS % (AUTO) 0.2 % (0-5); MONOCYTES % (AUTO) 0.5 % (4-12); Mean Corpuscular Hemoglobin 37.1 pg (27.0-35.0); NEUTROPHILS % (AUTO) 4.1 % (40-74)
--- NOTE | 2016-08-16 05:44 | NUR ---
Admit Pt arrived to [facility] from ED and was transferred from [facility] to bed via slider board. Pt has right sided weakness from a previous CVA and is wheelchair bound at baseline. Pt at bedside to help answer questions. MED REC and admit complete. Pt arrived with indwelling [place] from [facility]. Pt is alert to self but not to place or time. Pt will be Q2 turns to avoid skin break down. Skin check complete and SCD's placed. VSS and Tele Afib 70's.
--- NOTE | 2016-08-16 06:13 | NUR ---
H&H Pt had critical H&H result x2 MD notified and would like to consult oncology regarding administration of blood products as pt receives blood transfusion every 6 weeks.
--- NOTE | 2016-08-16 06:58 | PCM.CONPHA ---
Subjective Date of Service: August 16, 2016 Requesting Provider: Cuong Loo DO Lethargy History of Present Illness empiric Reason for Pharmacy Consult: Vancomycin Dosing Objective Assessment/Plan Assessment/Plan A/ - 86 y/o male patient admitted in late 08/15 for lethargic and Vancomycin required for empirical coverage - Afebrile, WBC at admission; 36.8, down to 25.4 early am lab today; urine, blood cultures, and nasal MRSA screen are pending - In ED, received Meropenem and Vancomycin 1G at 0030 08/16 - Wt: 75.8kg, ht: 180cm, SCr: 0.3 mg/dL, estimated clearance ~ 70ml/min (used SCr: 0.8mg/dL due to high age), Vd~53L - ID consult ordered for this morning P/ - Give Vancomycin 750mg iv q12h. Trough level ordered before 3rd dose @ 2330 today. Pharmacy will continue to follow and make necessary adjustment Thank you for consulting clinical pharmacy in the care of this patient lA Szymanski PharmD, [facility] Ekta Szymanski August 16, 2016 06:58
[2016-08-16] MEDS: 0.9% Sodium Chloride 250 ML IV SCH (07:40)
[2016-08-16] MEDS ORDERED: Ciprofloxacin Inj 400 MG in IV Premix 1 EACH IV SCH (08:30)
[2016-08-16] MEDS ORDERED: Vancomycin Dose per Pharmacist XX SCH (08:30)
[2016-08-16] MEDS ORDERED: Meropenem Inj 1,000 MG in IV Premix 1 EACH IV SCH ×2 (08:30→11:00)
[2016-08-16] MEDS: Albuterol-Ipratropium 3 mL Inhalation Solution NEB SCH ×3 (09:12→19:43)
[2016-08-16] MEDS: Pantoprazole 20 mg ER24 Tablet PO SCH ×2 (09:50→18:11)
--- NOTE | 2016-08-16 10:30 | NUR ---
Evaluation completed. Please go to "Notes" then click on "Assessments and Notes" (bottom left corner of screen). Then select appropriate discipline tab on top of screen.
[2016-08-16] MEDS ORDERED: Vancomycin Inj 750 MG in 0.9% Sodium Chloride 250 ML IV SCH (12:00)
[2016-08-16] MEDS: Meropenem Inj 1,000 MG in 0.9% Sodium Chloride 50 ML IV SCH ×2 (13:00→20:45)
--- NOTE | 2016-08-16 15:02 | PCM.PNMED ---
Subjective Date of Service August 16, 2016 Subjective Mr. Holbrook is an 86-year-old gentleman with a history of heart failure, stroke, A-fib, hypothyroidism, and stage IV lymphocytic leukemia who presented to the emergency department from [facility] with an indwelling Richmond catheter and a one day history of lethargy. Admitted for acute encephalopathy likely due to acute urinary tract infection. [facility]. Transfused one unit of pRBCs this morning with repeat H/H 8.2/25.0. Patient is states that he is doing 'just fine' and is somewhat of a poor historian. He denies dysuria, abdominal pain, chest pain, shortness of breath, fever or chills. His states that the catheter has been in since he was discharged a few weeks ago and she does not know if it has been changed. Exam Vital Signs Vital Sign - Last Date Time Temp Pulse Resp B/P Pulse Ox O2 Delivery O2 Flow Rate FiO2 08/16/16 05:18 86 08/16/16 05:16 36.9 18 105/59 98 Nasal Cannula 2.00 Intake and Output 08/15/16 08/15/16 08/16/16 Cumulative From/Thru 15:00 23:00 07:00 08/15/16 19:18 - 08/16/16 05:31 Intake Total 0 ml 0 ml Output Total 900 ml 900 ml Balance -900 ml -900 ml Intake Oral 0 ml 0 ml Output Urine Total 900 ml 900 ml Exam General: Elderly gentleman in no acute distress, appears lethargic but responds to questions but mildly confused. HEENT: Normocephalic, atraumatic. PERRLA, no scleral icterus. Moist mucous membranes.Right-sided facial droop Neck: Supple with full range of motion. No JVD. No bruits. No lymphadenopathy. Cardiovascular: Regular rate and rhythm with no murmurs, rubs, or gallops appreciated. Pulmonary: Lungs grossly clear to auscultation bilaterally with mild crackles at left base. Abdomen: Bowel tones present. Soft, nondistended, mildly tender to palpation suprapubic area. Extremities: Swollen right arm, immobile. Moderate discoloration to lower legs bilaterally with no edema or cyanosis. Multiple ecchymosis on upper extremities. Skin: Normal temperature, turgor, and texture; no rash, no open lesions or ulcers. Neurological: Oriented to self Psychiatric: Normal mood and affect. IVs and Medications Medications Reviewed: Medications were reviewed in detail Lab and Diagnostics Laboratory Tests Test 08/15/16 19:19 08/15/16 19:20 08/15/16 21:28 08/16/16 03:10 White Blood Count 36.8th/mm3 (3.8-10.1) 25.4th/mm3 (3.8-10.1) Red Blood Count 2.16mil/mm3 (4.40-5.80) 1.78mil/mm3 (4.40-5.80) Hemoglobin 8.4g/dL (13.8-17.2) 6.6g/dL (13.8-17.2) Hematocrit 24.7% (41.0-50.0) 20.3% (41.0-50.0) Mean Corpuscular Volume 114.4fL (81-100) 114.0fL (81-100) Mean Corpuscular Hemoglobin 37.5pg (27.0-35.0) 37.1pg (27.0-35.0) Mean Corpuscular Hemoglobin Concent 32.8% (32.0-37.0) 32.5% (32.0-37.0) Red Cell Distribution Width 17.8% (12.3-15.4) 17.4% (12.3-15.4) Platelet Count 82bil/L (150-400) 60bil/L (150-400) Neutrophils (%) (Auto) 3% (40-74) 4.1% (40-74) Lymphocytes (%) (Auto) 97% (14-46) 95.0% (14-46) Monocytes (%) (Auto) 0% (4-12) 0.5% (4-12) Eosinophils (%) (Auto) 0% (0-5) 0.2% (0-5) Basophils (%) (Auto) 0% (0-3) 0.1% (0-3) Sodium Level 136mEq/L (134-144) 137mEq/L (134-144) Potassium Level 4.6mEq/L (3.5-5.2) 4.5mEq/L (3.5-5.2) Chloride Level 96mEq/L (97-108) 100mEq/L (97-108) Carbon Dioxide Level 28mmol/L (18-29) 30mmol/L (18-29) Blood Urea Nitrogen 14mg/dL (8-27) 13mg/dL (8-27) Creatinine 0.36mg/dL (0.76-1.27) 0.30mg/dL (0.76-1.27) Estimat Glomerular Filtration Rate 246mL/min (>59) 304mL/min (>59) Glucose Level 120mg/dL (60-99) 112mg/dL (60-99) Calcium Level 9.1mg/dL (8.5-10.1) 8.6mg/dL (8.5-10.1) Magnesium Level 1.7mg/dL (1.6-2.6) Total Bilirubin 1.9mg/dL (0.0-1.2) Aspartate Amino Transf (AST/SGOT) 13U/L (0-50) Alanine Aminotransferase (ALT/SGPT) 8U/L (0-44) Alkaline Phosphatase 64U/L (25-160) Troponin T < 0.010ug/L (0.0-0.011) Pro-B-Type Natriuretic Peptide 1683pg/mL (0-486) Total Protein 6.9g/dL (6.4-8.4) Albumin 3.1g/dL (3.4-5.0) Hold [place] Top Tube Received (Received) Urine Color Straw (YELLOW) Urine Appearance Clear (CLEAR,HAZY) Urine pH 6.5 (5.0-8.0) Urine Specific [place] 1.005 (1.003-1.035) Urine Protein Negativemg/dL (NEG,TRACE) Urine Glucose (UA) Negativemg/dL (NEGATIVE) Urine Ketones Negativemg/dL (NEGATIVE) Urine Occult Blood Small (NEGATIVE) Urine Nitrite Positive (NEGATIVE) Urine Bilirubin Negative (NEGATIVE) Urine Urobilinogen Normalmg/dL (NORMAL) Urine Leukocyte Esterase Moderate (NEGATIVE) Urine RBC 0-2/hpf (0-2) Urine WBC 6-10/hpf (0-5) Urine Epithelial Cells None/hpf (NONE-MOD) Urine Crystals Oxalic acid crystals (NONE Urine Bacteria Few/hpf (NONE-FEW) Urine Hyaline Casts None/lpf (NONE) Urine Granular Casts None seen (NONE SEEN) Urine Waxy Casts None seen (NONE SEEN) Urine Red Blood Cell Casts None seen (NONE SEEN) Urine White Blood Cell Casts None seen (NONE SEEN) Urine Mucus None seen (None Seen) Urine Trichomonas None seen (NONE SEEN) Urine Yeast None (NONE SEEN) Urinalysis Comment None Urine Culture Reflexed Indicated Test 08/16/16 05:10 Hemoglobin 6.5g/dL (13.8-17.2) Hematocrit 20.2% (41.0-50.0) Result Diagram: 08/16/16 0510 08/16/16 0310 Microbiology 08/15/16 Blood Culture- pending 08/16/16 MRSA (PCR)- pending 08/15/16 Urine Culture - Insufficient growth, culture is reincubated X-Rays, CTs and MRIs (08/15/16) Chest Xray Interpretation: IMPRESSION: Improvement in bilateral hilar and retrocardiac opacities since 08/03. Dictated and approved by: Arvind Maradiaga M.D. on 08/15/2016 at 19:45 (08/15/16) CT head IMPRESSION: No acute intracranial process Dictated and approved by: Arvind Maradiaga M.D. on 08/15/2016 at 19:48 Assessment & Plan Mr. Holbrook is an 86-year-old gentleman with a history of heart failure, prior CVA with residual right-sided hemiparesis, A-fib, hypothyroidism, and stage IV lymphocytic leukemia who presented to the emergency department from [facility] with an indwelling Richmond catheter and a one day history of lethargy. Admitted for acute encephalopathy likely due to acute urinary tract infection. Acute encephalopathy. Present on admission. Active. -Likely secondary to acute UTI. Additional etiologies considering include: pneumonia, meningitis, encephalitis, dehydration, drug reaction, or CLL related manifestations. -CT head negative for acute intracranial process. -TSH/free T4 7.37/1.22 as of 08/05/16 -Urine analysis, as above. Culture- pending -Blood cultures- pending -Continue vancomycin and meropenem -Consult Oncology -IV fluids, NS at 100mls/hr Urinary tract infection, acute. Present on admission. Active. - Patient has indwelling urethral catheter and UA positive for nitrites and leukocyte esterase. No past history of specific organisms. Allergies to cephalosporins, penicillins, sulfa. - MRSA screen- negative. Urine culture- pending. - Continue broad spectrum coverage with vancomycin and meropenem in setting of CLL and recent hospitalization. - Will likely consult Infectious Disease. Stage IV lymphocytic leukemia/small lymphocytic lymphoma, chronic. Present on admission. Active. -Patient followed outpatient by Dr. Gama. -Oncology consulted, await recommendations. Leukocytosis, acute. Present on admission. Active. -Most likely due to CLL but cannot rule out infectious processes. -Blood cultures- pending -Antibiotics as above. Anemia of chronic disease. Present on admission. Active. -Patient appears to be at baseline. Per the patient's he receives transfusions approximately every 6 weeks. -Hb 6.5 and 8.2 after transfusion of 1 unit pRBCs. -Trend H/H -Transfusion threshold Hb < 7.0. Thrombocytopenia, chronic. Present on admission. Presumed stable. -Secondary to CLL with pancytopenia and appears at baseline. -Management as above for anemia. Transfuse platelets if needed. -Follow CBC -Consulted Oncology, await recommendations. Prior CVA with chronic right-sided hemiparesis. Present on admission. Presumed stable. -Continue home atorvastatin, 40 MG PO HS Dysphagia, chronic. Present on admission. Presumed stable. -Patient's reports dysphagia. Likely residual deficit from prior CVA. -Swallow evaluation and advanced diet, per Speech therapy. History of CHF, chronic. Present on admission. Presumed stable. -Patient clinically with no signs/symptoms of decompensation. -Echo 06/05/16: showed left ventricular ejection fraction 55-60% with an increase in the severity of pulmonary hypertension. - Daily weights, monitor I's and O's Atrial fibrillation, chronic. Present on admission. Presumed stable. -Continue home apixaban (Eliquis), 5 MG PO BID Reflux Esophagitis, chronic. Present on admission. Presumed stable. -Continue omeprazole 20 MG PO BIDAC Subclinical hypothyroidism, chronic. Present on admission. Presumed stable. -Patient not on levothyroxine. -TSH/free T4 7.37/1.22 as of 08/05/16 Ocular Myasthenia gravis, chronic. Present on admission. Presumed stable. -Continue home pyridostigmine bromide, 60 MG PO QID Acetaminophen-fever/headache/mild/moderate pain Antiemetics, as needed Bowel regimen, as needed. Disposition: Patient will likely discharge back to [facility] in 2-3 days pending improvement in mental status and evaluation/management of infection. GI Prophylaxis: Not indicated VTE Prophylaxis: SCDs Resuscitation Status: DNR/DNI:Do Not Resuscitate/Intubate Attending Statement Patient seen and examined with house staff. Agree with all attached documentation. Lala Haro DO August 16, 2016 08:02 Lorenzo Lombardo MD August 17, 2016 07:41
--- NOTE | 2016-08-16 18:34 | NUR ---
PRBC's/Nuero Patient a/o x 2-3, denies pain, nausea or sob. PRBC's x 1 unit given, patient awais well. VSS, tele A imani. Basilio patent, molly uop. Patient turned q 2 hr and PRN. Speech eval done, patient started on Dysphagia diet with 1:1 assist, eating approx 25% per meal. at bedside assisting with care.
[2016-08-16] MEDS ORDERED: Vancomycin Serum Trough XX ONE (23:30)
[2016-08-17] VITALS (8 sets, daily range): BP systolic 95–119; BP diastolic 47–66; PULSE 52–90; RESP 20–24; O2SAT 90–97
--- NOTE | 2016-08-17 | NUR ---
Transfer of care Report given to Brooks Ahn RN
--- NOTE | 2016-08-17 00:24 | PROG NOTE ---
[address] [address] PROGRESS NOTE PATIENT: LADONNA ROMEO : 1930 MR#: [id number] ADMIT: 08/15/2016 JOB ID: [id number] DATE: 08/16/2016 HOSPITAL ROUNDS: I was asked to see this patient by Dr. Hobbs after admission for altered mental status and an indwelling Richmond catheter with clinical evidence for urinary tract infection in the setting of chronic lymphocytic leukemia and multiple prior admissions for infection and stroke. This is an 86-year-old man who has been living at [facility] receiving some rehabilitative management for complications of a stroke occurring in May 2016 with right hemiparesis and partial aphasia. He has an indwelling Richmond catheter. He has previously been admitted for an acute ischemic cerebrovascular accident, June 04 through June 09, with right-sided pleural effusion, stage 4 chronic lymphocytic leukemia, and other problems including atrial fibrillation. He has also been recently admitted for sepsis with acute respiratory failure, July 25, 2016 through August 04, 2016. His underlying disease diagnosis is chronic lymphocytic leukemia. He has previously been treated with Ibrutinib by Dr. Gama, but this was discontinued recently due to a pleural effusion on the right. He has also been treated for myasthenia gravis by Dr. Reid, according to his . 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 He was sent to the emergency department on August 15 by [facility] due to altered mental status. On admission, he was found to have a hemoglobin of 8.4, hematocrit 24.7, white count of 36.8, of which 3% were neutrophils, 97% lymphocytes, and a platelet count of 82,000. He was admitted for altered mental status and urinary tract infection with an indwelling [place] catheter. He is currently receiving vancomycin and meropenem as well as supportive care. SUBJECTIVE: the patient is partially aphasic. He is there with his who assists in providing history. He states that he feels generally well. He has no pain at this time. No headache, no syncopal episodes or loss of consciousness, and he states his appetite is fair. He has salmon, potatoes, and carrots for his dinner plate and he is eating those. He has no palpitations, chest pain, cough, dyspnea, abdominal pain, nausea, change in bowel habits, or change in urinary symptoms that he is aware of. The remainder of the 14 system review is negative. PHYSICAL EXAMINATION: VITAL SIGNS: temp 36.9, pulse 86, respiratory rate 16, blood pressure 101/55, pulse ox 95% on 1 L nasal cannula. He is not using the nasal cannula right now. His weight is 75.8 kg. It is hard to understand his weight 24 hours earlier was 86.36 kg. He had 340 mL p.o. total and 1725 IV today. HEAD AND NECK: male pattern baldness. Pupils equal, round, and reactive without icterus. Oral mucosa is somewhat dry. Teeth are in fair repair. He has a droopy right eye and this is, according to his , attributed to myasthenia gravis. Neck is supple without thyromegaly. LYMPH NODES: Negative in the neck and supraclavicular area. LUNGS: Clear to auscultation and percussion anteriorly and posteriorly. CARDIAC: Rhythm is regular without murmur, JVD, or peripheral edema. ABDOMEN: Soft, nontender. I do not appreciate splenomegaly. EXTREMITIES: Without effusions or tenderness. LABORATORY VALUES: The white count is down to 25.4 from 36.8 yesterday. Segs are 4.1%, lymphs 95%, no immature forms. Monocytes 0.5, eosinophils 0.2, and basophils 0.1. Hemoglobin 6.6, hematocrit 20.3, platelets 60. BUN and creatinine are 13 and 0.3. Electrolytes normal except for CO2 of 30, glucose 112. Procalcitonin is 0.11, which is elevated. (0.08 is the upper limit of normal.) Chest x-ray shows improvement in bilateral hilar and retrocardiac opacities since August 03, 2016. ASSESSMENT AND RECOMMENDATIONS: 1. Decompensation, thought related to urinary tract infection with Richmond catheter in place. It is not uncommon for a patient in his age group to become disoriented or confused in the setting of sepsis or infection. He seems to be better now. The previous report that he was hypogammaglobulinemic is no longer applicable since his gammaglobulin level is normal and he does not require IVIG infusions at this time If his infection does not clear, Filgrastim 480 mcg subcutaneously daily until the neutrophil count reaches 5000 would be appropriate. There is no absolute contraindication to administering filgrastim in the setting of a high white count due to lymphocytosis. His neutrophil count is just over 1000 and the rest of his elevated white count is related to lymphocytosis from his chronic lymphocytic leukemia. 2. Regarding anemia, there is no different criterion for transfusion based on CLL; would transfuse per standard inpatient guidelines, 2. Regarding the management of chronic lymphocytic leukemia, this will need to be discussed with the patient and his at length with Dr. Gama after he recovers from the acute event. This would involve making decision as to whether to treat chronic lymphocytic leukemia based on only fatigue and no other specific symptoms. Other reasons to start chronic lymphocytic leukemia treatment would be his increasing frequency of infections, and the patient might well be a candidate for second-line therapy with obinutuzumab or rituximab. 3. The patient is followed by Dr. Reid for myasthenia. 4. Atrial fibrillation. an opinion from Cardiology as to whether aspirin alone is sufficient to manage his thrombosis risk as he has already had a stroke. 5. The patient also has hypothyroidism and other problems managed by primary care. KALEN
--- NOTE | 2016-08-17 01:25 | NUR ---
Mentation / O2 Sat's per FISH DRIER woke up saying he needed to speak with MD. When inquiring about what's wrong stated nothing he doesn't need an MD. Checked O2 sat's: 89% on 1L NC, placed on 2L sat'ing 92% on both hands.
[2016-08-17] MEDS: 0.9% Sodium Chloride 1,000 ML IV SCH ×2 (02:01→11:31)
[2016-08-17 03:11] LABS: BASOPHILS % (AUTO) 0.1 % (0-3); EOSINOPHILS % (AUTO) 0.1 % (0-5); MONOCYTES % (AUTO) 0.8 % (4-12); Mean Corpuscular Hemoglobin 36.9 pg (27.0-35.0); Mean Corpuscular Volume 113.8 fL (81-100); NEUTROPHILS % (AUTO) 4.3 % (40-74); Platelet Count 67 bil/L (150-400)
[2016-08-17] MEDS: Meropenem Inj 1,000 MG in 0.9% Sodium Chloride 50 ML IV SCH ×3 (03:47→19:49)
[2016-08-17] MEDS: 0.9% Sodium Chloride 250 ML IV SCH (07:40)
[2016-08-17] MEDS: Albuterol-Ipratropium 3 mL Inhalation Solution NEB SCH (07:40)
--- NOTE | 2016-08-17 08:30 | NUR ---
NUTRITION ASSESSMENT: ASSESS:86 YO male admitted with AMS, UTI with indwelling catheter in the setting of chronic lymphocytic leukemia and multiple prior admissions for infection. Pt. receiving rehab at [facility] for complications of a stroke occurring in May 2016 with right hemiparesis and partial aphasia. Per oncology, there is minimal indication for treating his chronic lymphocytic leukemia based on fatigue with no other specific symptoms. Other reasons to start chronic lymphocytic leukemia treatment would include increasing frequency of infections. Patient may be a candidate for second-line therapy with obinutuzumab or rituximab. He has chronic dysphagia, per ST, and is ordered a modified texture diet; PO intake minimal. He had had significant weight loss and is severely malnourished: 16.62% weight loss x 3 months. Code status: DNR / DNI. PMHx:Chronic lymphocytic leukemia, CVA, A-fib, hypothyroidism, myasthenia gravis, dysphagia. DIET:dysphagia mechanical, nectar thick liquids. PO intake bites - 10% trays. LABS: Reviewed. Cr < 0.30, Glu 111, Ca 8.0, Total Bili 2.0, Alb 2.2. MEDICATIONS: Reviewed. NUTRITION FOCUSED PHYSICAL ASSESSMENT: GI symptoms / stool: BM x 2 today.Markel: 13. Skin Integrity: No issues reported. ANTHROPOMETRICS: Current Wt: 78.0 kgBMI: 23.0 kg/m2.Admit weight: 75.8 kg IBW: 78.18 kg (97% IBW) ESTIMATED NEEDS (CANCER): Calories: 1895 - 2274 kcal (25 - 30 kcal / kg BW) Protein: 76 - 114 g protein (1.0 - 1.5 g / kg BW) Fluid: Approx. 1895 mL (25 mL / kg BW) NUTRITION DIAGNOSIS: 1)Chewing / swallowing difficulties related to CVA with aphasic, as evidenced by requirement for modified diet texture per ST order. 2)Severe malnutrition related to chronic lymphocytic leukemia with multiple infections, as evidenced by 16.62% weight loss x 3 months. INTERVENTION: 1) Will add supplements to trays. 2) Pt. may be candidate for PEG tube placement for a minimum of 3 months to regain his strength. MONITOR/EVALUATE: Diet tolerance, PO intake, labs, GI/nutrition status. Follow up per high nutrition risk guidelines.
[2016-08-17] MEDS: Pantoprazole 20 mg ER24 Tablet PO SCH ×2 (09:01→17:02)
--- NOTE | 2016-08-17 09:45 | PCM.PNMED ---
Subjective Date of Service August 17, 2016 Subjective Mr. Holbrook is an 86-year-old gentleman with a history of heart failure, stroke, A-fib, hypothyroidism, and stage IV lymphocytic leukemia who presented to the emergency department from [facility] with an indwelling Richmond catheter and a one day history of lethargy. Admitted for acute encephalopathy likely due to acute urinary tract infection. No acute events overnight. Patient started on dysphasia diet with 1:1 assist on 08/16 following Speech evaluation. He is resting comfortably this morning, daughter at the bedside. He awakes to voice and is appropriately interactive but somewhat confused. He denies dysuria, abdominal pain, fever, chills, chest pain, difficulty breathing, nausea, vomiting or decreased appetite. Daughter notes decreased appetite and poor PO intake. Exam Vital Signs Vital Sign - Last Date Time Temp Pulse Resp B/P Pulse Ox O2 Delivery O2 Flow Rate FiO2 08/17/16 05:31 88 08/17/16 03:22 36.9 20 115/55 93 Nasal Cannula 1.00 Intake and Output 08/16/16 08/16/16 08/17/16 Cumulative From/Thru 15:00 23:00 07:00 08/15/16 19:18 - 08/17/16 06:08 Intake Total 378 ml 1987 ml 1394 ml 3759 ml Output Total 900 ml 600 ml 2400 ml Balance 378 ml 1087 ml 794 ml 1359 ml Intake Oral 340 ml 100 ml 440 ml IV Total 78 ml 1647 ml 1294 ml 3019 ml Packed Cells 300 ml 300 ml Output Urine Total 900 ml 600 ml 2400 ml # Bowel Movements 2 2 Exam General: Elderly gentleman in no acute distress, resting comfortably, awakes to voice. Somewhat confused but responding to questions appropriately. HEENT: Normocephalic, atraumatic. PERRLA, no scleral icterus. Moist mucous membranes.Right-sided facial droop Neck: Supple with full range of motion. No JVD or lymphadenopathy. Cardiovascular: Regular rate and rhythm with no murmurs, rubs, or gallops appreciated. Pulmonary: Lungs grossly clear to auscultation bilaterally with mild crackles at left base. Abdomen: Bowel tones present. Soft, nondistended, mildly tender to palpation suprapubic area. Extremities: Swollen right arm, immobile. Moderate discoloration to lower legs bilaterally with no edema or cyanosis. Multiple ecchymosis on upper extremities. Skin: Normal temperature, turgor, and texture; no rashes or ulcerations noted. Neurological: Oriented to self and place. Psychiatric: Normal mood and affect. IVs and Medications Medications Reviewed: Medications were reviewed in detail Lab and Diagnostics Laboratory Tests Test 08/16/16 13:42 08/16/16 20:10 08/17/16 00:15 08/17/16 02:45 Hemoglobin 8.2g/dL (13.8-17.2) 7.3g/dL (13.8-17.2) 7.2g/dL (13.8-17.2) Hematocrit 25.0% (41.0-50.0) 22.8% (41.0-50.0) 22.2% (41.0-50.0) Vancomycin Level Trough 8.0mcg/mL White Blood Count 30.0th/mm3 (3.8-10.1) Red Blood Count 1.95mil/mm3 (4.40-5.80) Mean Corpuscular Volume 113.8fL (81-100) Mean Corpuscular Hemoglobin 36.9pg (27.0-35.0) Mean Corpuscular Hemoglobin Concent 32.4% (32.0-37.0) Red Cell Distribution Width 19.9% (12.3-15.4) Platelet Count 67bil/L (150-400) Neutrophils (%) (Auto) 4.3% (40-74) Lymphocytes (%) (Auto) 94.7% (14-46) Monocytes (%) (Auto) 0.8% (4-12) Eosinophils (%) (Auto) 0.1% (0-5) Basophils (%) (Auto) 0.1% (0-3) Sodium Level 137mEq/L (134-144) Potassium Level 4.0mEq/L (3.5-5.2) Chloride Level 101mEq/L (97-108) Carbon Dioxide Level 26mmol/L (18-29) Blood Urea Nitrogen 13mg/dL (8-27) Creatinine < 0.30mg/dL (0.76-1.27) Estimat Glomerular Filtration Rate 304mL/min (>59) Glucose Level 111mg/dL (60-99) Calcium Level 8.0mg/dL (8.5-10.1) Total Bilirubin 2.0mg/dL (0.0-1.2) Aspartate Amino Transf (AST/SGOT) 10U/L (0-50) Alanine Aminotransferase (ALT/SGPT) 7U/L (0-44) Alkaline Phosphatase 53U/L (25-160) Total Protein 5.1g/dL (6.4-8.4) Albumin 2.2g/dL (3.4-5.0) Procalcitonin 0.11ng/mL (0.00-0.08) Result Diagram: 08/17/16 0245 08/17/16 0245 Microbiology 08/15/16 Blood Culture- No growth to date. 08/16/16 MRSA (PCR)- Negative 08/15/16 Urine Culture - Insufficient growth, culture is re-incubated X-Rays, CTs and MRIs (08/15/16) Chest Xray Interpretation: IMPRESSION: Improvement in bilateral hilar and retrocardiac opacities since 08/03. Dictated and approved by: Arvind Maradiaga M.D. on 08/15/2016 at 19:45 (08/15/16) CT head IMPRESSION: No acute intracranial process Dictated and approved by: Arvind Maradiaga M.D. on 08/15/2016 at 19:48 Assessment & Plan Mr. Holbrook is an 86-year-old gentleman with a history of heart failure, prior CVA with residual right-sided hemiparesis, A-fib, hypothyroidism, and stage IV lymphocytic leukemia who presented to the emergency department from [facility] with an indwelling Richmond catheter and a one day history of lethargy. Admitted for acute encephalopathy likely due to acute urinary tract infection. Acute encephalopathy. Present on admission. Improving. -Likely secondary to acute UTI. Additional etiologies considered include: pneumonia, meningitis, encephalitis, dehydration, drug reaction, or CLL related manifestations. -CT head negative for acute intracranial process. -TSH/free T4 consistent with subclinical hypothyroidism. -Urine analysis, as above. Culture- pending -Blood cultures with no growth to date. -Per Oncology, may consider Filgastrim if infection persists. -Discontinue IV fluids, adequately fluid resuscitated. -Continue broad spectrum coverage with meropenem in setting of CLL and recent hospitalization. -Vancomycin discontinued (08/16), MRSA screen negative. Urinary tract infection, acute. Present on admission. Active. -Patient has indwelling urethral catheter and UA positive for nitrites and leukocyte esterase. No past history of specific organisms. Allergies to cephalosporins, penicillins, sulfa. -MRSA screen- negative. Urine culture- pending. -Antibiotics as above. Stage IV lymphocytic leukemia/small lymphocytic lymphoma, chronic. Present on admission. Active. -Patient followed outpatient by Dr. Gama. -Oncology consulted and recommendations as follows: -Additional therapy or initiation of treatment for CLL not indicated at this time. -Patient will need to recover from acute infection and discuss management of CLL with Dr. Gama. -Due to increasing frequency of infections he may be a candidate for second- line therapy. Leukocytosis, acute. Present on admission. Active. -Most likely due to CLL but cannot rule out infectious processes. -Blood cultures with no growth to date. -Urine culture- pending. -Antibiotics as above. Anemia of chronic disease. Present on admission. Active. -Patient appears to be at baseline. Per the patient's he receives transfusions approximately every 6 weeks. -Hb 6.5 and 8.2 after transfusion of 1 unit pRBCs. -7.2 this morning -CBC in the morning -Transfusion threshold Hb < 7.0. Thrombocytopenia, chronic. Present on admission. Presumed stable. -Secondary to CLL with pancytopenia and appears at baseline. -Management as above for anemia. Transfuse platelets if needed. Prior CVA with chronic right-sided hemiparesis. Present on admission. Presumed stable. -Continue home atorvastatin, 40 MG PO HS Dysphagia, chronic. Present on admission. Presumed stable. -Likely residual deficit from prior CVA. -Dysphagia diet with 1:1 assist per Speech following swallow evaluation 08/16. Chronic diastolic CHF, chronic. Present on admission. Presumed stable. -Patient clinically with no signs/symptoms of decompensation. -Echo 06/05/16: showed left ventricular ejection fraction 55-60% with an increase in the severity of pulmonary hypertension. -Daily weights, monitor I's and O's Atrial fibrillation, chronic. Present on admission. Presumed stable. -Continue home apixaban (Eliquis), 5 MG PO BID Reflux Esophagitis, chronic. Present on admission. Presumed stable. -Continue omeprazole 20 MG PO BIDAC Subclinical hypothyroidism, chronic. Present on admission. Presumed stable. -Patient not on levothyroxine. -TSH/free T4 7.37/1.22 as of 08/05/16 Ocular Myasthenia gravis, chronic. Present on admission. Presumed stable. -Continue home pyridostigmine bromide, 60 MG PO QID Acetaminophen-fever/headache/mild/moderate pain Antiemetics, as needed Bowel regimen, as needed. Disposition: Patient will likely discharge back to [facility] in 1-2 days pending improvement in mental status and evaluation/management of infection. Pain Evaluation: Adequate Pain Control GI Prophylaxis: Not indicated VTE Prophylaxis: SCDs VTE Mechanical Devices: Intermittant Pneumatic CD Resuscitation Status: DNR/DNI:Do Not Resuscitate/Intubate Attending Statement Patient seen and examined with house staff. Agree with all attached documentation. Lala Haro DO August 17, 2016 07:28 Lorenzo Lombardo MD August 18, 2016 07:30
--- NOTE | 2016-08-17 16:03 | NUR ---
Left message for pt's DPOA Colleen Holbrook by phone regarding ALESSANDRO. Yesenia Son, INLAYER SILVER
--- NOTE | 2016-08-17 16:29 | NUR ---
Bowels/Resp/Richmond Patient a/o to self and family, but forgetful at times, using call light appropriately. Patient denies pain, nausea or sob, but has dyspnea at rest and with activity. O2 @ 2 L nc sat 92-93%. Patient having soft stool but c/o constipation, Senna x 1 given per patient request. Richmond removed at 1600, HNV. Patient turned q 2hr, skin intact. Taking diet fair, with 1:1 obs/assist. VSS, tele A fib.
[2016-08-18] VITALS (11 sets, daily range): BP systolic 97–119; BP diastolic 54–67; PULSE 62–112; RESP 16–20; O2SAT 93–96
[2016-08-18 03:02] LABS: BASOPHILS % (AUTO) 0.1 % (0-3); EOSINOPHILS % (AUTO) 0.1 % (0-5); MONOCYTES % (AUTO) 0.4 % (4-12); Mean Corpuscular Hemoglobin 36.1 pg (27.0-35.0); Mean Corpuscular Volume 113.5 fL (81-100); NEUTROPHILS % (AUTO) 4.1 % (40-74); Platelet Count 68 bil/L (150-400)
[2016-08-18 03:16] LABS: Magnesium 1.6 mg/dL (1.6-2.6)
[2016-08-18] MEDS: Meropenem Inj 1,000 MG in 0.9% Sodium Chloride 50 ML IV SCH ×2 (03:55→12:32)
--- NOTE | 2016-08-18 05:23 | NUR ---
AM Labs/Voiding Pt's H/H this AM is 7.5/23.6 and no blood transfusion needed at this time. Pt did void after the removal of the machado catheter. Unable to measure pt's urine output since the pt is incontinent of both urine and stool. Pt did have a BM this evening shift as well. Pt's brief needs to be frequently checked since pt does not notify staff when the pt has urinated or stooled.
[2016-08-18] MEDS: Pantoprazole 20 mg ER24 Tablet PO SCH ×2 (08:52→17:08)
[2016-08-18] MEDS: 0.9% Sodium Chloride 250 ML IV SCH (08:54)
--- NOTE | 2016-08-18 09:26 | NUR ---
Social Work- Initial Assessment Data: See Initial Assessment. Pt is a 86 year old male admitted 08/15/16 for AMS, UTI per H&P. Pt's insurance is [employer]. Pt's NOK is Colleen Holbrook [phone]. Pt's DPOA is Colleen Holbrook [phone] and daughter Juan David [phone]. Pt's readmit risk score is 4- high risk. JACK met with pt at bedside regarding discharge plan, SW role explained. Pt agreeable to speaking with JACK, stated that SW could also call his Colleen and she is the designated contact center engineer for discharge planning. Pt resides at [facility] for rehab following a stroke. Pt is agreeable to returning there at discharge. JACK placed call to Yolanda, admissions at [facility], who is agreeable to pt returning. Pt could not recall any history of HH. Pt states he has no LTC or VA benefits. JACK attempted to call Colleen to discuss discharge plan but there was no answer, JACK left message requesting return call. Pt anticipated to return to [facility] at discharge to continue rehab. SW will continue to follow for discharge needs. Paperwork in folder. Assessment: Pt who was at [facility] for skilled rehab Plan: Pt anticipated to return to [facility] at discharge to continue rehab. Paperwork in chart. SW will continue to follow for discharge needs. RUPAL Moya Addendum: 08/18/16 at 0927 by LAURA ZARAGOZA Amended: Links added.
--- NOTE | 2016-08-18 10:47 | NUR ---
ALESSANDRO signed by BRO Holbrook over the phone. Yesenia Son ENGINE INSTALLER
--- NOTE | 2016-08-18 10:48 | NUR ---
Social Work- Readiness for Discharge Data: EMR reviewed. Pt is on day 3 of hospitalization for AMS, UTI per H&P. Pt is not medically stable for discharge, anticipate discharge today or tomorrow. Pt is likely to return to [facility] at discharge, [facility] is agreeable to pt's return. Access given to [facility]. Paperwork is in pt's chart. T/C to Colleen Holbrook, pt's , regarding pt's discharge plan. Colleen is agreeable to pt's return to [facility]. Colleen has pt's DPOA paperwork and will bring in copies to the hospital to place in pt's chart. All updated and agreeable to plan at this time. Pt to discharge to [facility] with [facility] to follow. Paperwork in chart. SW will continue to follow. Assessment: Pt for whom [facility] is medically necessary for rehabilitation Plan: Pt to discharge to [facility] with [facility] to follow. Paperwork in chart. All updated and agreeable to plan. SW will continue to follow. RUPAL Moya
--- NOTE | 2016-08-18 14:03 | PCM.PNMED ---
Subjective Date of Service August 18, 2016 Subjective He is a dry cough, denies any chest pain. No dyspnea. No nausea or diarrhea. He is not as weak. He tends Richmond removed after about 4 weeks yesterday is able to urinate without difficulty. No dysuria or hematuria. No fevers or chills. No overnight events. Exam Vital Signs Vital Sign - Last Date Time Temp Pulse Resp B/P Pulse Ox O2 Delivery O2 Flow Rate FiO2 08/18/16 11:28 82 08/18/16 11:19 36.9 18 108/62 94 Nasal Cannula 2.00 Intake and Output 08/17/16 08/17/16 08/18/16 Cumulative From/Thru 15:00 23:00 07:00 08/15/16 19:18 - 08/18/16 04:44 Intake Total 909 ml 672 ml 5340 ml Output Total 1200 ml 3600 ml Balance -291 ml 672 ml 1740 ml Intake Oral 120 ml 500 ml 1060 ml IV Total 789 ml 172 ml 3980 ml Packed Cells 300 ml Output Urine Total 1200 ml 3600 ml # Voids 2 2 # Bowel Movements 2 2 6 Exam Alert and oriented -3, no distress. Fluent speech Anicteric sclera. Lungs are clear with normal rate and effort Heart is regular without murmur gallop or rub Abdomen soft nontender, flat Extremities are free of edema. Skin is free of rash or lesions. Right hemiparesis and facial droop. IVs and Medications Medications Reviewed: Medications were reviewed in detail Lab and Diagnostics Result Diagram: 08/18/16 0240 08/18/16 0240 Microbiology 08/15/16 Blood Culture- No growth to date. 08/16/16 MRSA (PCR)- Negative 08/15/16 Urine Culture - Insufficient growth, culture is re-incubated X-Rays, CTs and MRIs (08/15/16) Chest Xray Interpretation: IMPRESSION: Improvement in bilateral hilar and retrocardiac opacities since 08/03. Dictated and approved by: Arvind Maradiaga M.D. on 08/15/2016 at 19:45 (08/15/16) CT head IMPRESSION: No acute intracranial process Dictated and approved by: Arvind Maradiaga M.D. on 08/15/2016 at 19:48 Assessment & Plan Mr. Holbrook is an 86-year-old gentleman with a history of heart failure, prior CVA with residual right-sided hemiparesis, A-fib, hypothyroidism, and stage IV lymphocytic leukemia who presented to the emergency department from [facility] with an indwelling Richmond catheter and a one day history of lethargy. Admitted for acute encephalopathy likely due to acute urinary tract infection. Acute encephalopathy. Present on admission. Resolved. This may have related to urinary tract infection. Improving -Likely secondary to acute UTI. Additional etiologies considered include: pneumonia, meningitis, encephalitis, dehydration, drug reaction, or CLL related manifestations. -CT head negative for acute intracranial process. -TSH/free T4 consistent with subclinical hypothyroidism. -Urine analysis, as above. Culture- pending -Blood cultures with no growth to date. -Per Oncology, may consider Filgastrim if infection persists. -Discontinue IV fluids, adequately fluid resuscitated. -Continue broad spectrum coverage with meropenem in setting of CLL and recent hospitalization. -Vancomycin discontinued (08/16), MRSA screen negative. Urinary tract infection, acute. Present on admission. Active and improving. -Patient has indwelling urethral catheter and UA positive for nitrites and leukocyte esterase. No past history of specific organisms. Allergies to cephalosporins, penicillins, sulfa. -MRSA screen- negative. Urine culture- pending. -Antibiotics as above. Stage IV lymphocytic leukemia/small lymphocytic lymphoma, chronic. Present on admission. Active. -Patient followed outpatient by Dr. Gama. -Oncology consulted and recommendations as follows: -Additional therapy or initiation of treatment for CLL not indicated at this time. -Patient will need to recover from acute infection and discuss management of CLL with Dr. Gama. -Due to increasing frequency of infections he may be a candidate for second- line therapy. Patient's chronic leukocytosis is fairly stable. Leukocytosis, acute. Present on admission. Active and stable. -Most likely due to CLL but cannot rule out infectious processes. -Blood cultures with no growth to date. -Urine culture- pending. -Antibiotics as above. Anemia of chronic disease. Present on admission. Active and stable. -Patient appears to be at baseline. Per the patient's he receives transfusions approximately every 6 weeks. -Hb 6.5 and 8.2 after transfusion of 1 unit pRBCs. -7.2 this morning -CBC in the morning -Transfusion threshold Hb < 7.0. The patient remains above his threshold for transfusion Thrombocytopenia, chronic. Present on admission. Remains stable. -Secondary to CLL with pancytopenia and appears at baseline. -Management as above for anemia. Transfuse platelets if needed. Prior CVA with chronic right-sided hemiparesis. Present on admission. Presumed stable. -Continue home atorvastatin, 40 MG PO HS Dysphagia, chronic. Present on admission. Presumed stable. -Likely residual deficit from prior CVA. -Dysphagia diet with 1:1 assist per Speech following swallow evaluation 08/16. Chronic diastolic CHF, chronic. Present on admission. Presumed stable. -Patient clinically with no signs/symptoms of decompensation. -Echo 06/05/16: showed left ventricular ejection fraction 55-60% with an increase in the severity of pulmonary hypertension. -Daily weights, monitor I's and O's Atrial fibrillation, chronic. Present on admission. Presumed stable. -Continue home apixaban (Eliquis), 5 MG PO BID Reflux Esophagitis, chronic. Present on admission. Presumed stable. -Continue omeprazole 20 MG PO BIDAC Subclinical hypothyroidism, chronic. Present on admission. Presumed stable. -Patient not on levothyroxine. -TSH/free T4 7.37/1.22 as of 08/05/16 Ocular Myasthenia gravis, chronic. Present on admission. Presumed stable. -Continue home pyridostigmine bromide, 60 MG PO QID Acetaminophen-fever/headache/mild/moderate pain Antiemetics, as needed Bowel regimen, as needed. Disposition: Patient will likely discharge back to [facility] tomorrow, Friday. Have discussed this plan today with the family. GI Prophylaxis: Not indicated VTE Prophylaxis: SCDs VTE Mechanical Devices: Intermittant Pneumatic CD Resuscitation Status: DNR/DNI:Do Not Resuscitate/Intubate Lorenzo Lombardo MD August 18, 2016 14:03
--- NOTE | 2016-08-18 16:06 | NUR ---
Evaluation completed. Please go to "Notes" then click on "Assessments and Notes" (bottom left corner of screen). Then select appropriate discipline tab on top of screen.
--- NOTE | 2016-08-18 16:17 | NUR ---
PVR/Activity/Tele Patient a/o x self, but forgetful r/t previous cva. Patient denies pain, nausea or sob. Incont urine and stool, PVR 91 ml. Patient turned q 2hr and calmoseptine applied to alfredo area after each incont. VSS, tele A fib 70-80's at rest. Patient oob with PT HR 150's with standing. Patient taking diet fair, feeds self with 1:1 tray set up and observation.
--- NOTE | 2016-08-19 03:03 | NUR ---
Mobility Pt able to assist with bed mobility using his strong left leg and arm. Pt is incontinent of urine. Pt not calling when incontinent, Q2h checks continue.
[2016-08-19 03:51] LABS: Mean Corpuscular Hemoglobin 35.6 pg (27.0-35.0); Mean Corpuscular Volume 114.4 fL (81-100)
[2016-08-19 04:03] VITALS: BP 101/59; PULSE 78; RESP 20; O2SAT 92
[2016-08-19] MEDS: 0.9% Sodium Chloride 250 ML IV SCH (08:17)
[2016-08-19] MEDS: Pantoprazole 20 mg ER24 Tablet PO SCH (08:17)
[2016-08-19 08:30] VITALS: BP 104/61; PULSE 82; RESP 18; O2SAT 95
[2016-08-19 08:32] VITALS: PULSE 86
[2016-08-19 12:28] VITALS: BP 117/60; PULSE 72; RESP 18; O2SAT 96
--- NOTE | 2016-08-19 13:17 | PCM.DIMED ---
Discharge Instructions Date of Service August 19, 2016 Dates of Hospitalization August 15, 2016 at 22:25 Discharge Diagnosis Discharge Diagnosis Acute encephalopathy. Present on admission. Resolved. This may have related to urinary tract infection. Improved Urinary tract infection, acute. Present on admission. Resolved Stage IV lymphocytic leukemia/small lymphocytic lymphoma, chronic. Present on admission. Active. Leukocytosis, acute. Present on admission. Active and stable. Anemia of chronic disease. Present on admission. Active and stable. Thrombocytopenia, chronic. Present on admission. Remains stable. Prior CVA with chronic right-sided hemiparesis. Present on admission. Presumed stable. Dysphagia, chronic. Present on admission. Presumed stable. Chronic diastolic CHF, chronic. Present on admission. Presumed stable. Atrial fibrillation, chronic. Present on admission. Presumed stable. Reflux Esophagitis, chronic. Present on admission. Presumed stable. Subclinical hypothyroidism, chronic. Present on admission. Presumed stable. Ocular Myasthenia gravis, chronic. Present on admission. Presumed stable. . Diet Discharge Diet: Heart Healthy Activity Discharge Activity: Limited until seen by PCP Call your provider Call your provider for: Fever or Chills, Shortness of breath, Bleeding, Chest pain, Vomitting, Excessive diarrhea, Weakness (unilateral) Patient Instructions Patient Instructions We [facility] Please take all meds as directed and engage in physical therapy at your facility. Follow-up plan Please follow up with your primary care doctor or [facility] facility practitioner within 1 week. Follow-up Provider: Lorenzo Lombardo MD Follow-up with PCP in: 1 week Fabian Greene DO August 19, 2016 13:17
--- NOTE | 2016-08-19 13:18 | PCM.DIMED ---
Discharge Instructions Date of Service August 19, 2016 Dates of Hospitalization August 15, 2016 at 22:25 Discharge Diagnosis Discharge Diagnosis Acute encephalopathy. Present on admission. Resolved. This may have related to urinary tract infection. Improved Urinary tract infection, acute. Present on admission. Resolved Stage IV lymphocytic leukemia/small lymphocytic lymphoma, chronic. Present on admission. Active. Leukocytosis, acute. Present on admission. Active and stable. Anemia of chronic disease. Present on admission. Active and stable. Thrombocytopenia, chronic. Present on admission. Remains stable. Prior CVA with chronic right-sided hemiparesis. Present on admission. Presumed stable. Dysphagia, chronic. Present on admission. Presumed stable. Chronic diastolic CHF, chronic. Present on admission. Presumed stable. Atrial fibrillation, chronic. Present on admission. Presumed stable. Reflux Esophagitis, chronic. Present on admission. Presumed stable. Subclinical hypothyroidism, chronic. Present on admission. Presumed stable. Ocular Myasthenia gravis, chronic. Present on admission. Presumed stable. . Diet Discharge Diet: Heart Healthy Activity Discharge Activity: Limited until seen by PCP Call your provider Call your provider for: Fever or Chills, Shortness of breath, Bleeding, Chest pain, Vomitting, Excessive diarrhea, Weakness (unilateral) Patient Instructions Patient Instructions We are [facility]. Please take all meds as directed and engage in physical therapy at your facility. Follow-up plan Please follow up with your primary care doctor or [facility] facility practitioner within 1 week. Please follow up with Dr. Gama your oncologist for further evaluation within 2 weeks. Follow-up Provider: Lorenzo Lombardo MD Follow-up with PCP in: 1 week Provider: Parth Gama MD Follow-up in: 2 weeks Fabian Greene DO August 19, 2016 13:18
--- NOTE | 2016-08-19 13:41 | NUR ---
Social Work Note: Discharge Data& Assessment: EMR reviewed. Per pt is medically ready to discharge back to SNF for continued rehab. Sameer Holbrook is a 86 year old male admitted on 08/15/2016 for AMS and UTI. Per pt is medically improved and ready to discharge back to [facility] via wheelchair van. JACK spoke with pt Colleen via phone call to confirm discharge plan and assess for any unmet needs. Pt confirmed [facility] is still the SNF preference and they are hoping that pt will be able to regain enough strength to return home one day in the near future. PT still recommending SNF. JACK spoke with Yolanda from [facility] who confirmed they will be able to accept pt this afternoon and arranging wheelchair van with oxygen for 3:30p.m. Pt, pt and RN all updated and agreeable to plan. Pt denies any unmet needs. No other discharge needs identified. Plan: Per pt is medically ready to discharge back to [facility] for continued rehab via wheelchair van arranged by the facility. Pt denies any unmet needs. No other discharge needs identified. All updated and agreeable to plan. RUPAL Molina
--- NOTE | 2016-08-19 13:53 | NUR ---
P: Altered Mental Status I: VSS. 2l/NC with sats 95%. Taking diet with 1:1 feed assistance. Saline lock dc'd with catheter intact. Incontinent of urine. Brief on and pt turned Q 2 hours and brief changed. Up with PT and up to chair for one hour. Pt has some expressive aphasia at times. Perineum a little reddened. Good alfredo care done. at bedside and updated on pt's condition and plan of care. A-fib with controlled rate. VSS. Alert and forgetful at times.Pt cooperative. Takes whole pills in applesauce without difficulty. E: Stable S: at bedside. Frequent rounding. Pt not trying to get up.
--- NOTE | 2016-08-19 15:33 | NUR ---
P: Transfer I: Report given to nurse accepting pt at [facility]. at bedside and made aware that pt is returning to same room. Transport will be here from 1530 to 1600 to pickle pumper pt. E:stable S: Pt and aware.
[2016-08-19 15:39] VITALS: PULSE 84
--- NOTE | 2016-08-19 15:45 | PCM.DC.MED ---
Discharge Summary Date of Service August 19, 2016 Dates of Hospitalization Date of Hospital Admission August 15, 2016 at 22:25 Date of Discharge: August 19, 2016 Providers: Admitting Physician: Chula Mcknight DO Primary Care Physician: Lorenzo Lombardo MD Attending Physician: Chula Mcknight DO Diagnosis at Time of Discharge Diagnosis at Time of Discharge Acute encephalopathy. Present on admission. Resolved. This may have related to urinary tract infection. Improved Urinary tract infection, acute. Present on admission. Resolved Stage IV lymphocytic leukemia/small lymphocytic lymphoma, chronic. Present on admission. Active. Leukocytosis, acute. Present on admission. Active and stable. Anemia of chronic disease. Present on admission. Active and stable. Thrombocytopenia, chronic. Present on admission. Remains stable. Prior CVA with chronic right-sided hemiparesis. Present on admission. Presumed stable. Dysphagia, chronic. Present on admission. Presumed stable. Chronic diastolic CHF, chronic. Present on admission. Presumed stable. Atrial fibrillation, chronic. Present on admission. Presumed stable. Reflux Esophagitis, chronic. Present on admission. Presumed stable. Subclinical hypothyroidism, chronic. Present on admission. Presumed stable. Ocular Myasthenia gravis, chronic. Present on admission. Presumed stable. . Consultations Dr. Vinny Levine from hematology oncology Procedures XRay, CTs & MRIs (08/15/16) Chest Xray Interpretation: IMPRESSION: Improvement in bilateral hilar and retrocardiac opacities since 08/03. Dictated and approved by: Arvind Maradiaga M.D. on 08/15/2016 at 19:45 (08/15/16) CT head IMPRESSION: No acute intracranial process Dictated and approved by: Arvind Maradiaga M.D. on 08/15/2016 at 19:48 Brief History Taken From HPI composed by Dr. Cuong Loo on 08/16/16 86 y/o male with a hx of CVA, CHF, A-fib and stage IV lymphocytic leukemia presents to the ED via EMS from [facility] due to lethargy, onset yesterday. As per his , the pt has not been alert for the last two days. She was unable to keep him awake today when she tried to make him eat. Family denies any fever or vomiting. Pt has an indwelling catheter in place. The pt is scheduled for a blood transfusion in three days. Pt was discharged 3 weeks ago after hospitalization due to pneumonia and sepsis. In the ED vitals T 36.7, P 89, R 20, BP 107/50, oxygen saturation 100% on 4 L. Absence significant for WBC 36.8, H/H 8.4/24.7, platelets 82. UA positive for nitrites and leukocyte esterase, urine sent for culture. CXR showed "Improvement in bilateral hilar and retrocardiac opacities compared to 08/03/16" . CT of head negative for any acute intracranial process. Patient was started on meropenem, admitted for further treatment and management. . Hospital Course Mr. Holbrook is an 86-year-old gentleman with a history of heart failure, prior CVA with residual right-sided hemiparesis, A-fib, hypothyroidism, and stage IV lymphocytic leukemia who presented to the emergency department from [facility] with an indwelling Machado catheter and a one day history of lethargy. Admitted for acute encephalopathy initially thought to be due to a UTI, however patient was consistently afebrile, had a WBC consistent with his baseline, an equivocal UA with culture that grew mixed urogenital ki, denied dysuria, and otherwise had no infectious indicators so was discharged without further antibiotics. Patient is in danger of becoming colonized with highly resistant organisms due to frequent use of broad spectrum antibiotics, underlying immune deficiency, and indwelling machado catheter so we have chosen to be judicious in antibiotic treatment, that being said we recommend a low threshold to re- institute antibiotics should the patient begin to manifest any signs of symptoms of infection. 1. Acute encephalopathy. Present on admission. Resolved. Improving -This was initially suspected to be due to a UTI, however patient was consistently afebrile with an equivocal UA and Mixed urogenital ki growing in a patient without dysuria rendering UTI less likely -Possibly due to manifestation of underlying CLL, combined with likely dehydration -CT head negative for acute intracranial process. -TSH/free T4 consistent with subclinical hypothyroidism. -Urine analysis, as above. -Blood cultures with no growth to date. -Per Oncology, considered Filgastrim if infection had persisted -Discontinue IV fluids, adequately fluid resuscitated. -Patient was given 5 days of Meropenem due to uncertain nature of potential pathogen and extensive drug allergies -Vancomycin discontinued (08/16), MRSA screen negative. 2. Possible Urinary tract infection, acute. Present on admission.resolved -Patient has indwelling urethral catheter and UA positive for nitrites and leukocyte esterase. No past history of specific organisms. Allergies to cephalosporins, penicillins, sulfa. -MRSA screen- negative. Urine culture with mixed urogenital ki -Antibiotics as above. 3. Stage IV lymphocytic leukemia/small lymphocytic lymphoma, chronic. Present on admission. Active. -Patient followed outpatient by Dr. Gama. -Oncology consulted and recommendations as follows: -Additional therapy or initiation of treatment for CLL not indicated at this time. -Patient would need to recover from acute infection and discuss management of CLL with Dr. Gama. -Due to increasing frequency of infections he may be a candidate for second- line therapy. Patient's chronic leukocytosis is fairly stable. 4. Leukocytosis, acute. Present on admission. Active and stable. -Most likely due to CLL -Grossly elevated but consistent with his baseline levels -Blood cultures with no growth to date. -Urine culture as above -Antibiotics as above. 5. Anemia of chronic disease. Present on admission. Active and stable. -Patient appears to be at baseline. Per the patient's he receives transfusions approximately every 6 weeks. -Hb 6.5 and 8.2 after transfusion of 1 unit pRBCs. -Tracked CBC -Transfusion threshold Hb < 7.0. -The patient remained above his threshold for transfusion after initial infusion 6. Thrombocytopenia, chronic. Present on admission. Remains stable. -Secondary to CLL with pancytopenia and appears at baseline. -Management as above for anemia. Transfuse platelets if needed. 7. Prior CVA with chronic right-sided hemiparesis. Present on admission. Presumed stable. -Continued home atorvastatin, 40 MG PO HS 8. Dysphagia, chronic. Present on admission. Presumed stable. -Likely residual deficit from prior CVA. -Dysphagia diet with 1:1 assist per Speech following swallow evaluation 08/16. 9. Chronic diastolic CHF, chronic. Present on admission. Presumed stable. -Patient clinically with no signs/symptoms of decompensation. -Echo 06/05/16: showed left ventricular ejection fraction 55-60% with an increase in the severity of pulmonary hypertension. -Daily weights, monitored I's and O's 10. Atrial fibrillation, chronic. Present on admission. Presumed stable. -Continued home apixaban (Eliquis), 5 MG PO BID 11. Reflux Esophagitis, chronic. Present on admission. Presumed stable. -Continued omeprazole 20 MG PO BIDAC 12. Subclinical hypothyroidism, chronic. Present on admission. Presumed stable. -Patient not on levothyroxine. -TSH/free T4 7.37/1.22 as of 08/05/16 13. Ocular Myasthenia gravis, chronic. Present on admission. Presumed stable. -Continued home pyridostigmine bromide, 60 MG PO QID Acetaminophen-fever/headache/mild/moderate pain Antiemetics, as needed Bowel regimen, as needed. Exam Vital Signs (Last) Date Time Temp Pulse Resp B/P Pulse Ox O2 Delivery O2 Flow Rate FiO2 08/19/16 12:28 36.5 72 18 117/60 96 Nasal Cannula 2.00 Exam Gen: A/O x3 pleasant cooperative elderly gentleman in NAD Neck: Supple, non tender, no JVD, Full ROM HEENT: PERRL, EOMI, no scleral icterus, no conjunctival pallor, hearing aids in place, residual right sided facial drooping CV: RRR, 2/6 systolic ejection murmur best heard at right sternal border, no rubs or gallops Resp: Lungs CTA BL, no wheezing rales or rhonchi Abd: Soft, non tender, no organomegaly, +BS 4Q Extr: No cyanosis clubbing or edema, diffuse hyperpigmentation on upper extremities Neuro: CN 2-12 grossly intact, residual right sided deandre-paresis Psych: Mood and affect pleasant and appropriate Test 08/15/16 19:19 08/15/16 19:20 08/15/16 21:28 08/17/16 00:15 Troponin T < 0.010ug/L (0.0-0.011) Pro-B-Type Natriuretic Peptide 1683pg/mL (0-486) Hold Layton Top Tube Received (Received) Urine Color Straw (YELLOW) Urine Appearance Clear (CLEAR,HAZY) Urine pH 6.5 (5.0-8.0) Urine Specific [place] 1.005 (1.003-1.035) Urine Protein Negativemg/dL (NEG,TRACE) Urine Glucose (UA) Negativemg/dL (NEGATIVE) Urine Ketones Negativemg/dL (NEGATIVE) Urine Occult Blood Small (NEGATIVE) Urine Nitrite Positive (NEGATIVE) Urine Bilirubin Negative (NEGATIVE) Urine Urobilinogen Normalmg/dL (NORMAL) Urine Leukocyte Esterase Moderate (NEGATIVE) Urine RBC 0-2/hpf (0-2) Urine WBC 6-10/hpf (0-5) Urine Epithelial Cells None/hpf (NONE-MOD) Urine Crystals Oxalic acid crystals (NONE Urine Bacteria Few/hpf (NONE-FEW) Urine Hyaline Casts None/lpf (NONE) Urine Granular Casts None seen (NONE SEEN) Urine Waxy Casts None seen (NONE SEEN) Urine Red Blood Cell Casts None seen (NONE SEEN) Urine White Blood Cell Casts None seen (NONE SEEN) Urine Mucus None seen (None Seen) Urine Trichomonas None seen (NONE SEEN) Urine Yeast None (NONE SEEN) Urinalysis Comment None Urine Culture Reflexed Indicated Vancomycin Level Trough 8.0mcg/mL Test 08/17/16 02:45 08/18/16 02:40 08/19/16 03:10 Procalcitonin 0.11ng/mL (0.00-0.08) Neutrophils (%) (Auto) 4.1% (40-74) Lymphocytes (%) (Auto) 95.3% (14-46) Monocytes (%) (Auto) 0.4% (4-12) Eosinophils (%) (Auto) 0.1% (0-5) Basophils (%) (Auto) 0.1% (0-3) Band Neutrophils % 0% (1-5) Magnesium Level 1.6mg/dL (1.6-2.6) Total Bilirubin 1.6mg/dL (0.0-1.2) Aspartate Amino Transf (AST/SGOT) 10U/L (0-50) Alanine Aminotransferase (ALT/SGPT) 6U/L (0-44) Alkaline Phosphatase 52U/L (25-160) Total Protein 5.1g/dL (6.4-8.4) Albumin 2.3g/dL (3.4-5.0) White Blood Count 32.2th/mm3 (3.8-10.1) Red Blood Count 2.08mil/mm3 (4.40-5.80) Hemoglobin 7.4g/dL (13.8-17.2) Hematocrit 23.8% (41.0-50.0) Mean Corpuscular Volume 114.4fL (81-100) Mean Corpuscular Hemoglobin 35.6pg (27.0-35.0) Mean Corpuscular Hemoglobin Concent 31.1% (32.0-37.0) Red Cell Distribution Width 18.5% (12.3-15.4) Platelet Count 59bil/L (150-400) Sodium Level 137mEq/L (134-144) Potassium Level 4.4mEq/L (3.5-5.2) Chloride Level 100mEq/L (97-108) Carbon Dioxide Level 28mmol/L (18-29) Blood Urea Nitrogen 16mg/dL (8-27) Creatinine 0.32mg/dL (0.76-1.27) Estimat Glomerular Filtration Rate 282mL/min (>59) Glucose Level 109mg/dL (60-99) Calcium Level 8.0mg/dL (8.5-10.1) Microbiology Results 08/15/16 Blood Culture- No growth to date. 08/16/16 MRSA (PCR)- Negative 08/15/16 Urine Culture - Insufficient growth, culture is re-incubated Discharge Medications Discharge Medications Acidophilus/Pectin, [place]o (Acidophilus Caplet) 1 Each Tablet 2 EACH PO BID ( Reported) Apixaban (Eliquis) 5 Mg Tablet 5 MG PO BID (Reported) Atorvastatin (Lipitor) 10 Mg Tab 40 MG PO HS (Reported) Calcium Carbonate (Calcium) 600 Mg Tablet 600 MG PO BID (Reported) Cholecalciferol (Vitamin D3) (Vitamin D3) 1,000 Unit Tab.chew 1,000 UNIT PO QAM (Reported) Cyanocobalamin (Vitamin B-12) (Vitamin B-12) 1,000 Mcg Tablet 1,000 MCG PO QAM ( Reported) Ipratropium/Albuterol Sulfate (Iprat-Albut 0.5-3(2.5) mg/3 mL Inhalant Soln) 3 Ml Ampul.neb 3 ML IH TID (Reported) [place]-3/Dha/Epa/Fish Oil (Fish Oil 1,000 mg Softgel) 1 Each Capsule 2 EACH PO QAM (Reported) Omeprazole (Omeprazole) 20 Mg Capsule.dr 20 MG PO BIDAC (Reported) Pyridostigmine Ephraim (Mestinon) 60 Mg Tablet 60 MG PO QID (Reported) Zinc Oxide (Zinc Oxide) 60 Applic/60 Gm Oint 1 APPLIC EXT TID (Reported) TO COCCYX As needed Acetaminophen (Acetaminophen) 325 Mg Tablet 650 MG PO Q4H PRN PRN pain/fever ( Reported) Bisacodyl (Dulcolax Rectal) 10 Mg Supp.rect 10 MG RC DAILY PRN PRN For Constipation (Reported) NO BOWEL MOVEMENT IN PM POST MILK OF MAG ADMINISTRATION Magnesium Hydroxide (Milk of Magnesia) 400 Mg/5 Ml Oral.susp 30 ML PO DAILY PRN PRN For Constipation (Reported) NO BOWEL MOVEMENT IN 3 DAYS Na Phos,M-B/Na Phos,Di-Ba (Fleet Enema) 133 Ml Enema 133 ML RC DAILY PRN PRN For Constipation (Reported) NO BOWEL MOVEMENT POST BISACODYL ADMINISTRATION Followup Plan Follow-up plan Please follow up with your primary care doctor or prison facility practitioner within 1 week. Please follow up with Dr. Gama your oncologist for further evaluation within 2 weeks. Discharge Diet: Heart Healthy Discharge Activity: Limited until seen by PCP Patient Instructions We are discharging you back to your custodial facility. Please take all meds as directed and engage in physical therapy at your facility. Follow-up Provider: Lorenzo Lombardo MD Follow-up with PCP in: 1 week Provider: Parth Gama MD Follow-up in: 2 weeks Time spent Greater than 30 minutes was spent in preparation of discharge with greater than 50% of that time dedicated to patient counseling and coordination of care. . Attending Statement The patient was seen and examined together with Dr. Greene on 08/19/2016 and I agree with the history, exam and plan as outlined in the note above. . copies to: Lorenzo Lombardo MD; Parth Gama MD, David E DO August 19, 2016 15:45 Stew Thorne MD August 19, 2016 16:21
[2016-08-21] MEDS ORDERED: oxygen INH (10:41)
[2016-09-05] MEDS ORDERED: [UNRECOGNIZED DRUG - CODE] MC (09:16)
[2016-09-11] MEDS ORDERED: LIP40 PO (08:50)
[2016-09-11] MEDS ORDERED: MAGN800O PO (08:57)
[2016-09-11] MEDS ORDERED: PYRI60TA PO (08:57)
[2016-09-11] MEDS ORDERED: LEVO500T16 PO (08:57)
[2016-09-11] MEDS ORDERED: NYST1000 PO (08:57)
== END 2016-08-19 16:27 | DRG 698 ==
LOC: SED 18:37 → PCC 22:25
PROVIDERS: ADMIT Internal Medicine; ATTEND Internal Medicine
PROC: 30233N1 Transfusion of Nonautologous Red Blood Cells into Peripheral Vein, Percutaneous Approach (ICD-10-PCS; principal; 2016-08-16)
DX: T83.511A Infection and inflammatory reaction due to indwelling urethral catheter, initial encounter (principal); G93.40 Encephalopathy, unspecified; I69.351 Hemiplegia and hemiparesis following cerebral infarction affecting right dominant side; I50.32 Chronic diastolic (congestive) heart failure; C91.10 Chronic lymphocytic leukemia of B-cell type not having achieved remission; N39.0 Urinary tract infection, site not specified; I48.2 Chronic atrial fibrillation; K21.0 Gastro-esophageal reflux disease with esophagitis; E02 Subclinical iodine-deficiency hypothyroidism; G70.00 Myasthenia gravis without (acute) exacerbation; D63.0 Anemia in neoplastic disease; I69.391 Dysphagia following cerebral infarction; R13.10 Dysphagia, unspecified; Z87.891 Personal history of nicotine dependence; D69.6 Thrombocytopenia, unspecified; Z66 Do not resuscitate

== ENCOUNTER 2016-08-31 07:26 | Day surgery (SDC) | payer MEDICARE, OTHER ==
[2016-08-31] VITALS (7 sets, daily range): BP systolic 99–115; BP diastolic 50–61; PULSE 76–81; RESP 20–24; O2SAT 93–94
[~2016-08-31] VITALS: Ht 180.3 cm; Wt 74.0 kg
[~2016-08-31 07:26] MED LIST changes: -ATOR40TA69 PO; +ATRV10T PO; +BISA10SU61 RC; -FISH1CAP15 PO; +IPRA3AMP IH; +MAGN400O4 PO; +NA P133E23 RC; +OMEG-38 PO; +[UNRECOGNIZED DRUG - CODE] EXT; +oxygen INH
[2016-08-31] MEDS: Furosemide 10 mg/mL 2 mL Inj IV SCH ×2 (11:00→16:15)
--- NOTE | 2016-08-31 16:47 | NUR ---
Blood Transfusion Patient arrived to unit in wheelchair, pushed by transportation refrigeration technician. Labs drawn. Received 2 units of Prbcs. Tolerated without adverse reaction. Lasix given after first unit. BP decreased following injection. SBP 99 after second dose. No increase in oxygen demand or respirations. No crackles noted. Dr. Dyson notified. Orders to hold second dose of Lasix. Labs ordered post transfusion. at bedside, keep current with plan of care. Addendum: 08/31/16 at 1747 by DYLAN AVALOS RN Transportation here to transport back to [facility]. Labs drawn prior. Attempted to call report to staff, message left for them to return call.
[2016-09-05] MEDS ORDERED: [UNRECOGNIZED DRUG - CODE] MC (09:16)
[2016-09-11] MEDS ORDERED: LIP40 PO (08:50)
[2016-09-11] MEDS ORDERED: MAGN800O PO (08:57)
[2016-09-11] MEDS ORDERED: NYST1000 PO (08:57)
[2016-09-11] MEDS ORDERED: LEVO500T16 PO (08:57)
[2016-09-11] MEDS ORDERED: PYRI60TA PO (08:57)
== END 2016-08-31 23:59 | disposition home or self-care (01) ==
LOC: MOCO 07:26
PROVIDERS: ATTEND Internal Medicine
DX: D64.9 Anemia, unspecified (principal)
CPT/HCPCS: 36415; 36430; 85014; 85018; 86922; J1940; J7050; P9021